=== PATIENT | female | born 1985 | race Caucasian/White ===

== ENCOUNTER 2017-05-27 08:51 | Observation (INO) | payer OTHER ==
[2017-05-26 14:37] VITALS: BMI 23.5
[~2017-05-27] VITALS: Ht 170.2 cm; Wt 65.0 kg
[2017-05-27] VITALS (21 sets, daily range): BP systolic 116–145; BP diastolic 71–90; PULSE 68–102; RESP 12–23; Ht 170.2 cm; Wt 65.0 kg
[~2017-05-27 08:51] MED LIST: CEFAZOLIN 1 GM/50 ML (PMX) 50 ML IVPB ONE; SOD CHLORIDE 0.9% 1,000 ML IV SCH
[2017-05-27 10:34] LABS: ABNORMAL IP MESSAGE 1; BASOPHIL # 0.1 10^3/ul (0.0-0.1); BASOPHILS % 1.2 % (0.0-2.0); EOSINOPHILS # 0.1 10^3/ul (0.0-0.5); EOSINOPHILS % 1.3 % (0.0-7.0); HEMATOCRIT 36.9 % (37.0-47.0); HEMOGLOBIN 12.9 g/dl (12.0-16.0); LYMPHOCYTES # 1.6 10^3/ul (0.8-2.9); LYMPHOCYTES % 26.3 % (15.0-51.0); MEAN CORPUSCULAR HEMOGLOBIN 31.5 pg (29.0-33.0); MEAN CORPUSCULAR VOLUME 90.2 fl (82.0-101.0); MEAN PLATELET VOLUME 13.1 fl (7.4-10.4); MONOCYTE # 0.4 10^3/ul (0.3-0.9); MONOCYTES % 5.9 % (0.0-11.0); NEUTROPHIL # 3.9 10^3/ul (1.6-7.5); NEUTROPHILS % 65.1 % (39.0-77.0); PLATELET COUNT 225 10^3/UL (140-415); POSITIVE DIFF @See below; RED BLOOD COUNT 4.09 10^6/ul (4.20-5.40); RED CELL DISTRIBUTION WIDTH 12.5 % (11.5-14.5)
[2017-05-27 10:56] LABS: INR 1.13; PROTIME 14.7 Sec (11.9-14.9); PT RATIO 1.1
[2017-05-27 10:57] LABS: PARTIAL THROMBOPLASTIN TIME 29.4 Sec (25.0-35.0)
[2017-05-27 11:01] LABS: ALBUMIN 4.1 g/dl (3.3-4.9); ALBUMIN/GLOBULIN RATIO 1.32; BILIRUBIN,INDIRECT 0.3 mg/dl (0-1.1); BILIRUBIN,TOTAL 0.3 mg/dl (0.2-1.3); TOTAL PROTEIN 7.2 g/dl (6.1-8.1)
[2017-05-27 11:17] LABS: POTASSIUM 3.7 mmol/L (3.5-5.1)
[2017-05-27 11:18] LABS: CALCIUM 9.3 mg/dl (8.4-10.2); CREATININE 0.81 mg/dl (0.44-1.00)
[2017-05-27] MEDS ORDERED: PROPOFOL 100 ML ONE (12:38)
[2017-05-27] MEDS ORDERED: ISOSULFAN BLUE 1% 5 ML INJ SC ONE (12:42)
[2017-05-27] MEDS ORDERED: hydrALAzine 20 MG INJ IV PRN (13:00)
[2017-05-27] MEDS ORDERED: FENTAnyl 50 MCG/ML VIAL IV PRN ×2 (13:00)
[2017-05-27] MEDS ORDERED: MIDAZOLAM 1 MG/ML 2 ML INJ IV PRN (13:00)
[2017-05-27] MEDS ORDERED: MEPERIDINE 25 MG INJ IV PRN (13:00)
[2017-05-27] MEDS ORDERED: KETOROLAC 30 MG INJ IV PRN (13:00)
[2017-05-27] MEDS ORDERED: LABETALOL HCL 20MG INJ IV PRN (13:00)
[2017-05-27] MEDS ORDERED: ONDANSETRON 4 MG INJ IV PRN ×2 (13:00→15:30)
[2017-05-27] MEDS ORDERED: EPHEDrine SULFATE 50 MG/5 ML SYG IV PRN (13:00)
[2017-05-27] MEDS ORDERED: METOCLOPRAMIDE 10 MG INJ IV PRN (13:00)
[2017-05-27] MEDS ORDERED: ALBUTEROL 0.083% (NEB) 2.5 MG/3 ML AMP HHN PRN (13:00)
[2017-05-27] MEDS ORDERED: OXYCODONE/ACETAMINOPHEN (5/325) TAB PO PRN ×2 (13:00)
[2017-05-27] MEDS ORDERED: HYDROmorphONE (0.2 MG/ML) 10ML SYG IV PRN ×3 (13:00)
[2017-05-27] MEDS ORDERED: DIPHENHYDRAMINE 50 MG INJ IV PRN (13:00)
[2017-05-27] MEDS ORDERED: KETOROLAC 30 MG INJ ONE (14:02)
[2017-05-27] MEDS ORDERED: DEXAMETHASONE 4 MG/ML 1 ML INJ ONE (14:11)
[2017-05-27] MEDS ORDERED: ONDANSETRON 4 MG INJ ONE (14:12)
[2017-05-27] MEDS: FENTAnyl 50 MCG/ML VIAL IV PRN ×3 (14:34→15:20)
--- NOTE | 2017-05-27 15:10 | SIPON ---
Date/Time of Note Date/Time of Note DATE: 05/27/17 TIME: 15:08 Operative Report Preoperative Diagnosis Invasive cancer right breast Postoperative Diagnosis Same Operation/Procedure Performed Right partial mastectomy and axillary dissection utilizing sentinel lymph node technique Surgeon see signature line dental assistant Dr manzano Second assist: ALYSA ERED MD Anesthesia: general Estimated blood loss: 10 - 50 ml's Transfusion Required none Specimen Right partial mastectomy specimen and sentinel lymph node Grafts/Implants none Complications none JUAN GRANT MD May 27, 2017 15:10
[2017-05-27] MEDS ORDERED: ACETAMINOPHEN 1000MG/100ML IV 100 ML IVPB PRN (15:30)
[2017-05-27] MEDS: D5W-0.45 NACL + KCL 20 MEQ 1,000 ML IV SCH (17:24)
[2017-05-27] MEDS: morphine 2 MG INJ IV PRN (22:23)
[2017-05-28] MEDS: D5W-0.45 NACL + KCL 20 MEQ 1,000 ML IV SCH ×4 (01:39→14:44)
[2017-05-28 02:40] VITALS: BP 116/66; RESP 16
[2017-05-28 07:50] VITALS: BP 117/78; RESP 16
--- NOTE | 2017-05-28 08:07 | OPR ---
DATE OF OPERATION: 05/27/2017 PREOPERATIVE DIAGNOSIS: Invasive cancer, right breast. POSTOPERATIVE DIAGNOSIS: Invasive cancer, right breast. OPERATION PERFORMED: Right partial mastectomy and axillary dissection utilizing sentinel lymph node technique. ANESTHESIA: General. ANESTHESIOLOGIST: ____ SURGEON: Baldev Garza MD TOWER HAND: Dr. Brian Bragg and Dr. Black ____. INDICATIONS FOR PROCEDURE: The patient is an unfortunate 31-year-old female who presented with a ve ry firm mass adjacent to the nipple areolar complex approximately at the 10 o'clock location. Radio graphic workup and subsequent biopsy confirmed a poorly differentiated cancer. The patient was coun seled as to need for right partial mastectomy and axillary dissection utilizing sentinel lymph node technique. She consented and was scheduled for surgery. DESCRIPTION OF PROCEDURE: The patient was brought to the operating theater, placed under general an esthesia. The right breast and axillary region was prepped and draped in the usual sterile fashion. Approximately 4 mL of 1% Lymphazurin blue dye were then injected peritumorally and the breast was gently massaged for approximately 12 minutes. At this point, approximately 3 cm incision was made i n the right axillary hairline. Subcutaneous tissue was dissected with cautery down through the clav ipectoral fascia. A dye-stained lymphatic was identified and was traced through a somewhat enlarged dye-stained lymph node. This lymph node was resected using the LigaSure device. It was then sent for sent for intraoperative analysis and frozen section was performed by attending pathologist, Dr. Sonya Noel, and the frozen section was negative for metastatic disease. Therefore, no further l ymph nodes were taken. The wound was irrigated. Minimal bleeding was controlled with cautery, and the skin was reapproximated with a 4-0 Vicryl suture in subcuticular fashion. Attention was then directed to performing the partial mastectomy. The palpable mass at 10 o'clock w as located. A periareolar incision was made from the 12 o'clock location through the 9 o'clock loca tion to the 6 o'clock location. Subcutaneous tissue was dissected with cautery. The skin edges wer e then elevated with skin hooks and wide circumferential dissection of the tissue associated with th e mass took place, taking great care to ensure adequate margin. The specimen was elevated, transect ed, oriented, and sent for gross analysis performed by attending pathologist, Dr. Sonya Noel. M argins appeared to be grossly clear. Therefore, the specimen was sent for permanent pathologic anal ysis. The wound was irrigated. Residual bleeding was controlled with cautery. The skin was then r eapproximated with a 4-0 Vicryl suture in subcuticular fashion and Dermabond was applied to both inc isions. The patient tolerated the procedure well. ESTIMATED BLOOD LOSS: 30 mL. COMPLICATIONS: None. The patient was transported in stable condition to the recovery room where circumferential compressi on dressing was applied. Dictated By: BALDEV HDZ/SABINE Conf#: [id number] DID#: [id number]
[2017-05-28] MEDS: morphine 2 MG INJ IV PRN ×2 (09:35→12:52)
--- NOTE | 2017-05-28 12:26 | HP ---
DATE OF ADMISSION: 05/27/2017 CHIEF COMPLAINT/HISTORY OF PRESENT ILLNESS: The patient is a 31-year-old female with a history of i nvasive cancer, right breast diagnosed after she underwent a biopsy of the right breast mass diagnos ed on mammogram. Patient was diagnosed with invasive cancer, right breast. The patient was brought into the hospital today and underwent right partial mastectomy and axillary dissection. The patien t had significant postoperative pain and is therefore being admitted for further evaluation and maria dolores gement. The patient denied any history of headache, dizziness, syncope. No history of fever or chi lls. No history of vomiting, no history of abdominal pain. No history of dysuria. REVIEW OF SYSTEMS: Other than postoperative pain, review of systems unremarkable. PAST SURGICAL HISTORY: None. ALLERGIES: NONE. SOCIAL HISTORY: The patient smokes intermittently. No history of alcohol abuse. FAMILY HISTORY: Positive for tongue cancer and lung cancer and apparently her great grandmother had breast cancer as per the patient's family. PHYSICAL EXAMINATION: GENERAL: The patient is conscious, awake, alert. VITAL SIGNS: Temperature 98.3, pulse 72, respirations 18, blood pressure 138/80, O2 saturation 99% on room air. HEENT: No eye discharge or redness. Extraocular movement intact. Oropharynx clear. NECK: No mass. CHEST: Fairly clear. CARDIOVASCULAR: S1, S2 normal. No murmur. ABDOMEN: Soft, nondistended, nontender. No palpable mass. EXTREMITIES: No leg edema. NEUROLOGIC: The patient is awake, alert, fairly oriented with no gross focal deficit. LABORATORY DATA: WBC 6, hemoglobin 12.9, platelet 225. Sodium 146, potassium 3.7, BUN 14, creatini ne 0.8, glucose 94. Liver enzymes normal. IMPRESSION: 1. Invasive cancer, right breast, status post right partial mastectomy and axillary dissection. PLAN: Patient admitted on medical floor. Patient will be started on clear liquid diet, which will be advanced as tolerated. Patient will be given IV fluid and has already received perioperative Anc ef. The patient will also be started on IV Tylenol, p.o. Percocet and IV morphine for pain control, depending upon severity, will use SCDs for DVT prophylaxis. Further recommendation depends upon buddy bloom's hospital course. Dictated By: KEITH CHRISTENSEN/SABINE Conf#: [id number] [facility]#: [id number]
[2017-05-28 14:48] VITALS: BP 125/72; RESP 18
--- NOTE | 2017-05-28 16:54 | PDOCDIS ---
Discharge Instructions CONDITION Patient Condition: Stable HOME CARE INSTRUCTIONS: Special Diet: regular ACTIVITY: Activity Restrictions: Slowly Increase Activity Rest between Activity Avoid heavy lifting No Sexual Activity Do not Drive Do not operate Machinery Do not operate Power Tool Avoid Heavy Housework Bathing Restrictions: Sponge Bath FOLLOW UP/APPOINTMENTS Follow-up Plan Follow up with Primary MD X 1 WEEK Call 911 or go to the nearest hospital if symptoms get worse Patient verbalized understanding DC instrctions. Zan Knutson/staff ELIDA PIERSON May 28, 2017 16:54
[2017-05-28] MEDS ORDERED: DOCU-144 PO (16:58)
[2017-05-28] MEDS ORDERED: HYDR-906 PO (16:58)
--- NOTE | 2017-05-28 17:00 | DS ---
Date/Time of Note Date/Time of Note DATE: 05/28/17 TIME: 17:00 Discharge Summary Admission/Discharge Info Admit Date/Time May 27, 2017 at 16:40 Discharge Date/Time Patient Condition: Stable Home Meds Active Scripts Docusate Sodium* (Colace*) 100 Mg Capsule, 100 MG PO DAILY, #30 CAP Prov:ELIDA PIERSON 05/28/17 Hydrocodone/Acetaminophen ([place] 5-325 Tablet) 1 Each Tablet, 1 EACH PO Q6, #14 TAB Prov:ELIDA PIERSON 05/28/17 Primary Care Provider Not On Staff Doctor Time spent on discharge: < 30 minutes ELIDA PIERSON May 28, 2017 17:00
--- NOTE | 2017-05-29 06:23 | PN ---
DATE: 05/28/2017 SUBJECTIVE: Postop day #1 status post right breast partial mastectomy with axillary dissection sampling. No complaint. OBJECTIVE: VITAL SIGNS: Temperature maximum 98.4, heart rate 88, respirations 18, blood pressure 125/74, saturation 98% on room air. HEART: Regular. LUNGS: Clear. Dressing is intact. The patient does not have any specific complaint. LABS: There are no new lab results done today. ASSESSMENT: A 31-year-old female status post partial mastectomy on the right side with axillary sampling for invasive cancer. PLAN: The patient is going to be discharged today, has been stable. Pain medication will be given. The patient to call Dr. Garza' office and make an appointment for followup. Dictated By: SHANNON MANN MD PS/NTS Conf#: [id number] DID#: [id number] MTDD
[2017-05-29] MEDS ORDERED: INFLUENZA VIRUS VACCINE 0.5 ML (DISPENSING) IM* ONE (09:00)
== END 2017-05-28 18:40 | disposition home or self-care (01) ==
LOC: SDS 08:51 → MS2 16:40
PROVIDERS: ADMIT Surgery Surgical Oncology; ATTEND Surgery Surgical Oncology
DX: C50.911 Malignant neoplasm of unspecified site of right female breast (principal); Z17.0 Estrogen receptor positive status [ER+]; C77.3 Secondary and unspecified malignant neoplasm of axilla and upper limb lymph nodes
CPT/HCPCS: 19301; 38525; 38900; 80053; 84703; 85025; 85610; 85730; 88307; J1100; J1200; J1885; J2270; J2405; J3010; J3480; Z7500; Z7512; Z7610; G0378; Q9968

== ENCOUNTER 2017-10-14 10:37 | Inpatient (IN) | END 2017-10-17 16:50 | disposition home health service (06) | DRG 940 ==

== ENCOUNTER 2017-11-30 07:40 | Day surgery (SDC) | END 2017-11-30 14:12 | disposition home or self-care (01) ==

== ENCOUNTER 2018-02-03 18:49 | Emergency (ER) | END 2018-02-03 21:27 | disposition home or self-care (01) ==

== ENCOUNTER 2018-03-06 23:57 | Emergency (ER) | END 2018-03-07 04:27 | disposition home or self-care (01) ==

== ENCOUNTER 2018-06-02 11:02 | Emergency (ER) | END 2018-06-02 13:37 | disposition left against medical advice (07) ==

== ENCOUNTER 2018-06-25 13:29 | Emergency (ER) | payer OTHER ==
[~2018-06-25] VITALS: Ht 167.6 cm; Wt 68.9 kg
[~2018-06-25 13:29] MED LIST changes: -CEFAZOLIN 1 GM/50 ML (PMX) 50 ML IVPB ONE; +CIPR500T4 PO; +HYDR-3980 PO; +HYDR-4011 PO; +ONDA4TAB8 PO; -SOD CHLORIDE 0.9% 1,000 ML IV SCH
[2018-06-25 13:36] VITALS: Ht 167.6 cm; Wt 68.9 kg
[2018-06-25] MEDS ORDERED: FAMOTIDINE 20 MG TAB PO STA (15:28)
[2018-06-25] MEDS ORDERED: METOCLOPRAMIDE 10 MG INJ IV STA (15:28)
[2018-06-25] MEDS ORDERED: SOD CHLORIDE 0.9% 1,000 ML IV STA (15:28)
[2018-06-25] MEDS ORDERED: LIDOCAINE/MYLANTA 40 ML BTL PO STA (15:28)
[2018-06-25] MEDS ORDERED: METO10TA92 PO (16:52)
[2018-06-25] MEDS ORDERED: FAMO-96 PO (16:52)
--- NOTE | 2018-06-25 16:53 | ERD ---
ER Documentation Chief Complaint Chief Complaint R arm pain - hx of breast mastectomy; throat pain x 4 days HPI 32-year-old female with a history of right breast cancer status post mastectomy and chemotherapy presenting to the ER with mom complaining of sore throat and epigastric pain that has been going on for a few days. Nothing seems to make the symptoms better. Symptoms are worse with eating or drinking. She also complains of a right axillary lump that she has had and she knows is metastatic cancer. She is due to have surgery for that and due to have radiation later this month. For the past 1 month she was in rehab for heroin abuse, so she has not followed up with any of her physicians. She denies any fevers or chills. She has not had her period for several months. She complains of occasional vomiting as well that is nonbloody and nonbilious. She is having normal bowel movements. ROS All systems reviewed and are negative except as per history of present illness. Medications Home Meds Active Scripts Famotidine* (Pepcid*) 20 Mg Tablet, 20 MG PO BID for 30 Days, TAB Prov:MUSHTAQ GONZALEZ MD 06/25/18 Metoclopramide* (Reglan*) 10 Mg Tablet, 10 MG PO Q6 PRN for NAUSEA AND/OR VOMITING, #10 TAB Prov:MUSHTAQ GONZALEZ MD 06/25/18 Discontinued Scripts Hydrocodone/Acetaminophen ([place] 10-325 Tablet) 1 Each Tablet, 1 TAB PO Q6H PRN for PAIN, #20 TAB Prov:EDWIN BOWMAN 03/07/18 Ciprofloxacin Hcl* (Ciprofloxacin Hcl*) 500 Mg Tablet, 500 MG PO BID for 7 Days, TAB Prov:EDWIN BOWMAN 03/07/18 Ondansetron Hcl* (Zofran*) 4 Mg Tablet, 4 MG PO Q8H PRN for NAUSEA AND/OR VOMITING, #30 TAB Prov:NILSA PARKINSON MD 02/03/18 Hydrocodone/Acetaminophen ([place] 5-325 Tablet) 1 Each Tablet, 1 TAB PO Q6H PRN for PAIN, #10 TAB Prov:NILSA PARKINSON MD 02/03/18 Allergies Allergies: Coded Allergies: No Known Allergy (Unverified , 06/25/18) PMhx/Soc History of Surgery: Yes (rt mastectomy x2) Anesthesia Reaction: No Hx 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 Disorder: No Hx Respiratory Disorders: No Hx Cardiac Disorders: No Hx Psychiatric Problems: No Hx Miscellaneous Medical Probl: No Hx Alcohol Use: Yes (sometimes ) Hx Substance Use: Yes (marijuana oil) Hx Tobacco Use: Yes Smoking Status: Former smoker FmHx Mother had cancer Family History: No diabetes Physical Exam Vitals Vital Signs Date Temp Pulse Resp B/P (MAP) Pulse Ox O2 O2 Flow FiO2 Time Delivery Rate 06/25/18 89 20 130/78 99 Room Air 17:08 (95) 06/25/18 98.9 95 20 131/103 98 13:36 (112) Physical Exam Const: No acute distress Head: Atraumatic Eyes: Normal Conjunctiva, PERRLA, EOMI ENT: Normal External Ears, Nose and Mouth. Posterior oropharynx normal without erythema. No intraoral lesions noted. Neck: Full range of motion. No meningismus. No cervical lymphadenopathy. Resp: Clear to auscultation bilaterally Cardio: Regular rate and rhythm, no murmurs Abd: Soft, mild epigastric tenderness with no rebound or guarding. No masses. non distended. Normal bowel sounds Skin: No petechiae or rashes Back: No midline or flank tenderness Ext: No cyanosis, or edema. Right axillary palpable mass with palpable lymph nodes as well. No swelling of the arm. 2+ distal pulses. Neur: Awake and alert, oriented x3, cranial nerves intact, strength and sensations intact in all 4 extremities Psych: Flat affect, easily agitated but cooperative Result Diagram: 06/25/18 1525 06/25/18 1525 Results 24 hrs Laboratory Tests Test 06/25/18 15:25 White Blood Count 7.0 10^3/ul Red Blood Count 3.96 10^6/ul Hemoglobin 11.9 g/dl Hematocrit 35.0 % Mean Corpuscular Volume 88.4 fl Mean Corpuscular Hemoglobin 30.1 pg Mean Corpuscular Hemoglobin Concent 34.0 g/dl Red Cell Distribution Width 12.1 % Platelet Count 196 10^3/UL Mean Platelet Volume 13.1 fl Immature Granulocytes % 0.300 % Neutrophils % 65.5 % Lymphocytes % 27.0 % Monocytes % 5.2 % Eosinophils % 1.0 % Basophils % 1.0 % Nucleated Red Blood Cells % 0.0 /100WBC Immature Granulocytes # 0.020 10^3/ul Neutrophils # 4.6 10^3/ul Lymphocytes # 1.9 10^3/ul Monocytes # 0.4 10^3/ul Eosinophils # 0.1 10^3/ul Basophils # 0.1 10^3/ul Nucleated Red Blood Cells # 0.0 10^3/ul Sodium Level 142 mmol/L Potassium Level 4.1 mmol/L Chloride Level 102 mmol/L Carbon Dioxide Level 27 mmol/L Anion Gap 13 Blood Urea Nitrogen 13 mg/dl Creatinine 0.61 mg/dl Est Glomerular Filtrat Rate mL/min > 60 mL/min Glucose Level 104 mg/dl Calcium Level 9.9 mg/dl Total Bilirubin 0.0 mg/dl Direct Bilirubin 0.00 mg/dl Indirect Bilirubin 0.0 mg/dl Aspartate Amino Transf (AST/SGOT) 16 IU/L Alanine Aminotransferase (ALT/SGPT) 19 IU/L Alkaline Phosphatase 73 IU/L Total Protein 7.7 g/dl Albumin 4.4 g/dl Globulin 3.30 g/dl Albumin/Globulin Ratio 1.33 Lipase 284 U/L Serum HCG, Qualitative NEGATIVE Current Medications Medications Dose Sig/Eligio Start Time Status Last (Trade) Ordered Route PRN Stop Time Admin Dose Reason Admin Sodium 1,000 ml @ Q1H STAT 06/25/18 DC 06/25/18 Chloride 1,000 mls/hr IV 15:28 15:41 06/25/18 16:27 10 mg ONCE STAT 06/25/18 DC 06/25/18 Metoclopramid IV 15:28 15:41 e HCl 06/25/18 15:30 (Reglan) Famotidine 20 mg ONCE STAT 06/25/18 DC 06/25/18 (Pepcid) PO 15:28 15:41 06/25/18 15:30 40 ml ONCE STAT 06/25/18 DC 06/25/18 Miscellaneous PO 15:28 15:42 Medication 06/25/18 15:30 (Gi Cocktail (2)) Heparin 500 unit ONCE ONCE 06/25/18 DC Sodium CATHETER 17:00 (Porcine) 06/25/18 17:01 (Heparin Flush (100 Units/ml)) Heparin 10,000 unit STK-MED 06/25/18 DC Sodium ONCE .ROUTE 17:05 (Porcine) 06/25/18 17:06 (Heparin (1000 Units/ml)) Procedures/MDM EMERGENT LABS AND DIAGNOSTIC STUDIES: Lab Results above were reviewed and interpreted by me. CBC: no evidence of severe anemia or evidence of infection CMP: No evidence of electrolyte abnormality, renal failure, hypoglycemia, liver failure, or biliary obstruction negative Radiology Results as interpreted by Radiology below were reviewed by Luz Maria Gonzalez MD: CT head did not show any acute abnormalities Chest x-ray did not show any acute abnormalities Initial Nursing notes reviewed. Previous Medical Records requested via the Electronic Health Record. EMERGENCY DEPARTMENT COURSE / MEDICAL DECISION MAKING: Patient is presenting with complaints of throat pain and epigastric pain with occasional vomiting. I suspect this is likely secondary to acid reflux. Vitals are stable. I did a CT of her head although her neurologic exam was normal as her behavior was not normal for her per her mom. I wanted to make sure that there was no mass-effect in the brain from metastatic disease. CT was normal. I explained to the patient that this does not rule out metastases to the brain but that there is no obvious abnormality. I encouraged her to follow-up with her doctors outpatient and get her cancer treated. She feels much better after GI cocktail and Pepcid. Patient stable for discharge with continued outpatient follow-up. Prescription for Pepcid and Reglan given. Patient's blood pressure was elevated (>120/80) but appears stable without evidence of hypertensive emergency or urgency. The patient was counseled about the risks of hypertension and urged to pursue outpatient monitoring and therapy within a week with their primary care physician. Departure Diagnosis: Primary Impression: Breast carcinoma Breast location: unspecified site of breast Estrogen receptor status: unspecified Patient sex: female Laterality: right Qualified Codes: C50.911 - Malignant neoplasm of unspecified site of right female breast Additional Impressions: Chronic sore throat Nausea and vomiting Vomiting type: unspecified Vomiting Intractability: non-intractable Qualified Codes: R11.2 - Nausea with vomiting, unspecified Condition: Stable Patient Instructions: Nausea and Vomiting-Adult Additional Instructions: Need to follow-up with an oncologist and make sure you may continue her radiation appointment this month. Return to the ER for any worsening symptoms. MUSHTAQ GONZALEZ MD Jun 25, 2018 16:53
[2018-06-25] MEDS ORDERED: HEPARIN (100 UNITS/ML) 5 ML SYG CATHETER ONE (17:00)
[2018-06-25] MEDS ORDERED: HEPARIN 1000 UNITS/ML 10 ML INJ ONE (17:05)
[2018-06-25 17:08] VITALS: BP 130/78; PULSE 89; RESP 20
[2018-07-06] MEDS ORDERED: IBUP-1542 PO (16:19)
[2018-07-28] MEDS ORDERED: CEPH-443 PO (12:08)
[2018-07-28] MEDS ORDERED: SULF1TAB31 PO (12:08)
[2018-07-28] MEDS ORDERED: ONDA4TAB14 PO (12:08)
== END 2018-06-25 17:09 | disposition home or self-care (01) ==
LOC: E/R 13:29
DX: C50.911 Malignant neoplasm of unspecified site of right female breast (principal); J31.2 Chronic pharyngitis; R11.2 Nausea with vomiting, unspecified; R41.82 Altered mental status, unspecified; Z87.891 Personal history of nicotine dependence
CPT/HCPCS: 36415; 70450; 71045; 80053; 83690; 84703; 85025; 96374; J1644; J2765; J7030; Z7502; Z7610; J1642

== ENCOUNTER 2018-07-07 06:15 | Day surgery (SDC) | payer OTHER ==
[2018-07-06 16:21] VITALS: BMI 24.3
[~2018-07-07] VITALS: Ht 168.9 cm; Wt 68.7 kg
[~2018-07-07 06:15] MED LIST changes: +CEFAZOLIN 2 GM/50 ML (PMX) 50 ML IVPB ONE; -CIPR500T4 PO; -HYDR-3980 PO; -HYDR-4011 PO; +IBUP-1542 PO; +METO10TA92 PO; -ONDA4TAB8 PO; +SOD CHLORIDE 0.9% 1,000 ML IV SCH
[2018-07-07] MEDS ORDERED: SOD CHLORIDE 0.9% 1,000 ML IV SCH (07:00)
[2018-07-07] MEDS ORDERED: CEFAZOLIN 2 GM/50 ML (PMX) 50 ML IVPB SCH (07:00)
[2018-07-07] MEDS ORDERED: CHOL100062 PO (07:20)
[2018-07-07] MEDS ORDERED: AZIT250T13 PO (07:21)
[2018-07-07 07:44] VITALS: Ht 168.9 cm; Wt 68.7 kg
[2018-07-07 07:48] VITALS: BP 124/86; PULSE 90; RESP 16
[2018-07-07] MEDS ORDERED: BUPIVACAINE 0.5%/EPI (SDV) 30 ML INJ ONE (07:49)
[2018-07-28] MEDS ORDERED: CEPH-443 PO (12:08)
[2018-07-28] MEDS ORDERED: SULF1TAB31 PO (12:08)
[2018-07-28] MEDS ORDERED: ONDA4TAB14 PO (12:08)
== END 2018-07-07 08:20 | disposition home or self-care (01) ==
LOC: SDS 06:15
PROVIDERS: ATTEND Surgery Surgical Oncology
DX: L72.3 Sebaceous cyst (principal); Z85.3 Personal history of malignant neoplasm of breast; Z53.09 Procedure and treatment not carried out because of other contraindication
CPT/HCPCS: 85610; 85730

== ENCOUNTER 2018-07-14 09:42 | Day surgery (SDC) | payer OTHER ==
[2018-07-13 18:18] VITALS: BMI 25.6
[2018-07-14] VITALS (20 sets, daily range): BP systolic 119–142; BP diastolic 72–91; PULSE 67–97; RESP 16–25; Ht 168.9 cm; Wt 67.9 kg
[~2018-07-14] VITALS: Ht 168.9 cm; Wt 67.9 kg
[~2018-07-14 09:42] MED LIST changes: +AZIT250T13 PO; -CEFAZOLIN 2 GM/50 ML (PMX) 50 ML IVPB ONE; +CEFAZOLIN 2 GM/50 ML (PMX) 50 ML IVPB SCH; +CHOL100062 PO; +SEVOFLURANE 15 MIN ONE
--- NOTE | 2018-07-14 11:37 | NUR ---
No medical changes since last interview.
--- NOTE | 2018-07-14 12:29 | PREAC ---
Date/Time of Note Date/Time of Note DATE: 07/14/18 TIME: 12:26 Anesthesia Eval and Record Evaluation Time Pre-Procedure Interview DATE: 07/14/18 TIME: 12:26 Age 32 Sex female NPO: 8 hrs Preoperative diagnosis right axillary mass Planned procedure resection of right axillary mass Past Medical History Past Medical History: Includes Heme: Other (right breast cancer s/p surgery ) Psych: Anxiety Surgery & Anesthesia Issues No known issue Meds Anticoagulation: No Beta Servando within 24 hr: No Reason Beta Servando not given: Pt. not on B-Servando Discontinued Reported Medications Azithromycin* (Azithromycin*) 250 Mg Tablet, 250 MG PO DAILY, #4 TAB 07/07/18 Cholecalciferol* (Vitamin D3*) 1,000 Unit Tablet, 2000 UNIT PO DAILY, TAB 07/07/18 Ibuprofen* (Ibuprofen*) 600 Mg Tablet, 600 MG PO Q6H, TAB 07/06/18 Discontinued Scripts Metoclopramide* (Reglan*) 10 Mg Tablet, 10 MG PO Q6 PRN for NAUSEA AND/OR VOMITING, #10 TAB Prov:MUSHTAQ CONTRERAS MD 06/25/18 Current Medications Cefazolin Sodium/ Dextrose 50 ml @ 100 mls/hr ONCE IVPB ; Start 07/14/18 at 06:00; Stop 07/14/18 at 14:00 Sodium Chloride 1,000 ml @ 75 mls/hr [id number] IV ; Start 07/14/18 at 06:00; Stop 07/14/18 at 23:00 Meds reviewed: Yes Allergies Coded Allergies: No Known Allergy (Unverified , 07/14/18) Allergies Reviewed: Yes Labs/Studies Labs Reviewed: Reviewed by anesthesiologist test: Negative Pre-procedure Exam Last vitals Vital Signs Date Temp Pulse Resp B/P (MAP) Pulse Ox O2 O2 Flow FiO2 Time Delivery Rate 07/14/18 98.5 67 20 133/80 100 Room Air 11:28 (97) Airway: Adequate mouth opening, Adequate thyromental dist Mallampati: Mallampati II Teeth: Normal Lung: Normal Heart: Normal ASA Physical Status ASA physical status: 1 Emergency: None Planned Anesthetic General/MAC: LMA Planned Pain Management Local by surgeon Pre-operative Attestations Prior to commencing anesthesia and surgery, the patient was re-evaluated, there was verification of: *The patient's identity *The results of appropriate recent lab work and preoperative vital signs *The above evaluation not changing prior to induction *Anesthetic plan, risk benefits, alternative and complications discussed with patient/family; questions answered; patient/family understands, accepts and wishes to proceed. ALHAJI PARRY Jul 14, 2018 12:29
[2018-07-14] MEDS ORDERED: PROPOFOL 20 ML ONE (12:47)
[2018-07-14] MEDS ORDERED: CEFAZOLIN 1 GM INJ ONE (12:47)
[2018-07-14] MEDS ORDERED: MIDAZOLAM 1 MG/ML 2 ML INJ ONE (12:47)
[2018-07-14] MEDS ORDERED: LIDOCAINE 2% (SDV) 5 ML INJ ONE (12:47)
[2018-07-14] MEDS ORDERED: FENTAnyl 50 MCG/ML VIAL ONE ×2 (12:47→14:08)
[2018-07-14] MEDS ORDERED: ONDANSETRON 4 MG INJ ONE (12:48)
[2018-07-14] MEDS ORDERED: FAMOTIDINE 20 MG INJ ONE (12:48)
[2018-07-14] MEDS ORDERED: DEXAMETHASONE 4 MG/ML 5 ML INJ ONE (12:48)
[2018-07-14] MEDS ORDERED: BUPIVACAINE 0.5%/EPI (SDV) 30 ML INJ ONE (12:51)
[2018-07-14] MEDS ORDERED: MEPERIDINE 25 MG INJ IV PRN (14:30)
[2018-07-14] MEDS ORDERED: ONDANSETRON 4 MG INJ IV PRN ×2 (14:30→15:00)
[2018-07-14] MEDS ORDERED: HYDROmorphONE 1 MG/5 ML IV SYRINGE IV PRN ×2 (14:30)
[2018-07-14] MEDS ORDERED: METOCLOPRAMIDE 10 MG INJ IV PRN (14:30)
[2018-07-14] MEDS ORDERED: OXYCODONE/ACETAMINOPHEN (5/325) TAB PO PRN ×2 (14:30)
--- NOTE | 2018-07-14 14:40 | SIPON ---
Date/Time of Note Date/Time of Note DATE: 07/14/18 TIME: 14:39 Operative Report Preoperative Diagnosis Recurrent breast cancer right axilla Postoperative Diagnosis Same Operation/Procedure Performed Resection of recurrent cancer right axilla with completion axillary dissection Surgeon see signature line research program assistant Dr Bragg Second assist: ALYSA REED MD Anesthesia: general Estimated blood loss: 10 - 50 ml's Transfusion Required none Specimen Right axillary mass and additional axillary lymph nodes Grafts/Implants none Complications none JUAN GRANT MD Jul 14, 2018 14:40
[2018-07-14] MEDS ORDERED: ACETAMINOPHEN 1000MG/100ML IV 100 ML IVPB PRN (15:00)
[2018-07-14] MEDS ORDERED: morphine 2 MG INJ IV PRN (15:00)
--- NOTE | 2018-07-14 15:05 | PAC ---
Date/Time of Note Date/Time of Note DATE: 07/14/18 TIME: 15:04 Post-Anesthesia Notes Post-Anesthesia Note Last documented vital signs HR 87 BP 132/82 SPo2 100% Temp 97.5 RR 18 Vital Signs Date Temp Pulse Resp B/P (MAP) Pulse Ox O2 O2 Flow FiO2 Time Delivery Rate 07/14/18 97.9 14:58 07/14/18 67 20 133/80 100 Room Air 11:28 (97) Activity: WNL Respiratory function: WNL Cardiovascular function: WNL Mental status: Baseline Pain reasonably controlled: Yes Hydration appropriate: Yes Nausea/Vomiting absent: Yes ALHAJI PARRY Jul 14, 2018 15:05
--- NOTE | 2018-07-14 15:09 | OPR ---
DATE OF OPERATION: 07/14/2018 PREOPERATIVE DIAGNOSIS: Recurrent breast cancer, right axilla. POSTOPERATIVE DIAGNOSIS: Recurrent breast cancer, right axilla. OPERATION PERFORMED: Resection of right axillary mass and completion axillary dissection. ANESTHESIOLOGIST: Nurse car hiker. SURGEON: Baldev Garza MD MANAGER DISTRIBUTION CENTER: Brian Bragg MD and Hoa Perez MD INDICATIONS FOR PROCEDURE: The patient is a 32-year-old female who is known to dc. She was treated several months ago for invasive cancer of her right breast. She had known axillary metastases. Duri ng the course of chemotherapy, she developed evidence of right axillary mass. Biopsy was consistent with recurrent right breast cancer. She was counseled as to the benefit of resection of the mass and completion axillary dissection. She consented and was scheduled for surgery. DESCRIPTION OF PROCEDURE: The patient was brought to the operating theater, placed under general ane sthesia. The right axilla and breast were prepped and draped in usual sterile fashion. A curvilinea r incision was then made directly over the palpable mass. Subcutaneous tissue was dissected with cau marie. Dissection continued posterolaterally until latissimus dorsi muscle was identified throughout its course. More anteriorly, the dissection proceeded down to the pectoralis major muscle. The pect oralis major muscle was retracted and the pectoralis minor muscle was identified. Clavipectoral fasc ia was incised. The axilla was entered. There were multiple visually obvious and palpable metastati c lymph nodes. These nodes were meticulously resected with combination of LigaSure device and suture ligation. Specimen was then transected and sent for permanent pathologic analysis. The axilla was inspected. There was no evidence of residual disease. The wound was irrigated. Minimal bleeding wa s controlled with cautery. A #10 [place] Kulwant-Chowdhury drain was then brought through the right mid a xillary line, cut to size and laid within the axilla. It was secured in place with 2-0 nylon suture in a standard fashion and the skin was then reapproximated with a 4-0 Vicryl suture in subcuticular f ashion and Dermabond was applied. The patient tolerated procedure well. The estimated blood loss wa s 20 mL. There were no complications and the patient was transported in stable condition to the [facility] very room. Dictated By: BALDEV GARZA MD TL/NTS Conf#: [id number] [facility]#: [id number] CC: KEITH KING MD;*[facility]*
[2018-07-14] MEDS: HYDROmorphONE 1 MG/5 ML IV SYRINGE IV PRN ×2 (15:11→16:04)
[2018-07-14] MEDS ORDERED: DIPHENHYDRAMINE 50 MG INJ IV ONE (15:30)
[2018-07-14] MEDS ORDERED: MIDAZOLAM 1 MG/ML 2 ML INJ IV ONE (15:30)
--- NOTE | 2018-07-14 16:30 | NUR ---
PACU TRANSFERRED TO [facility] IN STABLE COND. SP RT AXILLARY MASS EXCISION. BIAS WRAP APPLIED IN PACU, THEA DRAIN PATENT WITH APPROX 10ML SEROSANGUINOUS DRAINAGE. PAIN 0/10 PER PT. REPORT GIVEN TO ARELI DEAN. MS Addendum: 07/14/18 at 1735 by DAVID POWER RN Amended: Links added.
[2018-07-14] MEDS: D5W-0.45 NACL + KCL 20 MEQ 1,000 ML IV SCH (17:25)
[2018-07-14] MEDS: OXYCODONE/ACETAMINOPHEN (5/325) TAB PO PRN ×2 (18:21→22:55)
--- NOTE | 2018-07-14 18:35 | HP ---
DATE OF ADMISSION: 07/14/2018 CHIEF COMPLAINT AND HISTORY OF PRESENT ILLNESS: The patient is a 32-year-old female well k nown to me from previous several admissions. The patient has invasive cancer of the right breast for which she underwent right modified radical mastectomy back in 10/2017. The patient was being follow ed by Dr. 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 The patient underwent resection of right axillary mass and completion axillary dissection. The patie nt has significant postoperative pain; therefore the patient is being admitted for further evaluation and management. The patient denied any history of nausea, vomiting. No history of headache, dizzin ess, syncope. No history of abdominal pain. No history of focal weakness. No history of leg edema. No history of shortness of breath. No history of recent fever or chills. No history of weakness i n any extremities. REVIEW OF SYSTEMS: Rest of the systems unremarkable. PAST MEDICAL HISTORY: As stated above. ALLERGIES: NONE. SOCIAL HISTORY: The patient smokes intermittently. No history of alcohol abuse. FAMILY HISTORY: Positive for tongue cancer and lung cancer and apparently, her great grandmother had breast cancer also. Details are not available. PHYSICAL EXAMINATION: GENERAL: Revealed the patient to be awake, alert, fairly oriented. VITAL SIGNS: Temperature 97.5, pulse 89, respiration 18, blood pressure 134/87, O2 saturation 100% o n 2 liters nasal cannula. HEENT: No eye discharge or redness. Conjunctivae and lids are normal. Oropharynx is clear. NECK: No mass. CHEST: Fairly clear. CARDIOVASCULAR: S1, S2 normal. No murmur. ABDOMEN: Soft, nondistended, nontender. EXTREMITIES: No leg edema. NEUROLOGIC: The patient is awake, alert, fairly oriented with no gross focal deficit. LABORATORY DATA: Recent labs revealed WBC 7, hemoglobin 11.9, platelet 196. Sodium 142, potassium 4 .1, BUN 13, creatinine 0.6, glucose 104. Liver enzymes normal. IMPRESSION: Right breast cancer status post right modified radical mastectomy in 10/2017 and now cheyanne medrano is admitted with a recurrent breast cancer, right axilla, status post resection of the right axi llary mass and completion axillary dissection. PLAN: The patient will be admitted to the medical floor. The patient will be started on clear liqui d diet, which will be advanced as tolerated. For pain medication, the patient will be given Tylenol, Percocet and IV morphine. We will use SCD for DVT prophylaxis. Continue postop care as per Dr. Aminata beckwith. Dictated By: KEITH CHRISTENSEN/SABINE Conf#: [id number] DID#: [id number] CC: JUAN GARZA MD;*EndCC*
--- NOTE | 2018-07-14 18:46 | NUR ---
RN NOTES: Received patient from PACU at 1635, report given by Trisha DEAN; patient is alert and oriented x4, able to make needs known; PRN Percocet given as needed for pain; no SOB/respiratory distress noted, 98% on 2L/min of O2 via NC, IS encouraged; dressing to right chest incision is clean, dry and intact, connected to THEA drain patent and draining serosanguineous output; ambulates with assist; kept clean, dry and comfortable; teaching unit orientation done; call light placed within reached; VSS; all needs attended.
[2018-07-14] MEDS: ALPRAZOLAM 0.5 MG TAB PO PRN (19:25)
[2018-07-14] MEDS ORDERED: ZOLPIDEM 5 MG TAB PO PRN (21:15)
[2018-07-14] MEDS: LEVALBUTEROL (NEB) 0.63 MG/3 ML AMP HHN PRN (21:53)
[2018-07-15] VITALS: BP 107/68; PULSE 84; RESP 18
[2018-07-15] MEDS: D5W-0.45 NACL + KCL 20 MEQ 1,000 ML IV SCH ×3 (01:53→13:44)
[2018-07-15] MEDS: OXYCODONE/ACETAMINOPHEN (5/325) TAB PO PRN ×3 (03:25→15:31)
[2018-07-15 04:00] VITALS: BP 111/66; PULSE 80; RESP 17
--- NOTE | 2018-07-15 06:37 | NUR ---
RN EOSS NOTES: Patient able to sleep a few hours after being medicated with Ambien last night, reported fair to good pain relief with administered Percocet PRN med this shift. Afebrile overnight with V/S stable. Surgical dressing remains C/D/I-BIAS WRAP in use. RN noted 20cc or serosanguinous output to THEA drain. Has been anxious last night, relieved by Xanax PO given by previous shift's RN. Moved to a private room from previously shared room from 410-A. Appreciative of all nursing interventions implemented and assistance given.
[2018-07-15] MEDS: ALPRAZOLAM 0.5 MG TAB PO PRN (07:37)
[2018-07-15 08:40] VITALS: BP 123/79; PULSE 92; RESP 18
--- NOTE | 2018-07-15 12:21 | PN ---
Date/Time of Note Date/Time of Note DATE: 07/15/18 TIME: 12:17 Assessment/Plan VTE Prophylaxis Risk score (from Nsg)>0 risk: 4 SCD applied (from Nsg): Yes Lines/Catheters IV Catheter Type (from Nrsg): Peripheral IV Urinary Cath still in place: No Assessment/Plan Assessment/Plan - Recurrent Right breast cancer,right axilla - 2018- status post resection of the right axillary mass and completion axillary dissection. - per surgery -clear liquid diet- advanced as tolerated. - Tylenol, Percocet and IV morphine -SCD for DVT prophylaxis - Continue postop care as per Dr. Garza. - status post right modified radical mastectomy in 10/2017 Results 24hrs Laboratory Tests Test 07/15/18 07:21 Lab Scanned Report REFERENCE LAB Exam/Review of Systems Exam Vitals Vital Signs Date Temp Pulse Resp B/P (MAP) Pulse Ox O2 O2 Flow FiO2 Time Delivery Rate 07/15/18 98.5 92 18 123/79 100 Room Air 08:40 (94) 07/15/18 2.0 04:39 07/14/18 27 21:54 Intake and Output 07/14/18 07/14/18 07/15/18 1515:00 23:00 07:00 IntakeIntake Total 1400 ml 1860 ml 2300 ml OutputOutput Total 10 ml 30 ml 20 ml BalanceBalance 1390 ml 1830 ml 2280 ml Results Results 24hrs Laboratory Tests Test 07/15/18 07:21 Lab Scanned Report REFERENCE LAB Medications Medication Current Medications Ondansetron HCl (Zofran Inj) 4 mg Q6H PRN IV NAUSEA AND/OR VOMITING; Start 07/14/18 at 15:00 Potassium Chloride/Dextrose/ Sod Cl 1,000 ml @ 125 mls/hr Q8H IV Last administered on 07/15/18at 01:53; Admin Dose 125 MLS/HR; Start 07/14/18 at 14:40 Morphine Sulfate (morphine) 2 mg Q1H PRN IV PAIN; Start 07/14/18 at 15:00 Acetaminophen 100 ml @ 400 mls/hr Q6H PRN IVPB PAIN; Start 07/14/18 at 15:00 Oxycodone/ Acetaminophen (Percocet (5/ 325)) 1 tab Q4H PRN PO MODERATE PAIN LEVEL 4-6 Last administered on 07/15/18 09:40; Admin Dose 1 TAB; Start 07/14/18 at 18:00 Alprazolam (Xanax) 0.5 mg Q8H PRN PO ANXIETY Last administered on 07/15/18 07:37; Admin Dose 0.5 MG; Start 07/14/18 at 18:30 Levalbuterol (Xopenex Neb) 0.63 mg Q6H RESP THERAPY PRN HHN SHORTNESS OF BREATH Last administered on 07/14/18 21:53; Admin Dose 0.63 MG; Start 07/14/18 at 21:15 Zolpidem Tartrate (Ambien) 5 mg HS MAY REPEAT X 1 PRN PO INSOMNIA Last administered on 07/15/18 00:09; Admin Dose 5 MG; Start 07/14/18 at 21:15 ELIDA PIERSON Jul 15, 2018 12:21
[2018-07-15] MEDS ORDERED: OXYC-438 PO (12:24)
--- NOTE | 2018-07-15 12:28 | PDOCDIS ---
Discharge Instructions CONDITION [id number] Patient Condition: Pnerq4i Stable HOME CARE INSTRUCTIONS: [id number] Diet Instructions: Ckwhy1o Regular ACTIVITY: [id number] Activity Restrictions: [id number] Slowly Increase Activity Rest between Activity Avoid heavy lifting Do not Drive Do not operate Machinery Do not operate Power Tool Avoid Heavy Housework [id number] Bathing Restrictions: [id number] Sponge Bath FOLLOW UP/APPOINTMENTS Follow-up Plan - fu with Primary MD x 1 week - Fu with Surgery as recommended; -Call Dr Garza for FU - call 911 or go to the nearest hospital if symptoms get worse Plan of care Dr Knutson/ staff ELIDA PIERSON Jul 15, 2018 12:28
[2018-07-15] MEDS ORDERED: ALPR0.5T6 PO (12:35)
[2018-07-15] MEDS: LEVALBUTEROL (NEB) 0.63 MG/3 ML AMP HHN PRN (14:06)
[2018-07-15 14:44] VITALS: BP 134/71; PULSE 101; RESP 18
--- NOTE | 2018-07-15 14:57 | PN ---
DATE: 07/15/2018 Postop day #1 status post excision of recurrent cancer, right axillary area. SUBJECTIVE: No complaint. OBJECTIVE: GENERAL: Awake, alert, oriented x3. VITAL SIGNS: Temperature maximum 98.5, heart rate 92, respirations 18, blood pressure 123/79, satura tion 100% on room air. HEART: Regular. LUNGS: Clear. ABDOMEN: Soft. SKIN: Dressing is intact. There is 1 Kulwant-Chowdhury drain which has been draining serosanguineous fl uid, about 50 mL since the time of operation till 7:00 today morning. PLAN: The patient is stable. She can be discharged home, to be followed by Dr. Grant. Instruction for care of Kulwant-Chowdhury was given to the patient. The patient is to measure the drainage daily and record it on a piece of paper and take it with her to Dr. Grant' office on the visit. Dictated By: SHANNON MANN MD PS/NTS Conf#: [id number] DID#: [id number] CC: JUAN GRANT MD;*EndCC*
[2018-07-15] MEDS ORDERED: LEVA15HF6 INH (14:58)
--- NOTE | 2018-07-15 14:59 | NUR ---
SS Note: Consult Pt is a 32YO female admitted to [facility] 07/14/2018 for right axillary mass. Pt has hx of breast cx, radical right mastectomy in 10/2017. FITNESS CLUB MANAGER consulted today to address pt's housing/accommodation concerns. Today, pt is A&O x 4, appears anxious but she is cooperative and fully able to participate in interview. Pt describes poor housing situation, states she lives in an apartment with her brother who is schizophrenic. Pt does not feel verbally or physically threatened by her brother, rather states the situation as mostly "uncomfortable". Pt states she also lives next door to a bar where it is loud and people smoke outside her window. Pt states her mother is a source of some support, she assists pt with rent, but pt describes this relationship as often stressful due to disagreements. She also state's her mothers boyfriend is a drug addict, so living with her mother is not an option at this time. Pt states her father lives in [place] and she is allowed to stay there but states it is too far away. Pt denies SI, is interested in counseling and possible cancer support groups. Pt receives approx $800/m in disability. FITNESS CLUB MANAGER reviewed medical record, collaborated with JERMAINE Burnett, met with pt at bedside. FITNESS CLUB MANAGER introduced self, role, limits to confidentiality. FITNESS CLUB MANAGER provided emotional support, cancer resources including [facility] and [employer]. FITNESS CLUB MANAGER encouraged pt to pursue a better living environment while also discussing limitations and lack of availability of low-income housing. Pt is hopeful that perhaps one of the cancer organizations may be able to help her with housing. Pt encouraged to pursue these options. FITNESS CLUB MANAGER to remain available as needed.
--- NOTE | 2018-07-15 15:08 | NUR ---
RN NOTES: Patient is alert and oriented x4, able to make needs known; PRN Percocet given as needed for pain and PRN Xanax for anxiety with good effectiveness noted; PRN Xopenex HHN given as needed for SOB with good effectiveness noted, IS encouraged; dressing to right axilla incision is clean and dry checked by Dr. Bragg and replaced bias wrap as ordered by MD, connected to THEA drain patent and draining serosanguineous output; ambulates in the room with supervision; kept clean, dry and comfortable; call light placed within reached; all needs attended; cleared by Dr. Bragg and Berny PRODUCTION BROACHING MACHINE OPERATOR for discharge.
[2018-07-15] MEDS ORDERED: ONDA4TAB8 PO (16:27)
--- NOTE | 2018-07-15 17:09 | NUR ---
[employer] OFFICER NOTES: Discharged patient to home via wheelchair accompanied by mother; all discharge instructions given and patient verbalized understanding; all home medication prescription and instructions given; seen by Social Service as ordered; THEA drain care instructions given and patient verbalized understanding and did a return demonstration; IV line was discontinued with tip intact; all needs attended; to follow-up with Dr. Garza, Oncologist and Primary MD in 1-2 weeks.
== END 2018-07-15 17:00 | disposition home or self-care (01) ==
LOC: SDS 09:42 → MS1 16:43 → SDS 07-15 17:00
PROVIDERS: ATTEND Surgery Surgical Oncology
DX: C77.3 Secondary and unspecified malignant neoplasm of axilla and upper limb lymph nodes (principal); C50.911 Malignant neoplasm of unspecified site of right female breast
CPT/HCPCS: 38500; 84703; 94640; 94664; J0690; J1100; J1170; J2250; J2405; J3010; J3480; Z7512; Z7610; 88307; J7030

== ENCOUNTER → 2018-07-28 | Emergency (ER) | payer OTHER ==
[~2018-07-28] VITALS: Wt 77.1 kg
[~2018-07-28] MED LIST changes: +ALPR0.5T6 PO; -AZIT250T13 PO; -CEFAZOLIN 2 GM/50 ML (PMX) 50 ML IVPB SCH; +CEPH-443 PO; -CHOL100062 PO; -IBUP-1542 PO; +LEVA15HF6 INH; -METO10TA92 PO; +ONDA4SOL2 PO; +ONDA4TAB14 PO; +ONDA4TAB8 PO; +OXYC-438 PO; +RTPRO5 IH; -SEVOFLURANE 15 MIN ONE; -SOD CHLORIDE 0.9% 1,000 ML IV SCH; +SULF1TAB31 PO
--- NOTE | 2018-07-28 11:55 | ERD ---
ER Documentation Chief Complaint Chief Complaint R BREAST POST OP SWELLING HPI This is a 32-year-old female with a history of stage III breast cancer who presents to ED with complaints of postop pain. Patient has a history of having a partial mastectomy 05-27-2017 and also a full mastectomy 10-14-17. Patient states that a tumor/lymph node was removed on 07-14-[address] Gomes and she has been having some mild swelling and redness and pain along this incision line. Denies fever, chills and other symptoms. Currently is on chemotherapy for breast cancer. ROS All systems reviewed and are negative except as per history of present illness. Medications Home Meds Active Scripts Ondansetron (Ondansetron Odt) 4 Mg Tab.rapdis, 4 MG PO Q6H PRN for NAUSEA AND/OR VOMITING, #10 TAB Prov:ASHLEY DAVID PA-C 07/28/18 Cephalexin* (Keflex*) 500 Mg Capsule, 500 MG PO QID for 10 Days, CAP Prov:ASHLEY DAVID PA-C 07/28/18 Sulfamethoxazole/Trimethoprim* (Bactrim Ds* Tablet) 1 Each Tablet, 1 TAB PO BID, #14 TAB Prov:ASHLEY DAVID PA-C 07/28/18 Ondansetron Hcl* (Zofran*) 4 Mg Tablet, 4 MG PO Q6H for NAUSEA AND/OR VOMITING, #10 TAB Prov:ELIDA PIERSON 07/15/18 Levalbuterol* (Xopenex* HFA) 15 Gm Inha, 1-2 PUFF INH Q6 PRN for SHORTNESS OF BREATH, #1 EA Prov:ELIDA PIERSON 07/15/18 Alprazolam* (Alprazolam*) 0.5 Mg Tablet, 0.5 MG PO Q8H PRN for ANXIETY, #15 TAB Prov:ELIDA PIERSON 07/15/18 Oxycodone HCl/Acetaminophen (Oxycodone-Acetaminophen 5-325) 1 Each Tablet, 1 TAB PO Q4H PRN for MODERATE PAIN LEVEL 4-6, #20 TAB Prov:ELIDA PIERSON 07/15/18 Allergies Allergies: Coded Allergies: No Known Allergy (Unverified , 07/14/18) PMhx/Soc History of Surgery: Yes (r. partial/ful mastectomy) Anesthesia Reaction: No Hx 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 Disorder: No Hx Respiratory Disorders: No Hx Cardiac Disorders: No Hx Psychiatric Problems: No Hx Miscellaneous Medical Probl: No Hx Alcohol Use: No Hx Substance Use: No Hx Tobacco Use: No FmHx Family History: No diabetes Physical Exam Vitals Vital Signs Date Temp Pulse Resp B/P (MAP) Pulse Ox O2 O2 Flow FiO2 Time Delivery Rate 07/28/18 98.1 78 18 121/71 99 10:44 (88) Physical Exam Physical Exam Vitals signs: Reviewed by me. General: Well developed, well nourished, in no acute distress. Patient is awake and alert. Head: Normocephalic, atraumatic. Eyes: Normal conjunctiva, Pupils PERRLA, EOM intact grossly ENT: Pharynx is clear, Moist mucous membranes, external ears, nose and mouth normal Neck: Supple, no masses, lymphadenopathy or JVD Respiratory: Clear to auscultation bilaterally with no wheezing, rhonchi, rales, no distress Cardiovascular: RRR, no murmurs, rubs, or gallops Neurologic: Alert and oriented, moving all extremities, normal speech, no focal weakness, no cerebellar signs. Normal mentation breast: Post mastectomy of right breast, there are incision lines along breast leading to right axilla, there is faint erythema along the lateral incision line and mild edema, nontender to palpation, no lymphatic streaking, Psych: Normal mood Procedures/MDM ER COURSE: The patient was stable throughout ED course. I kept the patient and/or family informed of laboratory and diagnostic imaging results throughout the emergency room course. The patient was promptly evaluated and a treatment plan was devised based on H&P and other data. This plan was discussed with the patient who agreed and had no further questions or concerns prior to discharge. MEDICAL DECISION MAKING: This is a 32-year-old female with a history of stage III breast cancer who presents to ED with complaints of postop pain. Patient has a history of having a partial mastectomy 05-27-2017 and also a full mastectomy 10-14-17. Patient states that a tumor/lymph node was removed on 07-14-[address] Gomes and she has been having some mild swelling and redness and pain along this incision line. Denies fever, chills and other symptoms. Currently is on chemotherapy for breast cancer. There is some mild erythema and swelling along the lateral incision line where tumor was recently removed. Will treat patient for a postop infection. I also attempted to call Dr. Garza and Dr. Bragg but was unable to reach them . Discussed case with my overseeing physician Dr. mahajan and he advises that pat ient can be managed with close outpatient follow-up. Advised patient to follow- up with her oncologist/surgeon in the next 24 hours. At this time there is no dermatologic emergency. No evidence of sepsis, abscess, compartment syndrome, Recinos-Matt syndrome, toxic epidermal necrosis, deep tracking infection, among others. Vitals are stable patient can be managed with close outpatient follow-up. Return to ED with any worsening symptoms DISPOSITION PLAN: We discussed follow up with the patient's primary care doctor within 24 to 48 hours. Patient counseled regarding my diagnostic impression and care plan. Prior to discharge all questions answered. Pt agrees with treatment plan and understands strict return precautions. Precautionary instructions provided including instructions to return to the ER if not improving or for any worsening or changing symptoms or concerns. SPECIALIST FOLLOW UP RECOMMENDED: Oncology/surgery Patient has been advised to follow up with primary care in 1-2 days. Disclaimer: Inadvertent spelling and grammatical errors are likely due to EHR/dictation software use and do not reflect on the overall quality of patient care. Also, please note that the electronic time recorded on this note does not necessarily reflect the actual time of the patient encounter. Departure Diagnosis: Primary Impression: Post-operative infection Encounter type: initial encounter Postoperative infection type: superficial incisional surgical site Qualified Codes: T81.41XA - Infection following a procedure, superficial incisional surgical site, initial encounter Condition: Stable Patient Instructions: Post Op Wound Check, Infection, Types of Surgery for Breast Cancer, What Is Breast Cancer? Referrals: UJAN GARZA MD, [facility] Additional Instructions: Patient advised to return to the ED immediately for new or worsening symptoms. Patient advised to follow up with primary care provider in the next 24-48 hours. Patient verbalized understanding and agrees with treatment plan and course of action. If patient has no primary care they may follow up with one of the [facility] clinics listed on the following page or one of the options listed below [facility] + [address] [address] or [facility] [address] [place] [address] or [facility] [address] [place] [address] ASHLEY DAVID PA-C Jul 28, 2018 11:55
== END | disposition home or self-care (01) ==
LOC: FTE 10:41
DX: T81.41XA Infection following a procedure, superficial incisional surgical site, initial encounter (principal); Y82.8 Other medical devices associated with adverse incidents; Z85.3 Personal history of malignant neoplasm of breast
CPT/HCPCS: 99283

== ENCOUNTER 2018-07-30 23:19 | Inpatient (IN) | payer OTHER ==
[~2018-07-30] VITALS: Ht 168.9 cm; Wt 74.0 kg
[~2018-07-30 23:19] MED LIST changes: -ONDA4SOL2 PO; -RTPRO5 IH
[2018-07-31] MEDS ORDERED: SOD CHLORIDE 0.9% 1,000 ML IV SCH (04:28)
[2018-07-31] MEDS ORDERED: ONDANSETRON 4 MG INJ IV PRN (04:30)
[2018-07-31] MEDS ORDERED: ACETAMINOPHEN 325 MG TAB PO PRN (04:30)
[2018-07-31] MEDS ORDERED: NACL 0.9% 3 ML SYG IV SCH (04:30)
--- NOTE | 2018-07-31 04:57 | HP ---
Date/Time of Note Date/Time of Note DATE: 07/31/18 TIME: 04:57 Assessment/Plan VTE Prophylaxis Pharmacological prophylaxis: other Assessment/Plan Hospital Course Patient is a female the past medical history significant for breast carcinoma who presents to [facility] for right axilla pain. Patient had received a lymph node resection on July [address] Crawford, however appears to have developed a fluid collection seen by ultrasound. Patient has tried multiple outpatient measures including oral antibiotics however the fluid collection continues to grow and cause a significant discomfort. Patient is comfortable at this time and has no other acute complaints. Patient denies chest pain, shortness of breath, headache, abdominal pain, leg pain Objective Physical exam General: Patient is laying in bed and answers questions appropriately Mentation: Patient is alert and oriented 4, Head: Normocephalic atraumatic Eyes: EOMI, pupils reactive to light Neck: Supple, nontender, midline Respiratory: Clear to auscultation bilaterally Cardiovascular: regular rate, no obvious murmurs Gastrointestinal: non-tender to palpation, bowel sounds heard. 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: Moves all extremities spontaneously Skin: On the right axilla, surgical site, mild warmth and tenderness Assessment and plan At this time no lab values are available, assessment and plan will change according to abnormalities Right axilla surgical site pain -Ultrasound showing complex fluid collection -Daytime physician will need to consult Dr. Crawford as he was the surgeon that performed the lymph node resection -IV broad-spectrum antibiotics Mild IV fluids History of breast cancer -Follows up with oncologist and surgeon, follow-up outpatient Disposition -IV antibiotic, daytime physician to consult surgery., Dr. Crawford HPI/ROS Admit Date/Time Admit Date/Time PMH/Family/Social Past Medical History Medications Current Medications Sodium Chloride 1,000 ml @ 50 mls/hr Q20H IV ; Start 07/31/18 at 04:28; Stop 08/01/18 at 00:27; Status UNV IV Flush (NS 3 ml) 3 ml PER PROTOCOL IV ; Start 07/31/18 at 04:30; Status UNV Ondansetron HCl (Zofran Inj) 4 mg Q6H PRN IV NAUSEA/VOMITING; Start 07/31/18 at 04:30; Status UNV Acetaminophen (Tylenol Tab) 650 mg Q6H PRN PO .PAIN 1-3 OR TEMP; Start 07/31/18 at 04:30; Status UNV Acetaminophen/ Hydrocodone Bitart ([place] (5/325)) 1 tab Q6H PRN PO .PAIN 4-6; Start 07/31/18 at 04:30; Status UNV Morphine Sulfate (morphine) 2 mg Q4H PRN IV .PAIN 7-10; Start 07/31/18 at 04:30; Status UNV Vancomycin HCl (Vanco Iv Per Pharmacy) VANCOMYCIN PER PHARMACY PER PROTOCOL XX ; Start 07/31/18 at 04:30; Status UNV Piperacillin Sod/ Tazobactam Sod 100 ml @ 200 mls/hr Q6 IVPB ; Start 07/31/18 at 06:00; Status UNV Coded Allergies: No Known Allergy (Unverified , 07/14/18) Social History Smoking Status: Never smoker Exam/Review of Systems Vital Signs Vitals Vital Signs Date Temp Pulse Resp B/P (MAP) Pulse Ox O2 O2 Flow FiO2 Time Delivery Rate 07/31/18 97.7 72 16 103/73 98 Room Air 04:25 (83) NILSA AZEVEDO Jul 31, 2018 04:57
--- NOTE | 2018-07-31 05:06 | ERD ---
ER Documentation Chief Complaint Chief Complaint PAIN, S/P AXILLARY TUMOR REMOVAL HPI 32-year-old female presents for right axillary pain status post surgery for tumor about 2 weeks ago. The tumor removal was done by Dr. Gomes. Patient was here in the ER a few days ago for the same symptoms of right axillary swelling. She was given Bactrim and Keflex however states that the swelling continues. She also notes 7 out of 10 pain. She denies fevers or chills. She does have a past medical history of breast cancer. No other complaints ROS All systems reviewed and are negative except as per history of present illness. Medications Home Meds Active Scripts Ondansetron (Ondansetron Odt) 4 Mg Tab.rapdis, 4 MG PO Q6H PRN for NAUSEA AND/OR VOMITING, #10 TAB Prov:ASHLEY DAVID PA-C 07/28/18 Cephalexin* (Keflex*) 500 Mg Capsule, 500 MG PO QID for 10 Days, CAP Prov:ASHLEY DAVID PA-C 07/28/18 Sulfamethoxazole/Trimethoprim* (Bactrim Ds* Tablet) 1 Each Tablet, 1 TAB PO BID, #14 TAB Prov:ASHLEY DAVID PA-C 07/28/18 Ondansetron Hcl* (Zofran*) 4 Mg Tablet, 4 MG PO Q6H for NAUSEA AND/OR VOMITING, #10 TAB Prov:ELIDA PIERSON 07/15/18 Levalbuterol* (Xopenex* HFA) 15 Gm Inha, 1-2 PUFF INH Q6 PRN for SHORTNESS OF BREATH, #1 EA Prov:ELIDA PIERSON 07/15/18 Alprazolam* (Alprazolam*) 0.5 Mg Tablet, 0.5 MG PO Q8H PRN for ANXIETY, #15 TAB Prov:ELIDA PIERSON 07/15/18 Oxycodone HCl/Acetaminophen (Oxycodone-Acetaminophen 5-325) 1 Each Tablet, 1 TAB PO Q4H PRN for MODERATE PAIN LEVEL 4-6, #20 TAB Prov:ELIDA PIERSON 07/15/18 Allergies Allergies: Coded Allergies: No Known Allergy (Unverified , 07/14/18) PMhx/Soc History of Surgery: Yes (RIGHT BREAST TUMOR REMOVAL) Anesthesia Reaction: No Hx 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 Disorder: No Hx Respiratory Disorders: No Hx Cardiac Disorders: No Hx Psychiatric Problems: No Hx Miscellaneous Medical Probl: No Hx Alcohol Use: No Hx Substance Use: No Hx Tobacco Use: No Smoking Status: Never smoker Physical Exam Vitals Vital Signs Date Temp Pulse Resp B/P (MAP) Pulse Ox O2 O2 Flow FiO2 Time Delivery Rate 07/31/18 97.7 71 16 93/65 (74) 98 Room Air 05:55 07/31/18 97.7 81 22 109/73 100 Room Air 05:13 (85) 07/31/18 97.7 72 16 103/73 98 Room Air 04:25 (83) 07/30/18 97.0 97 16 143/72 98 23:23 (95) Physical Exam Const: No acute distress Resp: Clear to auscultation bilaterally Cardio: Regular rate and rhythm, no murmurs Abd: Soft, non tender, non distended. Normal bowel sounds Skin: Right axilla swelling noted, masses about 4 cm Back: No midline or flank tenderness Ext: No cyanosis, or edema Neur: Awake and alert, bilateral upper extremity sensation intact Psych: Normal Mood and Affect Result Diagram: 07/31/185 07/31/18414 Results 24 hrs Laboratory Tests Test 07/31/18 04:15 White Blood Count 6.2 10^3/ul Red Blood Count 3.52 10^6/ul Hemoglobin 10.8 g/dl Hematocrit 31.8 % Mean Corpuscular Volume 90.3 fl Mean Corpuscular Hemoglobin 30.7 pg Mean Corpuscular Hemoglobin Concent 34.0 g/dl Red Cell Distribution Width 12.2 % Platelet Count 205 10^3/UL Mean Platelet Volume 12.3 fl Immature Granulocytes % 0.300 % Neutrophils % 45.7 % Lymphocytes % 35.6 % Monocytes % 10.1 % Eosinophils % 7.2 % Basophils % 1.1 % Nucleated Red Blood Cells % 0.0 /100WBC Immature Granulocytes # 0.020 10^3/ul Neutrophils # 2.8 10^3/ul Lymphocytes # 2.2 10^3/ul Monocytes # 0.6 10^3/ul Eosinophils # 0.4 10^3/ul Basophils # 0.1 10^3/ul Nucleated Red Blood Cells # 0.0 10^3/ul Sodium Level 140 mmol/L Potassium Level 4.0 mmol/L Chloride Level 103 mmol/L Carbon Dioxide Level 30 mmol/L Anion Gap 7 Blood Urea Nitrogen 14 mg/dl Creatinine 0.90 mg/dl Est Glomerular Filtrat Rate mL/min > 60 mL/min Glucose Level 97 mg/dl Calcium Level 9.5 mg/dl Magnesium Level 2.0 mg/dl Total Bilirubin 0.0 mg/dl Direct Bilirubin 0.00 mg/dl Indirect Bilirubin 0.0 mg/dl Aspartate Amino Transf (AST/SGOT) 14 IU/L Alanine Aminotransferase (ALT/SGPT) 21 IU/L Alkaline Phosphatase 98 IU/L Total Protein 6.8 g/dl Albumin 3.7 g/dl Globulin 3.10 g/dl Albumin/Globulin Ratio 1.19 Current Medications Medications Dose Sig/Eligio Start Time Status Last (Trade) Ordered Route PRN Stop Time Admin Dose Reason Admin Sodium 1,000 ml @ Q20H IV 07/31/18 07/31/18 Chloride 50 mls/hr 04:28 05:18 08/01/18 00:27 IV Flush 3 ml PER 07/31/18 (NS 3 ml) PROTOCOL IV 04:30 Ondansetron 4 mg Q6H PRN 07/31/18 HCl (Zofran IV 04:30 Inj) NAUSEA/VOMITI NG 650 mg Q6H PRN 07/31/18 Acetaminophen PO .PAIN 1-3 04:30 (Tylenol OR TEMP Tab) 1 tab Q6H PRN 07/31/18 Acetaminophen PO .PAIN 4-6 04:30 / Hydrocodone Bitart ([place] (5/325)) Morphine 2 mg Q4H PRN 07/31/18 Sulfate IV .PAIN 04:30 (morphine) 7-10 Vancomycin VANCOMYCIN PER 07/31/18 HCl (Vanco PER PHARMACY PROTOCOL XX 05:30 Iv Per Pharmacy) Piperacillin 100 ml @ Q6 IVPB 07/31/18 07/31/18 Sod/ 200 mls/hr 06:00 05:35 Tazobactam Sod Vancomycin 250 ml @ ONCE IVPB 07/31/18 07/31/18 HCl 1.5 83.333 mls/ 06:00 06:09 gm/Sodium hr 07/31/18 08:59 Chloride Procedures/MDM Medical Decision Making: Differential diagnosis includes but not limited to right axilla abscess, cyst, cellulitis Patient appeared well on physical exam. Soft tissue ultrasound showed a complex fluid collection over the right axilla about 8 cm. CBC: no e/o of systemic infection, anemia noted with hemoglobin 10 CMP: no e/o severe acidosis, alkalosis, renal failure, diabetic ketoacidosis, liver disease Given patient's repeated return to the ER with increased swelling of the right axilla and failed oral antibiotics, recommend inpatient management and surgical consultation. On-call hospitalist Dr. Ball was contacted and agreed to admit patient for further management. Disclaimer: Inadvertent spelling and grammatical errors are likely due to EHR/dictation software use and do not reflect on the overall quality of patient care. Also, please note that the electronic time recorded on this note does not necessarily reflect the actual time of the patient encounter. Departure Diagnosis: Primary Impression: Right axillary swelling Condition: Serious JOSRNATTY Jul 31, 2018 05:06
[2018-07-31] MEDS ORDERED: VANCOMYCIN IV PER PHARMACY XX SCH (05:30)
[2018-07-31] MEDS: PIPER-TAZO 3.375 GM IV (PMX) 100 ML IVPB SCH ×3 (05:35→18:01)
[2018-07-31] MEDS ORDERED: VANCOMYCIN HCL 1.5 GM in SOD CHLORIDE 0.9% 250 ML IVPB SCH (06:00)
[2018-07-31 08:00] VITALS: Ht 168.9 cm; Wt 74.0 kg
[2018-07-31 08:17] VITALS: BP 105/71; PULSE 79; RESP 19
--- NOTE | 2018-07-31 10:10 | QN ---
Documentation Comment 32-year-old female admitted earlier today after she had presented with right axillary pain for the last 2 weeks. She received lymph node resection on July 14 and has developed postoperative fluid collection seen via ultrasound. She is status post antibiotic treatment as outpatient however collection continues to grow in size. She is being admitted for failed outpatient therapy and definitive management. Plan : continue supportive care and pain control, will speak with general surgery to see if this is something that can be drained by interventional radiology or if they will do OR drainage. VU LAYTON. Jul 31, 2018 10:10
[2018-07-31] MEDS ORDERED: RTPRO5 IH (11:43)
[2018-07-31] MEDS ORDERED: ONDA4SOL2 PO (11:43)
[2018-07-31] MEDS: HYDROCODONE/APAP (5/325) TAB PO PRN ×2 (11:49→18:00)
--- NOTE | 2018-07-31 16:09 | CONS ---
DATE OF ADMISSION: 07/31/2018 DATE OF CONSULTATION: 07/31/2018 TYPE OF CONSULTATION: Surgical. REQUESTING PHYSICIAN: Medical service. REASON FOR CONSULTATION: Swelling and fluid accumulation under the right axillary area post-operation for recurrent cancer of the right breast and axilla. HISTORY OF PRESENT ILLNESS AND CHIEF COMPLAINT: This is a 32-year-old female who has had cancer of the right breast eventually ended up with right modified radical mastectomy and then again for recurrence of the axillary area, she had an operation on 07/14/2018 which removed the recurrence in the right axillary area and tissues were removed and sent for pathologic evaluation. The drain was left in place. The patient apparently has been doing fine. Last Tuesday, the patient was referred to Dr. Garza' office and at that time, decision was made to remove the drains because there was not much of drainage, but since then gradually fluid has accumulated and has increased in size. The patient is very uncomfortable and has pain and being admitted from emergency room. Also, there has been some evidence of cellulitis on the skin. REVIEW OF SYSTEMS: As mentioned above. The patient has had cancer of right breast. ALLERGIES: NOT KNOWN. PHYSICAL EXAMINATION: GENERAL: The patient is lying down in bed and is not in acute distress. HEENT: Head is normocephalic. Eyes: Pupils are equal, round, reactive to light and accommodative. Extraocular muscles have full range of motion. NECK: Supple. LUNGS: Clear to auscultation bilaterally. HEART: Regular rhythm. No murmur. Rate about 70 to 75. ABDOMEN: Soft, no tenderness, no mass. EXTREMITIES: Lower extremities: No pitting edema. SKIN: On chest as was mentioned. There is a scar of the previous operation on the right chest wall at the site of the last scar. There is slight area of redness and erythema and mild tenderness on pressure. LABORATORY DATA: The patient was admitted 2:00 in the morning to [facility]cat tutor today. Labs from 5:00 in the morning show normal sodium, potassium, BUN and creatinine. Hematology: WBC 6200 with 45% segmented, hemoglobin 10.8, hematocrit 31.8 and platelet is 205. IMAGING: An ultrasound of the soft tissue was ordered and was done at time of admission and it has been reported that there is a complex fluid collection with internal septations and echoes in the right axilla. This measures 7.9 x 6 x 7.8 cm. Impression: 1. Right axillary fluid collection post-operation which was done 3 weeks ago. 2. Ultrasound evidence of complex fluid collection. 3. Some degree of cellulitis and possibly infection of the fluid in the subcutaneous collection in the axilla on the right side. PLAN: The patient already has been started on IV antibiotic which was vancomycin and Zosyn. We agree with the antibiotics plan. Continue antibiotics. The case was discussed with Dr. Garza, the original surgeon. Plan is to proceed with drainage of this fluid and placement of a new Kulwant-Chowdhury drain in the operating room. Therefore, we canceled the request which has been made by medical service for ultrasound-guided drainage because the drainage tube is going to be the pigtail and that is not comfortable at this area and also the patient probably cannot handle the apparatus for drainage. Therefore,we going to have a Kulwant-Chowdhury drain placed in the operating room under direct vision and also to take advantage of the incision and clean and wash the area again. We will keep the patient n.p.o. after midnight tonight and we will proceed with operation tomorrow on Tuesday. Thank you for consultation. Dictated By: SHANNON MANN MD PS/NTS Conf#: [id number] DID#: [id number] CC: NILSA AZEVEDO MD;*EndCC* MTDD
[2018-07-31 16:13] VITALS: BP 92/72; PULSE 85; PULSE 87; RESP 18
[2018-07-31] MEDS ORDERED: OXYCODONE/ACETAMINOPHEN (5/325) TAB PO PRN (16:30)
[2018-07-31] MEDS: ALPRAZOLAM 0.5 MG TAB PO PRN (18:00)
[2018-07-31] MEDS: VANCOMYCIN 1 GM 250 ML IVPB SCH (18:41)
[2018-07-31 19:12] VITALS: BP 122/63; PULSE 100; RESP 16
[2018-07-31] MEDS: NICOTINE (21 MG/24 HR) PATCH TRANSDERM SCH (21:06)
[2018-08-01] VITALS (17 sets, daily range): BP systolic 112–148; BP diastolic 70–96; PULSE 68–110; RESP 13–25
[2018-08-01] MEDS ORDERED: morphine 2 MG INJ IV PRN
[2018-08-01] MEDS: PIPER-TAZO 3.375 GM IV (PMX) 100 ML IVPB SCH ×5 (00:15→22:53)
[2018-08-01] MEDS: morphine 2 MG INJ IV PRN ×3 (02:28→19:48)
[2018-08-01] MEDS: VANCOMYCIN 1 GM 250 ML IVPB SCH ×2 (06:20→20:01)
[2018-08-01] MEDS: NICOTINE (21 MG/24 HR) PATCH TRANSDERM SCH (09:43)
--- NOTE | 2018-08-01 13:09 | PREAC ---
Date/Time of Note Date/Time of Note DATE: 08/01/18 TIME: 13:07 Anesthesia Eval and Record Evaluation Time Pre-Procedure Interview DATE: 08/01/18 TIME: 13:07 Age 32 Sex female NPO: 8 hrs Preoperative diagnosis Rt axilla fluid collection Planned procedure I&D Rt axilla Past Medical History Past Medical History: None Surgery & Anesthesia Issues No known issue Meds Anticoagulation: No Beta Servando within 24 hr: No Reason Beta Servando not given: Pt. not on B-Servando Active Scripts Cephalexin* (Keflex*) 500 Mg Capsule, 500 MG PO QID for 10 Days, CAP Prov:ASHLEY DAVID PA-C 07/28/18 Sulfamethoxazole/Trimethoprim* (Bactrim Ds* Tablet) 1 Each Tablet, 1 TAB PO BID, #14 TAB Prov:ASHLEY DAVID PA-C 07/28/18 Alprazolam* (Alprazolam*) 0.5 Mg Tablet, 0.5 MG PO Q8H PRN for ANXIETY, #15 TAB Prov:ELIDA PIERSON 07/15/18 Oxycodone HCl/Acetaminophen (Oxycodone-Acetaminophen 5-325) 1 Each Tablet, 1 TAB PO Q4H PRN for MODERATE PAIN LEVEL 4-6, #20 TAB Prov:ELIDA PIERSON 07/15/18 Reported Medications Albuterol Sulfate (Albuterol Sulfate) 2.5 Mg/0.5 Ml Vial.neb, 50 MCG IH 07/31/18 Ondansetron HCl (Zofran) 4 Mg/5 Ml Solution, 4 MG PO for nausea 07/31/18 Discontinued Scripts Ondansetron (Ondansetron Odt) 4 Mg Tab.rapdis, 4 MG PO Q6H PRN for NAUSEA AND/OR VOMITING, #10 TAB Prov:ASHLEY DAVID PA-C 07/28/18 Ondansetron Hcl* (Zofran*) 4 Mg Tablet, 4 MG PO Q6H for NAUSEA AND/OR VOMITING, #10 TAB Prov:ELIDA PIERSON 07/15/18 Levalbuterol* (Xopenex* HFA) 15 Gm Inha, 1-2 PUFF INH Q6 PRN for SHORTNESS OF BREATH, #1 EA Prov:ELIDA PIERSON 07/15/18 Current Medications IV Flush (NS 3 ml) 3 ml PER PROTOCOL IV ; Start 07/31/18 at 04:30 Ondansetron HCl (Zofran Inj) 4 mg Q6H PRN IV NAUSEA/VOMITING; Start 07/31/18 at 04:30 Acetaminophen (Tylenol Tab) 650 mg Q6H PRN PO .PAIN 1-3 OR TEMP; Start 07/31/18 at 04:30 Acetaminophen/ Hydrocodone Bitart ([place] (5/325)) 1 tab Q6H PRN PO .PAIN 4-6 Last administered on 07/31/18 18:00; Admin Dose 1 TAB; Start 07/31/18 at 04:30 Morphine Sulfate (morphine) 2 mg Q4H PRN IV .PAIN 7-10 Last administered on 08/01/18 09:44; Admin Dose 2 MG; Start 07/31/18 at 04:30 Vancomycin HCl (Vanco Iv Per Pharmacy) VANCOMYCIN PER PHARMACY PER PROTOCOL XX ; Start 07/31/18 at 05:30 Piperacillin Sod/ Tazobactam Sod 100 ml @ 200 mls/hr Q6 IVPB Last administered on 08/01/18 05:49; Admin Dose 200 MLS/HR; Start 07/31/18 at 06:00 Vancomycin HCl 250 ml @ 125 mls/hr Q12H IVPB Last administered on 08/01/18 06:20; Admin Dose 125 MLS/HR; Start 07/31/18 at 18:00 Miscellaneous Information (*Rx Drug Level Order Reminder*) VANCO TROUGH @ 1,700 ON... ONCE ONCE XX ; Start 08/01/18 at 17:00; Stop 08/01/18 at 17:01 Alprazolam (Xanax) 0.5 mg Q12H PRN PO ANXIETY Last administered on 07/31/18 18:00; Admin Dose 0.5 MG; Start 07/31/18 at 16:30 Oxycodone/ Acetaminophen (Percocet (5/ 325)) 1 tab Q4H PRN PO MODERATE PAIN LEVEL 4-6; Start 07/31/18 at 16:30 Nicotine (Nicoderm 21 Mg/ 24hr) 1 patch DAILY TRANSDERM Last administered on 08/01/18 09:43; Admin Dose 1 PATCH; Start 07/31/18 at 16:30 Meds reviewed: Yes Allergies Coded Allergies: No Known Allergy (Unverified , 07/31/18) Allergies Reviewed: Yes Labs/Studies Labs Reviewed: Reviewed by anesthesiologist Result Diagram: 08/01/1842908/01/18 043 Laboratory Tests 08/01/18 04:30 test: Negative Pre-procedure Exam Last vitals Vital Signs Date Temp Pulse Resp B/P (MAP) Pulse Ox O2 O2 Flow FiO2 Time Delivery Rate 08/01/18 98.2 90 18 137/87 99 Room Air 07:20 (104) Airway: Adequate mouth opening, Adequate thyromental dist Mallampati: Mallampati II Teeth: Normal Lung: Normal Heart: Normal ASA Physical Status ASA physical status: 2 Emergency: None Planned Anesthetic General/MAC: LMA Planned Pain Management Parenteral pain med, Local by surgeon Pre-operative Attestations Prior to commencing anesthesia and surgery, the patient was re-evaluated, there was verification of: *The patient's identity *The results of appropriate recent lab work and preoperative vital signs *The above evaluation not changing prior to induction *Anesthetic plan, risk benefits, alternative and complications discussed with patient/family; questions answered; patient/family understands, accepts and wishes to proceed. TAIWO HDZ MD Aug 01, 2018 13:09
[2018-08-01] MEDS ORDERED: MIDAZOLAM 1 MG/ML 2 ML INJ ONE (13:19)
[2018-08-01] MEDS ORDERED: FENTAnyl 50 MCG/ML VIAL ONE ×2 (13:19→14:18)
[2018-08-01] MEDS ORDERED: ONDANSETRON 4 MG INJ ONE (14:20)
[2018-08-01] MEDS ORDERED: LIDOCAINE 2% (SDV) 5 ML INJ ONE (14:20)
[2018-08-01] MEDS ORDERED: CEFAZOLIN 1 GM INJ ONE (14:20)
[2018-08-01] MEDS ORDERED: PROPOFOL 20 ML ONE (14:20)
--- NOTE | 2018-08-01 14:22 | SIPON ---
Date/Time of Note Date/Time of Note DATE: 08/01/18 TIME: 14:16 Operative Report Preoperative Diagnosis Fluid collection under the right axillary area status post removal of the recurrent cancer of the right breast from the right axillary area about 3 weeks ago. Cellulitis of site of the incision of the axillary area. Possible abscess formation in the right axillary area. Postoperative Diagnosis The same. The fluid collection grossly did not look like an abscess. Operation/Procedure Performed Incision and drainage of the fluid collection #1 #2 irrigation of the cavity with hydrogen peroxide and then with normal saline solution. #3 placement of a Kulwant-Chowdhury drain #10 flat into the cavity at the site of the removal of the recurrent cancer. In right axillary area. Surgeon see signature line syrup mixer assistant None Anesthesia: general Estimated blood loss: 0 - 10 ml's Transfusion Required none Specimen Fluid from the right axillary cavity area was sent for different aerobic and anaerobic cultures. Grafts/Implants none Complications none SHANNON MANN MD Aug 01, 2018 14:22
[2018-08-01] MEDS ORDERED: MEPERIDINE 25 MG INJ IV PRN (14:30)
[2018-08-01] MEDS ORDERED: ONDANSETRON 4 MG INJ IV PRN (14:30)
[2018-08-01] MEDS ORDERED: METOCLOPRAMIDE 10 MG INJ IV PRN (14:30)
[2018-08-01] MEDS ORDERED: HYDROmorphONE 1 MG/5 ML IV SYRINGE IV PRN ×2 (14:30)
[2018-08-01] MEDS ORDERED: FENTAnyl 50 MCG/ML VIAL IV PRN (14:30)
[2018-08-01] MEDS ORDERED: DIPHENHYDRAMINE 50 MG INJ IV PRN (14:30)
--- NOTE | 2018-08-01 14:32 | PAC ---
Date/Time of Note Date/Time of Note DATE: 08/01/18 TIME: 14:31 Post-Anesthesia Notes Post-Anesthesia Note Last documented vital signs Vital Signs Date Temp Pulse Resp B/P (MAP) Pulse Ox O2 O2 Flow FiO2 Time Delivery Rate 08/01/18 98.2 90 18 137/87 99 Room Air 07:20 (104) Activity: WNL Respiratory function: WNL Cardiovascular function: WNL Mental status: Baseline Pain reasonably controlled: Yes Hydration appropriate: Yes Nausea/Vomiting absent: Yes Comments BP:125/86, P:88, spo2:100%, T:98,5 TAIWO HDZ MD Aug 01, 2018 14:32
[2018-08-01] MEDS ORDERED: HYDROmorphONE 1 MG/5 ML IV SYRINGE IV ONE (14:38)
[2018-08-01] MEDS ORDERED: MEPERIDINE 25 MG INJ ONE (14:48)
[2018-08-01] MEDS: ALPRAZOLAM 0.5 MG TAB PO PRN (15:36)
--- NOTE | 2018-08-01 19:43 | PN ---
DATE: 08/01/2018 SUBJECTIVE: No new complaints. The patient was evaluated just before she was picked up for surgery. OBJECTIVE: VITAL SIGNS: Temperature 98.2, pulse is 90, respirations 18, blood pressure 137/87, saturations 99% on room air. GENERAL: Alert and oriented, in no distress. HEENT: Head is normocephalic. Pupils are equal and reactive. NECK: Supple. CHEST: Clear to auscultation. CARDIOVASCULAR: S1, S2. No murmurs. ABDOMEN: Soft, nontender. EXTREMITIES: The swelling underneath her right axilla has increased in size visually, remains minima lly tender, still fluctuance, nonerythematous. The lower extremity has no edema. LABORATORY VALUES: Today, her basic metabolic profile is unremarkable. CBC: Hemoglobin is stable a t 11.4 with normocytic normochromic indices. IMAGING STUDIES: She did have a soft tissue ultrasound yesterday that showed complex fluid collectio n within the right axilla. ASSESSMENT: A 32-year-old female who was admitted after she had presented with right axillary pain a nd swelling after a lymph node resection on 07/14/2018 with postoperative fluid collection that has f michael outpatient therapy. She is managed for the followin. Complex right axillary cyst, postoperative after laser resection: Plan for intraoperative draina ge today. 2. Chronic anxiety. Resume on home Xanax. 3. Chronic tobacco user, status post cessation counseling. Nicotine patch. 4. History of breast cancer, status post mastectomy and lymph node resection. DISPOSITION: To surgery today. Dictated By: VU LAYTON MD BA/NTS Conf#: [id number] DID#: [id number] CC: NILSA AZEVEDO MD; SHANNON MANN MD;*EndCC*
[2018-08-01] MEDS ORDERED: ALPRAZOLAM 0.5 MG TAB PO ONE (22:00)
[2018-08-02] MEDS: morphine 2 MG INJ IV PRN (00:28)
[2018-08-02 01:00] VITALS: BP 120/75; PULSE 85; RESP 19
[2018-08-02] MEDS: PIPER-TAZO 3.375 GM IV (PMX) 100 ML IVPB SCH ×4 (04:57→23:20)
[2018-08-02] MEDS: VANCOMYCIN HCL 1.25 GM in SOD CHLORIDE 0.9% 250 ML IVPB SCH ×2 (06:13→18:24)
[2018-08-02 07:16] VITALS: BP 114/70; PULSE 73; RESP 18
[2018-08-02] MEDS: NICOTINE (21 MG/24 HR) PATCH TRANSDERM SCH (09:22)
[2018-08-02] MEDS: ALPRAZOLAM 0.5 MG TAB PO PRN (10:07)
[2018-08-02] MEDS: HYDROCODONE/APAP (5/325) TAB PO PRN ×2 (12:12→18:24)
[2018-08-02 14:05] VITALS: BP 129/79; PULSE 91; RESP 18
--- NOTE | 2018-08-02 16:20 | PN ---
Date/Time of Note Date/Time of Note DATE: 08/02/18 TIME: 11:09 Assessment/Plan VTE Prophylaxis Risk score (from Ns)>0 risk: 5 SCD applied (from Ns): Yes Pharmacological prophylaxis: NA/contraindicated Pharm contraindication: low risk/ambulating Lines/Catheters IV [facility]from [facility] port-a-cath Urinary Cath still in place: No Assessment/Plan Hospital Course SUBJECTIVE: feels tired postop, await surgery postop visit OBJECTIVE: GENERAL: Alert and oriented, in no distress. HEENT: Head is normocephalic. Pupils are equal and reactive. NECK: Supple. CHEST: Clear to auscultation. CARDIOVASCULAR: S1, S2. No murmurs. ABDOMEN: Soft, nontender. EXTREMITIES: R axilla with bandage and protruding drain with serosaguineous fluid. The lower extremity has no edema. ASSESSMENT: A 32-year-old female who was admitted after she had presented with right axillary pain and swelling after a lymph node resection on 07/14/2018 with postoperative fluid collection that has failed outpatient therapy. She is managed for the followin. Complex right axillary cyst, postoperative after Lymph node resection: -S/p intraoperative drainage 08/01/18, drain left in place, per patient she is to be discharged with drain 2. Chronic anxiety. Resume on home Xanax. -patient advised about highly addictive nature of xanax, she has op appt setup with psych for review, she was encouraged to keep the appointment 3. Chronic tobacco user, status post cessation counseling. Nicotine patch. 4. History of breast cancer, status post mastectomy and lymph node resection. DISPOSITION: continue routine post op care, plan to d/c once cleared by surgery. ?later today Result Diagram: 08/02/18 0447 08/02/18 0447 Results 24hrs Laboratory Tests Test 08/01/18 17:25 08/02/18 04:47 Vancomycin Level Trough 7.3 L White Blood Count 6.2 Red Blood Count 3.32 L Hemoglobin 10.1 L Hematocrit 30.2 L Mean Corpuscular Volume 91.0 Mean Corpuscular Hemoglobin 30.4 Mean Corpuscular Hemoglobin Concent 33.4 Red Cell Distribution Width 12.2 Platelet Count 189 Mean Platelet Volume 12.5 H Immature Granulocytes % 0.200 Neutrophils % 57.7 Lymphocytes % 25.2 Monocytes % 9.2 Eosinophils % 6.9 Basophils % 0.8 Nucleated Red Blood Cells % 0.0 Immature Granulocytes # 0.010 Neutrophils # 3.6 Lymphocytes # 1.6 Monocytes # 0.6 Eosinophils # 0.4 Basophils # 0.1 Nucleated Red Blood Cells # 0.0 Sodium Level 140 Potassium Level 4.0 Chloride Level 100 Carbon Dioxide Level 27 Anion Gap 13 Blood Urea Nitrogen 12 Creatinine 0.64 Est Glomerular Filtrat Rate mL/min > 60 Glucose Level 91 Calcium Level 9.1 Exam/Review of Systems Exam Vitals Vital Signs Date Temp Pulse Resp B/P (MAP) Pulse Ox O2 O2 Flow FiO2 Time Delivery Rate 08/02/18 98.3 91 18 129/79 99 Room Air 14:05 (96) Intake and Output 08/01/18 08/01/18 08/02/18 1515:00 23:00 07:00 IntakeIntake Total 1050 ml 950 ml 1520 ml OutputOutput Total 5 ml 200 ml 30 ml BalanceBalance 1045 ml 750 ml 1490 ml Results Results 24hrs Laboratory Tests Test 08/01/18 17:25 08/02/18 04:47 Vancomycin Level Trough 7.3 L White Blood Count 6.2 Red Blood Count 3.32 L Hemoglobin 10.1 L Hematocrit 30.2 L Mean Corpuscular Volume 91.0 Mean Corpuscular Hemoglobin 30.4 Mean Corpuscular Hemoglobin Concent 33.4 Red Cell Distribution Width 12.2 Platelet Count 189 Mean Platelet Volume 12.5 H Immature Granulocytes % 0.200 Neutrophils % 57.7 Lymphocytes % 25.2 Monocytes % 9.2 Eosinophils % 6.9 Basophils % 0.8 Nucleated Red Blood Cells % 0.0 Immature Granulocytes # 0.010 Neutrophils # 3.6 Lymphocytes # 1.6 Monocytes # 0.6 Eosinophils # 0.4 Basophils # 0.1 Nucleated Red Blood Cells # 0.0 Sodium Level 140 Potassium Level 4.0 Chloride Level 100 Carbon Dioxide Level 27 Anion Gap 13 Blood Urea Nitrogen 12 Creatinine 0.64 Est Glomerular Filtrat Rate mL/min > 60 Glucose Level 91 Calcium Level 9.1 Medications Medication Current Medications IV Flush (NS 3 ml) 3 ml PER PROTOCOL IV ; Start 07/31/18 at 04:30 Ondansetron HCl (Zofran Inj) 4 mg Q6H PRN IV NAUSEA/VOMITING; Start 07/31/18 at 04:30 Acetaminophen (Tylenol Tab) 650 mg Q6H PRN PO .PAIN 1-3 OR TEMP; Start 07/31/18 at 04:30 Acetaminophen/ Hydrocodone Bitart ([place] (5/325)) 1 tab Q6H PRN PO .PAIN 4-6 Last administered on 08/02/18 12:12; Admin Dose 1 TAB; Start 07/31/18 at 04:30 Morphine Sulfate (morphine) 2 mg Q4H PRN IV .PAIN 7-10 Last administered on 08/02/18 00:28; Admin Dose 2 MG; Start 07/31/18 at 04:30 Vancomycin HCl (Vanco Iv Per Pharmacy) VANCOMYCIN PER PHARMACY PER PROTOCOL XX ; Start 07/31/18 at 05:30 Piperacillin Sod/ Tazobactam Sod 100 ml @ 200 mls/hr Q6 IVPB Last administered on 08/02/18 12:13; Admin Dose 200 MLS/HR; Start 07/31/18 at 06:00 Alprazolam (Xanax) 0.5 mg Q12H PRN PO ANXIETY Last administered on 08/02/18 10:07; Admin Dose 0.5 MG; Start 07/31/18 at 16:30 Oxycodone/ Acetaminophen (Percocet (5/ 325)) 1 tab Q4H PRN PO MODERATE PAIN LEVEL 4-6; Start 07/31/18 at 16:30 Nicotine (Nicoderm 21 Mg/ 24hr) 1 patch DAILY TRANSDERM Last administered on 08/02/18 09:22; Admin Dose 1 PATCH; Start 07/31/18 at 16:30 Vancomycin HCl 1.25 gm/Sodium Chloride 250 ml @ 83.333 mls/ hr Q12H IVPB Last administered on 08/02/18 06:13; Admin Dose 83.333 MLS/HR; Start 08/02/18 at 06:00 VU LAYTON Aug 02, 2018 16:20
--- NOTE | 2018-08-02 17:34 | PN ---
DATE: 08/02/2018 Postop day #1 status post incision and drainage of collection in the right axillary area and irrigation and placement of a new Kulwant-Chowdhury drain. He has been complaining of pain, so I required pain medication. Also has been very anxious, per nurses and also per the patient herself. PHYSICAL EXAMINATION: GENERAL: Alert, awake. VITAL SIGNS: Temperature maximum 98.5, heart rate 73 -- 85, respiration 18, blood pressure 114/70, saturation 98%. HEART: Regular. LUNGS: Clear. EXTREMITIES: Dressing is intact. LABORATORY DATA: WBC 6200 with 67% segmented, hemoglobin slightly dropped 10.1, Platelet 189. ASSESSMENT: Kulwant-Chowdhury from yesterday till 6 o'clock today morning had drained 30 mL and right now there is about 25 mL fluid in the bag and tubing, it is serosanguineous. Culture sent yesterday in the operating room. The report is not back yet. PLAN: Continue IV antibiotic at least for 1 more day. Awaiting the result of the culture of the fluid which was sent in the operating room. If everything is okay, we may discharge the patient tomorrow. Dictated By: SHANNON MANN MD PS/NTS Conf#: [id number] DID#: [id number] CC: NILSA AZEVEDO MD;*EndCC* MTDD
[2018-08-02] MEDS ORDERED: ALPRAZOLAM 0.5 MG TAB PO ONE (18:30)
[2018-08-02 19:10] VITALS: BP 164/91; PULSE 99; RESP 20
[2018-08-02 21:45] VITALS: BP 137/71; PULSE 72; RESP 20
[2018-08-03] MEDS: PIPER-TAZO 3.375 GM IV (PMX) 100 ML IVPB SCH ×2 (05:29→12:00)
[2018-08-03] MEDS: VANCOMYCIN HCL 1.25 GM in SOD CHLORIDE 0.9% 250 ML IVPB SCH (06:17)
[2018-08-03 08:05] VITALS: BP 137/76; PULSE 79; RESP 18
[2018-08-03] MEDS: NICOTINE (21 MG/24 HR) PATCH TRANSDERM SCH (09:01)
[2018-08-03] MEDS: ALPRAZOLAM 0.5 MG TAB PO PRN (10:13)
[2018-08-03] MEDS ORDERED: ALPR0.5T6 PO ×2 (10:59→11:19)
[2018-08-03] MEDS ORDERED: HYDR-3601 PO (10:59)
[2018-08-03] MEDS ORDERED: NICO-546 TRANSDERM (10:59)
[2018-08-03] MEDS ORDERED: DOCU-144 PO (10:59)
[2018-08-03] MEDS ORDERED: CLIN300C10 PO (11:00)
[2018-08-03] MEDS ORDERED: AMOX1TAB10 PO (11:00)
[2018-08-03] MEDS ORDERED: HEPARIN (100 UNITS/ML) 5 ML SYG CATHETER ONE (11:30)
[2018-08-03] MEDS: HYDROCODONE/APAP (5/325) TAB PO PRN (11:35)
--- NOTE | 2018-08-03 13:01 | PN ---
DATE: 08/03/2018 REASONS FOR VISIT: 1. Status post incision and drainage of the fluid collection in the right axillary area and placement of a new Kulwant-Chowdhury drain. Irrigation of the cavity of the wound. 2. Status post removal of the recurrence of the cancer of this right breast from the axillary area about 3 weeks ago. SUBJECTIVE: No new complaint, feels better. OBJECTIVE: Vital signs stable. No fever. THEA drain has drained the past 24 hours 20 mL of serosanguineous fluid. LABORATORY DATA: Wound inspected is clean. The culture which was sent during operation from the cavity has not grown anything so far. PLAN: The patient can be discharged home with Kulwant-Chowdhury drain in place. Instruction was given to the patient for emptying the Kulwant-Chowdhury and recording the drainage. The patient to call Dr. Garza' office and make an appointment for followup. from internal medicine service, hospitalist, will give the prescription for antibiotic. Dictated By: SHANNON MANN MD PS/NTS Conf#: [id number] DID#: [id number] CC: NILSA AZEVEDO MD;*EndCC* MTDD
--- NOTE | 2018-08-05 02:29 | DS ---
Date/Time of Note Date/Time of Note DATE: 08/05/18 TIME: 02:25 Discharge Summary Admission/Discharge Info Admit Date/Time Jul 31, 2018 at 04:30 Discharge Date/Time Aug 03, 2018 at 12:40 Discharge Diagnosis A 32-year-old female who was admitted after she had presented with right axillary pain and swelling after a lymph node resection on 07/14/2018 with postoperative fluid collection that has failed outpatient therapy. She is managed for the followin. Complex right axillary cyst, postoperative after Lymph node resection: -S/p intraoperative drainage 08/01/18, drain left in place, she is to be discharged with drain 2. Chronic anxiety. On home Xanax. -patient advised about highly addictive nature of xanax, she has op appt setup with psych for review, she was encouraged to keep the appointment 3. Chronic tobacco user, status post cessation counseling. Nicotine patch. 4. History of breast cancer, status post mastectomy and lymph node resection. . Patient Condition: Stable Consults Surgery: Dr Bragg / Kayla . Hospital Course A 32-year-old female who was admitted after she had presented with right axillary pain and swelling after a lymph node resection on 07/14/2018 with post operative fluid collection that has failed outpatient therapy. She was admitted for Complex right axillary cyst, postoperative after Lymph node resection and underwent intraoperative drainage 08/01/18, drain left in place. Intra-op cultures have been negative so far, Surgery recommends discharge with empiric abx and f/u in office for drain removal. Patient is in agreement with discharge. She has pending O/p appt with psychiatry, she's been encouraged to keep it. Comorbidities were also aggressively managed as per Med records. Patient at this time has been evaluated and examined in detail and is assessed to be in stable condition and ready for discharge. . Home Meds Active Scripts Alprazolam* (Alprazolam*) 0.5 Mg Tablet, 0.5 MG PO Q8H PRN for ANXIETY, #10 TAB Prov:VU LAYTON. 08/03/18 Amoxicillin/Potassium Clav (Amox-Clav 875-125 mg Tablet) 875-125 mg Tab, 1 TAB PO BID, #10 TAB Prov:VU LAYTON. 08/03/18 Clindamycin Hcl* (Clindamycin Hcl*) 300 Mg Capsule, 300 MG PO Q8 for 5 Days, #15 CAP Prov:VU LAYTON. 08/03/18 Docusate Sodium* (Colace*) 100 Mg Capsule, 100 MG PO BID, #14 CAP Prov:VU LAYTON. 08/03/18 Hydrocodone Bit-Acetaminophen (Hydrocodone Bit-APAP) 5-325MG Tablet, 1 TAB PO Q6H PRN for .PAIN 4-6, #18 TAB Prov:VU LAYTON. 08/03/18 Nicotine* (Nicotine* Patch) 21 mg/day Patch, 1 PATCH TRANSDERM DAILY, #30 PATCH 1 Refill Prov:VU LAYTON. 08/03/18 Reported Medications Albuterol Sulfate (Albuterol Sulfate) 2.5 Mg/0.5 Ml Vial.neb, 50 MCG IH 07/31/18 Ondansetron HCl (Zofran) 4 Mg/5 Ml Solution, 4 MG PO for nausea 07/31/18 Discontinued Scripts Cephalexin* (Keflex*) 500 Mg Capsule, 500 MG PO QID for 10 Days, CAP Prov:ASHLEY DAVID PA-C 07/28/18 Sulfamethoxazole/Trimethoprim* (Bactrim Ds* Tablet) 1 Each Tablet, 1 TAB PO BID, #14 TAB Prov:ASHLEY DAVID PA-C 07/28/18 Alprazolam* (Alprazolam*) 0.5 Mg Tablet, 0.5 MG PO Q8H PRN for ANXIETY, #15 TAB Prov:ELIDA PIERSON 07/15/18 Oxycodone HCl/Acetaminophen (Oxycodone-Acetaminophen 5-325) 1 Each Tablet, 1 TAB PO Q4H PRN for MODERATE PAIN LEVEL 4-6, #20 TAB Prov:ELIDA PIERSON 07/15/18 Ondansetron (Ondansetron Odt) 4 Mg Tab.rapdis, 4 MG PO Q6H PRN for NAUSEA AND/OR VOMITING, #10 TAB Prov:ASHLEY DAVID PA-C 07/28/18 Ondansetron Hcl* (Zofran*) 4 Mg Tablet, 4 MG PO Q6H for NAUSEA AND/OR VOMITING, #10 TAB Prov:ELIDA PIERSON 07/15/18 Levalbuterol* (Xopenex* HFA) 15 Gm Inha, 1-2 PUFF INH Q6 PRN for SHORTNESS OF BREATH, #1 EA Prov:ELIDA PIERSON 07/15/18 Follow-up Plan See hospital course . Primary Care Provider [facility] Time spent on discharge: > 30 minutes VU LAYTON Aug 05, 2018 02:29
== END 2018-08-03 12:40 | disposition home or self-care (01) | DRG 863 ==
LOC: FTE 23:19 → MS1 07-31 04:30
PROVIDERS: ADMIT Internal Medicine; ATTEND Internal Medicine
PROC: 0X940ZZ Drainage of Right Axilla, Open Approach (ICD-10-PCS; principal; 2018-08-01 13:00)
DX: T81.49XA Infection following a procedure, other surgical site, initial encounter (principal); L76.34 Postprocedural seroma of skin and subcutaneous tissue following other procedure; L03.111 Cellulitis of right axilla; F41.9 Anxiety disorder, unspecified; F17.200 Nicotine dependence, unspecified, uncomplicated; Y83.8 Other surgical procedures as the cause of abnormal reaction of the patient, or of later complication, without mention of misadventure at the time of the procedure; Z85.3 Personal history of malignant neoplasm of breast
CPT/HCPCS: 76536; 80048; 80053; 80202; 83735; 84703; 85025; 85610; 85730; 87070; 87075; 87102; J0690; J1170; J1642; J2175; J2250; J2270; J2405; J2543; J3010; J3370; J7030; J7050

== ENCOUNTER 2018-09-11 11:21 | Emergency (ER) | payer OTHER ==
[~2018-09-11] VITALS: Ht 167.6 cm; Wt 76.3 kg
[~2018-09-11 11:21] MED LIST changes: +AMOX1TAB10 PO; -CEPH-443 PO; +CLIN300C10 PO; +DOCU-144 PO; +HYDR-3601 PO; -LEVA15HF6 INH; +NICO-546 TRANSDERM; +ONDA4SOL2 PO; -ONDA4TAB14 PO; -ONDA4TAB8 PO; -OXYC-438 PO; +RTPRO5 IH; -SULF1TAB31 PO
[2018-09-11 11:28] VITALS: BP 148/70; PULSE 84; RESP 18; Ht 167.6 cm; Wt 76.3 kg
[2018-09-11] MEDS ORDERED: IPRATROPIUM (NEB) 0.5 MG/2.5 ML AMP NEB STA (11:49)
[2018-09-11] MEDS ORDERED: ALBUTEROL 0.083% (NEB) 2.5 MG/3 ML AMP NEB STA (11:49)
[2018-09-11] MEDS ORDERED: predniSONE 20 MG TAB PO STA (11:49)
[2018-09-11] MEDS ORDERED: AZIT250T PO (14:44)
[2018-09-11] MEDS ORDERED: ALBU8.5H8 INH (14:54)
--- NOTE | 2018-09-11 15:07 | ERD ---
ER Documentation Chief Complaint Chief Complaint COUGH X 1 WEEK HPI Patient is a 33-year-old female, currently undergoing chemotherapy, last chemotherapy 3 weeks ago, for breast cancer, presents to the ER for concerns of a cough times 1 week. Patient states her cough is primarily dry in nature however occasionally does have productive cough. Patient denies any sputum production. Patient denies any fevers or chills. Patient denies any chest pain or shortness of breath. Patient states that she has been taking Mucinex and vit amins which is not helping. Patient denies any hemoptysis. Patient generalized body aches, nausea, vomiting, abdominal pain, diarrhea. No recent travel. No sick contacts. Of note, patient was seen at [facility] 2 days ago. She states she was given Tessalon Perles. Patient's oncologist is Dr. Rodriguez. Patient has upcoming chemo later this week. ROS All systems reviewed and are negative except as per history of present illness. Medications Home Meds Active Scripts Albuterol Sulfate* (Proair HFA*) 8.5 Gm Hfa.aer.ad, 2 PUFF INH Q4, #1 INHALER Prov:LUCILLE WATKINS PA-C 09/11/18 Azithromycin* (Zithromax*) 250 Mg Tablet, 250 MG PO .ZPACK DIRECTED, #6 TAB TAKE 500 MG (2 TABS) THE FIRST DAY THEN 250 MG (1 TAB) DAYS 2-5 Prov:LUCILLE WATKINS PA-C 09/11/18 Alprazolam* (Alprazolam*) 0.5 Mg Tablet, 0.5 MG PO Q8H PRN for ANXIETY, #10 TAB Prov:VU LAYTON 08/03/18 Amoxicillin/Potassium Clav (Amox-Clav 875-125 mg Tablet) 875-125 mg Tab, 1 TAB PO BID, #10 TAB Prov:VU LAYTON 08/03/18 Clindamycin Hcl* (Clindamycin Hcl*) 300 Mg Capsule, 300 MG PO Q8 for 5 Days, #15 CAP Prov:VU LAYTON 08/03/18 Docusate Sodium* (Colace*) 100 Mg Capsule, 100 MG PO BID, #14 CAP Prov:VU LAYTON. 08/03/18 Hydrocodone Bit-Acetaminophen (Hydrocodone Bit-APAP) 5-325MG Tablet, 1 TAB PO Q6H PRN for .PAIN 4-6, #18 TAB Prov:VU LAYTON. 08/03/18 Nicotine* (Nicotine* Patch) 21 mg/day Patch, 1 PATCH TRANSDERM DAILY, #30 PATCH 1 Refill Prov:VU LAYTON. 08/03/18 Reported Medications Albuterol Sulfate (Albuterol Sulfate) 2.5 Mg/0.5 Ml Vial.neb, 50 MCG IH 07/31/18 Ondansetron HCl (Zofran) 4 Mg/5 Ml Solution, 4 MG PO for nausea 07/31/18 Allergies Allergies: Coded Allergies: No Known Allergy (Unverified , 07/31/18) PMhx/Soc History of Surgery: Yes (2016 (partial mastectomy R) 2017 (full mastectomy) 2018 (lymph node removal) Anesthesia Reaction: No Hx 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 Disorder: No Hx Respiratory Disorders: No Hx Cardiac Disorders: No Hx Psychiatric Problems: No Hx Miscellaneous Medical Probl: Yes (breast cancer) Hx Alcohol Use: Yes (history of social drinking) Hx Substance Use: Yes (cbd oil) Hx Tobacco Use: Yes Smoking Status: Current every day smoker FmHx Family History: No diabetes Physical Exam Vitals Vital Signs Date Temp Pulse Resp B/P (MAP) Pulse Ox O2 O2 Flow FiO2 Time Delivery Rate 09/11/18 74 20 97 21 12:05 09/11/18 98.1 84 18 148/70 98 11:28 (96) Physical Exam GENERAL: Well-developed, well-nourished female. Appears in no acute distress. HEAD: Normocephalic, atraumatic. No deformities or ecchymosis. EYE: Pupils equal, round, and reactive to light. EOMs intact. No conjunctival erythema. No eye discharge. ENT: External ear without any masses or tenderness. TM visualized bilaterally, non-erythematous, non-bulging. Nasal mucosa pink with no discharge. Oropharynx is pink without any tonsillar erythema or exudates. No uvula deviation. No kissing tonsils. NECK: Supple. No meningismus. Normal ROM of the neck. LUNG: Faint expiratory wheezing noted bilaterally. No abdominal retractions, nasal flaring, no tripoding. No stridor. HEART: Regular rate and rhythm. No murmurs, rubs or gallops. EXTREMITES: Equal pulses bilaterally. No peripheral clubbing, cyanosis or edema. No unilateral leg swelling. NEUROLOGIC: Alert and oriented to person, place and time. Moving all four extremities. 5/5 strength in all extremities. Normal speech. Steady gait. SKIN: Normal color. Warm and dry. No rashes or lesions. Result Diagram: 09/11/18 1355 09/11/18 1355 Results 24 hrs Laboratory Tests Test 09/11/18 13:55 White Blood Count 6.0 10^3/ul Red Blood Count 3.95 10^6/ul Hemoglobin 12.1 g/dl Hematocrit 36.1 % Mean Corpuscular Volume 91.4 fl Mean Corpuscular Hemoglobin 30.6 pg Mean Corpuscular Hemoglobin Concent 33.5 g/dl Red Cell Distribution Width 13.1 % Platelet Count 180 10^3/UL Mean Platelet Volume 12.2 fl Immature Granulocytes % 1.300 % Neutrophils % 70.9 % Lymphocytes % 23.5 % Monocytes % 2.8 % Eosinophils % 0.5 % Basophils % 1.0 % Nucleated Red Blood Cells % 0.0 /100WBC Immature Granulocytes # 0.080 10^3/ul Neutrophils # 4.3 10^3/ul Lymphocytes # 1.4 10^3/ul Monocytes # 0.2 10^3/ul Eosinophils # 0.0 10^3/ul Basophils # 0.1 10^3/ul Nucleated Red Blood Cells # 0.0 10^3/ul Sodium Level 142 mmol/L Potassium Level 3.3 mmol/L Chloride Level 106 mmol/L Carbon Dioxide Level 28 mmol/L Anion Gap 8 Blood Urea Nitrogen 12 mg/dl Creatinine 0.80 mg/dl Est Glomerular Filtrat Rate mL/min > 60 mL/min Glucose Level 125 mg/dl Calcium Level 9.5 mg/dl Total Bilirubin 0.2 mg/dl Direct Bilirubin 0.00 mg/dl Indirect Bilirubin 0.2 mg/dl Aspartate Amino Transf (AST/SGOT) 25 IU/L Alanine Aminotransferase (ALT/SGPT) 37 IU/L Alkaline Phosphatase 106 IU/L Total Protein 7.6 g/dl Albumin 4.3 g/dl Globulin 3.30 g/dl Albumin/Globulin Ratio 1.30 Current Medications Medications Dose Sig/Eligio Start Time Status Last (Trade) Ordered Route PRN Stop Time Admin Dose Reason Admin Albuterol 5 mg ONCE STAT 09/11/18 DC 09/11/18 (Proventil NEB 11:49 09/11/18 12:05 0.083% (Neb)) 11:52 Ipratropium 1 mg ONCE STAT 09/11/18 DC 09/11/18 [place] NEB 11:49 09/11/18 12:05 (Atrovent 11:52 0.02% (Neb)) Prednisone 60 mg ONCE STAT 09/11/18 DC 09/11/18 (Prednisone) PO 11:49 09/11/18 11:56 11:52 Procedures/MDM ED COURSE: The patient was stable throughout ED course. I kept the patient and/or family informed of laboratory and diagnostic imaging results throughout the ED course. DIAGNOSTIC IMAGING: Read by radiologist. Patient: DIMAS MUNROE : 1985 Age: 33 Sex: F MR #: [id number] DOS: 09/11/18 1333 Ordering MD: LUCILLE WATKINS PA-C Location: [facility] Room/Bed: PROCEDURE: XR Chest. CLINICAL INDICATION: cough TECHNIQUE: Portable AP view of the chest was obtained. COMPARISON: None. FINDINGS: No pulmonary consolidation or edema. No effusion or pneumothorax. Cardiac silhouette is normal. No acute osseous abnormality. Left-sided central venous port tip is over the distal SVC, in good position. Moderate scoliosis. IMPRESSION: No evidence of acute cardiopulmonary process. RPTAT:AAJJ Physician Damon Date Time Electronically viewed and signed by Physician Damon on 09/11/2018 14:19 RF/ CC: LUCILLE WATKINS PA-C [phone] PROCEDURES: None. MEDICATIONS GIVEN: Albuterol/ipratropium, Prednisone Patient tolerated medication well with no adverse reactions. MEDICAL DECISION MAKING: This is a 33-year-old female, currently undergoing chemotherapy for breast cancer, last chemo 3 weeks ago, presents the ER for concerns of cough times 1 week. Lung exam did reveal faint expiratory vital signs were reviewed. Patient was afebrile. Patient was not hypoxic. ENT exam was normal. Lung exam did reveal faint expiratory wheezing. Patient was given breathing treatment here in ER. Upon reexamination, patient reported improvement in symptoms. Chest x-ray was unremarkable. Influenza swab was negative. CBC showed no evidence of systemic infection or severe anemia. Platelet count was within normal limits. CMP showed potassium 3.3, all other electrolytes within normal limits, no acidosis, alkalosis or evidence of acute liver or renal injury. Given that patient has had symptoms for 1 week, patient will be treated with a course of antibiotics for concerns of bronchitis. Patient was advised to follow- up with her oncologist tomorrow to see if she should continue with chemo later this week. Case was discussed with supervising physician Dr. Son who agreed that patient is stable for outpatient management. Low suspicion for acute respiratory failure, severe electrolyte abnormalities, sepsis, acute coronary syndrome, pneumothorax, pneumonia, TB, influenza, pertussis, GERD, allergic rhinitis. PRESCRIPTIONS: Z-Gabriele, albuterol inhaler DISCHARGE: At this time, patient is stable for discharge and outpatient management. I have instructed the patient to follow-up with his/her primary care physician in 1-2 days. If symptoms persist, patient may need to see a specialist for further examinations and testing. I have instructed the patient to promptly return to the ER at any time for any new or worsening symptoms including increased increased pain, fever, nausea, vomiting, numbness, shortness of breath, weakness, ongoing wheezing, retractions or LOC. The patient and/or family expressed understanding of and agreement with this plan. All questions were answered. Home care instructions were provided. Disclaimer: Inadvertent spelling and grammatical errors are likely due to EHR/dictation software use and do not reflect on the overall quality of patient care. Also, please note that the electronic time recorded on this note does not necessarily reflect the actual time of the patient encounter. Departure Diagnosis: Primary Impression: Bronchitis Additional Impressions: Wheezing Personal history of chemotherapy Condition: Fair Patient Instructions: Bronchitis With Wheezing (Adult) Additional Instructions: Call your doctor to see if you should have chemo this upcoming week. Call your primary care doctor TOMORROW for an appointment during the next 1-2 days.See the doctor sooner or return here if your condition worsens before your appointment time. LUCILLE WATKINS PA-C Sep 11, 2018 15:07
== END 2018-09-11 15:56 | disposition home or self-care (01) ==
LOC: FTE 11:21
DX: J40 Bronchitis, not specified as acute or chronic (principal); F17.210 Nicotine dependence, cigarettes, uncomplicated; C50.919 Malignant neoplasm of unspecified site of unspecified female breast
CPT/HCPCS: 36415; 71045; 80053; 85025; 87400; 94664; J7512; Z7502; Z7610

== ENCOUNTER 2018-10-20 10:36 | Day surgery (SDC) | payer OTHER ==
[2018-10-20] VITALS (11 sets, daily range): BP systolic 75–99; BP diastolic 52–65; PULSE 68–92; RESP 13–40; Ht 170.2 cm; Wt 76.3 kg
[~2018-10-20] VITALS: Ht 170.2 cm; Wt 76.3 kg
[~2018-10-20 10:36] MED LIST changes: +ALBU8.5H8 INH; +AZIT250T PO; +CEFAZOLIN 2 GM/50 ML (PMX) 50 ML IVPB ONE; +SOD CHLORIDE 0.9% 1,000 ML IV SCH
[2018-10-20] MEDS ORDERED: LISI10TA2 PO (11:14)
[2018-10-20] MEDS ORDERED: HYDR25TA6 PO (11:14)
--- NOTE | 2018-10-20 13:56 | PREAC ---
Date/Time of Note Date/Time of Note DATE: 10/20/18 TIME: 13:54 Anesthesia Eval and Record Evaluation Time Pre-Procedure Interview DATE: 10/20/18 TIME: 13:54 Age 33 Sex female NPO: 8 hrs Preoperative diagnosis right axillary mass Planned procedure excision of right axillary mass Past Medical History Past Medical History: Includes Pulm: Asthma, Other (right breast ca) Surgery & Anesthesia Issues No known issue Meds Anticoagulation: No Beta Servando within 24 hr: No Reason Beta Servando not given: Pt. not on B-Servando Active Scripts Alprazolam* (Alprazolam*) 0.5 Mg Tablet, 0.5 MG PO Q8H PRN for ANXIETY, #10 TAB Prov:VU LAYTON M. 08/03/18 Reported Medications Hydrochlorothiazide* (Hydrochlorothiazide*) 25 Mg Tab, 25 MG PO DAILY, #30 TAB 10/20/18 Lisinopril* (Lisinopril*) 10 Mg Tablet, 10 MG PO DAILY, #30 TAB 10/20/18 Discontinued Reported Medications Albuterol Sulfate (Albuterol Sulfate) 2.5 Mg/0.5 Ml Vial.neb, 50 MCG IH 07/31/18 Ondansetron HCl (Zofran) 4 Mg/5 Ml Solution, 4 MG PO for nausea 07/31/18 Discontinued Scripts Albuterol Sulfate* (Proair HFA*) 8.5 Gm Hfa.aer.ad, 2 PUFF INH Q4, #1 INHALER Prov:LUCILLE WATKINS PA-C 09/11/18 Azithromycin* (Zithromax*) 250 Mg Tablet, 250 MG PO .HALIMA DIRECTED, #6 TAB TAKE 500 MG (2 TABS) THE FIRST DAY THEN 250 MG (1 TAB) DAYS 2-5 Prov:LUCILLE WATKINS PA-C 09/11/18 Amoxicillin/Potassium Clav (Amox-Clav 875-125 mg Tablet) 875-125 mg Tab, 1 TAB PO BID, #10 TAB Prov:VU LAYTON. 08/03/18 Clindamycin Hcl* (Clindamycin Hcl*) 300 Mg Capsule, 300 MG PO Q8 for 5 Days, #15 CAP Prov:VU LAYTON 08/03/18 Docusate Sodium* (Colace*) 100 Mg Capsule, 100 MG PO BID, #14 CAP Prov:VU LAYTON. 08/03/18 Hydrocodone Bit-Acetaminophen (Hydrocodone Bit-APAP) 5-325MG Tablet, 1 TAB PO Q6H PRN for .PAIN 4-6, #18 TAB Prov:VU LAYTON. 08/03/18 Nicotine* (Nicotine* Patch) 21 mg/day Patch, 1 PATCH TRANSDERM DAILY, #30 PATCH 1 Refill Prov:VU LAYTON. 08/03/18 Current Medications Sodium Chloride 1,000 ml @ 75 mls/hr [id number] IV ; Start 10/20/18 at 07:00; Stop 10/20/18 at 20:19 Meds reviewed: Yes Allergies Coded Allergies: No Known Allergy (Unverified , 10/20/18) Allergies Reviewed: Yes Labs/Studies Labs Reviewed: Reviewed by anesthesiologist Result Diagram: 10/20/18 1130 10/20/18 1130 Laboratory Tests 10/20/18 11:30 test: Negative Pre-procedure Exam Last vitals Vital Signs Date Temp Pulse Resp B/P (MAP) Pulse Ox O2 O2 Flow FiO2 Time Delivery Rate 10/20/18 97.8 91 16 96/65 (75) 95 Room Air 12:16 Airway: Adequate mouth opening, Adequate thyromental dist Mallampati: Mallampati II Teeth: Normal Lung: Normal Heart: Normal ASA Physical Status ASA physical status: 2 Emergency: None Planned Anesthetic General/MAC: LMA Planned Pain Management Parenteral pain med Pre-operative Attestations Prior to commencing anesthesia and surgery, the patient was re-evaluated, there was verification of: *The patient's identity *The results of appropriate recent lab work and preoperative vital signs *The above evaluation not changing prior to induction *Anesthetic plan, risk benefits, alternative and complications discussed with patient/family; questions answered; patient/family understands, accepts and wishes to proceed. TONY VIDALES October 20, 2018 13:56
[2018-10-20] MEDS ORDERED: PROPOFOL 100 ML ONE (14:10)
[2018-10-20] MEDS ORDERED: LIDOCAINE 2% (SDV) 5 ML INJ ONE (14:18)
[2018-10-20] MEDS ORDERED: CEFAZOLIN 1 GM INJ ONE (14:18)
[2018-10-20] MEDS ORDERED: DEXAMETHASONE 4 MG/ML 5 ML INJ ONE (14:20)
[2018-10-20] MEDS ORDERED: ONDANSETRON 4 MG INJ ONE (14:21)
--- NOTE | 2018-10-20 14:37 | SIPON ---
Date/Time of Note Date/Time of Note DATE: 10/20/18 TIME: 14:36 Operative Report Preoperative Diagnosis Right axillary mass rule out recurrent breast cancer Postoperative Diagnosis Same Operation/Procedure Performed Excision of right axillary mass Surgeon see signature line assistant center manager Dr Perez Anesthesia: general Estimated blood loss: 0 - 10 ml's Transfusion Required none Specimen Right axillary mass Grafts/Implants none Complications none JUAN GRANT MD October 20, 2018 14:37
[2018-10-20] MEDS ORDERED: MEPERIDINE 25 MG INJ IV PRN (15:00)
[2018-10-20] MEDS ORDERED: ALBUTEROL 0.083% (NEB) 2.5 MG/3 ML AMP HHN PRN (15:00)
[2018-10-20] MEDS ORDERED: DIPHENHYDRAMINE 50 MG INJ IV PRN (15:00)
[2018-10-20] MEDS ORDERED: OXYCODONE/ACETAMINOPHEN (5/325) TAB PO PRN ×2 (15:00)
[2018-10-20] MEDS ORDERED: LABETALOL HCL 20MG INJ IV PRN (15:00)
[2018-10-20] MEDS ORDERED: KETOROLAC 30 MG INJ IV PRN (15:00)
[2018-10-20] MEDS ORDERED: hydrALAzine 20 MG INJ IV PRN (15:00)
[2018-10-20] MEDS ORDERED: FENTAnyl 50 MCG/ML VIAL IV PRN ×3 (15:00)
[2018-10-20] MEDS ORDERED: ONDANSETRON 4 MG INJ IV PRN (15:00)
[2018-10-20] MEDS ORDERED: EPHEDrine SULFATE 50 MG/5 ML SYG IV PRN (15:00)
--- NOTE | 2018-10-20 15:01 | PAC ---
Date/Time of Note Date/Time of Note DATE: 10/20/18 TIME: 15:01 Post-Anesthesia Notes Post-Anesthesia Note Last documented vital signs Vital Signs Date Temp Pulse Resp B/P (MAP) Pulse Ox O2 O2 Flow FiO2 Time Delivery Rate 10/20/18 97.8 91 16 96/65 (75) 95 Room Air 1501 Activity: WNL Respiratory function: WNL Cardiovascular function: WNL Mental status: Baseline Pain reasonably controlled: Yes Hydration appropriate: Yes Nausea/Vomiting absent: Yes TONY VIDALES October 20, 2018 15:01
--- NOTE | 2018-10-20 15:42 | OPR ---
DATE OF OPERATION: 10/20/2018 PREOPERATIVE DIAGNOSIS: History of locally advanced right breast cancer with axillary mass, rule out recurrent right breast cancer. POSTOPERATIVE DIAGNOSIS: History of locally advanced right breast cancer with axillary mass, rule ou t recurrent right breast cancer. OPERATION PERFORMED: Resection of right axillary mass. ANESTHESIA: General. ANESTHESIOLOGIST: Dr. Palacios. SURGEON: Baldev Garza MD WASH TUB MACHINE OPERATOR: Hoa Perez MD INDICATIONS FOR PROCEDURE: The patient is a very unfortunate 33-year-old female who over the last ye ar and a half, has been treated for locally advanced cancer. She continues to receive ongoing chemot herapy; however, she presented with a firm nodule in the right axilla under her previous surgical inc isional scar. It was very worrisome for recurrence. She requested excisional biopsy and she consent ed and was scheduled for surgery. DESCRIPTION OF PROCEDURE: The patient was brought to the operating theater, placed under general ane sthesia. The right axillary region was prepped and draped in usual sterile fashion. A small portion of the previous incision overlying the axilla approximately 3 to 4 cm in length, was reincised. Sub cutaneous tissue was dissected with cautery. The palpable mass was identified. It was meticulously dissected from the surrounding tissue, transected and sent for permanent pathologic analysis. The wo und was irrigated. Minimal bleeding was controlled with cautery, and the skin incision was then reap proximated with a deep dermal layer of 4-0 Vicryl sutures in interrupted fashion, followed by final s kin approximation with 5-0 PDS sutures and Dermabond was applied. The patient tolerated procedure we ll. Estimated blood loss was 10 mL. There were no complications and the patient was transported in stable condition to the recovery room. Dictated By: BALDEV GARZA MD TL/NTS Conf#: [id number] DID#: [id number] CC: HOA PEREZ MD;*EndCC*
== END 2018-10-20 16:13 | disposition home or self-care (01) ==
LOC: SDS 10:36
PROVIDERS: ATTEND Surgery Surgical Oncology
DX: C77.3 Secondary and unspecified malignant neoplasm of axilla and upper limb lymph nodes (principal); Z85.3 Personal history of malignant neoplasm of breast; J45.909 Unspecified asthma, uncomplicated
CPT/HCPCS: 11606; 80053; 84703; 85025; 85610; 85730; 88307; J0690; J1100; J2405; J3010; Z7512; Z7610

== ENCOUNTER 2018-11-28 20:46 | Emergency (ER) | payer OTHER ==
[~2018-11-28] VITALS: Ht 170.2 cm; Wt 75.0 kg
[~2018-11-28 20:46] MED LIST changes: -ALBU8.5H8 INH; -AMOX1TAB10 PO; -AZIT250T PO; -CEFAZOLIN 2 GM/50 ML (PMX) 50 ML IVPB ONE; -CLIN300C10 PO; -DOCU-144 PO; -HYDR-3601 PO; +HYDR25TA6 PO; +LISI10TA2 PO; -NICO-546 TRANSDERM; -ONDA4SOL2 PO; -RTPRO5 IH; -SOD CHLORIDE 0.9% 1,000 ML IV SCH
[2018-11-28 20:57] VITALS: Ht 170.2 cm; Wt 75.0 kg
[2018-11-28] MEDS ORDERED: IPRATROPIUM (NEB) 0.5 MG/2.5 ML AMP INH STA (22:57)
[2018-11-28] MEDS ORDERED: ALBUTEROL 0.083% (NEB) 2.5 MG/3 ML AMP INH STA (22:57)
[2018-11-28] MEDS ORDERED: ONDANSETRON 4 MG INJ IV STA (23:19)
[2018-11-28] MEDS ORDERED: SOD CHLORIDE 0.9% 1,000 ML IV STA (23:19)
[2018-11-28] MEDS ORDERED: morphine 4 MG/ML VIAL IV STA (23:19)
[2018-11-29] MEDS ORDERED: TRAM50TA2 PO (03:03)
[2018-11-29] MEDS ORDERED: ONDA4TAB14 PO (03:03)
[2018-11-29] MEDS ORDERED: DOCU-144 PO (03:09)
[2018-11-29 03:24] VITALS: BP 109/73; PULSE 74; RESP 18
--- NOTE | 2018-12-21 02:50 | ERD ---
ER Documentation Chief Complaint Chief Complaint SOB WITH CP/AP X 5 DAYS, CORRELATES WITH NEW CANCER DRUG USAGE HPI This is a 33-year-old female status post chemotherapy with complaint of nausea vomiting chest pain abdominal pain. She is well-known for similar complaints in the past. Denies fevers or chills. Pain is mild to moderate intensity no exacerbating relieving factors no radiations. ROS All systems reviewed and are negative except as per history of present illness. Medications Home Meds Reported Medications Ribociclib Succinate/Letrozole (Kisqali Femara 600 mg Co-Pack) 1 Each Tablet, 3 EACH PO DAILY, TAB ON 21 DAYS OFF 7 DAYS 12/13/18 Allergies Allergies: Coded Allergies: No Known Allergy (Unverified , 12/18/18) PMhx/Soc History of Surgery: Yes (RT MASTECTOMY, rt lymphectomy) Anesthesia Reaction: No Hx 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 Disorder: No Hx Respiratory Disorders: No Hx Cardiac Disorders: No Hx Psychiatric Problems: No Hx Miscellaneous Medical Probl: Yes (right breast CA w/ mets to liver) Hx Alcohol Use: Yes (history of social drinking) Hx Substance Use: Yes (cbd oil) Hx Tobacco Use: Yes Smoking Status: Former smoker Physical Exam Physical Exam Const: No acute distress Head: Atraumatic Eyes: Normal Conjunctiva ENT: Normal External Ears, Nose and Mouth. Neck: Full range of motion. No meningismus. Resp: Clear to auscultation bilaterally Cardio: Regular rate and rhythm, no murmurs Abd: Soft, non tender, non distended. Normal bowel sounds Skin: No petechiae or rashes Back: No midline or flank tenderness Ext: No cyanosis, or edema Neur: Awake and alert Psych: Normal Mood and Affect Results 24 hrs Laboratory Tests Test 11/28/18 23:10 11/28/18 23:19 11/28/18 23:21 11/29/18 01:10 Bedside Urine pH 5.5 (LAB) Bedside Urine Negative Protein (LAB) Bedside Urine Negative Glucose (UA) Bedside Urine Negative Ketones (LAB) Bedside Urine Blood Negative Bedside Urine Negative Nitrite (LAB) Bedside Urine 1+ Leukocyte Esterase (L POC Venous Lactate 1.0 mmol/L White Blood Count 9.2 10^3/ul Red Blood Count 3.63 10^6/ul Hemoglobin 10.9 g/dl Hematocrit 33.1 % Mean Corpuscular 91.2 fl Volume Mean Corpuscular 30.0 pg Hemoglobin Mean Corpuscular 32.9 g/dl Hemoglobin Concent Red Cell 11.9 % Distribution Width Platelet Count 146 10^3/UL Mean Platelet 14.2 fl Volume Immature 0.300 % Granulocytes % Neutrophils % 72.5 % Lymphocytes % 17.2 % Monocytes % 6.9 % Eosinophils % 2.6 % Basophils % 0.5 % Nucleated Red Blood 0.0 /100WBC Cells % Immature 0.030 10^3/ul Granulocytes # Neutrophils # 6.7 10^3/ul Lymphocytes # 1.6 10^3/ul Monocytes # 0.6 10^3/ul Eosinophils # 0.2 10^3/ul Basophils # 0.1 10^3/ul Nucleated Red Blood 0.0 10^3/ul Cells # Prothrombin Time 13.2 Sec Prothrombin Time 1.0 Ratio INR International 0.99 Normalized Ratio Activated 29.2 Sec Partial Thromboplas t Time Sodium Level 140 mmol/L Potassium Level 3.9 mmol/L Chloride Level 104 mmol/L Carbon Dioxide 27 mmol/L Level Anion Gap 9 Blood Urea Nitrogen 15 mg/dl Creatinine 1.03 mg/dl Est Glomerular > 60 mL/min Filtrat Rate mL/min Glucose Level 113 mg/dl Calcium Level 9.1 mg/dl Total Bilirubin 0.2 mg/dl Direct Bilirubin 0.00 mg/dl Indirect Bilirubin 0.2 mg/dl Aspartate Amino 16 IU/L Transf (AST/SGOT) Alanine 18 IU/L Aminotransferase (A LT/SGPT) Alkaline 92 IU/L Phosphatase Troponin I < 0.012 ng/ml B-Type Natriuretic 130 PG/ML Peptide Total Protein 6.6 g/dl Albumin 3.8 g/dl Globulin 2.80 g/dl Albumin/Globulin 1.35 Ratio Lactic Acid Level 1.5 mmol/L Current Medications Medications Dose Sig/Eligio Start Time Status Last (Trade) Ordered Route PRN Stop Time Admin Dose Reason Admin Albuterol 5 mg ONCE STAT 11/28/18 DC 11/28/18 (Proventil INH 22:57 23:29 0.083% (Neb)) 11/28/18 22:58 Ipratropium 0.5 mg ONCE STAT 11/28/18 DC 11/28/18 Bulger INH 22:57 23:29 (Atrovent 11/28/18 22:58 0.02% (Neb)) Sodium 1,000 ml @ Q1H STAT 11/28/18 DC 11/28/18 Chloride 1,000 mls/hr IV 23: 23:26 11/29/18 00:18 Morphine 4 mg ONCE STAT 11/28/18 DC 11/28/18 Sulfate IV 23: 23:26 (morphine) 11/28/18 23:20 Ondansetron 4 mg ONCE STAT 11/28/18 DC 11/28/18 HCl (Zofran IV 23: 23:26 Inj) 11/28/18 23:20 Procedures/MDM EKG: Rate/Rhythm: [Normal Sinus Rhythm] QRS, ST, T-waves: [No changes consistent w/ acute ischemia] Impression: [No evidence of ischemia or arrhythmia] Chest X-ray 1V Interpreted by me: Soft Tissue: No acute abnormalities Bones: No acute abnormalities Mediastinum/Cardiac Silhouette/Lungs: [No acute abnormalities] Medical decision making: Patient's thoracic symptoms have stabilized while in the department and are stable for outpatient follow up. Exam and work up not consistent w/ ischemia, arrhythmia, PE or dissection. Departure Diagnosis: Primary Impression: Chemotherapy induced nausea and vomiting Condition: Stable Patient Instructions: Nausea and Vomiting-Adult EDWIN BOWMAN Dec 21, 2018 02:50
== END 2018-11-29 03:24 | disposition home or self-care (01) ==
LOC: E/R 20:46
DX: R11.2 Nausea with vomiting, unspecified (principal); R06.02 Shortness of breath; Z85.3 Personal history of malignant neoplasm of breast; Z87.891 Personal history of nicotine dependence
CPT/HCPCS: 71045; 80053; 81003; 83605; 83880; 84484; 85025; 85610; 85730; 93005; 94664; J2270; J2405; J7030; Z7610; 36415; 96374; 96375

== ENCOUNTER 2018-12-13 09:00 | Day surgery (SDC) | payer OTHER ==
[~2018-12-13] VITALS: Ht 170.2 cm; Wt 77.0 kg
[~2018-12-13 09:00] MED LIST changes: +DOCU-144 PO; +ONDA4TAB14 PO; +TRAM50TA2 PO
[2018-12-13] MEDS ORDERED: RIBO1TAB4 PO (09:37)
--- NOTE | 2018-12-13 10:34 | HPN ---
Date/Time of Note Date/Time of Note DATE: 12/13/18 TIME: 10:33 Interval H&P Admission Note Pt. seen H&P reviewed: No system changes NATALIIA RUSS MD Dec 13, 2018 10:34
[2018-12-13 10:51] VITALS: BP 103/65; PULSE 70; RESP 16
[2018-12-13 10:52] VITALS: Ht 170.2 cm; Wt 77.0 kg
[2018-12-13] MEDS ORDERED: SOD CHLORIDE 0.9% 1,000 ML IV SCH (11:00)
[2018-12-13] MEDS ORDERED: LIDOCAINE 2% (SDV) 5 ML INJ ONE (12:06)
[2018-12-13] MEDS ORDERED: FENTAnyl 50 MCG/ML VIAL ONE (12:14)
[2018-12-13 13:15] VITALS: BP 110/77; PULSE 60; RESP 18
[2018-12-13] MEDS: HYDROCODONE/APAP (5/325) TAB PO PRN ×3 (14:36→16:03)
== END 2018-12-13 16:30 | disposition home or self-care (01) ==
LOC: SDS 09:00
PROVIDERS: ATTEND Nuclear Medicine
DX: C78.7 Secondary malignant neoplasm of liver and intrahepatic bile duct (principal); C50.911 Malignant neoplasm of unspecified site of right female breast
CPT/HCPCS: 47000; 77012; 84703; 88307; 88313; J3010; Z7610

== ENCOUNTER 2018-12-18 09:50 | Inpatient (IN) | payer OTHER ==
[~2018-12-18] VITALS: Ht 170.2 cm; Wt 74.5 kg
[~2018-12-18 09:50] MED LIST changes: -ALPR0.5T6 PO; -DOCU-144 PO; -HYDR25TA6 PO; -LISI10TA2 PO; -ONDA4TAB14 PO; +RIBO1TAB4 PO; -TRAM50TA2 PO
[2018-12-18] MEDS ORDERED: SOD CHLORIDE 0.9% 1,000 ML IV STA (10:31)
[2018-12-18] MEDS ORDERED: ONDANSETRON 4 MG INJ IV STA (10:31)
[2018-12-18] MEDS ORDERED: morphine 4 MG/ML VIAL IV STA (10:31)
[2018-12-18] MEDS ORDERED: BARIUM SULF 2% 450 ML BTL (BERRY SMOOTHIE) PO ONE ×2 (11:00→16:30)
[2018-12-18] MEDS ORDERED: ACETAMINOPHEN 325 MG TAB PO PRN (11:00)
[2018-12-18] MEDS ORDERED: ONDANSETRON 4 MG INJ IV PRN (11:00)
--- NOTE | 2018-12-18 13:05 | ERD ---
ER Documentation Chief Complaint Chief Complaint generalize AP, breast CA, last chemo 2mths ago HPI Patient is a 33-year-old female with breast cancer who presents with abdominal pain. She has had 2 weeks of abdominal pain radiating to her right side. She was on chemo and x-ray therapy but is not currently on chemo. She did have an ultrasound which showed possibly metastasis to the liver. She was sent by Dr. Garza for work-up with CT scan and admission. She has nausea, vomiting, and diarrhea. She denies fevers. She did have a previous PET/CT scan on October 30 of this year. ROS All systems reviewed and are negative except as per history of present illness. Medications Home Meds Reported Medications Ribociclib Succinate/Letrozole (Kisqali Femara 600 mg Co-Pack) 1 Each Tablet, 3 EACH PO DAILY, TAB ON 21 DAYS OFF 7 DAYS 12/13/18 Discontinued Reported Medications Hydrochlorothiazide* (Hydrochlorothiazide*) 25 Mg Tab, 25 MG PO DAILY, #30 TAB 10/20/18 Lisinopril* (Lisinopril*) 10 Mg Tablet, 10 MG PO DAILY, #30 TAB 10/20/18 Discontinued Scripts Docusate Sodium* (Colace*) 100 Mg Capsule, 100 MG PO TID, #30 CAP Prov:EDWIN BOWMAN 11/29/18 Ondansetron (Ondansetron Odt) 4 Mg Tab.rapdis, 4 MG PO Q6H PRN for NAUSEA AND/OR VOMITING, #10 TAB Prov:EDWIN BOWMAN 11/29/18 Tramadol HCl (Tramadol HCl) 50 Mg Tablet, 50 MG PO Q4 PRN for PAIN, #20 TAB Prov:EDWIN BOWMAN. 11/29/18 Alprazolam* (Alprazolam*) 0.5 Mg Tablet, 0.5 MG PO Q8H PRN for ANXIETY, #10 TAB Prov:VU LAYTON 08/03/18 Allergies Allergies: Coded Allergies: No Known Allergy (Unverified , 12/18/18) PMhx/Soc History of Surgery: Yes (LT MASTECTOMY, LYMPH NODE REMOVAL) Anesthesia Reaction: No Hx 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 Disorder: No Hx Respiratory Disorders: No Hx Cardiac Disorders: No Hx Psychiatric Problems: No Hx Miscellaneous Medical Probl: No Hx Alcohol Use: No Hx Substance Use: No (CBD OIL) Hx Tobacco Use: No Smoking Status: Never smoker FmHx Family History: No diabetes Physical Exam Vitals Vital Signs Date Temp Pulse Resp B/P (MAP) Pulse Ox O2 O2 Flow FiO2 Time Delivery Rate 12/18/18 98.4 60 15 110/73 100 Room Air 12:38 (85) 12/18/18 98.4 114 18 117/76 98 09:54 (90) Physical Exam Const: Moderate distress Head: Atraumatic Eyes: Normal Conjunctiva ENT: Normal External Ears, Nose and Mouth. Neck: Full range of motion. No meningismus. Resp: Clear to auscultation bilaterally Cardio: Regular rate and rhythm, no murmurs Abd: Soft, gastric tenderness to palpation without rebound or guarding Skin: No petechiae or rashes Back: No midline or flank tenderness Ext: No cyanosis, or edema Neur: Awake and alert Psych: Normal Mood and Affect Result Diagram: 12/18/18 1110 12/18/18 1110 Results 24 hrs Laboratory Tests Test 12/18/18 11:10 White Blood Count 3.2 10^3/ul Red Blood Count 3.71 10^6/ul Hemoglobin 11.4 g/dl Hematocrit 33.3 % Mean Corpuscular Volume 89.8 fl Mean Corpuscular Hemoglobin 30.7 pg Mean Corpuscular Hemoglobin Concent 34.2 g/dl Red Cell Distribution Width 12.4 % Platelet Count 154 10^3/UL Mean Platelet Volume 12.4 fl Immature Granulocytes % 0.300 % Neutrophils % 66.8 % Lymphocytes % 26.7 % Monocytes % 3.7 % Eosinophils % 0.6 % Basophils % 1.9 % Nucleated Red Blood Cells % 0.0 /100WBC Immature Granulocytes # 0.010 10^3/ul Neutrophils # 2.2 10^3/ul Lymphocytes # 0.9 10^3/ul Monocytes # 0.1 10^3/ul Eosinophils # 0.0 10^3/ul Basophils # 0.1 10^3/ul Nucleated Red Blood Cells # 0.0 10^3/ul Sodium Level 145 mmol/L Potassium Level 4.4 mmol/L Chloride Level 103 mmol/L Carbon Dioxide Level 30 mmol/L Anion Gap 12 Blood Urea Nitrogen 11 mg/dl Creatinine 1.13 mg/dl Est Glomerular Filtrat Rate mL/min 55 mL/min Glucose Level 105 mg/dl Calcium Level 10.2 mg/dl Total Bilirubin 0.6 mg/dl Direct Bilirubin 0.00 mg/dl Indirect Bilirubin 0.6 mg/dl Aspartate Amino Transf (AST/SGOT) 25 IU/L Alanine Aminotransferase (ALT/SGPT) 22 IU/L Alkaline Phosphatase 128 IU/L Total Protein 8.4 g/dl Albumin 4.5 g/dl Globulin 3.90 g/dl Albumin/Globulin Ratio 1.15 Lipase 1066 U/L Current Medications Medications Dose Sig/Eligio Start Time Status Last (Trade) Ordered Route PRN Stop Time Admin Dose Reason Admin Sodium 1,000 ml @ Q1H STAT 12/18/18 DC 12/18/18 Chloride 1,000 mls/hr IV 10:31 12/18/18 11:24 11:30 Morphine 4 mg ONCE STAT 12/18/18 DC 12/18/18 Sulfate IV 10:31 12/18/18 11:24 (morphine) 10:32 Ondansetron 4 mg ONCE STAT 12/18/18 DC 12/18/18 HCl (Zofran IV 10:31 12/18/18 11:24 Inj) 10:32 Barium Adult and GIVE PRIOR 12/18/[address] DC [address] Pediatric TO CT ONCE 11:00 12/18/18 (Readi-Cat 2 formulatio... PO 11:01 ( [employer] )) Ondansetron 4 mg BRIDGE ORDER 12/18/18 HCl (Zofran PRN IV 11:00 12/19/18 Inj) NAUSEA/VOMITI 10:59 NG 650 mg ER BRIDGE 12/18/18 Acetaminophen PRN PO 11:00 12/19/18 (Tylenol .MILD PAIN 10:59 Tab) 1-3 OR TEMP Procedures/MDM CT abdomen pelvis is pending at this time. Patient is a 33-year-old female who presents with abdominal pain. She was found to have acute pancreatitis with lipase greater than 1000. CT scan is pending. She was seen by both Dr. Bragg and Dr. Garza. They have requested admission of the hospital. Based on insurance and previous admission the patient will be admitted to the care of the panel team. Patient will be admitted to a medical surgical inpatient bed. The patient was given morphine and Zofran for symptomatic relief. Departure Diagnosis: Primary Impression: Pancreatitis Chronicity: acute Pancreatitis type: unspecified pancreatitis type Acute pancreatitis complication: unspecified Qualified Codes: K85.90 - Acute p ancreatitis without necrosis or infection, unspecified Additional Impression: Abdominal pain Abdominal location: unspecified location Qualified Codes: R10.9 - Unspecified abdominal pain Condition: JASPREET Buckley MD Dec 18, 2018 13:05
[2018-12-18 14:00] VITALS: BP 118/69; PULSE 65; RESP 20
[2018-12-18 14:19] VITALS: Ht 170.2 cm; Wt 74.5 kg
[2018-12-18] MEDS ORDERED: NACL 0.9% 3 ML SYG IV SCH (15:00)
[2018-12-18] MEDS ORDERED: morphine 2 MG INJ IV PRN (15:00)
--- NOTE | 2018-12-18 15:13 | HP ---
Date/Time of Note Date/Time of Note DATE: 12/18/18 TIME: 14:56 Assessment/Plan VTE Prophylaxis SCD applied (from Nsg): Yes Pharmacological prophylaxis: LMWH Lines/Catheters IV Catheter Type (from Nrsg): Peripheral IV Assessment/Plan Assessment/Plan 33 yo woman with metastatic breast cancer presents with epigastric pain, nausea and vomiting after liver biopsy; elevated lipase #Epigastric pain - May be complication of liver biopsy versus pancreatitis - For now NPO, IV fluids. - Will check CT abd/pelv. - Morphine prn pain #Nausea - May be related to pancreatitis - She also mentioned that nausea often improves in hot showers, making marijuana hyperemesis syndrome a possibility. - Zofran prn. #Metastatic breast cancer - Continue palliative PO ribociclib/letrozole as tolerated, although it sounds like she increasingly is having more tumor without ER/AR receptors. #BRBPR - Likely hemorrhoids per history. Patient is not very anemic - She declined rectal exam. I personally don't think endoscopy or colonoscopy is needed. DVT: lovenox GI: None Result Diagram: 12/18/18 1110 12/18/18 1110 HPI/ROS Admit Date/Time Admit Date/Time Dec 18, 2018 at 10:56 Hx of Present Illness Ms. Snell is an unfortunate young woman with metastatic ER/AR positive, UCM1flp negative breast cancer who presents with epigastric abdominal pain. Current symptoms started about 2 weeks ago. While on chemotherapy she has had poor appetite but noticed that she was more nauseated than usual. She also had stabbing epigastric pain which is minimized when curled up but when she stands she feels it is "tugging" inside. She recently had a liver biopsy but can't remember if pain started before or after the biopsy. Since the surgery she also reports aching, bony chest wall pain which does not worsen with activity or improve with rest. She has been taking oral CBD/THC which offers some relief; Percocet which offers minimal relief from the pain. Zofran sometimes helps nausea, sometimes doesn't. See Dr. Dariela Fontana' excellent oncologic history scanned into the chart 12/12/18. Briefly, the patient had a R breast mass in late 2017. In July 2018 she had R lumpectomy with axillary node dissection which was positive for breast adenocarcinoma, ER/AR positive, [id number] negative. There was recurrence at the surgical site, so she had R mastectomy in Oct 14 2018. Most recently she had a PET/CT showing a liver mass and abdominal lymphadenopathy concerning for metastatic disease. Now she is on palliative ribociclib/letrozole and is following Dr. Lockhart outpatient. In the ED she was afebrile, tachy to 114, BP 117/76. CBC and BMP unremarkable but lipase 1066. ROS She denies recent fever, chills, headache, night sweats, weight loss, vision changes, dizziness, sore throat, odynophagia, neck pain/stiffness, dyspnea, cough, heart palpitations, diarrhea, constipation, dysuria, hematuria, numbness, weakness. She DOES report occasional bright red blood when wiping. PMH/Family/Social Past Medical History Metastatic breast cancer Asthma Medications Current Medications Ondansetron HCl (Zofran Inj) 4 mg BRIDGE ORDER PRN IV NAUSEA/VOMITING; Start 12/18/18 at 11:00; Stop 12/19/18 at 10:59 Acetaminophen (Tylenol Tab) 650 mg ER BRIDGE PRN PO .MILD PAIN 1-3 OR TEMP; Start 12/18/18 at 11:00; Stop 12/19/18 at 10:59 Sodium Chloride 1,000 ml @ 250 mls/hr Q4H IV ; Start 12/18/18 at 14:51; Status UNV IV Flush (NS 3 ml) 3 ml PER PROTOCOL IV ; Start 12/18/18 at 15:00; Status UNV Ondansetron HCl (Zofran Inj) 4 mg Q6H PRN IV NAUSEA/VOMITING; Start 12/18/18 at 15:00; Status UNV Morphine Sulfate (morphine) 4 mg Q4H PRN IV .SEVERE PAIN 7-10; Start 12/18/18 at 15:00; Status UNV Enoxaparin Sodium (Lovenox) 40 mg DAILY SC ; Start 12/19/18 at 09:00; Status UNV Coded Allergies: No Known Allergy (Unverified , 12/18/18) Past Surgical History Jul 2018: R lumpectomy and axillary lymph node dissection October 2018: R mastectomy Port-a-cath placement Liver biopsy Social History Alcohol Use: occasionally Smoking Status: Former smoker Drug Use: marijuana Exam/Review of Systems Vital Signs Vitals Vital Signs Date Temp Pulse Resp B/P (MAP) Pulse Ox O2 O2 Flow FiO2 Time Delivery Rate 12/18/18 98.4 60 15 110/73 100 Room Air 12:38 (85) Exam Exam Gen: Well appearing young woman in some distress. Eyes: PERRL, no icterus HEENT: Moist mucous membranes, clear oropharynx Neck: Supple, no lymphadenopathy Card: Regular rate and rhythm, no murmurs Pulm: Clear to auscultation, no crackles. Abd: Hypoactive bowel sounds. Epigastric small ecchymosis at biopsy site. Minimal epigastric tenderness (after getting IV morphine). No other tenderness throughout. Soft, no guarding or rebound. Ext: No cyanosis/clubbing/edema. Skin: warm, dry, well perfused. KATHIE PARRA MD Dec 18, 2018 15:07
[2018-12-18] MEDS: SOD CHLORIDE 0.9% 1,000 ML IV SCH ×2 (15:33→19:42)
--- NOTE | 2018-12-18 17:16 | CONS ---
DATE OF ADMISSION: 12/18/2018 DATE OF CONSULTATION: 12/18/2018 TYPE OF CONSULTATION: Surgical. REQUESTING PHYSICIAN: Medical service. REASON FOR CONSULTATION: Actually, the consultation was requested from Dr. Garza because the patient is a patient of Dr. Garza and was sent from his office to the emergency room for evaluation of abdom inal pain and I am seeing the patient because I am covering Dr. Garza. CHIEF COMPLAINT AND HISTORY OF PRESENT ILLNESS: This is a 33-year-old female with known case of canc er of breast with metastases to the intraabdominal organs who has been experiencing abdominal pain, a ccording to the patient, is colicky in nature in past 3 weeks associated with nausea and occasional v omiting and also lack of appetite. Apparently, this patient was diagnosed with cancer of right breas t in 2017, and then in 07/2018, the patient underwent right breast lumpectomy with axillary node diss ection. The patient was positive for breast cancer, poorly differentiated adenocarcinoma and ER/PA p ositive and HER-2 negative. Later on, it was necessary to proceed with mastectomy, so on 10/14/2018, the patient had a right breast modified radical mastectomy. Recently, the patient has had a PET CT scan in October which has showed evidence of a mass in the left lobe of the liver and some lymph nodes in the eliza hepatis area with concern for the metastases. For this reason, as an outpatient about 3 w eeks ago, the patient underwent a CT scan guided biopsy of the liver mass which the result is not milagro ilable for me at this time. In any case, back to the history of this problem, in the past 3 weeks or 4 weeks, the patient has had nausea, occasional vomiting, also diarrhea, but the appetite has decrea sed and the patient actually states that she likes to eat, but she cannot eat. The pain according to the patient has been colicky in nature. PAST MEDICAL HISTORY: Metastatic breast cancer, asthma. ALLERGIES: NOT KNOWN. PAST SURGICAL HISTORY: On 07/2018, right lumpectomy and axillary lymph node dissection, 10/2018 righ t mastectomy later on placing a Port-A-Cath on the left side and also liver biopsy about 3 to 4 weeks ago. SOCIAL HISTORY: The patient occasionally drinks alcohol, maybe the last time was about a month ago; smoking, former cigarette smoker, but recently she has been using marijuana. PHYSICAL EXAMINATION: GENERAL: I saw the patient in the emergency room, alert, awake, oriented, in no acute distress. VITAL SIGNS: Temperature 98.4, heart rate 114, respiration 18, blood pressure 117/76, saturation 98% room air. HEAD AND NECK: Within normal limits. No adenopathy, supraclavicular or axillary could be identified . CHEST: The scar of the operation on the right chest wall. ABDOMEN: Epigastric, there is evidence of ecchymosis which the patient attributes to the place and t heide of the liver biopsy. Also down in the epigastric area, left subcostal area, there is a fullness, there is a slight tenderness. This could be the mass in the left liver which has been mentioned bef ore or it could be hematoma. Bowel sounds to me, it is hyperactive. They are occasionally more hype ractive than usual, which gives the impression that maybe there is some partial obstruction. No guar ding, no rebound tenderness. EXTREMITIES: Lower extremity negative. LABORATORY DATA: The patient had lab performed in the emergency room, which WBC was 3200 with 66% ne utrophils and platelet count of 154. Hemoglobin 11.4, hematocrit 33.3. Chemistry was done today at 11:00 a.m. Sodium is 145, slightly elevated. Creatinine is 1.13, slightly elevated. BUN 11. Alkal ine phosphatase is 128, which is high. Total protein is 8.4, which is high. Albumin is 4.45, which is normal. Globulin is slightly elevated at 3.90. What is important is that the patient's lipase is high 1066. Coagulation profile: PT is 13.5, INR is 1.02, which is normal. IMAGING: The patient is supposed to have CT scan of abdomen and pelvis with oral and IV contrast. IMPRESSION: A 33-year-old female with history of metastatic breast cancer, possibly from the left lo be of the liver and to the lymph nodes in the eliza hepatis area. The patient has at least 3 months history of abdominal pain, colicky in nature with nausea, occasional vomiting and decreased appetite. So far, the lipase is elevated, which is 1066 which is very high, but the possibility of partial ob struction due to new metastasis in the GI system and/or hematoma in the mass in the left lobe of the liver following the biopsy could be considered as a result leading to the pressure effect on the stom ach and causing nausea and vomiting and lack of appetite and early satiety. Also, reason for pancrea titis is not clear at this time, therefore, as a surgical scheduler, we recommended considering the pancreatitis. PLAN: 1. Keep the patient n.p.o. and give the patient IV. 2. Get a CT scan of the abdomen and pelvis with IV and oral contrast and further decision will be mayda nolan after reviewing the lab results tomorrow as she will get the reports of the CT scan of the abdomen and pelvis tomorrow. I discussed my findings in full detail with the patient and the patient's [facility] er and also I informed Dr. Garza about the results. Dictated By: SHANNON MANN MD PS/NTS Conf#: [id number] DID#: [id number] CC: KATHIE PARRA MD;*EndCC*
[2018-12-18] MEDS: ONDANSETRON 4 MG INJ IV PRN (19:42)
[2018-12-18 20:24] VITALS: BP 119/77; PULSE 79; RESP 17
[2018-12-18] MEDS: HYDROmorphONE 1 MG/ML SYG IV PRN (21:28)
[2018-12-18] MEDS: METOCLOPRAMIDE 10 MG INJ IV PRN (21:55)
[2018-12-19] MEDS ORDERED: METOCLOPRAMIDE 10 MG INJ IV PRN
[2018-12-19] MEDS ORDERED: METOCLOPRAMIDE 10 MG INJ IV SCH
[2018-12-19] MEDS: SOD CHLORIDE 0.9% 1,000 ML IV SCH ×3 (01:02→09:12)
[2018-12-19] MEDS: HYDROmorphONE 1 MG/ML SYG IV PRN ×5 (01:29→19:50)
[2018-12-19] MEDS: ONDANSETRON 4 MG INJ IV PRN ×3 (01:29→19:48)
[2018-12-19] MEDS ORDERED: IOHEXOL 300MG/ML 150 ML BTL ONE (01:46)
[2018-12-19] MEDS ORDERED: SOD CHLORIDE 0.9% 100 ML ONE (01:46)
[2018-12-19 02:33] VITALS: BP 120/81; PULSE 60; RESP 18
[2018-12-19] MEDS: METOCLOPRAMIDE 10 MG INJ IV PRN ×3 (06:43→21:31)
[2018-12-19 07:53] VITALS: BP 123/85; PULSE 58; RESP 18
[2018-12-19] MEDS ORDERED: MAGNESIUM SULFATE 3 GM in DEXTROSE 5% 100 ML IVPB ONE (08:00)
[2018-12-19] MEDS: ENOXAPARIN 40 MG/0.4 ML SYG SC SCH (09:17)
[2018-12-19 14:17] VITALS: BP 132/72; PULSE 57; RESP 18
--- NOTE | 2018-12-19 14:33 | PN ---
Date/Time of Note Date/Time of Note DATE: 12/19/18 TIME: 14:28 Assessment/Plan VTE Prophylaxis Risk score (from [facility] [place])>0 risk: 0 SCD applied (from [facility] [place]): Yes Pharmacological prophylaxis: other Pharm contraindication: other Lines/Catheters IV C[facility]ter Type (from [facility]): Peripheral IV Assessment/Plan Assessment/Plan 1. Abdominal pain, likely liver masses related, r/o others, MRI 2. Elevated lipase, check amylase, follow up with MRI 3. Metastatic breast cancer to liver and lymph nodes, follow up with oncology 4. Normocytic anemai, mild, malignancy related Result Diagram: 12/19/18 0506 12/19/18 0506 Results 24hrs Laboratory Tests Test 12/18/18 18:38 12/19/18 05:06 Urine Color YELLOW Urine Clarity CLEAR Urine pH 6.0 Urine Specific [place] 1.013 Urine Ketones TRACE A Urine Nitrite NEGATIVE Urine Bilirubin NEGATIVE Urine Urobilinogen NEGATIVE Urine Leukocyte Esterase NEGATIVE Urine Microscopic RBC 0 Urine Microscopic WBC 0 Urine Hemoglobin 1+ H Urine Glucose NEGATIVE Urine Total Protein NEGATIVE Urine Test NEGATIVE White Blood Count 3.2 L Red Blood Count 3.39 L Hemoglobin 10.3 L Hematocrit 29.9 L Mean Corpuscular Volume 88.2 Mean Corpuscular Hemoglobin 30.4 Mean Corpuscular Hemoglobin Concent 34.4 Red Cell Distribution Width 12.2 Platelet Count 142 Mean Platelet Volume 12.9 H Immature Granulocytes % 0.000 L Neutrophils % 59.1 Lymphocytes % 31.5 Monocytes % 5.9 Eosinophils % 1.6 Basophils % 1.9 Nucleated Red Blood Cells % 0.0 Immature Granulocytes # 0.000 Neutrophils # 1.9 Lymphocytes # 1.0 Monocytes # 0.2 L Eosinophils # 0.1 Basophils # 0.1 Nucleated Red Blood Cells # 0.0 Sodium Level 142 Potassium Level 4.0 Chloride Level 107 Carbon Dioxide Level 25 Anion Gap 10 Blood Urea Nitrogen 8 Creatinine 0.92 Est Glomerular Filtrat Rate mL/min > 60 Glucose Level 88 Hemoglobin A1c 4.9 Calcium Level 9.2 Phosphorus Level 4.2 Magnesium Level 1.6 L Total Bilirubin 0.5 Direct Bilirubin 0.00 Indirect Bilirubin 0.5 Aspartate Amino Transf (AST/SGOT) 21 Alanine Aminotransferase (ALT/SGPT) 22 Alkaline Phosphatase 107 Total Protein 6.9 # Albumin 3.6 Globulin 3.30 H Albumin/Globulin Ratio 1.09 Thyroid Stimulating Hormone (TSH) 0.591 Subjective 24 Hr Interval Summary Free Text/Dictation epigastric pain Exam/Review of Systems Exam Vitals Vital Signs Date Temp Pulse Resp B/P (MAP) Pulse Ox O2 O2 Flow FiO2 Time Delivery Rate 12/19/18 98.0 57 18 132/72 99 14:17 (92) 12/19/18 Room Air 07:53 Intake and Output 12/18/18 12/18/18 12/19/18 1515:00 23:00 07:00 IntakeIntake Total 1000 ml 2100 ml OutputOutput Total 200 ml BalanceBalance 1000 ml 1900 ml Constitutional: alert, oriented, well developed Head: normocephalic, atraumatic Eyes: nl conjunctiva, EOMI, nl lids, PERRL ENMT: nl external ears & nose, nl lips & teeth, nl nasal mucosa & septum Neck: supple, non-tender Respiratory: clear to auscultation, normal air movement; No congested cough, No crackles/rales, No diminished breath sounds, No intercostal retraction, No labored breathing, No respirations, No tactile fremitus, No wheezing, No other Cardiovascular: regular rate and rhythm, nl pulses; No bruits, No diastolic murmur, No edema, No gallop, No irregular rhythm, No jugular venous distention (JVD), No murmurs/extra sounds, No rub, No systolic murmur, No S3, No S4, No other Gastrointestinal: soft, other (epigastric liver mass) Musculoskeletal: nl extremities to inspection Extremities: normal pulses; No calf tenderness, No cyanosis, No clubbing, No edema, No pitting pedal edema, No palpable cord, No tenderness, No other 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: [facility] II-XII intact, nl mental status, nl speech, nl strength Skin: nl turgor Results Results 24hrs Laboratory Tests Test 12/18/18 18:38 12/19/18 05:06 Urine Color YELLOW Urine Clarity CLEAR Urine pH 6.0 Urine Specific [place] 1.013 Urine Ketones TRACE A Urine Nitrite NEGATIVE Urine Bilirubin NEGATIVE Urine Urobilinogen NEGATIVE Urine Leukocyte Esterase NEGATIVE Urine Microscopic RBC 0 Urine Microscopic WBC 0 Urine Hemoglobin 1+ H Urine Glucose NEGATIVE Urine Total Protein NEGATIVE Urine Test NEGATIVE White Blood Count 3.2 L Red Blood Count 3.39 L Hemoglobin 10.3 L Hematocrit 29.9 L Mean Corpuscular Volume 88.2 Mean Corpuscular Hemoglobin 30.4 Mean Corpuscular Hemoglobin Concent 34.4 Red Cell Distribution Width 12.2 Platelet Count 142 Mean Platelet Volume 12.9 H Immature Granulocytes % 0.000 L Neutrophils % 59.1 Lymphocytes % 31.5 Monocytes % 5.9 Eosinophils % 1.6 Basophils % 1.9 Nucleated Red Blood Cells % 0.0 Immature Granulocytes # 0.000 Neutrophils # 1.9 Lymphocytes # 1.0 Monocytes # 0.2 L Eosinophils # 0.1 Basophils # 0.1 Nucleated Red Blood Cells # 0.0 Sodium Level 142 Potassium Level 4.0 Chloride Level 107 Carbon Dioxide Level 25 Anion Gap 10 Blood Urea Nitrogen 8 Creatinine 0.92 Est Glomerular Filtrat Rate mL/min > 60 Glucose Level 88 Hemoglobin A1c 4.9 Calcium Level 9.2 Phosphorus Level 4.2 Magnesium Level 1.6 L Total Bilirubin 0.5 Direct Bilirubin 0.00 Indirect Bilirubin 0.5 Aspartate Amino Transf (AST/SGOT) 21 Alanine Aminotransferase (ALT/SGPT) 22 Alkaline Phosphatase 107 Total Protein 6.9 # Albumin 3.6 Globulin 3.30 H Albumin/Globulin Ratio 1.09 Thyroid Stimulating Hormone (TSH) 0.591 Medications Medication Current Medications Sodium Chloride 1,000 ml @ 0 mls/hr Q4H IV Last administered on 12/19/18 09:12; Admin Dose 150 MLS/HR; Start 12/18/18 at 14:51 IV Flush (NS 3 ml) 3 ml PER PROTOCOL IV ; Start 12/18/18 at 15:00 Ondansetron HCl (Zofran Inj) 4 mg Q6H PRN IV NAUSEA/VOMITING Last administered on 12/19/18 11:00; Admin Dose 4 MG; Start 12/18/18 at 15:00 Enoxaparin Sodium (Lovenox) 40 mg DAILY SC Last administered on 12/19/18 09:17; Admin Dose 40 MG; Start 12/19/18 at 09:00 Hydromorphone HCl (Dilaudid) 1 mg Q4H PRN IV SEVERE PAIN LEVEL 7-10 Last administered on 12/19/18 11:00; Admin Dose 1 MG; Start 12/18/18 at 21:30 Metoclopramide HCl (Reglan) 10 mg Q6H PRN IV VOMITTING Last administered on 7/9/19at 06:43; Admin Dose 10 MG; Start 12/18/18 at 22:00 JUVENAL COYNE MD Dec 19, 2018 14:33
[2018-12-19 19:45] VITALS: BP 129/79; PULSE 81; RESP 16
--- NOTE | 2018-12-19 22:03 | CONS ---
DATE OF ADMISSION: 12/18/2018 DATE OF CONSULTATION: 12/19/2018 REASON FOR CONSULTATION: Advanced metastatic breast cancer. HISTORY OF PRESENT ILLNESS: This is an unfortunate 33-year-old female who was diagnosed with a right -sided breast cancer back in 2017. She underwent major surgery followed by systemic chemotherapy for T2N1M0 disease initially with ER positive, AR negative, AR-67 high, and HER-2 negative. The patient underwent mastectomy and nicole evaluation that showed a poorly differentiated carcinoma. The patien t started on Adriamycin, Cytoxan back in 2017 and 2017, completed her Taxotere 2018. Unfortunately, the cancer came back in the axillary and the breast chest wall areas and the later on started to deve lop abdominal discomfort with liver metastases. Recently a month ago she started on Ribociclib based treatment per protocol. She was doing well until a couple of days ago when she started to develop r ight upper quadrant pain, weakness, fatigue, nausea, vomiting, comes to the hospital. Imaging studie s showed a large abdominal metastases, mainly liver lesions and lesions in the eliza hepatis, lymph n odes present in the stomach, celiac axis. PAST MEDICAL HISTORY: Anxiety, iron deficiency anemia. FAMILY HISTORY: Mother with tongue cancer; uncle, metastatic carcinoma; great grandmother, breast ca ncer. PHYSICAL EXAMINATION: VITAL SIGNS: Temperature 97, respiration of 18, BP 120/80. No supraclavicular nodes. No axillary l ymph nodes. CHEST: Lungs rhonchi, mainly on the right more than left. HEART: Normal S1, S2. ABDOMEN: Soft. Mild weakness and tenderness in the right upper quadrant. IMAGING STUDIES: Shows multiple liver lesions mainly large liver lesion in the left liver lobe in ad dition to eliza hepatis lymph nodes. ASSESSMENT AND PLAN: 1. This is a 33-year-old female with initially right-sided breast cancer, post-mastectomy and nicole evaluation. Received systemic adjuvant chemotherapy, Adriamycin, Cytoxan and taxane per protocol. U nfortunately, disease recurrent mainly in the chest and nicole area and liver areas. The patient was put on Ribociclib based treatment with hormonal blockade. 2. Currently, admitted for abdominal pain, elevated lipase, liver enzymes. Most likely chemical jay creatitis. IV fluids, n.p.o., pain medications, antinausea, avoid anti-vomiting medications. The pa tient will be evaluated by surgery whether or not to do surgery to evaluate the obstruction and pain on the eliza hepatis right upper quadrant liver areas. PROGNOSIS: Guarded to poor. Her family is aware. Dictated By: HUSAM KELLEY/SABINE Conf#: [id number] DID#: [id number] CC: KATHIE PARRA MD;*EndCC*
--- NOTE | 2018-12-19 22:19 | PN ---
DATE: 12/19/2018 SUBJECTIVE: The patient has been admitted because of the intractable abdominal pain for the past 3 w eeks' duration. Also, nausea and occasional vomiting and inability to hold food down the stomach. SUBJECTIVE: The patient states that the pain is to some degree better but continues to be nauseous a s well. Of course, the patient is getting pain medication and that could be the reason that the pain is better. Besides the fact that she was found on admission to have lipase elevated. CT scan of th e abdomen and pelvis was done last night with oral and IV contrast. The dictated report is on the [employer] section of the computer. Briefly, they have mentioned the following impression: 1. Multiple hepatic masses concerning for metastatic disease. 2. Upper abdominal lymphadenopathy with a portacaval lymph node measuring 2.9 x 4.2 cm. 3. Mild to moderate pelvic free fluid. PHYSICAL EXAMINATION: GENERAL: The patient is alert, awake, oriented, in no acute distress, anxious. VITAL SIGNS: Temperature maximum today 98.3, heart rate 58, respiration 18, blood pressure 123/85, s aturation 99% on room air. HEART: Regular. LUNGS: Clear. ABDOMEN: Not protruded or distended. Bowel sounds present, slightly hyperactive. The mass in the e pigastric area is felt. It is firm, which corresponds to the left lobe of the liver with tumor in it . EXTREMITIES: Lower extremity negative. LABORATORY DATA: WBC today is 3200 as before. Differential 59% segmented. Hemoglobin 10.3, hematoc rit 29.9, platelet 142. Chemistry: Sodium, potassium, BUN, creatinine normal. Magnesium was slight ly low. Alkaline phosphatase was up yesterday, today is normal. Total protein has dropped to 6.9. Albumin is 3.6. Lipase has not been repeated. We are going to repeat it tomorrow and test it. ASSESSMENT AND PLAN: I discussed the case with Dr. Garza in his office and we actually is reviewed a nd the CT scan, which was done last night by Dr. Garza, radiologist in the breast center. Dr. Laverne boles, chemotherapist and oncologist, was here and saw the patient along with Dr. Lockhart and the p masha's father. The father talks and states that he wants to have surgeon go ahead and remove the b ig tumor in the left lobe of the liver. There was a lot of discussion of course. Dr. Garza is the o ne who has to make a decision that if he is going to do it and if there is any indication for proceed ing with removal of the tumor on the left lobe of the liver at this time because obviously it would d elay the chemotherapy for [address] Garza wanted an MRCP was done and we are ordering it now . Hopefully, we can do today or tonight or tomorrow at the latest. This is just to make sure there is no correctable pathology in the biliary tree and pancreatic duct which has caused the pancreatitis and probably the pain though the pain could be from involvement of the celiac axis nerve or pressure from the tumors over there. Continue keeping patient n.p.o., hydrate the patient, get an MRCP of the abdomen. Further decision w ill be made after seeing the results of MRCP. Dictated By: SHANNON MANN MD PS/NTS Conf#: [id number] DID#: [id number] CC: KATHIE PARRA MD;*EndCC*
[2018-12-20] MEDS: HYDROmorphONE 1 MG/ML SYG IV PRN ×5 (00:20→20:03)
[2018-12-20 01:21] VITALS: BP 127/77; PULSE 55; RESP 18
[2018-12-20] MEDS: ONDANSETRON 4 MG INJ IV PRN ×3 (03:02→18:52)
[2018-12-20] MEDS: SOD CHLORIDE 0.9% 1,000 ML IV SCH ×2 (03:02→10:38)
[2018-12-20] MEDS: METOCLOPRAMIDE 10 MG INJ IV PRN ×3 (06:05→22:31)
[2018-12-20] MEDS ORDERED: LIDOCAINE 2% (SDV) 5 ML INJ ONE (07:00)
[2018-12-20] MEDS ORDERED: PROPOFOL 200 MG INJ ONE (07:00)
[2018-12-20 08:21] VITALS: BP 111/59; PULSE 68; RESP 15
[2018-12-20] MEDS: ENOXAPARIN 40 MG/0.4 ML SYG SC SCH (08:53)
--- NOTE | 2018-12-20 13:47 | CONS ---
Assessment/Plan Assessment/Plan Assessment/Plan (Daily) Advanced metastatic breast cancer ER+ DC- Her 2 negative 1. This is a 33-year-old female with initially right-sided breast cancer, post- mastectomy and nicole evaluation. Received systemic adjuvant chemotherapy, Adriamycin, Cytoxan and taxane per protocol. Unfortunately, disease recurrent mainly in the chest and nicole area and liver areas. The patient was put on Ribociclib based treatment with hormonal blockade. 2. Currently, admitted for abdominal pain, elevated lipase, liver enzymes. Mo st likely chemical pancreatitis. IV fluids, n.p.o., pain medications, antinausea, avoid anti-vomiting medications. The patient will be evaluated by surgery whether or not to do surgery to evaluate the obstruction and pain on the eliza hepatis right upper quadrant liver areas. 3. Carboplatin will be given then re-evaluation for either surgical resection of the liver tumors and nodes OR interventioanl radiology for Hepatic embolization 4. Pain meds 5. Anti-emetics Consultation Date/Type/Reason Admit Date/Time Dec 18, 2018 at 10:56 Initial Consult Date Type of Consult Oncology Reason for Consultation stage IV breast CA Date/Time of Note DATE: 12/20/18 TIME: 13:42 24 HR Interval Summary Free Text/Dictation better less abd pain less nausea S1S2 Clear lungs soft abdomen Constitutional: no complaints, improved Exam/Review of Systems Exam Vitals Vital Signs Date Temp Pulse Resp B/P (MAP) Pulse Ox O2 O2 Flow FiO2 Time Delivery Rate 12/20/18 98.3 68 15 111/59 96 08:21 (76) 12/19/18 Room Air 07:53 Intake and Output 12/19/18 12/19/18 12/20/18 1414:59 22:59 06:59 IntakeIntake Total 300 ml 1118 ml OutputOutput Total 50 ml BalanceBalance 250 ml 1118 ml Constitutional: alert, oriented Psych: no complaints, nl mood/affect, anxiety Respiratory: clear to auscultation Gastrointestinal: soft, bowel sounds, mass Extremities: normal pulses Results Result Diagram: 12/20/1851112/20/1812 Results 24hrs Laboratory Tests Test 12/20/18 05:12 White Blood Count 3.9 #L Red Blood Count 3.45 L Hemoglobin 10.4 L Hematocrit 30.3 L Mean Corpuscular Volume 87.8 Mean Corpuscular Hemoglobin 30.1 Mean Corpuscular Hemoglobin Concent 34.3 Red Cell Distribution Width 12.3 Platelet Count 184 # Mean Platelet Volume 12.9 H Immature Granulocytes % 0.500 H Neutrophils % 64.9 Lymphocytes % 25.3 Monocytes % 7.2 Eosinophils % 0.5 Basophils % 1.6 Nucleated Red Blood Cells % 0.0 Immature Granulocytes # 0.020 Neutrophils # 2.5 Lymphocytes # 1.0 Monocytes # 0.3 Eosinophils # 0.0 Basophils # 0.1 Nucleated Red Blood Cells # 0.0 Sodium Level 141 Potassium Level 4.0 Chloride Level 105 Carbon Dioxide Level 23 Anion Gap 13 Blood Urea Nitrogen 9 Creatinine 0.80 Est Glomerular Filtrat Rate mL/min > 60 Glucose Level 76 Calcium Level 9.4 Total Bilirubin 0.5 Direct Bilirubin 0.00 Indirect Bilirubin 0.5 Aspartate Amino Transf (AST/SGOT) 20 Alanine Aminotransferase (ALT/SGPT) 23 Alkaline Phosphatase 113 Total Protein 7.2 Albumin 3.9 Globulin 3.30 H Albumin/Globulin Ratio 1.18 Lipase 145 Medications Medication Current Medications Sodium Chloride 1,000 ml @ 0 mls/hr Q4H IV Last administered on 12/20/18 10:38; Admin Dose 1,000 MLS/HR; Start 12/18/18 at 14:51 IV Flush (NS 3 ml) 3 ml PER PROTOCOL IV ; Start 12/18/18 at 15:00 Ondansetron HCl (Zofran Inj) 4 mg Q6H PRN IV NAUSEA/VOMITING Last administered on 12/20/18 10:32; Admin Dose 4 MG; Start 12/18/18 at 15:00 Enoxaparin Sodium (Lovenox) 40 mg DAILY SC Last administered on 12/20/18 08:53; Admin Dose 40 MG; Start 12/19/18 at 09:00 Hydromorphone HCl (Dilaudid) 1 mg Q4H PRN IV SEVERE PAIN LEVEL 7-10 Last administered on 12/20/18 10:33; Admin Dose 1 MG; Start 12/18/18 at 21:30 Metoclopramide HCl (Reglan) 10 mg Q6H PRN IV VOMITTING Last administered on 12/20/18 06:05; Admin Dose 10 MG; Start 12/18/18 at 22:00 HUSAM STUBBS Dec 20, 2018 13:47
[2018-12-20 14:00] VITALS: BP 133/82; PULSE 76; RESP 18
--- NOTE | 2018-12-20 14:20 | CONS ---
Assessment/Plan Assessment/Plan Hospital Course (Demo Recall) Summary Assessment and Plan: Assessment: Metastatic breast cancer -Hepatic metastasis status post liver mass Epigastric pain with nausea/vomiting -Hepatic mass vs cannabinoid hyperemesis syndrome Dysphasia -Milka esophagitis versus reflux esophagitis versus other Elevated lipase- resolved Plan: Anti-emetic medication PRN Keep NPO today for possible EGD Patient seen in collaboration with Dr. Tavares CC: KYE TAVARES MD ; Consultation Date/Type/Reason Admit Date/Time Dec 18, 2018 at 10:56 Date of Consultation: Dec 20, 2018 Type of Consult GI Reason for Consultation Epigastric pain Date/Time of Note DATE: 12/20/18 TIME: 14:18 Hx of Present Illness This is a 33 year old female with PMH of right-sided breast cancer dx in 2017. She underwent right mastectomy and nicole evaluation that showed a poorly differentiated carcinoma. The patient started on chemotherapy, and completed Taxotere 2018. However, the cancer came back to the axillary and the breast chest wall areas and the later on started to develop abdominal discomfort with liver metastases. A month ago she started on Ribociclib. [facility] of epigastric right upper quadrant pain associated with nausea and intermittent vomiting as well as weakness. Imaging obtained including CT abdomen/pelvis with contrast multiple hepatic masses the largest in the lateral segment of the left lobe measuring 8.8X 8.8 cm is no dilatation of the biliary tree, gallbladder is not distended spleen pancreas bilateral adrenal glands are within normal limits additionally noted large lymph node portocaval base measuring 2.9X 4.2 cm. The left upper abdominal periaortic lymph node measuring 1.7 x 1.3 cm. Note there is no ascites there is no bowel obstruction or free air at time evaluation patient continues to complain of nausea with epigastric pain she states she does use THC and CBD additionally she complains of dysphagia trouble with solids either time of liquids and to complain of a episode of emesis today. Patient has been a clear liquid diet recommend to remain n.p.o. we will attempt to proceed with EGD later today if cleared by anesthesia Review of Systems: A 12 system, review was conducted and is negative except as noted in the HPI or here. Past Medical History Home Meds Reported Medications Ribociclib Succinate/Letrozole (Kisqali Femara 600 mg Co-Pack) 1 Each Tablet, 3 EACH PO DAILY, TAB ON 21 DAYS OFF 7 DAYS 12/13/18 Discontinued Reported Medications Hydrochlorothiazide* (Hydrochlorothiazide*) 25 Mg Tab, 25 MG PO DAILY, #30 TAB 10/20/18 Lisinopril* (Lisinopril*) 10 Mg Tablet, 10 MG PO DAILY, #30 TAB 10/20/18 Discontinued Scripts Docusate Sodium* (Colace*) 100 Mg Capsule, 100 MG PO TID, #30 CAP Prov:EDWIN BOWMAN 11/29/18 Ondansetron (Ondansetron Odt) 4 Mg Tab.rapdis, 4 MG PO Q6H PRN for NAUSEA AND/OR VOMITING, #10 TAB Prov:EDWIN BOWMAN. 11/29/18 Tramadol HCl (Tramadol HCl) 50 Mg Tablet, 50 MG PO Q4 PRN for PAIN, #20 TAB Prov:EDWIN BOWMAN 11/29/18 Alprazolam* (Alprazolam*) 0.5 Mg Tablet, 0.5 MG PO Q8H PRN for ANXIETY, #10 TAB Prov:VU LAYTON 08/03/18 Medications Current Medications Sodium Chloride 1,000 ml @ 0 mls/hr Q4H IV Last administered on 12/20/18at 10:38; Admin Dose 1,000 MLS/HR; Start 12/18/18 at 14:51 IV Flush (NS 3 ml) 3 ml PER PROTOCOL IV ; Start 12/18/18 at 15:00 Ondansetron HCl (Zofran Inj) 4 mg Q6H PRN IV NAUSEA/VOMITING Last administered on 12/20/18at 10:32; Admin Dose 4 MG; Start 12/18/18 at 15:00 Enoxaparin Sodium (Lovenox) 40 mg DAILY SC Last administered on 12/20/18at 08:53; Admin Dose 40 MG; Start 12/19/18 at 09:00 Hydromorphone HCl (Dilaudid) 1 mg Q4H PRN IV SEVERE PAIN LEVEL 7-10 Last administered on 12/20/18at 10:33; Admin Dose 1 MG; Start 12/18/18 at 21:30 Metoclopramide HCl (Reglan) 10 mg Q6H PRN IV VOMITTING Last administered on 12/20/18at 06:05; Admin Dose 10 MG; Start 12/18/18 at 22:00 Allergies: Coded Allergies: No Known Allergy (Unverified , 12/18/18) Social History Alcohol Use: occasionally Smoking Status: Former smoker Drug Use: marijuana Exam/Review of Systems Exam Vitals Vital Signs Date Temp Pulse Resp B/P (MAP) Pulse Ox O2 O2 Flow FiO2 Time Delivery Rate 12/20/18 98.3 68 15 111/59 96 08:21 (76) 12/19/18 Room Air 07:53 Intake and Output 12/19/18 12/19/18 12/20/18 1515:00 23:00 07:00 IntakeIntake Total 300 ml 1118 ml OutputOutput Total 50 ml BalanceBalance 250 ml 1118 ml Exam PHYSICAL EXAMINATION: GENERAL: Alert & oriented x 3, in no acute distress SKIN: Scar to the right side of the chest, status post right mastectomy HEAD: Normocephalic, atraumatic, no tenderness. EYES: Pupils equal reactive to light, no discharge. EARS/NOSE AND THROAT: Ears normal, nose normal. NECK: Supple, no masses CHEST: Inspection within normal limits. CARDIOVASCULAR: Heart: Regular rate and rhythm RESPIRATORY: Lungs clear to auscultation GASTROINTESTINAL AND LIVER: Abdomen: Soft, epigastric tenderness, non-distended, no hernias, multiple hepatic masses, no organomegaly, no ascites, no guarding, no rebound tenderness, normoactive bowel sounds. Rectal: Deferred. EXTREMITIES: No cyanosis, clubbing or edema. Results Result Diagram: 12/20/1812 12/20/18 0512 Results 24hrs Laboratory Tests Test 12/20/18 05:12 White Blood Count 3.9 #L Red Blood Count 3.45 L Hemoglobin 10.4 L Hematocrit 30.3 L Mean Corpuscular Volume 87.8 Mean Corpuscular Hemoglobin 30.1 Mean Corpuscular Hemoglobin Concent 34.3 Red Cell Distribution Width 12.3 Platelet Count 184 # Mean Platelet Volume 12.9 H Immature Granulocytes % 0.500 H Neutrophils % 64.9 Lymphocytes % 25.3 Monocytes % 7.2 Eosinophils % 0.5 Basophils % 1.6 Nucleated Red Blood Cells % 0.0 Immature Granulocytes # 0.020 Neutrophils # 2.5 Lymphocytes # 1.0 Monocytes # 0.3 Eosinophils # 0.0 Basophils # 0.1 Nucleated Red Blood Cells # 0.0 Sodium Level 141 Potassium Level 4.0 Chloride Level 105 Carbon Dioxide Level 23 Anion Gap 13 Blood Urea Nitrogen 9 Creatinine 0.80 Est Glomerular Filtrat Rate mL/min > 60 Glucose Level 76 Calcium Level 9.4 Total Bilirubin 0.5 Direct Bilirubin 0.00 Indirect Bilirubin 0.5 Aspartate Amino Transf (AST/SGOT) 20 Alanine Aminotransferase (ALT/SGPT) 23 Alkaline Phosphatase 113 Total Protein 7.2 Albumin 3.9 Globulin 3.30 H Albumin/Globulin Ratio 1.18 Lipase 145 Medications Medication Current Medications Sodium Chloride 1,000 ml @ 0 mls/hr Q4H IV Last administered on 12/20/18 10:38; Admin Dose 1,000 MLS/HR; Start 12/18/18 at 14:51 IV Flush (NS 3 ml) 3 ml PER PROTOCOL IV ; Start 12/18/18 at 15:00 Ondansetron HCl (Zofran Inj) 4 mg Q6H PRN IV NAUSEA/VOMITING Last administered on 12/20/18 10:32; Admin Dose 4 MG; Start 12/18/18 at 15:00 Enoxaparin Sodium (Lovenox) 40 mg DAILY SC Last administered on 12/20/18 08:53; Admin Dose 40 MG; Start 12/19/18 at 09:00 Hydromorphone HCl (Dilaudid) 1 mg Q4H PRN IV SEVERE PAIN LEVEL 7-10 Last administered on 12/20/18 10:33; Admin Dose 1 MG; Start 12/18/18 at 21:30 Metoclopramide HCl (Reglan) 10 mg Q6H PRN IV VOMITTING Last administered on 12/20/18 06:05; Admin Dose 10 MG; Start 12/18/18 at 22:00 MUMTAZ LYONS Dec 20, 2018 14:20
--- NOTE | 2018-12-20 14:35 | PN ---
Date/Time of Note Date/Time of Note DATE: 12/20/18 TIME: 14:28 Assessment/Plan VTE Prophylaxis Risk score (from Ns)>0 risk: 1 SCD applied (from Ns): Yes Pharmacological prophylaxis: LMWH Lines/Catheters IV [facility]ter [facility] (from [facility] Peripheral IV Assessment/Plan Assessment/Plan 1. Abdominal pain due to liver masses related, pain control 2. Metastatic breast cancer to liver and lymph nodes, follow up with oncology for chemotherapy start on 12/21/2018 3. Normocytic anemia, mild, malignancy related 4. Elevated lipase that is rapidly normalized, normal amylase, no pancreas inflammation on CT or MRI, pancreatitis is unlikely 5. DVT prophylaxis: lovenox, monitor PLT while on chemo Result Diagram: 12/20/1851112/20/18 0512 Results 24hrs Laboratory Tests Test 12/20/18 05:12 White Blood Count 3.9 #L Red Blood Count 3.45 L Hemoglobin 10.4 L Hematocrit 30.3 L Mean Corpuscular Volume 87.8 Mean Corpuscular Hemoglobin 30.1 Mean Corpuscular Hemoglobin Concent 34.3 Red Cell Distribution Width 12.3 Platelet Count 184 # Mean Platelet Volume 12.9 H Immature Granulocytes % 0.500 H Neutrophils % 64.9 Lymphocytes % 25.3 Monocytes % 7.2 Eosinophils % 0.5 Basophils % 1.6 Nucleated Red Blood Cells % 0.0 Immature Granulocytes # 0.020 Neutrophils # 2.5 Lymphocytes # 1.0 Monocytes # 0.3 Eosinophils # 0.0 Basophils # 0.1 Nucleated Red Blood Cells # 0.0 Sodium Level 141 Potassium Level 4.0 Chloride Level 105 Carbon Dioxide Level 23 Anion Gap 13 Blood Urea Nitrogen 9 Creatinine 0.80 Est Glomerular Filtrat Rate mL/min > 60 Glucose Level 76 Calcium Level 9.4 Total Bilirubin 0.5 Direct Bilirubin 0.00 Indirect Bilirubin 0.5 Aspartate Amino Transf (AST/SGOT) 20 Alanine Aminotransferase (ALT/SGPT) 23 Alkaline Phosphatase 113 Total Protein 7.2 Albumin 3.9 Globulin 3.30 H Albumin/Globulin Ratio 1.18 Lipase 145 Subjective 24 Hr Interval Summary Free Text/Dictation less abdominal pain today. vomited this morning but no nausea or vomiting now. afebrile. Exam/Review of Systems Exam Vitals Vital Signs Date Temp Pulse Resp B/P (MAP) Pulse Ox O2 O2 Flow FiO2 Time Delivery Rate 12/20/18 98.3 68 15 111/59 96 08:21 (76) 12/19/18 Room Air 07:53 Intake and Output 12/19/18 12/19/18 12/20/18 1515:00 23:00 07:00 IntakeIntake Total 300 ml 1118 ml OutputOutput Total 50 ml BalanceBalance 250 ml 1118 ml Constitutional: alert, oriented, well developed Psych: no complaints, nl mood/affect Head: atraumatic Eyes: nl conjunctiva, EOMI, nl lids, nl sclera, PERRL ENMT: nl external ears & nose, nl nasal mucosa & septum Neck: supple, non-tender Respiratory: clear to auscultation, normal air movement; No congested cough, No crackles/rales, No diminished breath sounds, No intercostal retraction, No labored breathing, No respirations, No tactile fremitus, No wheezing, No other Cardiovascular: regular rate and rhythm, nl pulses Extremities: normal pulses 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: [employer] II-XII intact, nl mental status, nl strength Results Results 24hrs Laboratory Tests Test 12/20/18 05:12 White Blood Count 3.9 #L Red Blood Count 3.45 L Hemoglobin 10.4 L Hematocrit 30.3 L Mean Corpuscular Volume 87.8 Mean Corpuscular Hemoglobin 30.1 Mean Corpuscular Hemoglobin Concent 34.3 Red Cell Distribution Width 12.3 Platelet Count 184 # Mean Platelet Volume 12.9 H Immature Granulocytes % 0.500 H Neutrophils % 64.9 Lymphocytes % 25.3 Monocytes % 7.2 Eosinophils % 0.5 Basophils % 1.6 Nucleated Red Blood Cells % 0.0 Immature Granulocytes # 0.020 Neutrophils # 2.5 Lymphocytes # 1.0 Monocytes # 0.3 Eosinophils # 0.0 Basophils # 0.1 Nucleated Red Blood Cells # 0.0 Sodium Level 141 Potassium Level 4.0 Chloride Level 105 Carbon Dioxide Level 23 Anion Gap 13 Blood Urea Nitrogen 9 Creatinine 0.80 Est Glomerular Filtrat Rate mL/min > 60 Glucose Level 76 Calcium Level 9.4 Total Bilirubin 0.5 Direct Bilirubin 0.00 Indirect Bilirubin 0.5 Aspartate Amino Transf (AST/SGOT) 20 Alanine Aminotransferase (ALT/SGPT) 23 Alkaline Phosphatase 113 Total Protein 7.2 Albumin 3.9 Globulin 3.30 H Albumin/Globulin Ratio 1.18 Lipase 145 Medications Medication Current Medications Sodium Chloride 1,000 ml @ 0 mls/hr Q4H IV Last administered on 12/20/18 10:38; Admin Dose 1,000 MLS/HR; Start 12/18/18 at 14:51 IV Flush (NS 3 ml) 3 ml PER PROTOCOL IV ; Start 12/18/18 at 15:00 Ondansetron HCl (Zofran Inj) 4 mg Q6H PRN IV NAUSEA/VOMITING Last administered on 12/20/18 10:32; Admin Dose 4 MG; Start 12/18/18 at 15:00 Enoxaparin Sodium (Lovenox) 40 mg DAILY SC Last administered on 12/20/18 08:53; Admin Dose 40 MG; Start 12/19/18 at 09:00 Hydromorphone HCl (Dilaudid) 1 mg Q4H PRN IV SEVERE PAIN LEVEL 7-10 Last administered on 12/20/18 10:33; Admin Dose 1 MG; Start 12/18/18 at 21:30 Metoclopramide HCl (Reglan) 10 mg Q6H PRN IV VOMITTING Last administered on 12/20/18 06:05; Admin Dose 10 MG; Start 12/18/18 at 22:00 JUVENAL COYNE MD Dec 20, 2018 14:35
--- NOTE | 2018-12-20 16:27 | PN ---
DATE: 12/20/2018 SUBJECTIVE: States that she feels better today. Pain is better today and better under control. She has vomited a few times but only is the gastric juice. Of course, because the patient is not eating any food. OBJECTIVE: GENERAL: Awake, alert, oriented, does not appear in acute distress. VITAL SIGNS: Temperature 98.7, heart rate 55, respiration 18, blood pressure 127/77, saturation 97% room air. HEART: Regular. LUNGS: Clear. ABDOMEN: Soft. As before, there is some tenderness in epigastric area in the midline and there is a mass palpable, which corresponds to the left lobe of the liver. She has passed gas today, but no bowel movement. LABORATORY DATA: Lab result today, WBC 3900 with 64% segmented, hemoglobin 13.3, hematocrit 30.3. Chemistry: Sodium, potassium, BUN, creatinine within normal limits. Lipase actually is normal today 145 and globulin 3.3 which is still elevated. I have discussed again today about this patient with Dr. Lockhart, chemotherapist and Dr. Garza. Apparently ,Dr. Garza has talked with the patient's father on the phone and has given him other information that he needed .Dr Bowman is going to start a new kind of chemotherapy ( Carboplatin) for this patient today, which is scheduled already for 7, 8 or 9 p.m. tonight. The patient wants to eat or drink something . I am going to let her drink clear liquids today because as was mentioned, the stomach is under pressure from the tumor and enlarged left lobe of the liver and even though it does not appear that it is causing obstruction, but I think she is going to vomit if she eats. Dr. Garza also wanted to check with the radiologist Dr. Goldstein, to see if they can embolize that large tumor in the left lobe of the liver and I went downstairs to the radiology department. Unfortunately, Dr. Goldstein who is the invasive radiologist is not working today and the other doctors who are covering him today, they wanted to check to see if they can embolize it and if the tumor amenable to embolization of the artery, but the computer was not functioning and they could not get the MRI pictures, so appears that the other investigation is the first to do tomorrow and she is going to have chemotherapy tonight. I discussed with the patient's father and informed him of the next plan of workup or other treatment for this patient. Dictated By: SHANNON MANN MD PS/NTS Conf#: [id number] DID#: [id number] CC: KATHIE PARRA MD;*EndCC* MTDD
[2018-12-20 17:38] VITALS: BP 153/78; PULSE 72; RESP 18
--- NOTE | 2018-12-20 18:01 | PREAC ---
Date/Time of Note Date/Time of Note DATE: 12/20/18 TIME: 18:00 Anesthesia Eval and Record Evaluation Time Pre-Procedure Interview DATE: 12/20/18 TIME: 18:00 Age 33 Sex female NPO: 8 hrs Preoperative diagnosis abd pain Planned procedure egd Past Medical History Past Medical History: Includes Cardio: HTN GI: GERD Heme: Anemia Psych: Anxiety Surgery & Anesthesia Issues No known issue Meds Anticoagulation: No Beta Servando within 24 hr: No Reason Beta Servando not given: Pt. not on B-Servando Reported Medications Ribociclib Succinate/Letrozole (Kisqali Femara 600 mg Co-Pack) 1 Each Tablet, 3 EACH PO DAILY, TAB ON 21 DAYS OFF 7 DAYS 12/13/18 Discontinued Reported Medications Hydrochlorothiazide* (Hydrochlorothiazide*) 25 Mg Tab, 25 MG PO DAILY, #30 TAB 10/20/18 Lisinopril* (Lisinopril*) 10 Mg Tablet, 10 MG PO DAILY, #30 TAB 10/20/18 Discontinued Scripts Docusate Sodium* (Colace*) 100 Mg Capsule, 100 MG PO TID, #30 CAP Prov:EDWIN BOWMAN 11/29/18 Ondansetron (Ondansetron Odt) 4 Mg Tab.rapdis, 4 MG PO Q6H PRN for NAUSEA AND/OR VOMITING, #10 TAB Prov:EDWIN BOWMAN 11/29/18 Tramadol HCl (Tramadol HCl) 50 Mg Tablet, 50 MG PO Q4 PRN for PAIN, #20 TAB Prov:EDWIN BOWMAN 11/29/18 Alprazolam* (Alprazolam*) 0.5 Mg Tablet, 0.5 MG PO Q8H PRN for ANXIETY, #10 TAB Prov:VU LAYTON 08/03/18 Current Medications Sodium Chloride 1,000 ml @ 0 mls/hr Q4H IV Last administered on 12/20/18at 10:38; Admin Dose 1,000 MLS/HR; Start 12/18/18 at 14:51 IV Flush (NS 3 ml) 3 ml PER PROTOCOL IV ; Start 12/18/18 at 15:00 Ondansetron HCl (Zofran Inj) 4 mg Q6H PRN IV NAUSEA/VOMITING Last administered on 12/20/18at 10:32; Admin Dose 4 MG; Start 12/18/18 at 15:00 Enoxaparin Sodium (Lovenox) 40 mg DAILY SC Last administered on 12/20/18at 08:53; Admin Dose 40 MG; Start 12/19/18 at 09:00 Hydromorphone HCl (Dilaudid) 1 mg Q4H PRN IV SEVERE PAIN LEVEL 7-10 Last administered on 12/20/18at 15:45; Admin Dose 1 MG; Start 12/18/18 at 21:30 Metoclopramide HCl (Reglan) 10 mg Q6H PRN IV VOMITTING Last administered on 12/20/18at 15:44; Admin Dose 10 MG; Start 12/18/18 at 22:00 Meds reviewed: Yes Allergies Coded Allergies: No Known Allergy (Unverified , 12/18/18) Allergies Reviewed: Yes Labs/Studies Labs Reviewed: Reviewed by anesthesiologist Result Diagram: 12/20/1851112/20/18 0512 Laboratory Tests 12/20/18 05:12 test: Negative Studies: ECG Pre-procedure Exam Last vitals Vital Signs Date Temp Pulse Resp B/P (MAP) Pulse Ox O2 O2 Flow FiO2 Time Delivery Rate 12/20/18 99.3 72 18 153/78 98 Room Air 17:38 (103) Airway: Adequate mouth opening, Adequate thyromental dist Mallampati: Mallampati II Teeth: Normal Lung: Normal Heart: Normal ASA Physical Status ASA physical status: 2 Emergency: None Planned Anesthetic General/MAC: Mask, MAC Pre-operative Attestations Prior to commencing anesthesia and surgery, the patient was re-evaluated, there was verification of: *The patient's identity *The results of appropriate recent lab work and preoperative vital signs *The above evaluation not changing prior to induction *Anesthetic plan, risk benefits, alternative and complications discussed with patient/family; questions answered; patient/family understands, accepts and wishes to proceed. AGUSTIN MORENO Dec 20, 2018 18:01
[2018-12-20 18:25] VITALS: BP 147/78; PULSE 62; RESP 17
[2018-12-20] MEDS: SUCRALFATE (100 MG/ML) 10ML CUP PO SCH (20:03)
[2018-12-20 20:20] VITALS: BP 130/84; PULSE 72; RESP 20
[2018-12-21] VITALS (11 sets, daily range): BP systolic 122–182; BP diastolic 62–81; PULSE 64–85; RESP 16–19
[2018-12-21] MEDS: HYDROmorphONE 1 MG/ML SYG IV PRN ×6 (01:09→22:23)
[2018-12-21] MEDS: ONDANSETRON 4 MG INJ IV PRN ×3 (01:09→17:45)
[2018-12-21] MEDS: SOD CHLORIDE 0.9% 1,000 ML IV SCH ×2 (01:18→08:58)
[2018-12-21] MEDS: METOCLOPRAMIDE 10 MG INJ IV PRN ×2 (05:32→13:43)
[2018-12-21] MEDS: PANTOPRAZOLE (EC) 40 MG TAB PO SCH ×2 (05:37→17:26)
--- NOTE | 2018-12-21 07:59 | PAC ---
Date/Time of Note Date/Time of Note DATE: 12/21/18 TIME: 07:59 Post-Anesthesia Notes Post-Anesthesia Note Last documented vital signs Vital Signs Date Temp Pulse Resp B/P (MAP) Pulse Ox O2 O2 Flow FiO2 Time Delivery Rate 12/21/18 99.3 70 19 122/81 98 Room Air 07:40 (95) Activity: WNL Respiratory function: WNL Cardiovascular function: WNL Mental status: Baseline Pain reasonably controlled: Yes Hydration appropriate: Yes Nausea/Vomiting absent: Yes AGUSTIN MORENO Dec 21, 2018 07:59
[2018-12-21] MEDS: SUCRALFATE (100 MG/ML) 10ML CUP PO SCH ×4 (08:58→21:05)
[2018-12-21] MEDS: ENOXAPARIN 40 MG/0.4 ML SYG SC SCH (09:15)
--- NOTE | 2018-12-21 13:26 | PN ---
Date/Time of Note Date/Time of Note DATE: 12/21/18 TIME: 13:06 Assessment/Plan VTE Prophylaxis Risk score (from Ns)>0 risk: 1 SCD applied (from Ns): Yes Pharmacological prophylaxis: LMWH Lines/Catheters IV Catheter Type (from Nrsg): Peripheral IV Assessment/Plan Assessment/Plan 1. Metastatic breast cancer to liver and lymph nodes, patient states she is informed by [facility] the biopsy report the breast cancer is triple negative, I asked the RN to call [facility] to get the formal report 2. Esophagitis, gastritis, and duodenitis on EGD, on protonix/carafate 3. Normocytic anemia, mild, malignancy related 4. Elevated lipase that is rapidly normalized, normal amylase, no pancreas inflammation on CT or MRI, pancreatitis is unlikely 5. DVT prophylaxis: lovenox Result Diagram: 12/20/1851112/20/18511 Subjective 24 Hr Interval Summary Free Text/Dictation less abdominal pain today. no vomiting Exam/Review of Systems Exam Vitals Vital Signs Date Temp Pulse Resp B/P (MAP) Pulse Ox O2 O2 Flow FiO2 Time Delivery Rate 12/21/18 99.3 70 19 122/81 98 Room Air 07:40 (95) Intake and Output 12/20/18 12/20/18 12/21/18 1515:00 23:00 07:00 IntakeIntake Total 582 ml 1650 ml BalanceBalance 582 ml 1650 ml Constitutional: alert, oriented, well developed Head: normocephalic, atraumatic Eyes: nl conjunctiva, EOMI, nl lids, PERRL ENMT: nl external ears & nose, nl lips & teeth, nl nasal mucosa & septum Neck: supple, non-tender Respiratory: clear to auscultation, normal air movement; No congested cough, No crackles/rales, No diminished breath sounds, No intercostal retraction, No labored breathing, No respirations, No tactile fremitus, No wheezing, No other Cardiovascular: regular rate and rhythm, nl pulses; No bruits, No diastolic murmur, No edema, No gallop, No irregular rhythm, No jugular venous distention (JVD), No murmurs/extra sounds, No rub, No systolic murmur, No S3, No S4, No other Gastrointestinal: soft, tender Musculoskeletal: nl extremities to inspection Extremities: normal pulses; No calf tenderness, No cyanosis, No clubbing, No edema, No pitting pedal edema, No palpable cord, No tenderness, No other 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: [employer] II-XII intact, nl mental status, nl speech, nl strength Medications Medication Current Medications Sodium Chloride 1,000 ml @ 0 mls/hr Q4H IV Last administered on 12/21/18 08:58; Admin Dose 1,000 MLS/HR; Start 12/18/18 at 14:51 IV Flush (NS 3 ml) 3 ml PER PROTOCOL IV ; Start 12/18/18 at 15:00 Ondansetron HCl (Zofran Inj) 4 mg Q6H PRN IV NAUSEA/VOMITING Last administered on 12/21/18 09:31; Admin Dose 4 MG; Start 12/18/18 at 15:00 Enoxaparin Sodium (Lovenox) 40 mg DAILY SC Last administered on 12/21/18 09:15; Admin Dose 40 MG; Start 12/19/18 at 09:00 Hydromorphone HCl (Dilaudid) 1 mg Q4H PRN IV SEVERE PAIN LEVEL 7-10 Last administered on 12/21/18 09:31; Admin Dose 1 MG; Start 12/18/18 at 21:30 Metoclopramide HCl (Reglan) 10 mg Q6H PRN IV VOMITTING Last administered on 12/21/18 05:32; Admin Dose 10 MG; Start 12/18/18 at 22:00 Pantoprazole (Protonix Tab) 40 mg BID@06,18 PO ; Start 12/21/18 at 06:00 Sucralfate (Carafate Susp) 1 gm QID PO Last administered on 12/21/18 08:58; Admin Dose 1 GM; Start 12/20/18 at 21:00 JUVENAL COYNE MD Dec 21, 2018 13:16
--- NOTE | 2018-12-21 16:19 | PN ---
Date/Time of Note Date/Time of Note DATE: 12/21/18 TIME: 15:45 Assessment/Plan VTE Prophylaxis Risk score (from Ns)>0 risk: 1 SCD applied (from Nsg): Yes Pharmacological prophylaxis: heparin Lines/Catheters IV Catheter Type (from Nrsg): Peripheral IV Assessment/Plan Assessment/Plan Assessment: Metastatic breast cancer -Hepatic metastasis status post liver mass Epigastric pain with nausea/vomiting Status post EGD 12/20/2018 -Moderate distal esophagitis -Moderate gastritis -Multiple duodenal bulb ulcerations Dysphasia -Milka esophagitis versus reflux esophagitis versus other Elevated lipase- resolved Plan: Continue Protonix twice daily Carafate 4 times daily Review pathology when available Patient seen in collaboration with Dr. Tavares Subjective: Patient is complaining of nausea. She is currently on clear liquid diet. Plan to advance to soft diet. Results of EGD discussed with the patient. Recommend bland diet with modifications for GERD. Awaiting for results of pathology. Co ntinue observation. Exam PHYSICAL EXAMINATION: GENERAL: Alert & oriented x 3, in no acute distress SKIN: Scar to the right side of the chest, status post right mastectomy HEAD: Normocephalic, atraumatic, no tenderness. EYES: Pupils equal reactive to light, no discharge. EARS/NOSE AND THROAT: Ears normal, nose normal. NECK: Supple, no masses CHEST: Inspection within normal limits. CARDIOVASCULAR: Heart: Regular rate and rhythm RESPIRATORY: Lungs clear to auscultation GASTROINTESTINAL AND LIVER: Abdomen: Soft, epigastric tenderness, non-distended, no hernias, multiple hepatic masses, no organomegaly, no ascites, no guarding, no rebound tenderness, normoactive bowel sounds. Rectal: Deferred. EXTREMITIES: No cyanosis, clubbing or edema. Result Diagram: 12/20/1851112/20/18511 CC: KYE TAVARES MD ; Exam/Review of Systems Exam Vitals Vital Signs Date Temp Pulse Resp B/P (MAP) Pulse Ox O2 O2 Flow FiO2 Time Delivery Rate 12/21/18 99.3 80 18 134/77 97 14:06 (96) 12/21/18 Room Air 07:40 Intake and Output 12/20/18 12/20/18 12/21/18 1515:00 23:00 07:00 IntakeIntake Total 582 ml 1650 ml BalanceBalance 582 ml 1650 ml Medications Medication Current Medications IV Flush (NS 3 ml) 3 ml PER PROTOCOL IV ; Start 12/18/18 at 15:00 Ondansetron HCl (Zofran Inj) 4 mg Q6H PRN IV NAUSEA/VOMITING Last administered on 12/21/18 09:31; Admin Dose 4 MG; Start 12/18/18 at 15:00 Enoxaparin Sodium (Lovenox) 40 mg DAILY SC Last administered on 12/21/18 09:15; Admin Dose 40 MG; Start 12/19/18 at 09:00 Hydromorphone HCl (Dilaudid) 1 mg Q4H PRN IV SEVERE PAIN LEVEL 7-10 Last administered on 12/21/18 13:44; Admin Dose 1 MG; Start 12/18/18 at 21:30 Metoclopramide HCl (Reglan) 10 mg Q6H PRN IV VOMITTING Last administered on 12/21/18 13:43; Admin Dose 10 MG; Start 12/18/18 at 22:00 Pantoprazole (Protonix Tab) 40 mg BID@,18 PO ; Start 12/21/18 at 06:00 Sucralfate (Carafate Susp) 1 gm QID PO Last administered on 12/21/18 13:24; Admin Dose 1 GM; Start 12/20/18 at 21:00 MALLORY SCHROEDER NP Dec 21, 2018 16:19
[2018-12-21] MEDS ORDERED: ONDANSETRON 4 MG INJ IV STA (16:42)
[2018-12-21] MEDS ORDERED: FAMOTIDINE 20 MG INJ IV ONE (17:00)
[2018-12-21] MEDS ORDERED: DEXAMETHASONE 4 MG/ML 20 MG in DEXTROSE 5% 50 ML IVPB ONE (17:00)
[2018-12-21] MEDS ORDERED: ACETAMINOPHEN 325 MG TAB PO ONE (17:00)
[2018-12-21] MEDS ORDERED: DIPHENHYDRAMINE 50 MG INJ IV ONE (17:00)
[2018-12-21] MEDS ORDERED: DIPHENHYDRAMINE 50 MG INJ IV SCH (21:00)
[2018-12-21] MEDS ORDERED: ONDANSETRON INJ 16 MG, DEXAMETHASONE 4 MG/ML 20 MG in DEXTROSE 5% 50 ML IV ONE (21:00)
[2018-12-21] MEDS ORDERED: ACETAMINOPHEN 325 MG TAB PO SCH (21:00)
[2018-12-21] MEDS ORDERED: FAMOTIDINE 20 MG INJ IV SCH (21:00)
[2018-12-21] MEDS ORDERED: CARBOPLATIN IV SCH (21:30)
[2018-12-21] MEDS ORDERED: SOD CHLORIDE 0.9% IV SCH (21:30)
[2018-12-21] MEDS: METOCLOPRAMIDE 10 MG INJ IV SCH (22:23)
[2018-12-22 00:15] VITALS: BP 121/64; PULSE 61; RESP 18
--- NOTE | 2018-12-22 00:25 | PN ---
DATE: 12/21/2018 SUBJECTIVE: She feels slightly better, but has been nauseous and vomited but less than yesterday. Apparently, has had EGD done by Dr. Tavares here last night. It showed duodenitis, gastritis, and esophagitis. The patient was started per his recommendation on Protonix 40 mg b.i.d. and Carafate 1 gram q.6 hours. In regard to the liver metastases, the patient has been transferred to this floor, which is fourth floor, in preparation for getting her chemotherapy. She has not been started yet, but is going to be starting chemotherapy hopefully tonight. OBJECTIVE: GENERAL: Awake, alert, oriented. VITAL SIGNS: Temperature maximum 99.3, heart rate 80, respiration 18, blood pressure 124/77, saturation 97%. LABORATORY DATA: WBC 3900 with 64% segmented, hemoglobin 10.4, hematocrit 30.3. Chemistry: No chemistry was done today. Coagulation from 12/18/2018 is normal. Urine from 12/18/2018 almost normal except 1+ hemoglobin. PHYSICAL EXAMINATION: Awake, alert, oriented. HEART: Regular. LUNGS: Clear. ABDOMEN: Nondistended, relatively soft. There is tenderness in epigastric area upon pressure and the mass could be felt which is compatible with left liver lobe. ASSESSMENT AND PLAN: A 33-year-old female with cancer of right breast which has had mastectomy for that and now is presenting with intractable abdominal pain which assumed to be due to the metastases which is involving both lobes of the liver and some portacaval lymph nodes. MRI did not show any evidence of biliary or pancreatic duct stone or pathology. The region of the patient on admission had a lipase elevated to 1100. Gradually this lipase has been coming down and has normalized. Also, a GI consultation was obtained for medical service. GI colleague, Dr. Tavares, did EGD yesterday, and his report reveals that the patient was found to have esophagitis, gastritis, duodenitis, and his epigastric pain actually can be attributed to his pathology here. The patient has been receiving treatment for that at this time as well. Back to the hepatic lobe mass, Dr. Lockhart, the oncologist/field crop i farmworker is planning to start this patient on new kind of chemotherapy which is going to be started tonight. Per Dr. Garza' request, I checked with invasive radiologist, in radiology department and we will see if it is possible for them to perform chemoembolization of the left hepatic lobe for this patient. The radiologist indicated that he has to do more planning for that because he is not working on Tuesday. Therefore, he defers everything to next Tuesday to evaluate the anatomy of the arteries and then checked with the pharmacist to see if they have the BEADS for transcatheter arterial chemoembolization. Therefore, we will continue to follow. Will start the patient today back on regular diet and see how she can tolerate. Dictated By: SHANNON MANN MD PS/NTS Conf#: [id number] DID#: [id number] CC: KATHIE PARRA MD;*EndCC* MTDD
[2018-12-22 02:00] VITALS: BP_SYST 128; BP_SYST 135; BP_DIAS 68; BP_DIAS 72; PULSE 63; PULSE 68; RESP 18
[2018-12-22] MEDS: ONDANSETRON 4 MG INJ IV PRN ×2 (02:25→10:19)
[2018-12-22] MEDS: HYDROmorphONE 1 MG/ML SYG IV PRN ×3 (02:25→23:03)
[2018-12-22] MEDS: METOCLOPRAMIDE 10 MG INJ IV SCH ×4 (04:48→21:30)
[2018-12-22] MEDS: PANTOPRAZOLE (EC) 40 MG TAB PO SCH ×2 (06:36→17:17)
[2018-12-22 08:04] VITALS: BP 122/85; PULSE 66; RESP 12
--- NOTE | 2018-12-22 08:38 | CONS ---
Assessment/Plan Assessment/Plan Assessment/Plan (Daily) 1. This is a 33-year-old female with initially right-sided breast cancer, post- mastectomy and nicole evaluation. Received systemic adjuvant chemotherapy, Adriamycin, Cytoxan and taxane per protocol. Unfortunately, disease recurrent mainly in the chest and nicole area and liver areas. The patient was put on Ribociclib based treatment with hormonal blockade. 2. Currently, admitted for abdominal pain, elevated lipase, liver enzymes. Most likely chemical pancreatitis. IV fluids, n.p.o., pain medications, antinausea, avoid anti-vomiting medications. The patient will be evaluated by surgery whether or not to do surgery to evaluate the obstruction and pain on the eliza hepatis right upper quadrant liver areas. 3. Carboplatin dose 1 given. 4. Re-evaluation for either surgical resection of the liver tumors and nodes Dr. Garza OR interventioanl radiology for Hepatic embolization 5. Pain meds 6. Anti-emetics 7. Latest Liver biopsy showed (Triple NEGATIVE) breast CA mets >> Later patricia date for immune therapy Atezoluzumab Tecentriq Consultation Date/Type/Reason Admit Date/Time Dec 18, 2018 at 10:56 Initial Consult Date Type of Consult Oncology Date/Time of Note DATE: 12/22/18 TIME: 08:34 24 HR Interval Summary Free Text/Dictation DOING WELL less abd pain Got Carboplatin Dose 1 last night no fever no bleeding No SOB Detailed Summary Eyes: no complaints ENT: no complaints Respiratory: no complaints Cardiovascular: no complaints Gastrointestinal: no complaints Genitourinary: no complaints Musculoskeletal: no complaints Exam/Review of Systems Exam Vitals Vital Signs Date Temp Pulse Resp B/P (MAP) Pulse Ox O2 O2 Flow FiO2 Time Delivery Rate 12/22/18 98.6 66 12 122/85 99 08:04 (97) 12/22/18 Room Air 02:00 Intake and Output 12/21/18 12/21/18 12/22/18 1515:00 23:00 07:00 IntakeIntake Total 840 ml 743 ml 500 ml BalanceBalance 840 ml 743 ml 500 ml Constitutional: alert, oriented, well developed Psych: no complaints, nl mood/affect Head: normocephalic Eyes: nl conjunctiva ENMT: nl external ears & nose Neck: supple Respiratory: clear to auscultation Cardiovascular: regular rate and rhythm Gastrointestinal: soft Results Result Diagram: 12/20/1851112/20/18511 Medications Medication Current Medications IV Flush (NS 3 ml) 3 ml PER PROTOCOL IV ; Start 12/18/18 at 15:00 Ondansetron HCl (Zofran Inj) 4 mg Q6H PRN IV NAUSEA/VOMITING Last administered on 12/22/18 02:25; Admin Dose 4 MG; Start 12/18/18 at 15:00 Enoxaparin Sodium (Lovenox) 40 mg DAILY SC Last administered on 12/21/18 09:15; Admin Dose 40 MG; Start 12/19/18 at 09:00 Hydromorphone HCl (Dilaudid) 1 mg Q4H PRN IV SEVERE PAIN LEVEL 7-10 Last administered on 12/22/18 02:25; Admin Dose 1 MG; Start 12/18/18 at 21:30 Pantoprazole (Protonix Tab) 40 mg BID@06,18 PO Last administered on 12/22/18 06:36; Admin Dose 40 MG; Start 12/21/18 at 06:00 Sucralfate (Carafate Susp) 1 gm QID PO Last administered on 12/21/18 21:05; Admin Dose 1 GM; Start 12/20/18 at 21:00 Metoclopramide HCl (Reglan) 10 mg Q6H IV Last administered on 12/22/18 04:48; Admin Dose 10 MG; Start 12/21/18 at 22:00 HUSAM STUBBS Dec 22, 2018 08:38
[2018-12-22] MEDS: SUCRALFATE (100 MG/ML) 10ML CUP PO SCH ×4 (08:44→20:27)
[2018-12-22] MEDS: ENOXAPARIN 40 MG/0.4 ML SYG SC SCH (08:51)
--- NOTE | 2018-12-22 13:31 | PN ---
Date/Time of Note Date/Time of Note DATE: 12/22/18 TIME: 13:18 Assessment/Plan VTE Prophylaxis Risk score (from [place])>0 risk: 3 SCD applied (from [place]): Yes Pharmacological prophylaxis: LMWH Lines/Catheters IV C[facility]ter Type (from [facility]): portacath Assessment/Plan Assessment/Plan 1. Metastatic breast cancer to liver and lymph nodes, got carboplatin on 12/21/2018, IR to review for possible chemoembolization on Tuesday 2. Esophagitis, gastritis, and duodenitis on EGD, on protonix/carafate 3. Normocytic anemia, mild, malignancy related 4. Elevated lipase that is rapidly normalized, normal amylase, no pancreas inflammation on CT or MRI, pancreatitis is unlikely 5. DVT prophylaxis: lovenox, close follow up with PLT Result Diagram: 12/20/1851112/20/18511 Subjective 24 Hr Interval Summary Free Text/Dictation some nausea but no vomiting, no diarrhea Exam/Review of Systems Exam Vitals Vital Signs Date Temp Pulse Resp B/P (MAP) Pulse Ox O2 O2 Flow FiO2 Time Delivery Rate 12/22/18 98.6 66 12 122/85 99 08:04 (97) 12/22/18 Room Air 02:00 Intake and Output 12/21/18 12/21/18 12/22/18 1515:00 23:00 07:00 IntakeIntake Total 840 ml 743 ml 500 ml BalanceBalance 840 ml 743 ml 500 ml Constitutional: alert, oriented, well developed Head: normocephalic, atraumatic Eyes: nl conjunctiva, EOMI, nl lids ENMT: nl external ears & nose, nl lips & teeth, nl nasal mucosa & septum Neck: supple, non-tender Respiratory: clear to auscultation, normal air movement; No congested cough, No crackles/rales, No diminished breath sounds, No intercostal retraction, No labored breathing, No respirations, No tactile fremitus, No wheezing, No other Cardiovascular: regular rate and rhythm, nl pulses; No bruits, No diastolic murmur, No edema, No gallop, No irregular rhythm, No jugular venous distention (JVD), No murmurs/extra sounds, No rub, No systolic murmur, No S3, No S4, No other Gastrointestinal: soft, tender (mild epigastric tenderness) Musculoskeletal: nl extremities to inspection Extremities: normal pulses; No calf tenderness, No cyanosis, No clubbing, No edema, No pitting pedal edema, No palpable cord, No tenderness, No other 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: [employer] II-XII intact, nl mental status, nl speech, nl strength Skin: nl turgor Medications Medication Current Medications IV Flush (NS 3 ml) 3 ml PER PROTOCOL IV ; Start 12/18/18 at 15:00 Ondansetron HCl (Zofran Inj) 4 mg Q6H PRN IV NAUSEA/VOMITING Last administered on 12/22/18 10:19; Admin Dose 4 MG; Start 12/18/18 at 15:00 Enoxaparin Sodium (Lovenox) 40 mg DAILY SC Last administered on 12/22/18at 08:51; Admin Dose 40 MG; Start 12/19/18 at 09:00 Hydromorphone HCl (Dilaudid) 1 mg Q4H PRN IV SEVERE PAIN LEVEL 7-10 Last administered on 12/22/18 10:19; Admin Dose 1 MG; Start 12/18/18 at 21:30 Pantoprazole (Protonix Tab) 40 mg BID@06,18 PO Last administered on 12/22/18 06:36; Admin Dose 40 MG; Start 12/21/18 at 06:00 Sucralfate (Carafate Susp) 1 gm QID PO Last administered on 12/22/18 12:05; Admin Dose 1 GM; Start 12/20/18 at 21:00 Metoclopramide HCl (Reglan) 10 mg Q6H IV Last administered on 12/22/18 10:19; Admin Dose 10 MG; Start 12/21/18 at 22:00 JUVENAL COYNE MD Dec 22, 2018 13:28
--- NOTE | 2018-12-22 13:53 | PN ---
Date/Time of Note Date/Time of Note DATE: 12/22/18 TIME: 13:49 Assessment/Plan VTE Prophylaxis Risk score (from Ns)>0 risk: 3 SCD applied (from Ns): Yes Pharmacological prophylaxis: heparin Lines/Catheters IV Catheter Type (from Nrsg): portacath Assessment/Plan Assessment/Plan Assessment: Metastatic breast cancer -Hepatic metastasis status post liver mass Epigastric pain with nausea/vomiting Status post EGD 12/20/2018 -Moderate distal esophagitis -Moderate gastritis -Multiple duodenal bulb ulcerations Dysphasia -Milka esophagitis versus reflux esophagitis versus other Elevated lipase- resolved Plan: Continue Protonix twice daily Carafate 4 times daily Review pathology when available Patient seen in collaboration with Dr. Tavares Subjective: Patient states nausea has improved but hasn't resolved. She is on Reglan Q 6 hrs, will change Zofran to ATC. Tolerating soft diet well. Recommend bland diet with modifications for GERD. Awaiting for results of pathology. Continue observation. Exam PHYSICAL EXAMINATION: GENERAL: Alert & oriented x 3, in no acute distress SKIN: Scar to the right side of the chest, status post right mastectomy HEAD: Normocephalic, atraumatic, no tenderness. EYES: Pupils equal reactive to light, no discharge. EARS/NOSE AND THROAT: Ears normal, nose normal. NECK: Supple, no masses CHEST: Inspection within normal limits. CARDIOVASCULAR: Heart: Regular rate and rhythm RESPIRATORY: Lungs clear to auscultation GASTROINTESTINAL AND LIVER: Abdomen: Soft, epigastric tenderness, non-distended, no hernias, multiple hepatic masses, no organomegaly, no ascites, no guarding, no rebound tenderness, normoactive bowel sounds. Rectal: Deferred. EXTREMITIES: No cyanosis, clubbing or edema. Result Diagram: 12/20/1851112/20/18511 CC: KYE TAVARES MD ; Exam/Review of Systems Exam Vitals Vital Signs Date Temp Pulse Resp B/P (MAP) Pulse Ox O2 O2 Flow FiO2 Time Delivery Rate 12/22/18 98.6 66 12 122/85 99 08:04 (97) 12/22/18 Room Air 02:00 Intake and Output 12/21/18 12/21/18 12/22/18 1515:00 23:00 07:00 IntakeIntake Total 840 ml 743 ml 500 ml BalanceBalance 840 ml 743 ml 500 ml Medications Medication Current Medications IV Flush (NS 3 ml) 3 ml PER PROTOCOL IV ; Start 12/18/18 at 15:00 Enoxaparin Sodium (Lovenox) 40 mg DAILY SC Last administered on 12/22/18at 08:51; Admin Dose 40 MG; Start 12/19/18 at 09:00 Pantoprazole (Protonix Tab) 40 mg BID@06,18 PO Last administered on 12/22/18at 06:36; Admin Dose 40 MG; Start 12/21/18 at 06:00 Sucralfate (Carafate Susp) 1 gm QID PO Last administered on 12/22/18at 12:05; Admin Dose 1 GM; Start 12/20/18 at 21:00 Metoclopramide HCl (Reglan) 10 mg Q6H IV Last administered on 12/22/18at 10:19; Admin Dose 10 MG; Start 12/21/18 at 22:00 Hydromorphone HCl (Dilaudid) 0.5 mg Q4H PRN IV SEVERE PAIN LEVEL 7-10; Start 12/22/18 at 17:30 Acetaminophen/ Hydrocodone Bitart ([place] (5/325)) 1 tab Q4H PRN PO MODERATE PAIN LEVEL 4-6; Start 12/22/18 at 14:00 Ondansetron HCl (Zofran Inj) 4 mg Q6H IV ; Start 12/22/18 at 15:00; Status UNMALLORY TREJO NP Dec 22, 2018 13:53
[2018-12-22 14:28] VITALS: BP 143/85; PULSE 69; RESP 18
[2018-12-22] MEDS: ONDANSETRON 4 MG INJ IV SCH ×2 (15:14→20:27)
[2018-12-22] MEDS: HYDROmorphONE 0.5 MG/0.5 ML SYG IV PRN ×2 (15:15→19:31)
[2018-12-22] MEDS: HYDROCODONE/APAP (5/325) TAB PO PRN ×2 (17:17→21:33)
[2018-12-22] MEDS: ALPRAZOLAM 0.25 MG TAB PO PRN (17:17)
[2018-12-22] MEDS: POTASSIUM CHLORIDE 10 MEQ in SOD CHLORIDE 0.45% 1,000 ML IV SCH (17:17)
[2018-12-22] MEDS ORDERED: HYDROmorphONE 1 MG/ML SYG IV PRN (17:30)
[2018-12-22 19:40] VITALS: BP 151/92; PULSE 70; RESP 20
--- NOTE | 2018-12-22 21:23 | PN ---
DATE: 12/22/2018 SUBJECTIVE: States that feels better. Nausea is less and vomiting, has not been vomiting the past almost 2 days. Has tolerated a soft diet. No bowel movement, passing some gas. Last night she received the first dose of carboplatin chemotherapy IV. She is on Reglan q.6 hours for nausea. OBJECTIVE: GENERAL: Awake, alert, oriented, no acute distress. VITAL SIGNS: Temperature 98.6, heart rate 66, respirations 16, blood pressure 122/85, saturation 99%, room air. HEART: Regular. LUNGS: Clear. ABDOMEN: Not distended, relatively soft. Tenderness in the epigastric area. Less mass could be felt. LABORATORY DATA: No labs today. ASSESSMENT AND PLAN: A 33-year-old female a known history of cancer of right breast who has had mastectomy and chemotherapy. At this time, she presented with intractable abdominal epigastric pain and lipase was elevated to 1100. Evaluation was performed with MRI, which did not show any evidence of pathology in the biliary tree or pancreas. EGD was done which revealed presence of: 1. Moderate distal esophagitis. 2. Moderate gastritis. 3. Multiple duodenal bulb ulcerations. Patient was started on proton pump inhibitor 40 mg and Protonix q.12 hours and also Sucralfate 1 gram 4 times a day, is being followed by the GI colleagues. So appears that at least part of this epigastric pain was due to the pathologies in the duodenum and esophagus and stomach. Increased lipase has resolved and is normal. Apparently before this admission the patient had biopsy of the left lobe liver mass which has revealed metastatic cancer of breast with estrogen negative, progesterone negative, and HER2 negative. Dr. Lockhart, oncologist/injection molding machine operator is following the patient and he has started he patient on carboplatin chemotherapy doses. PLAN: The patient will stay here. She has a course of the carboplatin and also the pathologies in the stomach and esophagus and duodenum are under treatment. The surgical team will continue to follow the patient with Dr. Garza. Dictated By: SHANNON MANN MD PS/NTS Conf#: [id number] DID#: [id number] MTDD
[2018-12-23 02:30] VITALS: BP 134/91; PULSE 72; RESP 20
[2018-12-23] MEDS: ONDANSETRON 4 MG INJ IV SCH ×4 (03:24→20:06)
[2018-12-23] MEDS: HYDROmorphONE 1 MG/ML SYG IV PRN ×4 (03:27→19:41)
[2018-12-23] MEDS: METOCLOPRAMIDE 10 MG INJ IV SCH ×4 (04:45→21:45)
[2018-12-23] MEDS: PANTOPRAZOLE (EC) 40 MG TAB PO SCH ×2 (06:51→17:02)
[2018-12-23 08:31] VITALS: BP 133/91; PULSE 74; RESP 17
[2018-12-23] MEDS: SUCRALFATE (100 MG/ML) 10ML CUP PO SCH ×4 (09:35→20:06)
[2018-12-23] MEDS: ENOXAPARIN 40 MG/0.4 ML SYG SC SCH (09:39)
--- NOTE | 2018-12-23 10:36 | PN ---
Date/Time of Note Date/Time of Note DATE: 12/23/18 TIME: 10:36 Assessment/Plan VTE Prophylaxis Risk score (from [facility])>0 risk: 5 SCD applied (from [facility]): Yes Pharmacological prophylaxis: LMWH Lines/Catheters IV Catheter Type (from Nrsg): Port-a-cath Urinary Cath still in place: No Assessment/Plan Hospital Course SUBJECTIVE: Continues to have abdominal pain. OBJECTIVE: Physical Exam General: Adequately build 33 year-old female lying in bed in no apparent distress. HEENT: Normocephalic, atraumatic. Eyes: Anicteric sclerae, conjunctivae clear. ENT: Nasal septum midline, oral mucosa moist. Neck supple, no JVD noticed. Respiratory: Bilaterally clear breath sounds. No use of accessory muscles of respiration. No adventitious breath sounds. Cardiovascular: S1, S2 heard. Regular rate and rhythm. Abdomen: Soft and nondistended. Palpable nodule in the epigastric area. Bowel sounds positive in all 4 quadrants. Genitourinary: Deferred. Extremities: No cyanosis, no clubbing, no edema. Peripheral pulses palpable. Neurologic: Cranial nerves II through XII grossly intact. The patient is awake, alert, and oriented. Skin: Normal skin turgor. No skin rashes. Labs & Vitals per chart ASSESSMENT & PLAN 33 F w/ metastatic ER/MI positive, [id number] negative breast cancer S/P R mastectomy with recurrence in the chest, nicole, and liver areas, who presented to the ER with epigastric abdominal pain, and was admitted to inpatient setting for further evaluation. 1. Abdominal pain. Could be multifactorial in origin including underlying liver metastasis. Continue pain control. S/P EDGscopy on 12/20/2018 that showed moderate distal esophagitis, moderate gastritis, and multiple shallow duodenal bulb ulcerations. Continue PPI and Carafate. 2. Metastatic breast cancer. Status post carboplatin x1 on 12/21/2018. Being followed by oncology. 3. Normocytic anemia. Most probably secondary to underlying malignancy. Monitor H&H closely. 4. Fluids, electrolytes, and nutrition. Soft diet. 5. DVT prophylaxis. Subcutaneous Lovenox. 6. Plan. Continue pain control. Await further surgical and oncology recommendations. The patient was seen in collaboration with Dr. Nolasco. Result Diagram: 12/23/18 0445 12/23/18 0445 Results 24hrs Laboratory Tests Test 12/23/18 04:45 White Blood Count 4.7 #L Red Blood Count 3.40 L Hemoglobin 10.2 L Hematocrit 30.4 L Mean Corpuscular Volume 89.4 Mean Corpuscular Hemoglobin 30.0 Mean Corpuscular Hemoglobin Concent 33.6 Red Cell Distribution Width 12.7 Platelet Count 208 Mean Platelet Volume 12.8 H Immature Granulocytes % 0.200 Neutrophils % 43.6 Lymphocytes % 42.1 Monocytes % 11.5 H Eosinophils % 1.1 Basophils % 1.5 Nucleated Red Blood Cells % 0.0 Immature Granulocytes # 0.010 Neutrophils # 2.0 Lymphocytes # 2.0 Monocytes # 0.5 Eosinophils # 0.1 Basophils # 0.1 Nucleated Red Blood Cells # 0.0 Sodium Level 141 Potassium Level 3.2 L Chloride Level 103 Carbon Dioxide Level 31 Anion Gap 7 Blood Urea Nitrogen 4 L Creatinine 0.86 Est Glomerular Filtrat Rate mL/min > 60 Glucose Level 95 Calcium Level 9.3 Exam/Review of Systems Exam Vitals Vital Signs Date Temp Pulse Resp B/P (MAP) Pulse Ox O2 O2 Flow FiO2 Time Delivery Rate 12/23/18 98.7 74 17 133/91 98 08:31 (105) 12/23/18 Room Air 02:30 Intake and Output 12/22/18 12/22/18 12/23/18 1515:00 23:00 07:00 IntakeIntake Total 540 ml 490 ml BalanceBalance 540 ml 490 ml Results Results 24hrs Laboratory Tests Test 12/23/18 04:45 White Blood Count 4.7 #L Red Blood Count 3.40 L Hemoglobin 10.2 L Hematocrit 30.4 L Mean Corpuscular Volume 89.4 Mean Corpuscular Hemoglobin 30.0 Mean Corpuscular Hemoglobin Concent 33.6 Red Cell Distribution Width 12.7 Platelet Count 208 Mean Platelet Volume 12.8 H Immature Granulocytes % 0.200 Neutrophils % 43.6 Lymphocytes % 42.1 Monocytes % 11.5 H Eosinophils % 1.1 Basophils % 1.5 Nucleated Red Blood Cells % 0.0 Immature Granulocytes # 0.010 Neutrophils # 2.0 Lymphocytes # 2.0 Monocytes # 0.5 Eosinophils # 0.1 Basophils # 0.1 Nucleated Red Blood Cells # 0.0 Sodium Level 141 Potassium Level 3.2 L Chloride Level 103 Carbon Dioxide Level 31 Anion Gap 7 Blood Urea Nitrogen 4 L Creatinine 0.86 Est Glomerular Filtrat Rate mL/min > 60 Glucose Level 95 Calcium Level 9.3 Medications Medication Current Medications IV Flush (NS 3 ml) 3 ml PER PROTOCOL IV ; Start 12/18/18 at 15:00 Enoxaparin Sodium (Lovenox) 40 mg DAILY SC Last administered on 12/23/18 09:39; Admin Dose 40 MG; Start 12/19/18 at 09:00 Pantoprazole (Protonix Tab) 40 mg BID@06,18 PO Last administered on 12/23/18 06:51; Admin Dose 40 MG; Start 12/21/18 at 06:00 Sucralfate (Carafate Susp) 1 gm QID PO Last administered on 12/23/18 09:35; Admin Dose 1 GM; Start 12/20/18 at 21:00 Metoclopramide HCl (Reglan) 10 mg Q6H IV Last administered on 12/23/18 04:45; Admin Dose 10 MG; Start 12/21/18 at 22:00 Acetaminophen/ Hydrocodone Bitart ([place] (5/325)) 1 tab Q4H PRN PO MODERATE PAIN LEVEL 4-6 Last administered on 12/22/18 21:33; Admin Dose 1 TAB; Start 12/22/18 at 14:00 Ondansetron HCl (Zofran Inj) 4 mg Q6H IV Last administered on 12/23/18 09:35; Admin Dose 4 MG; Start 12/22/18 at 15:00 Potassium Chloride 10 meq/ Sodium Chloride 1,005 ml @ 50 mls/hr Q20H6M IV Last administered on 12/22/18 17:17; Admin Dose 50 MLS/HR; Start 12/22/18 at 17:00 Alprazolam (Xanax) 0.25 mg Q8H PRN PO ANXIETY Last administered on 12/22/18 17:17; Admin Dose 0.25 MG; Start 12/22/18 at 16:30 Hydromorphone HCl (Dilaudid) 1 mg Q4H PRN IV SEVERE PAIN LEVEL 7-10 Last administered on 12/23/18 09:43; Admin Dose 1 MG; Start 12/22/18 at 21:00 ERIC METCALF NP Dec 23, 2018 10:36
[2018-12-23] MEDS: POTASSIUM CHLORIDE 10 MEQ in SOD CHLORIDE 0.45% 1,000 ML IV SCH (12:41)
--- NOTE | 2018-12-23 12:50 | PN ---
Date/Time of Note Date/Time of Note DATE: 12/23/18 TIME: 12:46 Assessment/Plan VTE Prophylaxis Risk score (from Ns)>0 risk: 5 SCD applied (from [facility]): Yes Pharmacological prophylaxis: heparin Lines/Catheters IV Catheter Type (from [facility]): Port-a-cath Urinary Cath still in place: No Assessment/Plan Assessment/Plan Assessment: Metastatic breast cancer -Hepatic metastasis status post liver mass Epigastric pain with nausea/vomiting Status post EGD 12/20/2018 -Moderate distal esophagitis -Moderate gastritis -Multiple duodenal bulb ulcerations Dysphasia -Milka esophagitis versus reflux esophagitis versus other Elevated lipase- resolved Plan: Start scopolamine patch Continue Reglan and Zofran [id number] Continue Protonix twice daily Carafate 4 times daily Pain management consult GI will sign off at this time Patient seen in collaboration with Dr. Tavares Subjective: Patient states nausea has improved but hasn't resolved. She is on Reglan Q 6 hrs, and Zofran to ATC. Will add scopolamine patch to the regimen. Patient keeps complaining of upper abdominal pain at the site of the tumor. Recommend pain management consult. Also pathology reviewed as being negative. With no further recommendations GI will sign off and will be available to reconsult upon request. Exam PHYSICAL EXAMINATION: GENERAL: Alert & oriented x 3, in no acute distress SKIN: Scar to the right side of the chest, status post right mastectomy HEAD: Normocephalic, atraumatic, no tenderness. EYES: Pupils equal reactive to light, no discharge. EARS/NOSE AND THROAT: Ears normal, nose normal. NECK: Supple, no masses CHEST: Inspection within normal limits. CARDIOVASCULAR: Heart: Regular rate and rhythm RESPIRATORY: Lungs clear to auscultation GASTROINTESTINAL AND LIVER: Abdomen: Soft, epigastric tenderness, non-distended, no hernias, multiple hepatic masses, no organomegaly, no ascites, no guarding, no rebound tenderness, normoactive bowel sounds. Rectal: Deferred. EXTREMITIES: No cyanosis, clubbing or edema. Result Diagram: 12/23/18 0445 12/23/18 0445 Results 24hrs Laboratory Tests Test 12/23/18 04:45 White Blood Count 4.7 #L Red Blood Count 3.40 L Hemoglobin 10.2 L Hematocrit 30.4 L Mean Corpuscular Volume 89.4 Mean Corpuscular Hemoglobin 30.0 Mean Corpuscular Hemoglobin Concent 33.6 Red Cell Distribution Width 12.7 Platelet Count 208 Mean Platelet Volume 12.8 H Immature Granulocytes % 0.200 Neutrophils % 43.6 Lymphocytes % 42.1 Monocytes % 11.5 H Eosinophils % 1.1 Basophils % 1.5 Nucleated Red Blood Cells % 0.0 Immature Granulocytes # 0.010 Neutrophils # 2.0 Lymphocytes # 2.0 Monocytes # 0.5 Eosinophils # 0.1 Basophils # 0.1 Nucleated Red Blood Cells # 0.0 Sodium Level 141 Potassium Level 3.2 L Chloride Level 103 Carbon Dioxide Level 31 Anion Gap 7 Blood Urea Nitrogen 4 L Creatinine 0.86 Est Glomerular Filtrat Rate mL/min > 60 Glucose Level 95 Calcium Level 9.3 CC: KYE TAVARES MD ; Exam/Review of Systems Exam Vitals Vital Signs Date Temp Pulse Resp B/P (MAP) Pulse Ox O2 O2 Flow FiO2 Time Delivery Rate 12/23/18 98.7 74 17 133/91 98 08:31 (105) 12/23/18 Room Air 02:30 Intake and Output 12/22/18 12/22/18 12/23/18 1515:00 23:00 07:00 IntakeIntake Total 540 ml 490 ml BalanceBalance 540 ml 490 ml Results Results 24hrs Laboratory Tests Test 12/23/18 04:45 White Blood Count 4.7 #L Red Blood Count 3.40 L Hemoglobin 10.2 L Hematocrit 30.4 L Mean Corpuscular Volume 89.4 Mean Corpuscular Hemoglobin 30.0 Mean Corpuscular Hemoglobin Concent 33.6 Red Cell Distribution Width 12.7 Platelet Count 208 Mean Platelet Volume 12.8 H Immature Granulocytes % 0.200 Neutrophils % 43.6 Lymphocytes % 42.1 Monocytes % 11.5 H Eosinophils % 1.1 Basophils % 1.5 Nucleated Red Blood Cells % 0.0 Immature Granulocytes # 0.010 Neutrophils # 2.0 Lymphocytes # 2.0 Monocytes # 0.5 Eosinophils # 0.1 Basophils # 0.1 Nucleated Red Blood Cells # 0.0 Sodium Level 141 Potassium Level 3.2 L Chloride Level 103 Carbon Dioxide Level 31 Anion Gap 7 Blood Urea Nitrogen 4 L Creatinine 0.86 Est Glomerular Filtrat Rate mL/min > 60 Glucose Level 95 Calcium Level 9.3 Medications Medication Current Medications IV Flush (NS 3 ml) 3 ml PER PROTOCOL IV ; Start 12/18/18 at 15:00 Enoxaparin Sodium (Lovenox) 40 mg DAILY SC Last administered on 12/23/18 09:39; Admin Dose 40 MG; Start 12/19/18 at 09:00 Pantoprazole (Protonix Tab) 40 mg BID@06,18 PO Last administered on 12/23/18 06:51; Admin Dose 40 MG; Start 12/21/18 at 06:00 Sucralfate (Carafate Susp) 1 gm QID PO Last administered on 12/23/18 12:41; Admin Dose 1 GM; Start 12/20/18 at 21:00 Metoclopramide HCl (Reglan) 10 mg Q6H IV Last administered on 12/23/18 10:37; Admin Dose 10 MG; Start 12/21/18 at 22:00 Acetaminophen/ Hydrocodone Bitart ([place] (5/325)) 1 tab Q4H PRN PO MODERATE PAIN LEVEL 4-6 Last administered on 12/22/18 21:33; Admin Dose 1 TAB; Start 12/22/18 at 14:00 Ondansetron HCl (Zofran Inj) 4 mg Q6H IV Last administered on 12/23/18 09:35; Admin Dose 4 MG; Start 12/22/18 at 15:00 Potassium Chloride 10 meq/ Sodium Chloride 1,005 ml @ 50 mls/hr Q20H6M IV Last administered on 12/23/18 12:41; Admin Dose 50 MLS/HR; Start 12/22/18 at 17:00 Alprazolam (Xanax) 0.25 mg Q8H PRN PO ANXIETY Last administered on 12/22/18 17:17; Admin Dose 0.25 MG; Start 12/22/18 at 16:30 Hydromorphone HCl (Dilaudid) 1 mg Q4H PRN IV SEVERE PAIN LEVEL 7-10 Last administered on 12/23/18 09:43; Admin Dose 1 MG; Start 12/22/18 at 21:00 Potassium Chloride (Klor-Con 10) 30 meq ONCE ONCE PO ; Start 12/23/18 at 13:00; Stop 12/23/18 at 13:01 Scopolamine (Transderm-Scop) 1 patch Q72H TRANSDERM ; Start 12/23/18 at 13:00; Status UNV MALLORY SCHROEDER NP Dec 23, 2018 12:50
[2018-12-23] MEDS ORDERED: POTASSIUM CHLORIDE (SR) 10 MEQ TAB PO ONE (13:00)
[2018-12-23] MEDS: ALPRAZOLAM 0.25 MG TAB PO PRN (13:11)
[2018-12-23] MEDS: SCOPOLAMINE 1.5 MG PATCH TRANSDERM SCH (13:22)
--- NOTE | 2018-12-23 13:50 | PN ---
DATE: 12/23/2018 SUBJECTIVE: The patient states that the nausea is better. Abdominal pain is better, but still she h as some abdominal pain. She is on a soft diet. When I saw her today, she was about to have a bowel movement. No vomiting. OBJECTIVE: Vital signs reveal a temperature 98.7, heart rate 74, respirations 17, blood pressure 133 /91, saturation 98% room air. LABORATORY DATA: WBC 4700 with 43% segmented, hemoglobin 10.2, hematocrit 30.4. Chemistry: Potassi um is low at 3.2, BUN and creatinine normal. PHYSICAL EXAMINATION: HEART: Regular. LUNGS: Clear. ABDOMEN: Nondistended. There is some tenderness in the epigastric area on pressure. Also, the mass in the left lobe of the liver could be felt in the left subcostal area. ASSESSMENT: Patient has metastatic cancer of the breast to both lobes of the liver, but bigger tumor in the left lobe of the liver and also nicole involvement in the portacaval area. She has received o nly her first dose of carboplatin chemotherapy. The patient will be managed by Dr. Lockhart for the rest of it. On Tuesday, we are going to check w ith the invasive radiologist to see if they can give the patient chemoembolization for the left lobe of the liver tumor. We will continue to follow the patient. Dictated By: SHANNON MANN MD PS/NTS Conf#: [id number] DID#: [id number] CC: KATHIE PARRA MD; JUVENAL COYNE MD;*EndCC*
[2018-12-23 16:08] VITALS: BP 144/89; PULSE 83; RESP 18
[2018-12-23] MEDS: HYDROCODONE/APAP (5/325) TAB PO PRN (18:24)
[2018-12-23 20:10] VITALS: BP 140/70; PULSE 112; RESP 20
[2018-12-23] MEDS ORDERED: MAGNESIUM HYDROXIDE 30ML CUP PO PRN (21:00)
[2018-12-23] MEDS ORDERED: MINERAL OIL 30ML CUP PO PRN (21:00)
[2018-12-23] MEDS ORDERED: VANCOMYCIN IV PER PHARMACY XX SCH (21:00)
[2018-12-23 21:04] VITALS: PULSE 102
[2018-12-23] MEDS: ACETAMINOPHEN 325 MG TAB PO PRN (21:44)
[2018-12-23] MEDS: PIPER-TAZO 3.375 GM IV (PMX) 100 ML IVPB SCH (21:57)
[2018-12-23] MEDS ORDERED: VANCOMYCIN HCL 1.5 GM in SOD CHLORIDE 0.9% 250 ML IVPB ONE (22:00)
[2018-12-24] VITALS (8 sets, daily range): BP systolic 127–140; BP diastolic 63–76; PULSE 82–101; RESP 16–18
[2018-12-24] MEDS: HYDROmorphONE 1 MG/ML SYG IV PRN ×5 (01:14→20:17)
[2018-12-24] MEDS: ONDANSETRON 4 MG INJ IV SCH ×4 (02:27→20:17)
[2018-12-24] MEDS: PIPER-TAZO 3.375 GM IV (PMX) 100 ML IVPB SCH ×4 (02:27→18:14)
[2018-12-24] MEDS: METOCLOPRAMIDE 10 MG INJ IV SCH ×4 (04:31→20:33)
[2018-12-24] MEDS: ACETAMINOPHEN 325 MG TAB PO PRN ×2 (04:47→16:02)
[2018-12-24] MEDS: PANTOPRAZOLE (EC) 40 MG TAB PO SCH ×2 (04:47→18:14)
[2018-12-24] MEDS: HYDROCODONE/APAP (5/325) TAB PO PRN ×3 (08:51→23:31)
[2018-12-24] MEDS: ALPRAZOLAM 0.25 MG TAB PO PRN ×2 (08:51→23:31)
[2018-12-24] MEDS: SUCRALFATE (100 MG/ML) 10ML CUP PO SCH ×4 (08:51→20:16)
[2018-12-24] MEDS: ENOXAPARIN 40 MG/0.4 ML SYG SC SCH (08:55)
[2018-12-24] MEDS: POTASSIUM CHLORIDE 10 MEQ in SOD CHLORIDE 0.45% 1,000 ML IV SCH (08:55)
--- NOTE | 2018-12-24 09:29 | PN ---
Date/Time of Note Date/Time of Note DATE: 12/24/18 TIME: 09:27 Assessment/Plan VTE Prophylaxis Risk score (from Nsg)>0 risk: 5 SCD applied (from Nsg): Yes Pharmacological prophylaxis: LMWH Lines/Catheters IV Catheter Type (from Nrs): Portacath Urinary Cath still in place: No Assessment/Plan Hospital Course SUBJECTIVE: Continues to have abdominal pain. Had febrile episodes last night. Therefore, was started on empiric antimicrobials by the casino controller and jay cultures were sent. OBJECTIVE: Physical Exam General: Adequately build 33 year-old female lying in bed in no apparent distress. HEENT: Normocephalic, atraumatic. Eyes: Anicteric sclerae, conjunctivae clear. ENT: Nasal septum midline, oral mucosa moist. Neck supple, no JVD noticed. Respiratory: Bilaterally clear breath sounds. No use of accessory muscles of respiration. No adventitious breath sounds. Cardiovascular: S1, S2 heard. Regular rate and rhythm. Abdomen: Soft and nondistended. Palpable nodule in the epigastric area. Bowel sounds positive in all 4 quadrants. Genitourinary: Deferred. Extremities: No cyanosis, no clubbing, no edema. Redness and warmth in the left antecubital area. Peripheral pulses palpable. Neurologic: Cranial nerves II through XII grossly intact. The patient is awake, alert, and oriented. Skin: Normal skin turgor. No skin rashes. Labs & Vitals per chart ASSESSMENT & PLAN 33 F w/ metastatic ER/GA positive, [id number] negative breast cancer S/P R mastectomy with recurrence in the chest, nicole, and liver areas, who presented to the ER with epigastric abdominal pain, and was admitted to inpatient setting for further evaluation. 1. Abdominal pain. Could be multifactorial in origin including underlying liver metastasis. Continue pain control. S/P EDGscopy on 12/20/2018 that showed moderate distal esophagitis, moderate gastritis, and multiple shallow duodenal bulb ulcerations. Continue PPI and Carafate. 2. Metastatic breast cancer. Status post carboplatin x1 on 12/21/2018. Being followed by oncology. 3. Normocytic anemia. Most probably secondary to underlying malignancy. Monitor H&H closely. 4. Superficial thrombophlebitis of the left AC area. Continue elevation of the extremity and local care. Continue SQ Lovenox. 5. Systemic inflammatory response syndrome with febrile illness and tachycardia on 12/23/2018. Etiology unclear. Probably secondary to #4. Pancultures have been sent and was started on empiric antimicrobials. DC antibiotics if cultures are negative. 6. Fluids, electrolytes, and nutrition. Soft diet. 7. DVT prophylaxis. Subcutaneous Lovenox. 8. Plan. Continue pain control. Await further surgical and oncology recommendations. The patient was seen in collaboration with Dr. Nolasco. Result Diagram: 12/24/18 0435 12/24/18 0435 Results 24hrs Laboratory Tests Test 12/23/18 20:55 12/23/18 22:56 12/24/18 01:15 12/24/18 04:35 Lactic Acid Level 1.6 1.2 Urine Color YELLOW Urine Clarity CLEAR Urine pH 5.0 Urine Specific 1.011 Flynn Urine Ketones NEGATIVE Urine Nitrite NEGATIVE Urine Bilirubin NEGATIVE Urine Urobilinogen NEGATIVE Urine Leukocyte NEGATIVE Esterase Urine Hemoglobin NEGATIVE Urine Glucose NEGATIVE Urine Total Protein NEGATIVE White Blood Count 9.5 # Red Blood Count 3.71 L Hemoglobin 11.3 L Hematocrit 33.1 L Mean Corpuscular 89.2 Volume Mean Corpuscular 30.5 Hemoglobin Mean Corpuscular 34.1 Hemoglobin Concent Red Cell 13.1 Distribution Width Platelet Count 215 Mean Platelet Volume 12.7 H Immature 0.500 H Granulocytes % Neutrophils % Segmented 60 Neutrophils % (Manual) Band Neutrophils % 32 H (Manual) Lymphocytes % Lymphocytes % 4 L (Manual) Monocytes % Monocytes % (Manual) 3 Eosinophils % Basophils % Basophils % (Manual) 1 Nucleated Red Blood 0.0 Cells % Immature 0.050 H Granulocytes # Neutrophils # Neutrophils # 6.0 (Manual) Band Neutrophils # 3.0 H Lymphocytes (Manual) 0.3 L Lymphocytes # Monocytes # Monocytes # (Manual) 0.2 L Eosinophils # Basophils # Basophils # (Manual) 0.0 Nucleated Red Blood Cells # Platelet Estimate NORMAL Giant Platelets 4 H Polychromasia 1+ Anisocytosis 1+ Microcytosis 1+ Sodium Level 139 Potassium Level 3.5 Chloride Level 100 Carbon Dioxide Level 25 Anion Gap 14 #H Blood Urea Nitrogen 6 L Creatinine 1.03 H Est Glomerular > 60 Filtrat Rate mL/min Glucose Level 134 Calcium Level 9.0 Phosphorus Level 4.7 Magnesium Level 1.1 L Exam/Review of Systems Exam Vitals Vital Signs Date Temp Pulse Resp B/P (MAP) Pulse Ox O2 O2 Flow FiO2 Time Delivery Rate 12/24/18 98.5 88 18 127/71 98 07:33 (89) 12/23/18 Room Air 02:30 Intake and Output 12/23/18 12/23/18 12/24/18 1515:00 23:00 07:00 IntakeIntake Total 915 ml 1475 ml 650 ml OutputOutput Total 400 ml BalanceBalance 915 ml 1475 ml 250 ml Results Results 24hrs Laboratory Tests Test 12/23/18 20:55 12/23/18 22:56 12/24/18 01:15 12/24/18 04:35 Lactic Acid Level 1.6 1.2 Urine Color YELLOW Urine Clarity CLEAR Urine pH 5.0 Urine Specific 1.011 Flynn Urine Ketones NEGATIVE Urine Nitrite NEGATIVE Urine Bilirubin NEGATIVE Urine Urobilinogen NEGATIVE Urine Leukocyte NEGATIVE Esterase Urine Hemoglobin NEGATIVE Urine Glucose NEGATIVE Urine Total Protein NEGATIVE White Blood Count 9.5 # Red Blood Count 3.71 L Hemoglobin 11.3 L Hematocrit 33.1 L Mean Corpuscular 89.2 Volume Mean Corpuscular 30.5 Hemoglobin Mean Corpuscular 34.1 Hemoglobin Concent Red Cell 13.1 Distribution Width Platelet Count 215 Mean Platelet Volume 12.7 H Immature 0.500 H Granulocytes % Neutrophils % Segmented 60 Neutrophils % (Manual) Band Neutrophils % 32 H (Manual) Lymphocytes % Lymphocytes % 4 L (Manual) Monocytes % Monocytes % (Manual) 3 Eosinophils % Basophils % Basophils % (Manual) 1 Nucleated Red Blood 0.0 Cells % Immature 0.050 H Granulocytes # Neutrophils # Neutrophils # 6.0 (Manual) Band Neutrophils # 3.0 H Lymphocytes (Manual) 0.3 L Lymphocytes # Monocytes # Monocytes # (Manual) 0.2 L Eosinophils # Basophils # Basophils # (Manual) 0.0 Nucleated Red Blood Cells # Platelet Estimate NORMAL Giant Platelets 4 H Polychromasia 1+ Anisocytosis 1+ Microcytosis 1+ Sodium Level 139 Potassium Level 3.5 Chloride Level 100 Carbon Dioxide Level 25 Anion Gap 14 #H Blood Urea Nitrogen 6 L Creatinine 1.03 H Est Glomerular > 60 Filtrat Rate mL/min Glucose Level 134 Calcium Level 9.0 Phosphorus Level 4.7 Magnesium Level 1.1 L Medications Medication Current Medications IV Flush (NS 3 ml) 3 ml PER PROTOCOL IV ; Start 12/18/18 at 15:00 Enoxaparin Sodium (Lovenox) 40 mg DAILY SC Last administered on 12/24/18 08:55; Admin Dose 40 MG; Start 12/19/18 at 09:00 Pantoprazole (Protonix Tab) 40 mg BID@06,18 PO Last administered on 12/24/18 04:47; Admin Dose 40 MG; Start 12/21/18 at 06:00 Sucralfate (Carafate Susp) 1 gm QID PO Last administered on 12/24/18 08:51; Admin Dose 1 GM; Start 12/20/18 at 21:00 Metoclopramide HCl (Reglan) 10 mg Q6H IV Last administered on 12/24/18 04:31; Admin Dose 10 MG; Start 12/21/18 at 22:00 Acetaminophen/ Hydrocodone Bitart ([place] (5/325)) 1 tab Q4H PRN PO MODERATE PAIN LEVEL 4-6 Last administered on 12/24/18 08:51; Admin Dose 1 TAB; Start 12/22/18 at 14:00 Ondansetron HCl (Zofran Inj) 4 mg Q6H IV Last administered on 12/24/18 08:52; Admin Dose 4 MG; Start 12/22/18 at 15:00 Potassium Chloride 10 meq/ Sodium Chloride 1,005 ml @ 50 mls/hr Q20H6M IV Last administered on 12/23/18 12:41; Admin Dose 50 MLS/HR; Start 12/22/18 at 17:00 Alprazolam (Xanax) 0.25 mg Q8H PRN PO ANXIETY Last administered on 12/24/18 08:51; Admin Dose 0.25 MG; Start 12/22/18 at 16:30 Hydromorphone HCl (Dilaudid) 1 mg Q4H PRN IV SEVERE PAIN LEVEL 7-10 Last administered on 12/24/18 06:04; Admin Dose 1 MG; Start 12/22/18 at 21:00 Scopolamine (Transderm-Scop) 1 patch Q72H TRANSDERM Last administered on 12/23/18 13:22; Admin Dose 1 PATCH; Start 12/23/18 at 13:00 Magnesium Hydroxide (Milk Of Mag) 30 ml HS PRN PO CONSTIPATION; Start 12/23/18 at 21:00 Mineral Oil (Mineral Oil) 30 ml HS PRN PO CONSTIPATION; Start 12/23/18 at 21:00 Vancomycin HCl (Vanco Iv Per Pharmacy) VANCOMYCIN PER PHARMACY PER PROTOCOL XX ; Start 12/23/18 at 21:00 Piperacillin Sod/ Tazobactam Sod 100 ml @ 200 mls/hr Q6 IVPB Last administered on 12/24/18at 06:16; Admin Dose 200 MLS/HR; Start 12/23/18 at 21:01 Acetaminophen (Tylenol Tab) 650 mg Q6H PRN PO MILD PAIN(1-3)OR ELEVATED TEMP Last administered on 12/24/18at 04:47; Admin Dose 650 MG; Start 12/23/18 at 21:00 Vancomycin HCl 250 ml @ 125 mls/hr Q12H IVPB ; Start 12/24/18 at 10:00 Miscellaneous Information (*Rx Drug Level Order Reminder*) VANCOMYCIN TROUGH LEVEL 0900 ONCE XX ; Start 12/25/18 at 09:00; Stop 12/25/18 at 09:01 ERIC METCALF NP Dec 24, 2018 09:29
[2018-12-24] MEDS: VANCOMYCIN 1 GM 250 ML IVPB SCH ×2 (09:47→20:33)
[2018-12-24] MEDS ORDERED: MAGNESIUM SULFATE 4 GM/100 ML 100 ML IVPB ONE (10:00)
[2018-12-24] MEDS: PROCHLORPERAZINE 10 MG INJ IV PRN (12:04)
--- NOTE | 2018-12-24 20:57 | CONS ---
DATE OF ADMISSION: 12/18/2018 DATE OF CONSULTATION: 12/24/2018 REASON FOR CONSULTATION: Antibiotic management. HISTORY OF PRESENT ILLNESS: Michelle Snell is a 33-year-old unfortunate female with metastatic breast c ancer who presented to the emergency room with abdominal pain. The abdominal pain lasted for 2 weeks radiating to her right side. Her last chemotherapy was 2 months ago and she had radiation therapy a s well. She had an ultrasound that showed possible metastasis to the liver and she was sent by Dr. Grant cassidy for workup with CT scan and admission. The patient had nausea, vomiting and diarrhea when she p resented. She had a previous PET CT scan on 10/30/2018. PAST MEDICAL HISTORY: Status post left mastectomy with lymph node removal. FAMILY HISTORY: Noncontributory. SOCIAL HISTORY: She does not smoke, drink or abuse drugs. ALLERGIES: NONE TO PENICILLIN, SULFA OR FOODS. On admission, her white count was 3.2 with 67% neutrophils, H and H of 11.4 and 33.3, platelet count 154,000. BUN and creatinine 11/1.13, glucose of 105. A CT scan of the abdomen and pelvis showed acu te pancreatitis. The patient was given morphine and Zofran for symptomatic relief. HOSPITAL COURSE: The patient was seen by Dr. Bragg in surgery. Patient was kept n.p.o. A CT scan of the abdomen and pelvis showed multiple hepatic masses concerning for metastatic disease, upper abd ominal lymphadenopathy with portacaval lymph node measuring 2.9 x 4.2 cm, mild to moderate pelvic swati e fluid. An MRI of the abdomen showed no evidence of cholelithiasis, cholecystitis or choledocholith iasis. Multiple T2 hyperintense masses are seen throughout the liver with the largest in the left he patic lobe. These demonstrate elevated T2 signal and some of these have more pronounced elevated sig nal in the central portions of the mass with central delayed enhancements. This could represent a me tastatic process versus multiple focal nodular hyperplasia. Lesion in the central eliza hepatis is s uggestive of an enlarged lymph node or could represent a mass with a caudate lobe which ____. An ult rasound of the upper extremity on the showed thrombosis of the vein in the antecubital fossa, po ssibly the cephalic and basilic vein consistent with superficial thrombophlebitis. No evidence for d eep vein thrombophlebitis. Her most recent chest x-ray showed clear lungs. Dr. Lockhart saw the p atient. She notes that she received systemic adjuvant chemotherapy, Adriamycin, Cytoxan and taxane p er protocol. Unfortunately, disease currently remains mainly in the chest and nicole area and liver a reas. She was put on ribociclib treatment with hormonal blockade. She was admitted for abdominal pa in, elevated lipase and liver enzymes, most likely chemical pancreatitis. The patient will be evalua damion by surgery, whether or not to do surgery to evaluate the obstruction and pain on the eliza hepati s right upper quadrant liver areas. The patient was seen by GI, Sharmila Mack and Dr. Tavares, f or epigastric pain with nausea and vomiting and dysphagia. She had an EGD with and without brushings . On the she was seen by Dr. Bragg. He noted that she was feeling slightly better. EGD showe d duodenitis, gastritis, esophagitis, and she was started on Protonix 40 mg b.i.d. and Carafate 1 gra m q.6 hours. The MRI did not show any evidence of biliary or pancreatic duct stone or pathology. Th e patient had a lipase of 1100 on admission. This has been coming down. Dr. Lockhart is planning to start new chemotherapy. The invasive radiologists were contacted to see if they could perform savita moembolization on the left hepatic lobe for this patient. They are going to consider the evaluation tomorrow, the . Currently, she continues to have abdominal pain. She had fever last night. She was started on empiric antimicrobials and jay cultures were sent. PHYSICAL EXAMINATION: GENERAL: She is a well-developed, well-nourished 33-year-old female, lying in bed in no acute distre ss. VITAL SIGNS: Stable. She is afebrile. SKIN: Without generalized rash. HEENT: Within normal limits. NECK: Supple. LYMPH NODES: None palpable. CHEST: Decreased breath sounds at the bases. HEART: Without murmur or gallop. ABDOMEN: Soft, nontender. She has a palpable nodule in the epigastric region. EXTREMITIES: Without cyanosis, clubbing, or edema. She has redness and warmth to the left antecubit al area. Peripheral pulses are palpable. RECTAL AND GENITAL: Exams deferred. NEUROLOGIC: No focal neurological abnormalities. In summation, the patient is a 33-year-old unfortunate female with metastatic breast cancer. She has ER/VA positive, HER2/sienna negative breast cancer status post right mastectomy with recurrence in the chest, nicole, and liver areas. She was admitted with abdominal pain secondary to multiple causes. S he has systemic inflammatory response syndrome with febrile illness. On 12/23/2018, her temperature was up to 102.5. The patient is currently on vancomycin and Zosyn to which I concur. She had blood cultures done and urine cultures done which are pending. Her white count today is 9.5, H and H 11.3 and 33.1, platelet count 215,000. BUN and creatinine 6/1. 03, and her urine is negative for nitrites and leukocyte esterase. A gastric ulcer biopsy was relati vely nondescript, negative for H. pylori organisms. We will continue the patient on vancomycin and Z osyn. I will dictate my findings to the hospitalist and to the aforementioned physicians. Dictated By: VLADIMIR PLASCENCIA MD, JD/NTS Conf#: [id number] DID#: [id number] CC: KATHIE PARRA MD;*EndCC*
[2018-12-25] MEDS: HYDROmorphONE 1 MG/ML SYG IV PRN ×6 (00:27→20:41)
[2018-12-25] MEDS: PIPER-TAZO 3.375 GM IV (PMX) 100 ML IVPB SCH ×5 (00:28→23:50)
[2018-12-25 01:42] VITALS: BP 127/59; PULSE 53; RESP 16
[2018-12-25] MEDS: HYDROCODONE/APAP (5/325) TAB PO PRN ×5 (03:40→23:03)
[2018-12-25] MEDS: ONDANSETRON 4 MG INJ IV SCH ×4 (03:40→20:40)
[2018-12-25] MEDS: POTASSIUM CHLORIDE 10 MEQ in SOD CHLORIDE 0.45% 1,000 ML IV SCH ×3 (03:41→19:48)
[2018-12-25] MEDS: METOCLOPRAMIDE 10 MG INJ IV SCH ×4 (04:34→21:39)
[2018-12-25] MEDS: PANTOPRAZOLE (EC) 40 MG TAB PO SCH ×2 (05:40→18:14)
[2018-12-25 08:01] VITALS: BP 126/76; PULSE 68; RESP 19
[2018-12-25] MEDS: SUCRALFATE (100 MG/ML) 10ML CUP PO SCH ×4 (08:51→20:43)
[2018-12-25] MEDS: ENOXAPARIN 40 MG/0.4 ML SYG SC SCH (08:54)
[2018-12-25] MEDS: POTASSIUM CHLORIDE 100 ML IVPB SCH ×3 (09:55→14:35)
[2018-12-25] MEDS: VANCOMYCIN 1 GM 250 ML IVPB SCH (11:16)
[2018-12-25] MEDS: PROCHLORPERAZINE 10 MG INJ IV PRN ×2 (13:08→19:45)
--- NOTE | 2018-12-25 14:13 | CONS ---
Assessment/Plan Assessment/Plan Hospital Course (Demo Recall) Patient is alert denies pain looks comfortable, afebrile WBC 5.5 platelets 121 BUN 11 creatinine 1.21 Microbiology: Blood cultures on admission grew gram-negative rods 1 out of 2 sets, urine culture negative Antimicrobials: Vanco Zosyn Indwelling, left chest Port-A-Cath Chest x-ray yesterday was negative Physical examination: Well-developed well-nourished middle-aged white woman who is alert in no distress. Head atraumatic normocephalic neck is supple chest rise symmetrical breath sounds clear. Heart: S1-S2. Abdomen soft bowel sounds present. Assessment: 1. Gram-negative stefano bacteremia, rule out line sepsis 2. Metastatic breast CA Plan: DC vancomycin, continue Zosyn, repeat blood cultures from Port-A-Cath, follow oncology recommendations Consultation Date/Type/Reason Admit Date/Time Dec 18, 2018 at 10:56 Initial Consult Date 12/20/18 Type of Consult id Date/Time of Note DATE: 12/25/18 TIME: 14:12 Exam/Review of Systems Exam Vitals Vital Signs Date Temp Pulse Resp B/P (MAP) Pulse Ox O2 O2 Flow FiO2 Time Delivery Rate 12/25/18 98.2 68 19 126/76 98 08:01 (93) 12/25/18 Room Air 01:42 Intake and Output 12/24/18 12/24/18 12/25/18 1515:00 23:00 07:00 IntakeIntake Total 450 ml 650 ml 1090 ml BalanceBalance 450 ml 650 ml 1090 ml Results Result Diagram: 12/25/18 0443 12/25/18 0842 Results 24hrs Laboratory Tests Test 12/25/18 04:43 12/25/18 08:42 12/25/18 08:48 White Blood Count 5.5 # Red Blood Count 3.14 L Hemoglobin 9.5 L Hematocrit 27.3 L Mean Corpuscular Volume 86.9 Mean Corpuscular Hemoglobin 30.3 Mean Corpuscular Hemoglobin Concent 34.8 Red Cell Distribution Width 13.0 Platelet Count 121 #L Mean Platelet Volume 13.1 H Immature Granulocytes % 1.100 H Neutrophils % Segmented Neutrophils % (Manual) 44 Band Neutrophils % (Manual) 37 H Lymphocytes % Lymphocytes % (Manual) 15 Monocytes % Monocytes % (Manual) 2 Eosinophils % Eosinophils % (Manual) 1 Basophils % Myelocytes % (Manual) 1 H Nucleated Red Blood Cells % 0.0 Immature Granulocytes # 0.060 H Neutrophils # Neutrophils # (Manual) 2.5 Band Neutrophils # 2.0 H Lymphocytes (Manual) 0.8 Lymphocytes # Monocytes # Monocytes # (Manual) 0.1 L Eosinophils # Basophils # Myelocytes # 0.0 Nucleated Red Blood Cells # Platelet Estimate DECREASED Giant Platelets 9 H Sodium Level 137 140 Potassium Level 2.7 *L 2.8 *L Chloride Level 105 107 Carbon Dioxide Level 25 24 Anion Gap 7 9 Blood Urea Nitrogen 11 11 Creatinine 1.23 H 1.21 H Est Glomerular Filtrat Rate mL/min 50 L 51 L Glucose Level 94 # 91 Calcium Level 7.8 L 7.8 L Phosphorus Level 2.8 Magnesium Level 2.4 # Vancomycin Level Trough 14.2 Medications Medication Current Medications IV Flush (NS 3 ml) 3 ml PER PROTOCOL IV ; Start 12/18/18 at 15:00 Enoxaparin Sodium (Lovenox) 40 mg DAILY SC Last administered on 12/25/18 08:5 4; Admin Dose 40 MG; Start 12/19/18 at 09:00 Pantoprazole (Protonix Tab) 40 mg BID@06,18 PO Last administered on 12/25/18 05:40; Admin Dose 40 MG; Start 12/21/18 at 06:00 Sucralfate (Carafate Susp) 1 gm QID PO Last administered on 12/25/18 13:09; Admin Dose 1 GM; Start 12/20/18 at 21:00 Metoclopramide HCl (Reglan) 10 mg Q6H IV Last administered on 12/25/18 11:15; Admin Dose 10 MG; Start 12/21/18 at 22:00 Acetaminophen/ Hydrocodone Bitart ([place] (5/325)) 1 tab Q4H PRN PO MODERATE PAIN LEVEL 4-6 Last administered on 12/25/18 11:32; Admin Dose 1 TAB; Start 12/22/18 at 14:00 Ondansetron HCl (Zofran Inj) 4 mg Q6H IV Last administered on 12/25/18 08:51; Admin Dose 4 MG; Start 12/22/18 at 15:00 Potassium Chloride 10 meq/ Sodium Chloride 1,005 ml @ 50 mls/hr Q20H6M IV Last administered on 12/25/18 03:41; Admin Dose 50 MLS/HR; Start 12/22/18 at 17:00 Alprazolam (Xanax) 0.25 mg Q8H PRN PO ANXIETY Last administered on 12/24/18 23:31; Admin Dose 0.25 MG; Start 12/22/18 at 16:30 Hydromorphone HCl (Dilaudid) 1 mg Q4H PRN IV SEVERE PAIN LEVEL 7-10 Last administered on 12/25/18 12:25; Admin Dose 1 MG; Start 12/22/18 at 21:00 Scopolamine (Transderm-Scop) 1 patch Q72H TRANSDERM Last administered on 12/23/18 13:22; Admin Dose 1 PATCH; Start 12/23/18 at 13:00 Magnesium Hydroxide (Milk Of Mag) 30 ml HS PRN PO CONSTIPATION; Start 12/23/18 at 21:00 Mineral Oil (Mineral Oil) 30 ml HS PRN PO CONSTIPATION; Start 12/23/18 at 21:00 Vancomycin HCl (Vanco Iv Per Pharmacy) VANCOMYCIN PER PHARMACY PER PROTOCOL XX ; Start 12/23/18 at 21:00 Piperacillin Sod/ Tazobactam Sod 100 ml @ 200 mls/hr Q6 IVPB Last administered on 12/25/18 14:07; Admin Dose 200 MLS/HR; Start 12/23/18 at 21:01 Acetaminophen (Tylenol Tab) 650 mg Q6H PRN PO MILD PAIN(1-3)OR ELEVATED TEMP Last administered on 12/24/18 16:02; Admin Dose 650 MG; Start 12/23/18 at 21:00 Vancomycin HCl 250 ml @ 125 mls/hr Q12H IVPB Last administered on 12/25/18 11:16; Admin Dose 125 MLS/HR; Start 12/24/18 at 10:00 Prochlorperazine (Compazine Inj) 5 mg Q4H PRN IV NAUSEA AND/OR VOMITING Last administered on 12/25/18 13:08; Admin Dose 5 MG; Start 12/24/18 at 11:30 SIMA PRYOR NP Dec 25, 2018 14:13
--- NOTE | 2018-12-25 14:42 | PN ---
Date/Time of Note Date/Time of Note DATE: 12/25/18 TIME: 14:39 Assessment/Plan VTE Prophylaxis Risk score (from Ns)>0 risk: 5 SCD applied (from Ns): Yes Pharmacological prophylaxis: LMWH Lines/Catheters IV Catheter Type (from Nrsg): Peripheral IV Urinary Cath still in place: No Assessment/Plan Hospital Course 1. Abdominal pain. suspect multifactorial in origin including underlying liver metastasis. Continue pain control - will gt pain management consult S/P EDGscopy on 12/20/2018 that showed moderate distal esophagitis, moderate gastritis, and multiple shallow duodenal bulb ulcerations. Continue PPI and Carafate. 2. Metastatic breast cancer. Status post carboplatin x1 on 12/21/2018. continue oncologist recommendations 3. Normocytic anemia. suspect secondary to underlying malignancy. Monitor H&H closely. 4. Superficial thrombophlebitis of the left AC area. Continue elevation of extremity and local care. Continue Lovenox. 5. Systemic inflammatory response syndrome with febrile illness and tachycardia on 12/23/2018. prelim blood culture with gram negative stefano continue abx for now Disposition plan. Continue with antibiotics. We will get pain management co nsult to follow. Follow-up on final cultures. Discussed POC with Dr. Bernal Result Diagram: 12/25/18 0443 12/25/18 0842 Results 24hrs Laboratory Tests Test 12/25/18 04:43 12/25/18 08:42 12/25/18 08:48 White Blood Count 5.5 # Red Blood Count 3.14 L Hemoglobin 9.5 L Hematocrit 27.3 L Mean Corpuscular Volume 86.9 Mean Corpuscular Hemoglobin 30.3 Mean Corpuscular Hemoglobin Concent 34.8 Red Cell Distribution Width 13.0 Platelet Count 121 #L Mean Platelet Volume 13.1 H Immature Granulocytes % 1.100 H Neutrophils % Segmented Neutrophils % (Manual) 44 Band Neutrophils % (Manual) 37 H Lymphocytes % Lymphocytes % (Manual) 15 Monocytes % Monocytes % (Manual) 2 Eosinophils % Eosinophils % (Manual) 1 Basophils % Myelocytes % (Manual) 1 H Nucleated Red Blood Cells % 0.0 Immature Granulocytes # 0.060 H Neutrophils # Neutrophils # (Manual) 2.5 Band Neutrophils # 2.0 H Lymphocytes (Manual) 0.8 Lymphocytes # Monocytes # Monocytes # (Manual) 0.1 L Eosinophils # Basophils # Myelocytes # 0.0 Nucleated Red Blood Cells # Platelet Estimate DECREASED Giant Platelets 9 H Sodium Level 137 140 Potassium Level 2.7 *L 2.8 *L Chloride Level 105 107 Carbon Dioxide Level 25 24 Anion Gap 7 9 Blood Urea Nitrogen 11 11 Creatinine 1.23 H 1.21 H Est Glomerular Filtrat Rate mL/min 50 L 51 L Glucose Level 94 # 91 Calcium Level 7.8 L 7.8 L Phosphorus Level 2.8 Magnesium Level 2.4 # Vancomycin Level Trough 14.2 Subjective 24 Hr Interval Summary Free Text/Dictation Patient still reports having some abdominal pain but less today. Reports able to tolerate oral diet better today. Exam/Review of Systems Exam Vitals Vital Signs Date Temp Pulse Resp B/P (MAP) Pulse Ox O2 O2 Flow FiO2 Time Delivery Rate 12/25/18 98.2 68 19 126/76 98 08:01 (93) 12/25/18 Room Air 01:42 Intake and Output 12/24/18 12/24/18 12/25/18 1515:00 23:00 07:00 IntakeIntake Total 450 ml 650 ml 1090 ml BalanceBalance 450 ml 650 ml 1090 ml Constitutional: alert, oriented Psych: nl mood/affect Head: normocephalic Eyes: nl conjunctiva Respiratory: clear to auscultation, normal air movement Cardiovascular: regular rate and rhythm Gastrointestinal: soft, tender Musculoskeletal: nl extremities to inspection 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: ROOF FOREMAN II-XII intact, nl mental status, nl speech Skin: nl turgor Results Results 24hrs Laboratory Tests Test 12/25/18 04:43 12/25/18 08:42 12/25/18 08:48 White Blood Count 5.5 # Red Blood Count 3.14 L Hemoglobin 9.5 L Hematocrit 27.3 L Mean Corpuscular Volume 86.9 Mean Corpuscular Hemoglobin 30.3 Mean Corpuscular Hemoglobin Concent 34.8 Red Cell Distribution Width 13.0 Platelet Count 121 #L Mean Platelet Volume 13.1 H Immature Granulocytes % 1.100 H Neutrophils % Segmented Neutrophils % (Manual) 44 Band Neutrophils % (Manual) 37 H Lymphocytes % Lymphocytes % (Manual) 15 Monocytes % Monocytes % (Manual) 2 Eosinophils % Eosinophils % (Manual) 1 Basophils % Myelocytes % (Manual) 1 H Nucleated Red Blood Cells % 0.0 Immature Granulocytes # 0.060 H Neutrophils # Neutrophils # (Manual) 2.5 Band Neutrophils # 2.0 H Lymphocytes (Manual) 0.8 Lymphocytes # Monocytes # Monocytes # (Manual) 0.1 L Eosinophils # Basophils # Myelocytes # 0.0 Nucleated Red Blood Cells # Platelet Estimate DECREASED Giant Platelets 9 H Sodium Level 137 140 Potassium Level 2.7 *L 2.8 *L Chloride Level 105 107 Carbon Dioxide Level 25 24 Anion Gap 7 9 Blood Urea Nitrogen 11 11 Creatinine 1.23 H 1.21 H Est Glomerular Filtrat Rate mL/min 50 L 51 L Glucose Level 94 # 91 Calcium Level 7.8 L 7.8 L Phosphorus Level 2.8 Magnesium Level 2.4 # Vancomycin Level Trough 14.2 Medications Medication Current Medications IV Flush (NS 3 ml) 3 ml PER PROTOCOL IV ; Start 12/18/18 at 15:00 Enoxaparin Sodium (Lovenox) 40 mg DAILY SC Last administered on 12/25/18 08:54; Admin Dose 40 MG; Start 12/19/18 at 09:00 Pantoprazole (Protonix Tab) 40 mg BID@06,18 PO Last administered on 12/25/18 05:40; Admin Dose 40 MG; Start 12/21/18 at 06:00 Sucralfate (Carafate Susp) 1 gm QID PO Last administered on 12/25/18 13:09; Admin Dose 1 GM; Start 12/20/18 at 21:00 Metoclopramide HCl (Reglan) 10 mg Q6H IV Last administered on 12/25/18 11:15; Admin Dose 10 MG; Start 12/21/18 at 22:00 Acetaminophen/ Hydrocodone Bitart ([place] (5/325)) 1 tab Q4H PRN PO MODERATE PAIN LEVEL 4-6 Last administered on 12/25/18 11:32; Admin Dose 1 TAB; Start 12/22/18 at 14:00 Ondansetron HCl (Zofran Inj) 4 mg Q6H IV Last administered on 12/25/18 08:51; Admin Dose 4 MG; Start 12/22/18 at 15:00 Potassium Chloride 10 meq/ Sodium Chloride 1,005 ml @ 50 mls/hr Q20H6M IV Last administered on 12/25/18 03:41; Admin Dose 50 MLS/HR; Start 12/22/18 at 17:00 Alprazolam (Xanax) 0.25 mg Q8H PRN PO ANXIETY Last administered on 12/24/18 23:31; Admin Dose 0.25 MG; Start 12/22/18 at 16:30 Hydromorphone HCl (Dilaudid) 1 mg Q4H PRN IV SEVERE PAIN LEVEL 7-10 Last administered on 12/25/18 12:25; Admin Dose 1 MG; Start 12/22/18 at 21:00 Scopolamine (Transderm-Scop) 1 patch Q72H TRANSDERM Last administered on 12/23/18 13:22; Admin Dose 1 PATCH; Start 12/23/18 at 13:00 Magnesium Hydroxide (Milk Of Mag) 30 ml HS PRN PO CONSTIPATION; Start 12/23/18 at 21:00 Mineral Oil (Mineral Oil) 30 ml HS PRN PO CONSTIPATION; Start 12/23/18 at 21:00 Piperacillin Sod/ Tazobactam Sod 100 ml @ 200 mls/hr Q6 IVPB Last administered on 12/25/18 14:07; Admin Dose 200 MLS/HR; Start 12/23/18 at 21:01 Acetaminophen (Tylenol Tab) 650 mg Q6H PRN PO MILD PAIN(1-3)OR ELEVATED TEMP Last administered on 12/24/18 16:02; Admin Dose 650 MG; Start 12/23/18 at 21:00 Prochlorperazine (Compazine Inj) 5 mg Q4H PRN IV NAUSEA AND/OR VOMITING Last administered on 12/25/18 13:08; Admin Dose 5 MG; Start 12/24/18 at 11:30 YOUNG PEARL NP Dec 25, 2018 14:42
[2018-12-25 17:33] VITALS: BP 121/58; PULSE 82; RESP 20
[2018-12-25 18:21] VITALS: BP 155/75; PULSE 77; RESP 20
[2018-12-25 20:20] VITALS: BP 146/64; PULSE 81; RESP 18
--- NOTE | 2018-12-25 22:42 | PN ---
DATE: 12/25/2018 SUBJECTIVE: Feels better. No more vomiting, but continues to have nausea. She has had, as you know, two episodes of temperature rise up to 101.6 and chills on the at night and on the at night, but today 98.5. Blood culture which was drawn on 12/23/18 at 8 p.m. has grown negative rods. Patient tolerating diet. No nausea, bowel movement okay, no vomiting, requires IV pain medication for abdominal epigastric pain. She is also on medication for arthritis, sucralfate and PPI. OBJECTIVE: GENERAL: Awake, alert, oriented, in no acute distress but is in the bed. VITAL SIGNS: Temperature today 98.5, heart rate 68, respirations 16, blood pressure 127/59, saturation 98%. HEART: Regular. LUNGS: Clear. ABDOMEN: Not distended. Bowel sound is present but is tender in the epigastric area and right upper quadrant area and epigastric area fullness and mass at the left lobe of the liver can be felt. UPPER EXTREMITIES: Clinically, there is no gross evidence of thrombophlebitis in either of the antecubital areas but ultrasound has revealed thrombosis of the left upper extremity antecubital area. No calf tenderness in the legs. LABORATORY DATA: Today sodium 140, potassium has been low at 2.8. Replacement has been given. BUN yesterday 6, today 11, creatinine on the was 1.03, today in the morning at 5:00 a.m. was 1.23, at 8 a.m. was 1.21. Urine output has not been measured, but patient states that she is making good urine output. ASSESSMENT: A 33-year-old female status post right modified radical mastectomy with recurrence of the cancer of the breast to the right axillary area which was removed with a second operation and now presented with epigastric abdominal pain, nausea, vomiting, which PET CT scan and MRI has revealed the presence of metastases to both lobes of the liver, mostly to the left side and preserved presence of nicole involvement in the abdomen at the eliza caval area. EGD revealed gastritis. Multiple superficial duodenitis and distal esophagitis. Patient is on appropriate treatment for that. Biopsy of the gastric mucosa failed to reveal H. pylori. Chemotherapist Dr. Lockhart on the case. He has started the patient on carboplatin chemotherapy with the aim to attack the liver metastases. There has been discussion between the surgical team, Dr. Garza myself and Dr. Lockhart in regard to embolization of the left upper lobe of the liver with a simple embolization or chemoembolization to decrease the bulk of the active tumor in the left lobe of the liver if possible for this a.m. I have talked to Dr. Mendoza last week and this week today. He wants to get a CT angio of the pelvis and abdomen for evaluation of the hepatic artery circulation and after that he will decide if it is feasible to do an embolization, so I am going to put the request in the computer for CT angio abdomen and pelvis today. Unfortunately today's blood tests revealed that the creatinine has increased to 1.21. There is slight elevation. For this reason, I increase the maintenance IV to 75 mL per hour and encouraged the patient to take more fluids. Hopefully, by tomorrow, Tuesday, the kidney function is going to be normalized. All these subjects were discussed with the patient's father in detail today, this afternoon. Dictated By: SHANNON MANN MD PS/NTS Conf#: [id number] DID#: [id number] CC: KATHIE PARRA MD;*EndCC* MTDD
[2018-12-26] MEDS: HYDROmorphONE 1 MG/ML SYG IV PRN ×6 (01:47→22:00)
[2018-12-26 02:35] VITALS: BP 143/75; PULSE 81; RESP 17
[2018-12-26] MEDS: POTASSIUM CHLORIDE 10 MEQ in SOD CHLORIDE 0.45% 1,000 ML IV SCH ×2 (02:43→14:58)
[2018-12-26] MEDS: ONDANSETRON 4 MG INJ IV SCH ×4 (02:43→21:08)
[2018-12-26] MEDS: HYDROCODONE/APAP (5/325) TAB PO PRN ×3 (03:46→19:56)
[2018-12-26] MEDS: METOCLOPRAMIDE 10 MG INJ IV SCH ×4 (03:46→21:08)
[2018-12-26] MEDS: PROCHLORPERAZINE 10 MG INJ IV PRN ×2 (05:45→22:47)
[2018-12-26] MEDS: PIPER-TAZO 3.375 GM IV (PMX) 100 ML IVPB SCH ×2 (05:47→12:45)
[2018-12-26] MEDS: PANTOPRAZOLE (EC) 40 MG TAB PO SCH ×2 (05:48→17:27)
[2018-12-26] MEDS: SUCRALFATE (100 MG/ML) 10ML CUP PO SCH ×4 (09:14→21:08)
[2018-12-26] MEDS: ENOXAPARIN 40 MG/0.4 ML SYG SC SCH (09:16)
[2018-12-26] MEDS: SCOPOLAMINE 1.5 MG PATCH TRANSDERM SCH (12:00)
[2018-12-26] MEDS ORDERED: SOD CHLORIDE 0.9% 100 ML ONE (12:19)
[2018-12-26] MEDS ORDERED: IOHEXOL 100 ML ONE (12:19)
--- NOTE | 2018-12-26 12:26 | CONS ---
Assessment/Plan Assessment/Plan Assessment/Plan (Daily) 1. acute kidney injury due to ATN + prerenal azotemia 2. Gram negative bacteremia, Blood cx grew 1/2 Serr[place]ia 3. Metastatic breast CA with mets to liver 4. Epigastric pain due to liver metastasis Plan: Thanks for consultation, IV abx as per ID, Renally dose all abx and monitor electorlytes, plan is to d.c IV zosyn today as per ID agree with IVF 1/2 NS with KCL at 100 cc/hr expecting Cr to improve with IVF hydration and Rx of infection Thanks for consultation, I will continue to follow up Consultation Date/Type/Reason Admit Date/Time Dec 18, 2018 at 10:56 Date of Consultation: Dec 26, 2018 Type of Consult NEPHROLOGY Reason for Consultation acute kidney injury, Hypokalemia Requesting Provider: NILSA AZEVEDO Date/Time of Note DATE: 12/26/18 TIME: 12:26 Hx of Present Illness 33 year old female with PMH of metastatic breast CA s/p Chemo and Radiation ,currently with liver metastasis presented with epigastric pain , pt had SIRS on admission she continue to have rising BUn/Cr and renal has been consulted for acute kidney injury S/P EDGscopy on 12/20/2018 that showed moderate distal esophagitis, moderate gastritis, and multiple shallow duodenal bulb ulcerations. Constitutional: no complaints Eyes: no complaints ENT: no complaints Respiratory: no complaints Cardiovascular: no complaints Gastrointestinal: pain, nausea Genitourinary: no complaints Musculoskeletal: no complaints Skin: no complaints Neurologic: no complaints Endocrine: no complaints Lymphatic: no complaints Psychological: no complaints Immunologic: no complaints Past Medical History Medical History: other (metastatic Breast CA) Home Meds Reported Medications Ribociclib Succinate/Letrozole ([place] Femara 600 mg Co-Pack) 1 Each Tablet, 3 EACH PO DAILY, TAB ON 21 DAYS OFF 7 DAYS 12/13/18 Medications Current Medications IV Flush (NS 3 ml) 3 ml PER PROTOCOL IV ; Start 12/18/18 at 15:00 Enoxaparin Sodium (Lovenox) 40 mg DAILY SC Last administered on 12/26/18at 09:16; Admin Dose 40 MG; Start 12/19/18 at 09:00 Pantoprazole (Protonix Tab) 40 mg BID@06,18 PO Last administered on 12/26/18at 05:48; Admin Dose 40 MG; Start 12/21/18 at 06:00 Sucralfate (Carafate Susp) 1 gm QID PO Last administered on 12/26/18 09:14; Admin Dose 1 GM; Start 12/20/18 at 21:00 Metoclopramide HCl (Reglan) 10 mg Q6H IV Last administered on 12/26/18 10:15; Admin Dose 10 MG; Start 12/21/18 at 22:00 Acetaminophen/ Hydrocodone Bitart ([place] (5/325)) 1 tab Q4H PRN PO MODERATE PAIN LEVEL 4-6 Last administered on 12/26/18 09:14; Admin Dose 1 TAB; Start 12/22/18 at 14:00 Ondansetron HCl (Zofran Inj) 4 mg Q6H IV Last administered on 12/26/18 09:14; Admin Dose 4 MG; Start 12/22/18 at 15:00 Alprazolam (Xanax) 0.25 mg Q8H PRN PO ANXIETY Last administered on 12/24/18 23:31; Admin Dose 0.25 MG; Start 12/22/18 at 16:30 Hydromorphone HCl (Dilaudid) 1 mg Q4H PRN IV SEVERE PAIN LEVEL 7-10 Last administered on 12/26/18 09:53; Admin Dose 1 MG; Start 12/22/18 at 21:00 Scopolamine (Transderm-Scop) 1 patch Q72H TRANSDERM Last administered on 12/26/18 12:00; Admin Dose 1 PATCH; Start 12/23/18 at 13:00 Magnesium Hydroxide (Milk Of Mag) 30 ml HS PRN PO CONSTIPATION; Start 12/23/18 at 21:00 Mineral Oil (Mineral Oil) 30 ml HS PRN PO CONSTIPATION; Start 12/23/18 at 21:00 Piperacillin Sod/ Tazobactam Sod 100 ml @ 200 mls/hr Q6 IVPB Last administered on 12/26/18 05:47; Admin Dose 200 MLS/HR; Start 12/23/18 at 21:01 Acetaminophen (Tylenol Tab) 650 mg Q6H PRN PO MILD PAIN(1-3)OR ELEVATED TEMP Last administered on 12/24/18 16:02; Admin Dose 650 MG; Start 12/23/18 at 21:00 Prochlorperazine (Compazine Inj) 5 mg Q4H PRN IV NAUSEA AND/OR VOMITING Last administered on 12/26/18at 05:45; Admin Dose 5 MG; Start 12/24/18 at 11:30 Potassium Chloride 10 meq/ Sodium Chloride 1,005 ml @ 100 mls/hr Q10H3M IV Last administered on 12/26/18at 02:43; Admin Dose 100 MLS/HR; Start 12/25/18 at 19:00 Allergies: Coded Allergies: No Known Allergy (Unverified , 12/18/18) Past Surgical History Past Surgical Hx: other (mastectomym portac cath placement ) Family History Significant Family History: no pertinent family hx Social History Alcohol Use: none Smoking Status: Former smoker Drug Use: marijuana Exam/Review of Systems Exam Vitals Vital Signs Date Temp Pulse Resp B/P (MAP) Pulse Ox O2 O2 Flow FiO2 Time Delivery Rate 12/26/18 98.9 81 17 143/75 95 02:35 (97) 12/25/18 Room Air 18:21 Intake and Output 12/25/18 12/25/18 12/26/18 1515:00 23:00 07:00 IntakeIntake Total 450 ml 850 ml 1035 ml BalanceBalance 450 ml 850 ml 1035 ml Exam Constitutional: alert, oriented Psych: nl mood/affect Head: normocephalic Eyes: nl conjunctiva Respiratory: clear to auscultation, normal air movement Cardiovascular: regular rate and rhythm Gastrointestinal: soft, tender Musculoskeletal: nl extremities to inspection, left elbow thrombophlebitis 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: PRODUCT DEVELOPMENT COORDINATOR II-XII intact, nl mental status, nl speech Skin: nl turgor Constitutional: alert Psych: no complaints Neck: supple, non-tender Respiratory: clear to auscultation, diminished breath sounds Cardiovascular: regular rate and rhythm, nl pulses Gastrointestinal: soft, non-tender Extremities: normal pulses 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: PRODUCT DEVELOPMENT COORDINATOR II-XII intact, nl mental status, nl speech, nl strength Lymph: nl lymph nodes Results Result Diagram: 12/26/18 0453 12/26/18 0453 Results 24hrs Laboratory Tests Test 12/26/18 04:53 White Blood Count 4.8 Red Blood Count 3.20 L Hemoglobin 9.5 L Hematocrit 28.5 L Mean Corpuscular Volume 89.1 Mean Corpuscular Hemoglobin 29.7 Mean Corpuscular Hemoglobin Concent 33.3 Red Cell Distribution Width 13.2 Platelet Count 128 L Mean Platelet Volume 13.4 H Immature Granulocytes % 0.600 H Neutrophils % Segmented Neutrophils % (Manual) 63 Band Neutrophils % (Manual) 21 H Lymphocytes % Lymphocytes % (Manual) 5 L Reactive Lymphocytes % (Manual) 1 H Monocytes % Monocytes % (Manual) 4 Eosinophils % Eosinophils % (Manual) 3 Basophils % Basophils % (Manual) 3 H Nucleated Red Blood Cells % 0.0 Immature Granulocytes # 0.030 Neutrophils # Neutrophils # (Manual) 3.1 Band Neutrophils # 1.0 H Lymphocytes (Manual) 0.2 L Lymphocytes # Reactive Lymphocytes # 0.0 Monocytes # Monocytes # (Manual) 0.1 L Eosinophils # Basophils # Basophils # (Manual) 0.1 H Nucleated Red Blood Cells # Platelet Estimate DECREASED Giant Platelets 3 H Anisocytosis 1+ Sodium Level 138 Potassium Level 3.5 Chloride Level 104 Carbon Dioxide Level 27 Anion Gap 7 Blood Urea Nitrogen 10 Creatinine 1.46 H Est Glomerular Filtrat Rate mL/min 41 L Glucose Level 93 Calcium Level 8.8 Medications Medication Current Medications IV Flush (NS 3 ml) 3 ml PER PROTOCOL IV ; Start 12/18/18 at 15:00 Enoxaparin Sodium (Lovenox) 40 mg DAILY SC Last administered on 12/26/18at 09:16; Admin Dose 40 MG; Start 12/19/18 at 09:00 Pantoprazole (Protonix Tab) 40 mg BID@06,18 PO Last administered on 12/26/18at 05:48; Admin Dose 40 MG; Start 12/21/18 at 06:00 Sucralfate (Carafate Susp) 1 gm QID PO Last administered on 12/26/18at 09:14; Admin Dose 1 GM; Start 12/20/18 at 21:00 Metoclopramide HCl (Reglan) 10 mg Q6H IV Last administered on 12/26/18at 10:15; Admin Dose 10 MG; Start 12/21/18 at 22:00 Acetaminophen/ Hydrocodone Bitart ([place] (5/325)) 1 tab Q4H PRN PO MODERATE PAIN LEVEL 4-6 Last administered on 12/26/18at 09:14; Admin Dose 1 TAB; Start 12/22/18 at 14:00 Ondansetron HCl (Zofran Inj) 4 mg Q6H IV Last administered on 12/26/18 09:14; Admin Dose 4 MG; Start 12/22/18 at 15:00 Alprazolam (Xanax) 0.25 mg Q8H PRN PO ANXIETY Last administered on 12/24/18 23:31; Admin Dose 0.25 MG; Start 12/22/18 at 16:30 Hydromorphone HCl (Dilaudid) 1 mg Q4H PRN IV SEVERE PAIN LEVEL 7-10 Last administered on 12/26/18 09:53; Admin Dose 1 MG; Start 12/22/18 at 21:00 Scopolamine (Transderm-Scop) 1 patch Q72H TRANSDERM Last administered on 12/26/18 12:00; Admin Dose 1 PATCH; Start 12/23/18 at 13:00 Magnesium Hydroxide (Milk Of Mag) 30 ml HS PRN PO CONSTIPATION; Start 12/23/18 at 21:00 Mineral Oil (Mineral Oil) 30 ml HS PRN PO CONSTIPATION; Start 12/23/18 at 21:00 Piperacillin Sod/ Tazobactam Sod 100 ml @ 200 mls/hr Q6 IVPB Last administered on 12/26/18 05:47; Admin Dose 200 MLS/HR; Start 12/23/18 at 21:01 Acetaminophen (Tylenol Tab) 650 mg Q6H PRN PO MILD PAIN(1-3)OR ELEVATED TEMP Last administered on 12/24/18 16:02; Admin Dose 650 MG; Start 12/23/18 at 21:00 Prochlorperazine (Compazine Inj) 5 mg Q4H PRN IV NAUSEA AND/OR VOMITING Last administered on 12/26/18 05:45; Admin Dose 5 MG; Start 12/24/18 at 11:30 Potassium Chloride 10 meq/ Sodium Chloride 1,005 ml @ 100 mls/hr Q10H3M IV Last administered on 12/26/18 02:43; Admin Dose 100 MLS/HR; Start 12/25/18 at 19:00 JUAN PARSON MD Dec 26, 2018 12:26
--- NOTE | 2018-12-26 13:38 | CONS ---
Consultation Date/Type/Reason Admit Date/Time Dec 18, 2018 at 10:56 Date/Time of Note DATE: 12/26/18 TIME: 13:37 Hx of Present Illness Reviewed medical records and examined pt... full note to follow Past Medical History Home Meds Reported Medications Ribociclib Succinate/Letrozole (Kisqali Femara 600 mg Co-Pack) 1 Each Tablet, 3 EACH PO DAILY, TAB ON 21 DAYS OFF 7 DAYS 12/13/18 Medications Current Medications IV Flush (NS 3 ml) 3 ml PER PROTOCOL IV ; Start 12/18/18 at 15:00 Enoxaparin Sodium (Lovenox) 40 mg DAILY SC Last administered on 12/26/18at 09:16; Admin Dose 40 MG; Start 12/19/18 at 09:00 Pantoprazole (Protonix Tab) 40 mg BID@06,18 PO Last administered on 12/26/18at 05:48; Admin Dose 40 MG; Start 12/21/18 at 06:00 Sucralfate (Carafate Susp) 1 gm QID PO Last administered on 12/26/18at 12:45; Admin Dose 1 GM; Start 12/20/18 at 21:00 Metoclopramide HCl (Reglan) 10 mg Q6H IV Last administered on 12/26/18at 10:15; Admin Dose 10 MG; Start 12/21/18 at 22:00 Acetaminophen/ Hydrocodone Bitart ([place] (5/325)) 1 tab Q4H PRN PO MODERATE PAIN LEVEL 4-6 Last administered on 12/26/18at 09:14; Admin Dose 1 TAB; Start 12/22/18 at 14:00 Ondansetron HCl (Zofran Inj) 4 mg Q6H IV Last administered on 12/26/18 09:14; Admin Dose 4 MG; Start 12/22/18 at 15:00 Alprazolam (Xanax) 0.25 mg Q8H PRN PO ANXIETY Last administered on 12/24/18at 23:31; Admin Dose 0.25 MG; Start 12/22/18 at 16:30 Hydromorphone HCl (Dilaudid) 1 mg Q4H PRN IV SEVERE PAIN LEVEL 7-10 Last administered on 12/26/18at 09:53; Admin Dose 1 MG; Start 12/22/18 at 21:00 Scopolamine (Transderm-Scop) 1 patch Q72H TRANSDERM Last administered on 12/26/18at 12:00; Admin Dose 1 PATCH; Start 12/23/18 at 13:00 Magnesium Hydroxide (Milk Of Mag) 30 ml HS PRN PO CONSTIPATION; Start 12/23/18 at 21:00 Mineral Oil (Mineral Oil) 30 ml HS PRN PO CONSTIPATION; Start 12/23/18 at 21:00 Acetaminophen (Tylenol Tab) 650 mg Q6H PRN PO MILD PAIN(1-3)OR ELEVATED TEMP Last administered on 12/24/18at 16:02; Admin Dose 650 MG; Start 12/23/18 at 21:00 Prochlorperazine (Compazine Inj) 5 mg Q4H PRN IV NAUSEA AND/OR VOMITING Last administered on 12/26/18at 05:45; Admin Dose 5 MG; Start 12/24/18 at 11:30 Potassium Chloride 10 meq/ Sodium Chloride 1,005 ml @ 100 mls/hr Q10H3M IV Last administered on 12/26/18at 02:43; Admin Dose 100 MLS/HR; Start 12/25/18 at 19:00 Levofloxacin (Levaquin) 500 mg DAILY@06 PO ; Start 12/27/18 at 06:00 Allergies: Coded Allergies: No Known Allergy (Unverified , 12/18/18) Social History Alcohol Use: occasionally Smoking Status: Former smoker Drug Use: marijuana Exam/Review of Systems Exam Vitals Vital Signs Date Temp Pulse Resp B/P (MAP) Pulse Ox O2 O2 Flow FiO2 Time Delivery Rate 12/26/18 98.9 81 17 143/75 95 02:35 (97) 12/25/18 Room Air 18:21 Intake and Output 12/25/18 12/25/18 12/26/18 1515:00 23:00 07:00 IntakeIntake Total 450 ml 850 ml 1035 ml BalanceBalance 450 ml 850 ml 1035 ml Results Result Diagram: 12/26/18 0453 12/26/18 0453 Results 24hrs Laboratory Tests Test 12/26/18 04:53 White Blood Count 4.8 Red Blood Count 3.20 L Hemoglobin 9.5 L Hematocrit 28.5 L Mean Corpuscular Volume 89.1 Mean Corpuscular Hemoglobin 29.7 Mean Corpuscular Hemoglobin Concent 33.3 Red Cell Distribution Width 13.2 Platelet Count 128 L Mean Platelet Volume 13.4 H Immature Granulocytes % 0.600 H Neutrophils % Segmented Neutrophils % (Manual) 63 Band Neutrophils % (Manual) 21 H Lymphocytes % Lymphocytes % (Manual) 5 L Reactive Lymphocytes % (Manual) 1 H Monocytes % Monocytes % (Manual) 4 Eosinophils % Eosinophils % (Manual) 3 Basophils % Basophils % (Manual) 3 H Nucleated Red Blood Cells % 0.0 Immature Granulocytes # 0.030 Neutrophils # Neutrophils # (Manual) 3.1 Band Neutrophils # 1.0 H Lymphocytes (Manual) 0.2 L Lymphocytes # Reactive Lymphocytes # 0.0 Monocytes # Monocytes # (Manual) 0.1 L Eosinophils # Basophils # Basophils # (Manual) 0.1 H Nucleated Red Blood Cells # Platelet Estimate DECREASED Giant Platelets 3 H Anisocytosis 1+ Sodium Level 138 Potassium Level 3.5 Chloride Level 104 Carbon Dioxide Level 27 Anion Gap 7 Blood Urea Nitrogen 10 Creatinine 1.46 H Est Glomerular Filtrat Rate mL/min 41 L Glucose Level 93 Calcium Level 8.8 Medications Medication Current Medications IV Flush (NS 3 ml) 3 ml PER PROTOCOL IV ; Start 12/18/18 at 15:00 Enoxaparin Sodium (Lovenox) 40 mg DAILY SC Last administered on 12/26/18at 09:16; Admin Dose 40 MG; Start 12/19/18 at 09:00 Pantoprazole (Protonix Tab) 40 mg BID@06,18 PO Last administered on 12/26/18at 05:48; Admin Dose 40 MG; Start 12/21/18 at 06:00 Sucralfate (Carafate Susp) 1 gm QID PO Last administered on 12/26/18at 12:45; Admin Dose 1 GM; Start 12/20/18 at 21:00 Metoclopramide HCl (Reglan) 10 mg Q6H IV Last administered on 12/26/18at 10:15; Admin Dose 10 MG; Start 12/21/18 at 22:00 Acetaminophen/ Hydrocodone Bitart ([place] (5/325)) 1 tab Q4H PRN PO MODERATE P AIN LEVEL 4-6 Last administered on 12/26/18at 09:14; Admin Dose 1 TAB; Start 12/22/18 at 14:00 Ondansetron HCl (Zofran Inj) 4 mg Q6H IV Last administered on 12/26/18 09:14; Admin Dose 4 MG; Start 12/22/18 at 15:00 Alprazolam (Xanax) 0.25 mg Q8H PRN PO ANXIETY Last administered on 12/24/18 23:31; Admin Dose 0.25 MG; Start 12/22/18 at 16:30 Hydromorphone HCl (Dilaudid) 1 mg Q4H PRN IV SEVERE PAIN LEVEL 7-10 Last administered on 12/26/18 09:53; Admin Dose 1 MG; Start 12/22/18 at 21:00 Scopolamine (Transderm-Scop) 1 patch Q72H TRANSDERM Last administered on 12/26/18 12:00; Admin Dose 1 PATCH; Start 12/23/18 at 13:00 Magnesium Hydroxide (Milk Of Mag) 30 ml HS PRN PO CONSTIPATION; Start 12/23/18 at 21:00 Mineral Oil (Mineral Oil) 30 ml HS PRN PO CONSTIPATION; Start 12/23/18 at 21:00 Acetaminophen (Tylenol Tab) 650 mg Q6H PRN PO MILD PAIN(1-3)OR ELEVATED TEMP Last administered on 12/24/18 16:02; Admin Dose 650 MG; Start 12/23/18 at 21:00 Prochlorperazine (Compazine Inj) 5 mg Q4H PRN IV NAUSEA AND/OR VOMITING Last administered on 12/26/18 05:45; Admin Dose 5 MG; Start 12/24/18 at 11:30 Potassium Chloride 10 meq/ Sodium Chloride 1,005 ml @ 100 mls/hr Q10H3M IV Last administered on 12/26/18 02:43; Admin Dose 100 MLS/HR; Start 12/25/18 at 19:00 Levofloxacin (Levaquin) 500 mg DAILY@06 PO ; Start 12/27/18 at 06:00 SHAI POMPA Dec 26, 2018 13:38
[2018-12-26 14:00] VITALS: BP 155/73; PULSE 70; RESP 18
--- NOTE | 2018-12-26 14:28 | PN ---
Date/Time of Note Date/Time of Note DATE: 12/26/18 TIME: 14:24 Outpatient Progress Note Chief Complaint better less abd pain + nausea no bleeding Review of Systems Const: No Fever, no chills, no Wt. loss, no Fatigue, normal appetite, no diaphoresis. Eyes: No pain, no discharge, no redness, no visual change, no foreign body. ENT: No pain, no bleeding, no congestion, no sore throat, no dysphagia, no discharge or rhinitis. Lymph: No adenopathy, no tender nodes, no lymphedema. Resp: No SOB, no cough, no sputum, no wheezing, no chest pain. CV: No chest pain, no palpitaions, no POTTS, no PND, no edema. GI: Normal appetite, no pain, no nausea, no vomiting, no diarrhea, no blood, no constipation. : No frequency, no urgency, no dysuria, no hematuria, no flank pain, no discharge, no bleeding. Musc: No bone/joint pain, no back pain, no neck pain, no knee pain, no restricted ROM. Skin: No rash, no skin lesions, no erythema, no laceration, no bruising, no pruritus. Neuro: No JALLOH, no dizziness, no syncope, no seizure, no focal-weakness. Endo: No polyuria, no polydypsia, no dry-skin, no temp-intolerance. Psych: No hallucinations, no depression, no anxiety, no suicidal ideation. Ext: No edema, no pain, no ulcer, no weakness. Physical Exam Vital Signs Date Temp Pulse Resp B/P (MAP) Pulse Ox O2 O2 Flow FiO2 Time Delivery Rate 12/26/18 98.9 81 17 143/75 95 02:35 (97) 12/25/18 Room Air 18:21 Intake and Output 12/25/18 12/25/18 12/26/18 1515:00 23:00 07:00 IntakeIntake Total 450 ml 850 ml 1035 ml BalanceBalance 450 ml 850 ml 1035 ml S1S2 clear lungs soft abdomen Result Diagram: 12/26/18 0453 12/26/18 0453 Allergies Coded Allergies: No Known Allergy (Unverified , 12/18/18) Assessment/Plan 1. This is a 33-year-old female with initially right-sided breast cancer, post- mastectomy and nicole evaluation. Received systemic adjuvant chemotherapy, Adriamycin, Cytoxan and taxane per protocol. Unfortunately, disease recurrent mainly in the chest and nicole area and liver areas. The patient initially was put on Ribociclib based treatment with hormonal blockade. 2. Admitted for abdominal pain, elevated lipase, liver enzymes. Most likely chemical pancreatitis. BETTER NOW IV fluids, n.p.o., pain medications, antinausea, avoid anti-vomiting medications. The patient will be evaluated by surgery whether or not to do surgery to evaluate the obstruction and pain on the eliza hepatis right upper quadrant liver areas. 3. Carboplatin dose 1 given. 4. Re-evaluation for either surgical resection of the liver tumors and nodes Dr. Garza OR interventioanl radiology for Hepatic artery embolization 5. Pain meds 6. Anti-emetics 7. Latest Liver biopsy showed (Triple NEGATIVE) breast CA mets >> Later candidate for immune therapy Atezoluzumab Tecentriq anti PDL1 checkpoint inh Medications Home Meds Reported Medications Ribociclib Succinate/Letrozole (Kisqali Femara 600 mg Co-Pack) 1 Each Tablet, 3 EACH PO DAILY, TAB ON 21 DAYS OFF 7 DAYS 12/13/18 HUSAM STUBBS Dec 26, 2018 14:28
[2018-12-26] MEDS: ALPRAZOLAM 0.25 MG TAB PO PRN (16:35)
[2018-12-26 20:20] VITALS: BP 158/74; PULSE 79; RESP 19
--- NOTE | 2018-12-26 22:38 | PN ---
Date/Time of Note Date/Time of Note DATE: 12/26/18 TIME: 22:31 Assessment/Plan VTE Prophylaxis Risk score (from Nsg)>0 risk: 2 SCD applied (from Nsg): Yes Pharmacological prophylaxis: LMWH Lines/Catheters IV Catheter Type (from Nrsg): Central Line Central line still needed: Yes Urinary Cath still in place: No Assessment/Plan Hospital Course 1. Abdominal pain. suspect multifactorial in origin including underlying liver metastasis. Continue pain control - will gt pain management consult S/P EDGscopy on 12/20/2018 that showed moderate distal esophagitis, moderate gastritis, and multiple shallow duodenal bulb ulcerations. Continue PPI 2. Metastatic breast cancer. Status post carboplatin x1 on 12/21/2018. continue oncologist recommendations Tentative Plan for IR vs. surgical intervention (hepatic artery embolization vs. liver tumor resection) 3. Normocytic anemia. suspect secondary to underlying malignancy. Monitor H&H closely. 4. Superficial thrombophlebitis of the left AC area. Continue elevation of extremity and local care. Continue Lovenox. 5. Systemic inflammatory response syndrome with febrile illness and tachycardia on 12/23/2018. prelim blood culture with gram negative stefano continue abx for now 6. HANK Bathhouse Attendant consult Disposition plan. continue pain management. nephrology consult. monitor renal panel. f/u surgery/oncology recommendations. monitor inhouse. Discussed POC with Dr. Bernal Result Diagram: 12/26/18 0453 12/26/18 0453 Results 24hrs Laboratory Tests Test 12/26/18 04:53 White Blood Count 4.8 Red Blood Count 3.20 L Hemoglobin 9.5 L Hematocrit 28.5 L Mean Corpuscular Volume 89.1 Mean Corpuscular Hemoglobin 29.7 Mean Corpuscular Hemoglobin Concent 33.3 Red Cell Distribution Width 13.2 Platelet Count 128 L Mean Platelet Volume 13.4 H Immature Granulocytes % 0.600 H Neutrophils % Segmented Neutrophils % (Manual) 63 Band Neutrophils % (Manual) 21 H Lymphocytes % Lymphocytes % (Manual) 5 L Reactive Lymphocytes % (Manual) 1 H Monocytes % Monocytes % (Manual) 4 Eosinophils % Eosinophils % (Manual) 3 Basophils % Basophils % (Manual) 3 H Nucleated Red Blood Cells % 0.0 Immature Granulocytes # 0.030 Neutrophils # Neutrophils # (Manual) 3.1 Band Neutrophils # 1.0 H Lymphocytes (Manual) 0.2 L Lymphocytes # Reactive Lymphocytes # 0.0 Monocytes # Monocytes # (Manual) 0.1 L Eosinophils # Basophils # Basophils # (Manual) 0.1 H Nucleated Red Blood Cells # Platelet Estimate DECREASED Giant Platelets 3 H Anisocytosis 1+ Sodium Level 138 Potassium Level 3.5 Chloride Level 104 Carbon Dioxide Level 27 Anion Gap 7 Blood Urea Nitrogen 10 Creatinine 1.46 H Est Glomerular Filtrat Rate mL/min 41 L Glucose Level 93 Calcium Level 8.8 Subjective 24 Hr Interval Summary Free Text/Dictation Patient seen in the afternoon during visit. family was at bedside. Exam/Review of Systems Exam Vitals Vital Signs Date Temp Pulse Resp B/P (MAP) Pulse Ox O2 O2 Flow FiO2 Time Delivery Rate 12/26/18 99.1 79 19 158/74 99 20:20 (102) 12/25/18 Room Air 18:21 Intake and Output 12/25/18 12/25/18 12/26/18 1515:00 23:00 07:00 IntakeIntake Total 450 ml 850 ml 1035 ml BalanceBalance 450 ml 850 ml 1035 ml Exam Constitutional: alert, oriented Psych: nl mood/affect Head: normocephalic Eyes: nl conjunctiva Respiratory: clear to auscultation, normal air movement Cardiovascular: regular rate and rhythm Gastrointestinal: soft, tender Musculoskeletal: nl extremities to inspection 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: CUSTOMER OPERATIONS SPECIALIST II-XII intact, nl mental status, nl speech Results Results 24hrs Laboratory Tests Test 12/26/18 04:53 White Blood Count 4.8 Red Blood Count 3.20 L Hemoglobin 9.5 L Hematocrit 28.5 L Mean Corpuscular Volume 89.1 Mean Corpuscular Hemoglobin 29.7 Mean Corpuscular Hemoglobin Concent 33.3 Red Cell Distribution Width 13.2 Platelet Count 128 L Mean Platelet Volume 13.4 H Immature Granulocytes % 0.600 H Neutrophils % Segmented Neutrophils % (Manual) 63 Band Neutrophils % (Manual) 21 H Lymphocytes % Lymphocytes % (Manual) 5 L Reactive Lymphocytes % (Manual) 1 H Monocytes % Monocytes % (Manual) 4 Eosinophils % Eosinophils % (Manual) 3 Basophils % Basophils % (Manual) 3 H Nucleated Red Blood Cells % 0.0 Immature Granulocytes # 0.030 Neutrophils # Neutrophils # (Manual) 3.1 Band Neutrophils # 1.0 H Lymphocytes (Manual) 0.2 L Lymphocytes # Reactive Lymphocytes # 0.0 Monocytes # Monocytes # (Manual) 0.1 L Eosinophils # Basophils # Basophils # (Manual) 0.1 H Nucleated Red Blood Cells # Platelet Estimate DECREASED Giant Platelets 3 H Anisocytosis 1+ Sodium Level 138 Potassium Level 3.5 Chloride Level 104 Carbon Dioxide Level 27 Anion Gap 7 Blood Urea Nitrogen 10 Creatinine 1.46 H Est Glomerular Filtrat Rate mL/min 41 L Glucose Level 93 Calcium Level 8.8 Medications Medication Current Medications IV Flush (NS 3 ml) 3 ml PER PROTOCOL IV ; Start 12/18/18 at 15:00 Enoxaparin Sodium (Lovenox) 40 mg DAILY SC Last administered on 12/26/18 09:16; Admin Dose 40 MG; Start 12/19/18 at 09:00 Pantoprazole (Protonix Tab) 40 mg BID@06,18 PO Last administered on 12/26/18 17:27; Admin Dose 40 MG; Start 12/21/18 at 06:00 Sucralfate (Carafate Susp) 1 gm QID PO Last administered on 12/26/18 21:08; Admin Dose 1 GM; Start 12/20/18 at 21:00 Metoclopramide HCl (Reglan) 10 mg Q6H IV Last administered on 12/26/18 21:08; Admin Dose 10 MG; Start 12/21/18 at 22:00 Acetaminophen/ Hydrocodone Bitart ([place] (5/325)) 1 tab Q4H PRN PO MODERATE PAIN LEVEL 4-6 Last administered on 12/26/18 19:56; Admin Dose 1 TAB; Start 12/22/18 at 14:00 Ondansetron HCl (Zofran Inj) 4 mg Q6H IV Last administered on 12/26/18 21:08; Admin Dose 4 MG; Start 12/22/18 at 15:00 Alprazolam (Xanax) 0.25 mg Q8H PRN PO ANXIETY Last administered on 12/26/18 16:35; Admin Dose 0.25 MG; Start 12/22/18 at 16:30 Hydromorphone HCl (Dilaudid) 1 mg Q4H PRN IV SEVERE PAIN LEVEL 7-10 Last administered on 12/26/18 22:00; Admin Dose 1 MG; Start 12/22/18 at 21:00 Scopolamine (Transderm-Scop) 1 patch Q72H TRANSDERM Last administered on 12/26/18 12:00; Admin Dose 1 PATCH; Start 12/23/18 at 13:00 Magnesium Hydroxide (Milk Of Mag) 30 ml HS PRN PO CONSTIPATION; Start 12/23/18 at 21:00 Mineral Oil (Mineral Oil) 30 ml HS PRN PO CONSTIPATION Last administered on 12/26/18 17:27; Admin Dose 30 ML; Start 12/23/18 at 21:00 Acetaminophen (Tylenol Tab) 650 mg Q6H PRN PO MILD PAIN(1-3)OR ELEVATED TEMP Last administered on 12/24/18 16:02; Admin Dose 650 MG; Start 12/23/18 at 21:00 Prochlorperazine (Compazine Inj) 5 mg Q4H PRN IV NAUSEA AND/OR VOMITING Last a dministered on 12/26/18 05:45; Admin Dose 5 MG; Start 12/24/18 at 11:30 Potassium Chloride 10 meq/ Sodium Chloride 1,005 ml @ 100 mls/hr Q10H3M IV Last administered on 12/26/18 14:58; Admin Dose 100 MLS/HR; Start 12/25/18 at 19:00 Levofloxacin (Levaquin) 500 mg DAILY@06 PO ; Start 12/27/18 at 06:00 YOUNG PEARL NP Dec 26, 2018 22:38
--- NOTE | 2018-12-27 00:33 | PN ---
DATE: 12/26/2018 SUBJECTIVE: No specific complaint. She had CT angio of the abdomen and pelvis today for evaluation of the anatomy of the circulation to the liver, which was requested by the invasive radiologist, Dr. Mendoza. OBJECTIVE: GENERAL: Alert, awake, oriented. VITAL SIGNS: Temperature 98.9, today maximum heart rate 81, respirations 17, blood pressure 143/75, saturation 95%, room air. HEAD AND NECK: Within normal limits. HEART: Regular. LUNGS: Clear. ABDOMEN: Not distended. Bowel sounds present. There is tenderness in epigastric and right upper quadrant. The tender mass is felt in the epigastric area and part of in the left upper quadrant which is corresponding to the left lobe of the liver tumor occupied by the tumor. LABORATORY DATA: WBC 4800 with 63% segmented, hemoglobin 9.5, hematocrit 28.5. Chemistry: Sodium and potassium normal. Today, BUN 10, creatinine actually has increased to 1.46. PLAN: Consultation from M.Carole for pain management, and Dr. Gaurang Gutierres, the student outreach coordinator, have been requested, in regards to the increase in creatinine and management of the pain medication. From general surgical point of view, will just follow and observe while the modality of treatment for pain medication with the colleagues is being applied to the patient as well as chemotherapy by Dr. Lockhart and preparation for possibly chemoembolization by the invasive radiologist is being performed. I discussed with the patient's father today and answered all the questions that could be answered by the surgical team. Dictated By: SHANNON BAKER/SABINE Conf#: [id number] DID#: [id number] MTDD
[2018-12-27] MEDS: POTASSIUM CHLORIDE 10 MEQ in SOD CHLORIDE 0.45% 1,000 ML IV SCH ×3 (01:27→22:06)
[2018-12-27] MEDS: HYDROmorphONE 1 MG/ML SYG IV PRN ×6 (02:12→22:07)
[2018-12-27 02:37] VITALS: BP 165/70; PULSE 75; RESP 18
[2018-12-27] MEDS: METOCLOPRAMIDE 10 MG INJ IV SCH ×4 (03:51→22:06)
[2018-12-27] MEDS: ONDANSETRON 4 MG INJ IV SCH ×4 (03:51→20:28)
[2018-12-27] MEDS: LEVOFLOXACIN 500 MG TAB PO SCH (05:51)
[2018-12-27] MEDS: PANTOPRAZOLE (EC) 40 MG TAB PO SCH ×2 (05:51→17:39)
--- NOTE | 2018-12-27 07:15 | PN ---
DATE: 12/26/2018 SUBJECTIVE: The patient is alert, feels good, denies pain, no fevers overnight. WBC 4.8, platelets 128, neutrophils 63, bands 21, BUN 10, creatinine 1.46. MICROBIOLOGY: Blood cultures on admission one set grew Serratia susceptible to all antibiotics. Rep eat blood cultures from Port-A-Cath preliminary negative. Urine culture negative. ANTIMICROBIALS: The patient is on Zosyn status post vancomycin. PHYSICAL EXAMINATION: GENERAL: Well-developed, well-nourished, middle-aged woman who is alert, in no distress. HEENT: Head atraumatic, normocephalic. NECK: Supple. CHEST: Rise symmetrical. Breath sounds clear. HEART: S1, S2. ABDOMEN: Soft, bowel sounds present. EXTREMITIES: Without cyanosis. ASSESSMENT: 1. Gram-negative stefano bacteremia, etiology unknown, repeat cultures from Port-A-Cath negative. 2. Metastatic breast cancer status post right modified radical mastectomy. 4. Anemia with pancytopenia. PLAN: We are going to change antibiotics to oral Levaquin to complete two weeks. Continue managemen t per primary team and consultants. Dictated By: SIMA PRYOR DIRECTOR BIOLOGICS for VLADIMIR PLASCENCIA MD NI/NTS Conf#: [id number] DID#: [id number] CC: KATHIE PARRA MD;*EndCC*
[2018-12-27 07:30] VITALS: BP 138/84; PULSE 65; RESP 15
[2018-12-27] MEDS: ALPRAZOLAM 0.25 MG TAB PO PRN (07:33)
[2018-12-27] MEDS: HYDROCODONE/APAP (5/325) TAB PO PRN ×2 (07:33→20:33)
[2018-12-27] MEDS: SUCRALFATE (100 MG/ML) 10ML CUP PO SCH ×5 (09:16→20:27)
[2018-12-27] MEDS: ENOXAPARIN 40 MG/0.4 ML SYG SC SCH (09:18)
--- NOTE | 2018-12-27 12:07 | PN ---
Date/Time of Note Date/Time of Note DATE: 12/27/18 TIME: 12:01 Assessment/Plan VTE Prophylaxis Risk score (from Ns)>0 risk: 6 SCD applied (from Ns): Yes Pharmacological prophylaxis: LMWH Lines/Catheters IV Catheter Type (from Nrsg): Saline Lock Urinary Cath still in place: No Assessment/Plan Hospital Course 1. Abdominal pain. suspect multifactorial in origin including underlying liver metastasis. Continue pain control - will gt pain management consult S/P EDGscopy on 12/20/2018 that showed moderate distal esophagitis, moderate gastritis, and multiple shallow duodenal bulb ulcerations. Continue PPI No plan for surgery at this time. f/u oncology for possible chemo/chemoembol ization. 2. Metastatic breast cancer. Status post carboplatin x1 on 12/21/2018. continue oncologist recommendations 3. Normocytic anemia. suspect secondary to underlying malignancy. Monitor H&H closely. 4. Superficial thrombophlebitis of the left AC area. Continue elevation of extremity and local care. Continue Lovenox. 5. Systemic inflammatory response syndrome with febrile illness and tachycardia on 12/23/2018. prelim blood culture with gram negative stefano continue abx for now 6. HANK Storm Door Maker following. monitor renal function Disposition plan. continue antiemetics. taper analgesics per pain management consult. f/u oncology recommendations. check AM labs. Discussed POC with Dr. Bernal Result Diagram: 12/26/18 0453 12/26/18 045 Subjective 24 Hr Interval Summary Free Text/Dictation still reports nausea. still reports pain which is chronic Exam/Review of Systems Exam Vitals Vital Signs Date Temp Pulse Resp B/P (MAP) Pulse Ox O2 O2 Flow FiO2 Time Delivery Rate 12/27/18 98.7 65 15 138/84 100 Room Air 07:30 (102) Intake and Output 12/26/18 12/26/18 12/27/18 1515:00 23:00 07:00 IntakeIntake Total 100 ml 750 ml 2035 ml OutputOutput Total 1400 ml 750 ml BalanceBalance 100 ml -650 ml 1285 ml Exam Constitutional: alert, oriented Psych: nl mood/affect Head: normocephalic Eyes: nl conjunctiva Respiratory: clear to auscultation, normal air movement Cardiovascular: regular rate and rhythm Gastrointestinal: soft, tender Musculoskeletal: nl extremities to inspection 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: SHELL MOLDER II-XII intact, nl mental status, nl speech Medications Medication Current Medications IV Flush (NS 3 ml) 3 ml PER PROTOCOL IV ; Start 12/18/18 at 15:00 Enoxaparin Sodium (Lovenox) 40 mg DAILY SC Last administered on 12/27/18 09:18; Admin Dose 40 MG; Start 12/19/18 at 09:00 Pantoprazole (Protonix Tab) 40 mg BID@,18 PO Last administered on 12/27/18 05:51; Admin Dose 40 MG; Start 12/21/18 at 06:00 Sucralfate (Carafate Susp) 1 gm QID PO Last administered on 12/27/18 09:16; Admin Dose 1 GM; Start 12/20/18 at 21:00 Metoclopramide HCl (Reglan) 10 mg Q6H IV Last administered on 12/27/18 09:54; Admin Dose 10 MG; Start 12/21/18 at 22:00 Acetaminophen/ Hydrocodone Bitart ([place] (5/325)) 1 tab Q4H PRN PO MODERATE PAIN LEVEL 4-6 Last administered on 12/27/18 07:33; Admin Dose 1 TAB; Start 12/22/18 at 14:00 Ondansetron HCl (Zofran Inj) 4 mg Q6H IV Last administered on 12/27/18 09:16; Admin Dose 4 MG; Start 12/22/18 at 15:00 Alprazolam (Xanax) 0.25 mg Q8H PRN PO ANXIETY Last administered on 12/27/18 07:33; Admin Dose 0.25 MG; Start 12/22/18 at 16:30 Hydromorphone HCl (Dilaudid) 1 mg Q4H PRN IV SEVERE PAIN LEVEL 7-10 Last administered on 12/27/18 09:54; Admin Dose 1 MG; Start 12/22/18 at 21:00 Scopolamine (Transderm-Scop) 1 patch Q72H TRANSDERM Last administered on 12/26/18 12:00; Admin Dose 1 PATCH; Start 12/23/18 at 13:00 Magnesium Hydroxide (Milk Of Mag) 30 ml HS PRN PO CONSTIPATION; Start 12/23/18 at 21:00 Mineral Oil (Mineral Oil) 30 ml HS PRN PO CONSTIPATION Last administered on 12/26/18 17:27; Admin Dose 30 ML; Start 12/23/18 at 21:00 Acetaminophen (Tylenol Tab) 650 mg Q6H PRN PO MILD PAIN(1-3)OR ELEVATED TEMP Last administered on 12/24/18 16:02; Admin Dose 650 MG; Start 12/23/18 at 21:00 Prochlorperazine (Compazine Inj) 5 mg Q4H PRN IV NAUSEA AND/OR VOMITING Last administered on 12/26/18at 22:47; Admin Dose 5 MG; Start 12/24/18 at 11:30 Potassium Chloride 10 meq/ Sodium Chloride 1,005 ml @ 100 mls/hr Q10H3M IV Last administered on 12/27/18 01:27; Admin Dose 100 MLS/HR; Start 12/25/18 at 19:00 Levofloxacin (Levaquin) 500 mg DAILY@06 PO Last administered on 12/27/18 05:51; Admin Dose 500 MG; Start 12/27/18 at 06:00 YOUNG PEARL NP Dec 27, 2018 12:07
--- NOTE | 2018-12-27 13:16 | CONS ---
Assessment/Plan Assessment/Plan Assessment/Plan (Daily) 1. acute kidney injury due to ATN + prerenal azotemia 2. Gram negative bacteremia, Blood cx grew 1/2 Serratia 3. Metastatic breast CA with mets to liver 4. Epigastric pain due to liver metastasis Plan: Cr improved to 1.42- K 3.4- replaced for today continue IVF 1/2 NS with KCL- change rate to 70 cc/hr expecting Cr to improve with IVF hydration and Rx of infection will follow up Consultation Date/Type/Reason Admit Date/Time Dec 18, 2018 at 10:56 Initial Consult Date 12/26/18 Type of Consult NEPHROLOGY Requesting Provider: NILSA AZEVEDO Date/Time of Note DATE: 12/27/18 TIME: 13:16 Exam/Review of Systems Exam Vitals Vital Signs Date Temp Pulse Resp B/P (MAP) Pulse Ox O2 O2 Flow FiO2 Time Delivery Rate 12/27/18 98.7 65 15 138/84 100 Room Air 07:30 (102) Intake and Output 12/26/18 12/26/18 12/27/18 1515:00 23:00 07:00 IntakeIntake Total 100 ml 750 ml 2035 ml OutputOutput Total 1400 ml 750 ml BalanceBalance 100 ml -650 ml 1285 ml Exam Constitutional: alert Psych: no complaints Neck: supple, non-tender Respiratory: clear to auscultation, diminished breath sounds Cardiovascular: regular rate and rhythm, nl pulses Gastrointestinal: soft, non-tender Extremities: normal pulses 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: [employer] INVESTIGATOR II-XII intact, nl mental status, nl speech, nl strength Lymph: nl lymph nodes Results Result Diagram: 12/26/18 0453 12/26/18 0453 Medications Medication Current Medications IV Flush (NS 3 ml) 3 ml PER PROTOCOL IV ; Start 12/18/18 at 15:00 Enoxaparin Sodium (Lovenox) 40 mg DAILY SC Last administered on 12/27/18at 09:18; Admin Dose 40 MG; Start 12/19/18 at 09:00 Pantoprazole (Protonix Tab) 40 mg BID@06,18 PO Last administered on 12/27/18at 05:51; Admin Dose 40 MG; Start 12/21/18 at 06:00 Sucralfate (Carafate Susp) 1 gm QID PO Last administered on 12/27/18at 12:21; Admin Dose 1 GM; Start 12/20/18 at 21:00 Metoclopramide HCl (Reglan) 10 mg Q6H IV Last administered on 12/27/18 09:54; Admin Dose 10 MG; Start 12/21/18 at 22:00 Acetaminophen/ Hydrocodone Bitart ([place] (5/325)) 1 tab Q4H PRN PO MODERATE PAIN LEVEL 4-6 Last administered on 12/27/18 07:33; Admin Dose 1 TAB; Start 12/22/18 at 14:00 Ondansetron HCl (Zofran Inj) 4 mg Q6H IV Last administered on 12/27/18 09:16; Admin Dose 4 MG; Start 12/22/18 at 15:00 Alprazolam (Xanax) 0.25 mg Q8H PRN PO ANXIETY Last administered on 12/27/18 07:33; Admin Dose 0.25 MG; Start 12/22/18 at 16:30 Hydromorphone HCl (Dilaudid) 1 mg Q4H PRN IV SEVERE PAIN LEVEL 7-10 Last administered on 12/27/18 09:54; Admin Dose 1 MG; Start 12/22/18 at 21:00 Scopolamine (Transderm-Scop) 1 patch Q72H TRANSDERM Last administered on 12/26/18 12:00; Admin Dose 1 PATCH; Start 12/23/18 at 13:00 Magnesium Hydroxide (Milk Of Mag) 30 ml HS PRN PO CONSTIPATION; Start 12/23/18 at 21:00 Mineral Oil (Mineral Oil) 30 ml HS PRN PO CONSTIPATION Last administered on 12/26/18 17:27; Admin Dose 30 ML; Start 12/23/18 at 21:00 Acetaminophen (Tylenol Tab) 650 mg Q6H PRN PO MILD PAIN(1-3)OR ELEVATED TEMP Last administered on 12/24/18 16:02; Admin Dose 650 MG; Start 12/23/18 at 21:00 Prochlorperazine (Compazine Inj) 5 mg Q4H PRN IV NAUSEA AND/OR VOMITING Last administered on 12/26/18 22:47; Admin Dose 5 MG; Start 12/24/18 at 11:30 Potassium Chloride 10 meq/ Sodium Chloride 1,005 ml @ 100 mls/hr Q10H3M IV Last administered on 12/27/18at 12:11; Admin Dose 100 MLS/HR; Start 12/25/18 at 19:00 Levofloxacin (Levaquin) 500 mg DAILY@06 PO Last administered on 12/27/18at 05:51; Admin Dose 500 MG; Start 12/27/18 at 06:00 JUAN PARSON MD Dec 27, 2018 13:16
--- NOTE | 2018-12-27 14:08 | PN ---
Date/Time of Note Date/Time of Note DATE: 12/27/18 TIME: 14:05 Outpatient Progress Note HPI better less pain no bleeding +- nausea Review of Systems Const: No Fever, no chills, no Wt. loss, no Fatigue, normal appetite, no diaphoresis. Eyes: No pain, no discharge, no redness, no visual change, no foreign body. ENT: No pain, no bleeding, no congestion, no sore throat, no dysphagia, no discharge or rhinitis. Lymph: No adenopathy, no tender nodes, no lymphedema. Resp: No SOB, no cough, no sputum, no wheezing, no chest pain. CV: No chest pain, no palpitaions, no POTTS, no PND, no edema. GI: Normal appetite, no pain, no nausea, no vomiting, no diarrhea, no blood, no constipation. : No frequency, no urgency, no dysuria, no hematuria, no flank pain, no discharge, no bleeding. Musc: No bone/joint pain, no back pain, no neck pain, no knee pain, no restricted ROM. Skin: No rash, no skin lesions, no erythema, no laceration, no bruising, no pruritus. Neuro: No JALLOH, no dizziness, no syncope, no seizure, no focal-weakness. Endo: No polyuria, no polydypsia, no dry-skin, no temp-intolerance. Psych: No hallucinations, no depression, no anxiety, no suicidal ideation. Ext: No edema, no pain, no ulcer, no weakness. Physical Exam Vital Signs Date Temp Pulse Resp B/P (MAP) Pulse Ox O2 O2 Flow FiO2 Time Delivery Rate 12/27/18 98.7 65 15 138/84 100 Room Air 07:30 (102) Intake and Output 12/26/18 12/26/18 12/27/18 1515:00 23:00 07:00 IntakeIntake Total 100 ml 750 ml 2035 ml OutputOutput Total 1400 ml 750 ml BalanceBalance 100 ml -650 ml 1285 ml General Appearance: S1S2 clear lungs soft abdomen Result Diagram: 12/26/18 0453 12/26/18 0453 Allergies Coded Allergies: No Known Allergy (Unverified , 12/18/18) Assessment/Plan 1. This is a 33-year-old female with initially right-sided breast cancer, post- mastectomy and nicole evaluation. Received systemic adjuvant chemotherapy, Adriamycin, Cytoxan and taxane per protocol. Unfortunately, disease recurrent mainly in the chest and nicole area and liver areas. The patient initially was put on Ribociclib based treatment with hormonal blockade. 2. Admitted for abdominal pain, elevated lipase, liver enzymes. Most likely chemical pancreatitis. BETTER NOW IV fluids, n.p.o., pain medications, antinausea, avoid anti-vomiting medications. The patient will be evaluated by surgery whether or not to do surgery to evaluate the obstruction and pain on the eliza hepatis right upper quadrant liver areas. 3. Carboplatin dose 1 given. 4. Re-evaluation for either surgical resection of the liver tumors and nodes Dr. Garza OR interventioanl radiology for Hepatic artery embolization 5. Pain meds 6. Anti-emetics 7. Latest Liver biopsy showed (Triple NEGATIVE) breast CA mets >> Later candidate for immune therapy Atezoluzumab Tecentriq anti PDL1 checkpoint inh 8. Abdominal angio and evaluation for probable Hep artery embolization 9. liborio later to go home if less pain and nausea 10.Pain control pain management Medications Home Meds Reported Medications Ribociclib Succinate/Letrozole (Kisqali Femara 600 mg Co-Pack) 1 Each Tablet, 3 EACH PO DAILY, TAB ON 21 DAYS OFF 7 DAYS 12/13/18 HUSAM STUBBS Dec 27, 2018 14:08
--- NOTE | 2018-12-27 14:17 | CONS ---
Assessment/Plan Assessment/Plan Hospital Course (Demo Recall) Alert, feels good Microbiology: Blood cultures on admission grew gram-negative rods 1 out of 2 sets, urine culture negative Antimicrobials: Levaquin Indwelling, left chest Port-A-Cath Chest x-ray yesterday was negative Physical examination: Well-developed well-nourished middle-aged white woman who is alert in no distress. Head atraumatic normocephalic neck is supple chest rise symmetrical breath sounds clear. Heart: S1-S2. Abdomen soft bowel sounds present. Assessment: 1. Gram-negative stefano bacteremia, rule out line sepsis 2. Metastatic breast CA Plan: Stable, repeat bld cx from pcath neg, continue pO Levaquin to complete 2 weeks abx DW pt Consultation Date/Type/Reason Admit Date/Time Dec 18, 2018 at 10:56 Initial Consult Date 12/20/18 Type of Consult id Requesting Provider: NILSA AZEVEDO Date/Time of Note DATE: 12/27/18 TIME: 14:15 Exam/Review of Systems Exam Vitals Vital Signs Date Temp Pulse Resp B/P (MAP) Pulse Ox O2 O2 Flow FiO2 Time Delivery Rate 12/27/18 98.7 65 15 138/84 100 Room Air 07:30 (102) Intake and Output 12/26/18 12/26/18 12/27/18 1515:00 23:00 07:00 IntakeIntake Total 100 ml 750 ml 2035 ml OutputOutput Total 1400 ml 750 ml BalanceBalance 100 ml -650 ml 1285 ml Results Result Diagram: 12/26/18 0453 12/26/18 0453 Medications Medication Current Medications IV Flush (NS 3 ml) 3 ml PER PROTOCOL IV ; Start 12/18/18 at 15:00 Enoxaparin Sodium (Lovenox) 40 mg DAILY SC Last administered on 12/27/18at 09:18; Admin Dose 40 MG; Start 12/19/18 at 09:00 Pantoprazole (Protonix Tab) 40 mg BID@06,18 PO Last administered on 12/27/18at 05:51; Admin Dose 40 MG; Start 12/21/18 at 06:00 Sucralfate (Carafate Susp) 1 gm QID PO Last administered on 12/27/18at 12:21; Admin Dose 1 GM; Start 12/20/18 at 21:00 Metoclopramide HCl (Reglan) 10 mg Q6H IV Last administered on 12/27/18 09:54; Admin Dose 10 MG; Start 12/21/18 at 22:00 Acetaminophen/ Hydrocodone Bitart ([place] (5/325)) 1 tab Q4H PRN PO MODERATE PAIN LEVEL 4-6 Last administered on 12/27/18 07:33; Admin Dose 1 TAB; Start 12/22/18 at 14:00 Ondansetron HCl (Zofran Inj) 4 mg Q6H IV Last administered on 12/27/18 09:16; Admin Dose 4 MG; Start 12/22/18 at 15:00 Alprazolam (Xanax) 0.25 mg Q8H PRN PO ANXIETY Last administered on 12/27/18 07:33; Admin Dose 0.25 MG; Start 12/22/18 at 16:30 Hydromorphone HCl (Dilaudid) 1 mg Q4H PRN IV SEVERE PAIN LEVEL 7-10 Last administered on 12/27/18 14:06; Admin Dose 1 MG; Start 12/22/18 at 21:00 Scopolamine (Transderm-Scop) 1 patch Q72H TRANSDERM Last administered on 12:00; Admin Dose 1 PATCH; Start 12/23/18 at 13:00 Magnesium Hydroxide (Milk Of Mag) 30 ml HS PRN PO CONSTIPATION; Start 12/23/18 at 21:00 Mineral Oil (Mineral Oil) 30 ml HS PRN PO CONSTIPATION Last administered on 12/26/18 17:27; Admin Dose 30 ML; Start 12/23/18 at 21:00 Acetaminophen (Tylenol Tab) 650 mg Q6H PRN PO MILD PAIN(1-3)OR ELEVATED TEMP Last administered on 12/24/18 16:02; Admin Dose 650 MG; Start 12/23/18 at 21:00 Prochlorperazine (Compazine Inj) 5 mg Q4H PRN IV NAUSEA AND/OR VOMITING Last administered on 12/26/18 22:47; Admin Dose 5 MG; Start 12/24/18 at 11:30 Potassium Chloride 10 meq/ Sodium Chloride 1,005 ml @ 100 mls/hr Q10H3M IV Last administered on 12/27/18 12:11; Admin Dose 100 MLS/HR; Start 12/25/18 at 19:00 Levofloxacin (Levaquin) 500 mg DAILY@06 PO Last administered on 12/27/18at 05:51; Admin Dose 500 MG; Start 12/27/18 at 06:00 SIMA PRYOR NP Dec 27, 2018 14:17
[2018-12-27 14:26] VITALS: BP 125/85; PULSE 76; RESP 14
[2018-12-27 20:17] VITALS: BP 134/84; PULSE 70; RESP 18
[2018-12-28] MEDS: ONDANSETRON 4 MG INJ IV SCH ×4 (01:35→21:38)
[2018-12-28] MEDS: HYDROmorphONE 1 MG/ML SYG IV PRN ×6 (01:36→22:04)
[2018-12-28 02:06] VITALS: BP 130/72; PULSE 72; RESP 17
[2018-12-28] MEDS: METOCLOPRAMIDE 10 MG INJ IV SCH ×4 (05:06→21:38)
[2018-12-28] MEDS: LEVOFLOXACIN 500 MG TAB PO SCH (05:07)
[2018-12-28] MEDS: PANTOPRAZOLE (EC) 40 MG TAB PO SCH ×2 (05:07→17:28)
[2018-12-28] MEDS: HYDROCODONE/APAP (5/325) TAB PO PRN ×3 (05:07→20:05)
[2018-12-28 07:57] VITALS: BP 154/86; PULSE 80; RESP 15
[2018-12-28] MEDS: SUCRALFATE (100 MG/ML) 10ML CUP PO SCH ×4 (09:20→21:37)
[2018-12-28] MEDS: ENOXAPARIN 40 MG/0.4 ML SYG SC SCH (09:24)
[2018-12-28] MEDS: ALPRAZOLAM 0.25 MG TAB PO PRN (10:32)
[2018-12-28] MEDS: POTASSIUM CHLORIDE 10 MEQ in SOD CHLORIDE 0.45% 1,000 ML IV SCH (11:35)
--- NOTE | 2018-12-28 13:30 | PN ---
Date/Time of Note Date/Time of Note DATE: 12/28/18 TIME: 13:23 Assessment/Plan VTE Prophylaxis Risk score (from Nsg)>0 risk: 6 SCD applied (from Nsg): Yes Pharmacological prophylaxis: LMWH Lines/Catheters IV Catheter Type (from Nrsg): port-a-cath Urinary Cath still in place: No Assessment/Plan Hospital Course 1. Abdominal pain. suspect multifactorial in origin including underlying liver metastasis. Continue pain control - will gt pain management consult S/P EDGscopy on 12/20/2018 that showed moderate distal esophagitis, moderate gastritis, and multiple shallow duodenal bulb ulcerations. Continue PPI No plan for surgery at this time. f/u oncology for possible chemo/chemoembol ization. 2. Metastatic breast cancer. Status post carboplatin x1 on 12/21/2018. continue oncologist recommendations 3. Normocytic anemia. suspect secondary to underlying malignancy. Monitor H&H closely. 4. Superficial thrombophlebitis of the left AC area. Continue elevation of extremity and local care. Continue Lovenox. 5. Systemic inflammatory response syndrome with febrile illness and tachycardia on 12/23/2018. blood culture: SERRATIA MARCESCENS abx per ID 6. HANK Crisis Therapist following. monitor renal function Disposition plan. Discussed with oncology, plan to transition to outpatient. Continue with analgesics and antiemetic. Once pain and nausea are manageable tentative plan for DC with outpatient follow-up. Follow-up with surgeon recommendations. Discussed POC with Dr. Bernal Result Diagram: 12/28/18 0423 12/28/18 0423 Results 24hrs Laboratory Tests Test 12/27/18 15:53 12/28/18 04:23 White Blood Count 4.4 L 5.7 # Red Blood Count 3.45 L 3.56 L Hemoglobin 10.3 L 10.7 L Hematocrit 30.0 L 31.0 L Mean Corpuscular Volume 87.0 87.1 Mean Corpuscular Hemoglobin 29.9 30.1 Mean Corpuscular Hemoglobin Concent 34.3 34.5 Red Cell Distribution Width 13.2 13.2 Platelet Count 186 # 235 # Mean Platelet Volume 12.6 H 13.0 H Immature Granulocytes % 0.700 H 0.700 H Neutrophils % 52.1 40.4 Lymphocytes % 33.4 40.7 Monocytes % 12.0 H 13.9 H Eosinophils % 0.9 2.5 Basophils % 0.9 1.8 Nucleated Red Blood Cells % 0.0 0.0 Immature Granulocytes # 0.030 0.040 H Neutrophils # 2.3 2.3 Lymphocytes # 1.5 2.3 Monocytes # 0.5 0.8 Eosinophils # 0.0 0.1 Basophils # 0.0 0.1 Nucleated Red Blood Cells # 0.0 0.0 Sodium Level 137 142 Potassium Level 3.4 L 3.8 Chloride Level 98 103 Carbon Dioxide Level 28 28 Anion Gap 11 11 Blood Urea Nitrogen 9 8 Creatinine 1.42 H 1.34 H Est Glomerular Filtrat Rate mL/min 43 L 46 L Glucose Level 110 114 Calcium Level 9.4 9.7 Subjective 24 Hr Interval Summary Free Text/Dictation still has some nausea and pain, but reports it is manageable during visit. Exam/Review of Systems Exam Vitals Vital Signs Date Temp Pulse Resp B/P (MAP) Pulse Ox O2 O2 Flow FiO2 Time Delivery Rate 12/28/18 98.3 80 15 154/86 100 Room Air 07:57 (108) Intake and Output 12/27/18 12/27/18 12/28/18 1515:00 23:00 07:00 IntakeIntake Total 1400 ml 1605 ml 350 ml OutputOutput Total 1000 ml BalanceBalance 400 ml 1605 ml 350 ml Exam Constitutional: alert, oriented Psych: nl mood/affect Head: normocephalic Eyes: nl conjunctiva Respiratory: clear to auscultation, normal air movement Cardiovascular: regular rate and rhythm Gastrointestinal: soft, tender Musculoskeletal: nl extremities to inspection 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: R[employer] STRAIGHTENER II-XII intact, nl mental status, nl speech Results Results 24hrs Laboratory Tests Test 12/27/18 15:53 12/28/18 04:23 White Blood Count 4.4 L 5.7 # Red Blood Count 3.45 L 3.56 L Hemoglobin 10.3 L 10.7 L Hematocrit 30.0 L 31.0 L Mean Corpuscular Volume 87.0 87.1 Mean Corpuscular Hemoglobin 29.9 30.1 Mean Corpuscular Hemoglobin Concent 34.3 34.5 Red Cell Distribution Width 13.2 13.2 Platelet Count 186 # 235 # Mean Platelet Volume 12.6 H 13.0 H Immature Granulocytes % 0.700 H 0.700 H Neutrophils % 52.1 40.4 Lymphocytes % 33.4 40.7 Monocytes % 12.0 H 13.9 H Eosinophils % 0.9 2.5 Basophils % 0.9 1.8 Nucleated Red Blood Cells % 0.0 0.0 Immature Granulocytes # 0.030 0.040 H Neutrophils # 2.3 2.3 Lymphocytes # 1.5 2.3 Monocytes # 0.5 0.8 Eosinophils # 0.0 0.1 Basophils # 0.0 0.1 Nucleated Red Blood Cells # 0.0 0.0 Sodium Level 137 142 Potassium Level 3.4 L 3.8 Chloride Level 98 103 Carbon Dioxide Level 28 28 Anion Gap 11 11 Blood Urea Nitrogen 9 8 Creatinine 1.42 H 1.34 H Est Glomerular Filtrat Rate mL/min 43 L 46 L Glucose Level 110 114 Calcium Level 9.4 9.7 Medications Medication Current Medications IV Flush (NS 3 ml) 3 ml PER PROTOCOL IV ; Start 12/18/18 at 15:00 Enoxaparin Sodium (Lovenox) 40 mg DAILY SC Last administered on 12/28/18 09:24; Admin Dose 40 MG; Start 12/19/18 at 09:00 Pantoprazole (Protonix Tab) 40 mg BID@06,18 PO Last administered on 12/28/18 05:07; Admin Dose 40 MG; Start 12/21/18 at 06:00 Sucralfate (Carafate Susp) 1 gm QID PO Last administered on 12/28/18 09:20; Admin Dose 1 GM; Start 12/20/18 at 21:00 Metoclopramide HCl (Reglan) 10 mg Q6H IV Last administered on 12/28/18 10:16; Admin Dose 10 MG; Start 12/21/18 at 22:00 Acetaminophen/ Hydrocodone Bitart ([place] (5/325)) 1 tab Q4H PRN PO MODERATE PAIN LEVEL 4-6 Last administered on 12/28/18 09:20; Admin Dose 1 TAB; Start 12/22/18 at 14:00 Ondansetron HCl (Zofran Inj) 4 mg Q6H IV Last administered on 12/28/18 09:20; Admin Dose 4 MG; Start 12/22/18 at 15:00 Alprazolam (Xanax) 0.25 mg Q8H PRN PO ANXIETY Last administered on 12/28/18 10:32; Admin Dose 0.25 MG; Start 12/22/18 at 16:30 Hydromorphone HCl (Dilaudid) 1 mg Q4H PRN IV SEVERE PAIN LEVEL 7-10 Last administered on 12/28/18 10:16; Admin Dose 1 MG; Start 12/22/18 at 21:00 Scopolamine (Transderm-Scop) 1 patch Q72H TRANSDERM Last administered on 12/26/18 12:00; Admin Dose 1 PATCH; Start 12/23/18 at 13:00 Magnesium Hydroxide (Milk Of Mag) 30 ml HS PRN PO CONSTIPATION; Start 12/23/18 at 21:00 Mineral Oil (Mineral Oil) 30 ml HS PRN PO CONSTIPATION Last administered on 12/26/18 17:27; Admin Dose 30 ML; Start 12/23/18 at 21:00 Acetaminophen (Tylenol Tab) 650 mg Q6H PRN PO MILD PAIN(1-3)OR ELEVATED TEMP Last administered on 12/24/18 16:02; Admin Dose 650 MG; Start 12/23/18 at 21:00 Prochlorperazine (Compazine Inj) 5 mg Q4H PRN IV NAUSEA AND/OR VOMITING Last administered on 12/26/18 22:47; Admin Dose 5 MG; Start 12/24/18 at 11:30 Potassium Chloride 10 meq/ Sodium Chloride 1,005 ml @ 70 mls/hr [id number] IV Last administered on 12/28/18 11:35; Admin Dose 70 MLS/HR; Start 12/25/18 at 19:00 Levofloxacin (Levaquin) 500 mg DAILY@06 PO Last administered on 12/28/18 05:07; Admin Dose 500 MG; Start 12/27/18 at 06:00 YOUNG PEARL NP Dec 28, 2018 13:30
--- NOTE | 2018-12-28 14:25 | CONS ---
Assessment/Plan Assessment/Plan Assessment/Plan (Daily) 1. acute kidney injury due to ATN + prerenal azotemia 2. Gram negative bacteremia, Blood cx grew 1/2 Serratia 3. Metastatic breast CA with mets to liver 4. Epigastric pain due to liver metastasis Plan: Cr improved to 1.34- All other electrolytes normal today d/c IVF now, will monitor Cr off IVF Renally dose all abx and monitor electrolytes, ID following will follow up Consultation Date/Type/Reason Admit Date/Time Dec 18, 2018 at 10:56 Initial Consult Date 12/26/18 Type of Consult NEPHROLOGY Requesting Provider: INLSA AZEVEDO Date/Time of Note DATE: 12/28/18 TIME: 14:25 Exam/Review of Systems Exam Vitals Vital Signs Date Temp Pulse Resp B/P (MAP) Pulse Ox O2 O2 Flow FiO2 Time Delivery Rate 12/28/18 98.3 80 15 154/86 100 Room Air 07:57 (108) Intake and Output 12/27/18 12/27/18 12/28/18 1515:00 23:00 07:00 IntakeIntake Total 1400 ml 1605 ml 350 ml OutputOutput Total 1000 ml BalanceBalance 400 ml 1605 ml 350 ml Exam Constitutional: alert Psych: no complaints Neck: supple, non-tender Respiratory: clear to auscultation, diminished breath sounds Cardiovascular: regular rate and rhythm, nl pulses Gastrointestinal: soft, non-tender Extremities: normal pulses 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-XII 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, nl mental status, nl speech, nl strength Lymph: nl lymph nodes Results Result Diagram: 12/28/18 0423 12/28/18 0423 Results 24hrs Laboratory Tests Test 12/27/18 15:53 12/28/18 04:23 White Blood Count 4.4 L 5.7 # Red Blood Count 3.45 L 3.56 L Hemoglobin 10.3 L 10.7 L Hematocrit 30.0 L 31.0 L Mean Corpuscular Volume 87.0 87.1 Mean Corpuscular Hemoglobin 29.9 30.1 Mean Corpuscular Hemoglobin Concent 34.3 34.5 Red Cell Distribution Width 13.2 13.2 Platelet Count 186 # 235 # Mean Platelet Volume 12.6 H 13.0 H Immature Granulocytes % 0.700 H 0.700 H Neutrophils % 52.1 40.4 Lymphocytes % 33.4 40.7 Monocytes % 12.0 H 13.9 H Eosinophils % 0.9 2.5 Basophils % 0.9 1.8 Nucleated Red Blood Cells % 0.0 0.0 Immature Granulocytes # 0.030 0.040 H Neutrophils # 2.3 2.3 Lymphocytes # 1.5 2.3 Monocytes # 0.5 0.8 Eosinophils # 0.0 0.1 Basophils # 0.0 0.1 Nucleated Red Blood Cells # 0.0 0.0 Sodium Level 137 142 Potassium Level 3.4 L 3.8 Chloride Level 98 103 Carbon Dioxide Level 28 28 Anion Gap 11 11 Blood Urea Nitrogen 9 8 Creatinine 1.42 H 1.34 H Est Glomerular Filtrat Rate mL/min 43 L 46 L Glucose Level 110 114 Calcium Level 9.4 9.7 Medications Medication Current Medications IV Flush (NS 3 ml) 3 ml PER PROTOCOL IV ; Start 12/18/18 at 15:00 Enoxaparin Sodium (Lovenox) 40 mg DAILY SC Last administered on 12/28/18 09:24; Admin Dose 40 MG; Start 12/19/18 at 09:00 Pantoprazole (Protonix Tab) 40 mg BID@06,18 PO Last administered on 12/28/18 05:07; Admin Dose 40 MG; Start 12/21/18 at 06:00 Sucralfate (Carafate Susp) 1 gm QID PO Last administered on 12/28/18 13:59; Admin Dose 1 GM; Start 12/20/18 at 21:00 Metoclopramide HCl (Reglan) 10 mg Q6H IV Last administered on 12/28/18 10:16; Admin Dose 10 MG; Start 12/21/18 at 22:00 Acetaminophen/ Hydrocodone Bitart ([place] (5/325)) 1 tab Q4H PRN PO MODERATE PAIN LEVEL 4-6 Last administered on 12/28/18 09:20; Admin Dose 1 TAB; Start 12/22/18 at 14:00 Ondansetron HCl (Zofran Inj) 4 mg Q6H IV Last administered on 12/28/18 09:20; Admin Dose 4 MG; Start 12/22/18 at 15:00 Alprazolam (Xanax) 0.25 mg Q8H PRN PO ANXIETY Last administered on 12/28/18 10:32; Admin Dose 0.25 MG; Start 12/22/18 at 16:30 Hydromorphone HCl (Dilaudid) 1 mg Q4H PRN IV SEVERE PAIN LEVEL 7-10 Last administered on 12/28/18 14:17; Admin Dose 1 MG; Start 12/22/18 at 21:00 Scopolamine (Transderm-Scop) 1 patch Q72H TRANSDERM Last administered on 12/26/18 12:00; Admin Dose 1 PATCH; Start 12/23/18 at 13:00 Magnesium Hydroxide (Milk Of Mag) 30 ml HS PRN PO CONSTIPATION; Start 12/23/18 at 21:00 Mineral Oil (Mineral Oil) 30 ml HS PRN PO CONSTIPATION Last administered on 12/26/18 17:27; Admin Dose 30 ML; Start 12/23/18 at 21:00 Acetaminophen (Tylenol Tab) 650 mg Q6H PRN PO MILD PAIN(1-3)OR ELEVATED TEMP Last administered on 12/24/18 16:02; Admin Dose 650 MG; Start 12/23/18 at 21:00 Prochlorperazine (Compazine Inj) 5 mg Q4H PRN IV NAUSEA AND/OR VOMITING Last administered on 12/26/18 22:47; Admin Dose 5 MG; Start 12/24/18 at 11:30 Potassium Chloride 10 meq/ Sodium Chloride 1,005 ml @ 70 mls/hr [id number] IV Last administered on 12/28/18 11:35; Admin Dose 70 MLS/HR; Start 12/25/18 at 19:00 Levofloxacin (Levaquin) 500 mg DAILY@06 PO Last administered on 12/28/18 05:07; Admin Dose 500 MG; Start 12/27/18 at 06:00 JUAN PARSON MD Dec 28, 2018 14:25
[2018-12-28 15:06] VITALS: BP 125/84; PULSE 71; RESP 15
--- NOTE | 2018-12-28 15:40 | PN ---
DATE: 12/28/2018 SUBJECTIVE: The patient is alert, feels good. Denies pain, no fevers overnight. Father at bedside. ANTIMICROBIALS: She remains on oral levofloxacin. MICROBIOLOGY: Repeat blood cultures negative. Initial cultures grew Serratia. PHYSICAL EXAMINATION: GENERAL: Well-developed, middle-aged white woman who is in no distress. HEENT: Head atraumatic, normocephalic. NECK: Supple. CHEST: Rise symmetrical. Breath sounds clear. HEART: S1, S2. ABDOMEN: Soft, bowel tones present. EXTREMITIES: Without cyanosis. ASSESSMENT: 1. Status post fevers, status post fevers secondary to bacteremia. 2. Metastatic breast cancer. 3. Anemia. 4. Pancytopenia. PLAN: The patient remains stable. Blood culture drawn from Port-A-Cath negative. She is on appropr iate antibiotic regimen to continue for 2 weeks. Follow oncology recommendations. Dictated By: SIMA PRYOR NON DESTRUCTIVE EVALUATION SPECIALIST for VLADIMIR PLASCENCIA MD NI/NTS Conf#: [id number] DID#: [id number] CC: KATHIE PARRA MD;*EndCC*
--- NOTE | 2018-12-28 15:52 | PN ---
DATE: 12/28/2018 SUBJECTIVE: Continues to require IV pain medications to be under control. The pain management team is trying to control the patient's pain and hematochezia. OBJECTIVE: GENERAL: Awake, alert, oriented. VITAL SIGNS: Temperature 98.6, heart rate 88, respirations 17, blood pressure 130/72, saturation 95% room air. LABORATORY DATA: Today sodium and potassium normal, BUN 8, creatinine still is high at 1.34. Yesterday it was 1.42, and on 12/26 was 1.46 (we are encouraging the patient to force fluids over hydration to increase and improve the kidney function and hopefully the creatinine gets back to normal level). HEART: Regular. LUNGS: Clear. ABDOMEN: Soft. Mass felt in the epigastric area and tenderness in right upper quadrant and epigastric area. PLAN: A 33-year-old female presenting with abdominal pain, nausea, vomiting and was found to have hepatic metastasis of the cancer of the breast that she had operation on last year. EGD was done which showed esophageal esophagitis, gastritis and multiple superficial duodenitis. The patient is under treatment with PPIs. The patient is getting antibiotic under control with infectious disease. Nephrology on the case to manage the disease of renal failure that caused the patient's creatinine to go up to 1.46. Hematology and oncologist, Dr. Lockhart following the patient as well as general surgical team including Dr. Garza and Dr. Mann following the patient as well. Surgical team recommended that the patient get an embolization to the left hepatic lobe, and this was discussed with the invasive radiologist Dr. Mendoza in the radiology department. He requires performing a CT angio which was done for evaluation of the circulation anatomy of the liver lobes and now with the invasive radiologist willing to do a visceral angiography for better delineation of the circulation to the left body, but due to the fact that creatinine is more than normal, he cancelled the procedure and he is waiting for the creatinine to come down below 1.2 . So, for this reason, the patient is getting extra IV fluid supplementation and also forcing fluids. We will continue to follow expecting a creatinine hopefully to get better toward normalization in the following days. Dictated By: SHANNON MANN MD PS/SABINE Conf#: [id number] DID#: [id number] [facility]
[2018-12-28 19:35] VITALS: BP 131/82; PULSE 95; RESP 18
[2018-12-28] MEDS: PROCHLORPERAZINE 10 MG INJ IV PRN (20:05)
[2018-12-28] MEDS: MINERAL OIL 30ML CUP PO SCH (21:37)
[2018-12-29 02:00] VITALS: BP 131/85; PULSE 78; RESP 18
[2018-12-29] MEDS: METOCLOPRAMIDE 10 MG INJ IV SCH ×4 (03:24→21:39)
[2018-12-29] MEDS: HYDROmorphONE 1 MG/ML SYG IV PRN ×6 (03:24→23:41)
[2018-12-29] MEDS: ONDANSETRON 4 MG INJ IV SCH ×4 (03:24→20:58)
[2018-12-29] MEDS: PROCHLORPERAZINE 10 MG INJ IV PRN (04:32)
[2018-12-29] MEDS: PANTOPRAZOLE (EC) 40 MG TAB PO SCH ×2 (05:40→17:30)
[2018-12-29] MEDS: LEVOFLOXACIN 500 MG TAB PO SCH (05:40)
[2018-12-29] MEDS: MINERAL OIL 30ML CUP PO SCH ×3 (05:41→21:39)
[2018-12-29 06:59] VITALS: BP_SYST 131
[2018-12-29 07:41] VITALS: BP 128/58; PULSE 72; RESP 19
--- NOTE | 2018-12-29 08:10 | CONS ---
Assessment/Plan Assessment/Plan Assessment/Plan (Daily) 1. acute kidney injury due to ATN + prerenal azotemia 2. Gram negative bacteremia, Blood cx grew 1/2 Serratia 3. Metastatic breast CA with mets to liver 4. Epigastric pain due to liver metastasis Plan: Cr improved to 1.23- K 3.4- KCL 40MEQ PO X 1 dose now Renally dose all abx and monitor electrolytes, ID following will follow up Consultation Date/Type/Reason Admit Date/Time Dec 18, 2018 at 10:56 Initial Consult Date 12/26/18 Type of Consult NEPHROLOGY Requesting Provider: NILSA AZEVEDO Date/Time of Note DATE: 12/29/18 TIME: 08:10 Exam/Review of Systems Exam Vitals Vital Signs Date Temp Pulse Resp B/P (MAP) Pulse Ox O2 O2 Flow FiO2 Time Delivery Rate 12/29/18 98.2 72 19 128/58 98 Room Air 07:41 (81) Intake and Output 12/28/18 12/28/18 12/29/18 1515:00 23:00 07:00 IntakeIntake Total 820 ml 730 ml 500 ml OutputOutput Total 25 ml BalanceBalance 820 ml 730 ml 475 ml Exam Constitutional: alert Psych: no complaints Neck: supple, non-tender Respiratory: clear to auscultation, diminished breath sounds Cardiovascular: regular rate and rhythm, nl pulses Gastrointestinal: soft, non-tender Extremities: normal pulses 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: PRIZE JACKER II-XII intact, nl mental status, nl speech, nl strength Lymph: nl lymph nodes Results Result Diagram: 12/29/18 0423 12/29/18 0423 Results 24hrs Laboratory Tests Test 12/29/18 04:23 White Blood Count 5.1 Red Blood Count 3.50 L Hemoglobin 10.5 L Hematocrit 30.3 L Mean Corpuscular Volume 86.6 Mean Corpuscular Hemoglobin 30.0 Mean Corpuscular Hemoglobin Concent 34.7 Red Cell Distribution Width 13.2 Platelet Count 258 Mean Platelet Volume 12.8 H Immature Granulocytes % 1.000 H Neutrophils % 45.6 Lymphocytes % 33.8 Monocytes % 15.0 H Eosinophils % 2.5 Basophils % 2.1 H Nucleated Red Blood Cells % 0.0 Immature Granulocytes # 0.050 H Neutrophils # 2.3 Lymphocytes # 1.7 Monocytes # 0.8 Eosinophils # 0.1 Basophils # 0.1 Nucleated Red Blood Cells # 0.0 Sodium Level 141 Potassium Level 3.4 L Chloride Level 102 Carbon Dioxide Level 29 Anion Gap 10 Blood Urea Nitrogen 6 L Creatinine 1.23 H Est Glomerular Filtrat Rate mL/min 50 L Glucose Level 106 Calcium Level 9.6 Medications Medication Current Medications IV Flush (NS 3 ml) 3 ml PER PROTOCOL IV ; Start 12/18/18 at 15:00 Enoxaparin Sodium (Lovenox) 40 mg DAILY SC Last administered on 12/28/18 09:24; Admin Dose 40 MG; Start 12/19/18 at 09:00 Pantoprazole (Protonix Tab) 40 mg BID@06,18 PO Last administered on 12/29/18 05:40; Admin Dose 40 MG; Start 12/21/18 at 06:00 Sucralfate (Carafate Susp) 1 gm QID PO Last administered on 12/28/18 21:37; Admin Dose 1 GM; Start 12/20/18 at 21:00 Metoclopramide HCl (Reglan) 10 mg Q6H IV Last administered on 12/29/18 03:24; Admin Dose 10 MG; Start 12/21/18 at 22:00 Acetaminophen/ Hydrocodone Bitart ([place] (5/325)) 1 tab Q4H PRN PO MODERATE PAIN LEVEL 4-6 Last administered on 12/28/18 20:05; Admin Dose 1 TAB; Start 12/22/18 at 14:00 Ondansetron HCl (Zofran Inj) 4 mg Q6H IV Last administered on 12/29/18 03:24; Admin Dose 4 MG; Start 12/22/18 at 15:00 Alprazolam (Xanax) 0.25 mg Q8H PRN PO ANXIETY Last administered on 12/28/18 10:32; Admin Dose 0.25 MG; Start 12/22/18 at 16:30 Hydromorphone HCl (Dilaudid) 1 mg Q4H PRN IV SEVERE PAIN LEVEL 7-10 Last administered on 12/29/18 07:34; Admin Dose 1 MG; Start 12/22/18 at 21:00 Scopolamine (Transderm-Scop) 1 patch Q72H TRANSDERM Last administered on 12/26/18 12:00; Admin Dose 1 PATCH; Start 12/23/18 at 13:00 Magnesium Hydroxide (Milk Of Mag) 30 ml HS PRN PO CONSTIPATION; Start 12/23/18 at 21:00 Acetaminophen (Tylenol Tab) 650 mg Q6H PRN PO MILD PAIN(1-3)OR ELEVATED TEMP Last administered on 12/24/18at 16:02; Admin Dose 650 MG; Start 12/23/18 at 21:00 Prochlorperazine (Compazine Inj) 5 mg Q4H PRN IV NAUSEA AND/OR VOMITING Last administered on 12/29/18at 04:32; Admin Dose 5 MG; Start 12/24/18 at 11:30 Levofloxacin (Levaquin) 500 mg DAILY@06 PO Last administered on 12/29/18at 05:40; Admin Dose 500 MG; Start 12/27/18 at 06:00 Mineral Oil (Mineral Oil) 30 ml Q8 PO Last administered on 12/28/18at 21:37; Ad min Dose 30 ML; Start 12/28/18 at 22:00 JUAN PARSON MD Dec 29, 2018 08:10
[2018-12-29] MEDS ORDERED: POTASSIUM CHLORIDE (SR) 20 MEQ TAB PO STA (08:11)
[2018-12-29] MEDS: SUCRALFATE (100 MG/ML) 10ML CUP PO SCH ×4 (09:07→20:58)
[2018-12-29] MEDS: ENOXAPARIN 40 MG/0.4 ML SYG SC SCH (10:19)
[2018-12-29] MEDS: ALPRAZOLAM 0.25 MG TAB PO PRN (10:43)
--- NOTE | 2018-12-29 13:31 | CONS ---
Assessment/Plan Assessment/Plan Hospital Course (Demo Recall) Alert, feels good, s/p pain med Microbiology: Blood cultures on admission grew gram-negative rods 1 out of 2 sets, urine culture negative Antimicrobials: Levaquin Indwelling: left chest Port-A-Cath Chest x-ray yesterday was negative Physical examination: Well-developed well-nourished middle-aged white woman who is alert in no distress. Head atraumatic normocephalic neck is supple chest rise symmetrical breath sounds clear. Heart: S1-S2. Abdomen soft bowel sounds present. Assessment: 1. Gram-negative stefano bacteremia ?etiology==> repeat bld cx neg 2. Metastatic breast CA Plan: Stable, anticipate dc on PO Levaquin ==> last dose 01/06 DW pt Consultation Date/Type/Reason Admit Date/Time Dec 18, 2018 at 10:56 Initial Consult Date 12/20/18 Type of Consult id Requesting Provider: NILSA AZEVEDO Date/Time of Note DATE: 12/29/18 TIME: 13:29 Exam/Review of Systems Exam Vitals Vital Signs Date Temp Pulse Resp B/P (MAP) Pulse Ox O2 O2 Flow FiO2 Time Delivery Rate 12/29/18 98.2 72 19 128/58 98 Room Air 07:41 (81) Intake and Output 12/28/18 12/28/18 12/29/18 1515:00 23:00 07:00 IntakeIntake Total 820 ml 730 ml 500 ml OutputOutput Total 25 ml BalanceBalance 820 ml 730 ml 475 ml Results Result Diagram: 12/29/18 0423 12/29/18 0423 Results 24hrs Laboratory Tests Test 12/29/18 04:23 White Blood Count 5.1 Red Blood Count 3.50 L Hemoglobin 10.5 L Hematocrit 30.3 L Mean Corpuscular Volume 86.6 Mean Corpuscular Hemoglobin 30.0 Mean Corpuscular Hemoglobin Concent 34.7 Red Cell Distribution Width 13.2 Platelet Count 258 Mean Platelet Volume 12.8 H Immature Granulocytes % 1.000 H Neutrophils % 45.6 Lymphocytes % 33.8 Monocytes % 15.0 H Eosinophils % 2.5 Basophils % 2.1 H Nucleated Red Blood Cells % 0.0 Immature Granulocytes # 0.050 H Neutrophils # 2.3 Lymphocytes # 1.7 Monocytes # 0.8 Eosinophils # 0.1 Basophils # 0.1 Nucleated Red Blood Cells # 0.0 Sodium Level 141 Potassium Level 3.4 L Chloride Level 102 Carbon Dioxide Level 29 Anion Gap 10 Blood Urea Nitrogen 6 L Creatinine 1.23 H Est Glomerular Filtrat Rate mL/min 50 L Glucose Level 106 Calcium Level 9.6 Medications Medication Current Medications IV Flush (NS 3 ml) 3 ml PER PROTOCOL IV ; Start 12/18/18 at 15:00 Enoxaparin Sodium (Lovenox) 40 mg DAILY SC Last administered on 12/29/18 10:19; Admin Dose 40 MG; Start 12/19/18 at 09:00 Pantoprazole (Protonix Tab) 40 mg BID@06,18 PO Last administered on 12/29/18 05:40; Admin Dose 40 MG; Start 12/21/18 at 06:00 Sucralfate (Carafate Susp) 1 gm QID PO Last administered on 12/29/18 09:07; Admin Dose 1 GM; Start 12/20/18 at 21:00 Metoclopramide HCl (Reglan) 10 mg Q6H IV Last administered on 12/29/18 10:14; Admin Dose 10 MG; Start 12/21/18 at 22:00 Acetaminophen/ Hydrocodone Bitart ([place] (5/325)) 1 tab Q4H PRN PO MODERATE PAIN LEVEL 4-6 Last administered on 12/28/18 20:05; Admin Dose 1 TAB; Start 12/22/18 at 14:00 Ondansetron HCl (Zofran Inj) 4 mg Q6H IV Last administered on 12/29/18 09:07; Admin Dose 4 MG; Start 12/22/18 at 15:00 Alprazolam (Xanax) 0.25 mg Q8H PRN PO ANXIETY Last administered on 12/29/18 10:43; Admin Dose 0.25 MG; Start 12/22/18 at 16:30 Hydromorphone HCl (Dilaudid) 1 mg Q4H PRN IV SEVERE PAIN LEVEL 7-10 Last administered on 12/29/18 11:40; Admin Dose 1 MG; Start 12/22/18 at 21:00 Scopolamine (Transderm-Scop) 1 patch Q72H TRANSDERM Last administered on 12/26/18 12:00; Admin Dose 1 PATCH; Start 12/23/18 at 13:00 Magnesium Hydroxide (Milk Of Mag) 30 ml HS PRN PO CONSTIPATION; Start 12/23/18 at 21:00 Acetaminophen (Tylenol Tab) 650 mg Q6H PRN PO MILD PAIN(1-3)OR ELEVATED TEMP Last administered on 12/24/18 16:02; Admin Dose 650 MG; Start 12/23/18 at 21:00 Prochlorperazine (Compazine Inj) 5 mg Q4H PRN IV NAUSEA AND/OR VOMITING Last administered on 12/29/18at 04:32; Admin Dose 5 MG; Start 12/24/18 at 11:30 Levofloxacin (Levaquin) 500 mg DAILY@06 PO Last administered on 12/29/18at 05:40; Admin Dose 500 MG; Start 12/27/18 at 06:00 Mineral Oil (Mineral Oil) 30 ml Q8 PO Last administered on 12/28/18at 21:37; Admin Dose 30 ML; Start 12/28/18 at 22:00 SIMA PRYOR NP Dec 29, 2018 13:31
[2018-12-29] MEDS: SCOPOLAMINE 1.5 MG PATCH TRANSDERM SCH (13:32)
--- NOTE | 2018-12-29 13:45 | PN ---
Date/Time of Note Date/Time of Note DATE: 12/29/18 TIME: 13:42 Outpatient Progress Note HPI better less pain no SOB No bleeding Review of Systems Const: No Fever, no chills, no Wt. loss, no Fatigue, normal appetite, no diaphoresis. Eyes: No pain, no discharge, no redness, no visual change, no foreign body. ENT: No pain, no bleeding, no congestion, no sore throat, no dysphagia, no discharge or rhinitis. Lymph: No adenopathy, no tender nodes, no lymphedema. Resp: No SOB, no cough, no sputum, no wheezing, no chest pain. CV: No chest pain, no palpitaions, no POTTS, no PND, no edema. GI: Normal appetite, no pain, no nausea, no vomiting, no diarrhea, no blood, no constipation. : No frequency, no urgency, no dysuria, no hematuria, no flank pain, no discharge, no bleeding. Musc: No bone/joint pain, no back pain, no neck pain, no knee pain, no restricted ROM. Skin: No rash, no skin lesions, no erythema, no laceration, no bruising, no pruritus. Neuro: No JALLOH, no dizziness, no syncope, no seizure, no focal-weakness. Endo: No polyuria, no polydypsia, no dry-skin, no temp-intolerance. Psych: No hallucinations, no depression, no anxiety, no suicidal ideation. Ext: No edema, no pain, no ulcer, no weakness. Physical Exam Vital Signs Date Temp Pulse Resp B/P (MAP) Pulse Ox O2 O2 Flow FiO2 Time Delivery Rate 12/29/18 98.2 72 19 128/58 98 Room Air 07:41 (81) Intake and Output 12/28/18 12/28/18 12/29/18 1515:00 23:00 07:00 IntakeIntake Total 820 ml 730 ml 500 ml OutputOutput Total 25 ml BalanceBalance 820 ml 730 ml 475 ml General Appearance: S1S2 Clear lungs soft abdomen Result Diagram: 12/29/18 0423 12/29/18 0423 Allergies Coded Allergies: No Known Allergy (Unverified , 12/18/18) Assessment/Plan 1. This is a 33-year-old female with initially right-sided breast cancer, post- mastectomy and nicole evaluation. Received systemic adjuvant chemotherapy, Adriamycin, Cytoxan and taxane per protocol. Unfortunately, disease recurrent mainly in the chest and nicole area and liver areas. The patient initially was put on Ribociclib based treatment with hormonal blockade. 2. Admitted for abdominal pain, elevated lipase, liver enzymes. Most likely chemical pancreatitis. BETTER NOW IV fluids, n.p.o., pain medications, antinausea, avoid anti-vomiting medications. The patient will be evaluated by surgery whether or not to do surgery to evaluate the obstruction and pain on the eliza hepatis right upper quadrant liver areas. 3. Carboplatin dose 1 given. 4. Re-evaluation for either surgical resection of the liver tumors and nodes Dr. Garza OR interventioanl radiology for Hepatic artery embolization/TACE 5. Pain meds 6. Anti-emetics 7. Latest Liver biopsy showed (Triple NEGATIVE) breast CA mets >> Later candidate for immune therapy Atezoluzumab Tecentriq anti PDL1 checkpoint inh 8. Abdominal angio and evaluation for probable Hep artery embolization 9. liborio later to go home if less pain and nausea 10.Pain control pain management 11.Ordered PIK3 mutation and NTRK fusion for probable future targeted therapy 12.PDL1=5% 13.OK to DC home from Onc stand point Medications Home Meds Reported Medications Ribociclib Succinate/Letrozole (Kisqali Femara 600 mg Co-Pack) 1 Each Tablet, 3 EACH PO DAILY, TAB ON 21 DAYS OFF 7 DAYS 12/13/18 HUSAM STUBBS Dec 29, 2018 13:45
[2018-12-29] MEDS: HYDROCODONE/APAP (5/325) TAB PO PRN ×2 (14:17→21:39)
--- NOTE | 2018-12-29 14:49 | PN ---
Date/Time of Note Date/Time of Note DATE: 12/29/18 TIME: 14:45 Assessment/Plan VTE Prophylaxis Risk score (from Ns)>0 risk: 4 SCD applied (from [facility]): No SCD contraindicated: other Pharmacological prophylaxis: LMWH Lines/Catheters IV [facility]atheter Type (from [facility] portacath Urinary Cath still in place: No Assessment/Plan Hospital Course 1. Abdominal pain. suspect multifactorial in origin including underlying liver metastasis. Continue pain control - will gt pain management consult S/P EDGscopy on 12/20/2018 that showed moderate distal esophagitis, moderate ga stritis, and multiple shallow duodenal bulb ulcerations. Continue PPI No plan for surgery at this time. f/u oncology for possible chemo/chemoembolization. 2. Metastatic breast cancer. Status post carboplatin x1 on 12/21/2018. continue oncologist recommendations 3. Normocytic anemia. suspect secondary to underlying malignancy. Monitor H&H closely. 4. Superficial thrombophlebitis of the left AC area. Continue elevation of extremity and local care. Continue Lovenox. 5. Systemic inflammatory response syndrome with febrile illness and tachycardia on 12/23/2018. blood culture: SERRATIA MARCESCENS abx per ID 6. HANK Grievance Manager following. monitor renal function Disposition plan. Discussed with surgeon. Preop planning for possible chemoembolization. Discussed with nephrology, patient stable for visceral angiography for better delineation an evaluation of circulation to liver lobes. Patient will need Mucomyst 1200 mg twice daily x3 days as well as NS 6 hours prior to angiography and 6 hours post diagnostic exam. Awaiting radiology follow-up regarding diagnostic study as well as follow-up for resource capabilities to provide chemoembolization in house. Discussed POC with Dr. Bernal Result Diagram: 12/29/18 0423 12/29/18 0423 Results 24hrs Laboratory Tests Test 12/29/18 04:23 White Blood Count 5.1 Red Blood Count 3.50 L Hemoglobin 10.5 L Hematocrit 30.3 L Mean Corpuscular Volume 86.6 Mean Corpuscular Hemoglobin 30.0 Mean Corpuscular Hemoglobin Concent 34.7 Red Cell Distribution Width 13.2 Platelet Count 258 Mean Platelet Volume 12.8 H Immature Granulocytes % 1.000 H Neutrophils % 45.6 Lymphocytes % 33.8 Monocytes % 15.0 H Eosinophils % 2.5 Basophils % 2.1 H Nucleated Red Blood Cells % 0.0 Immature Granulocytes # 0.050 H Neutrophils # 2.3 Lymphocytes # 1.7 Monocytes # 0.8 Eosinophils # 0.1 Basophils # 0.1 Nucleated Red Blood Cells # 0.0 Sodium Level 141 Potassium Level 3.4 L Chloride Level 102 Carbon Dioxide Level 29 Anion Gap 10 Blood Urea Nitrogen 6 L Creatinine 1.23 H Est Glomerular Filtrat Rate mL/min 50 L Glucose Level 106 Calcium Level 9.6 Subjective 24 Hr Interval Summary Free Text/Dictation still reports having some nausea. no vomiting Exam/Review of Systems Exam Vitals Vital Signs Date Temp Pulse Resp B/P (MAP) Pulse Ox O2 O2 Flow FiO2 Time Delivery Rate 12/29/18 98.2 72 19 128/58 98 Room Air 07:41 (81) Intake and Output 12/28/18 12/28/18 12/29/18 1515:00 23:00 07:00 IntakeIntake Total 820 ml 730 ml 500 ml OutputOutput Total 25 ml BalanceBalance 820 ml 730 ml 475 ml Exam Constitutional: alert, oriented Psych: nl mood/affect Head: normocephalic Eyes: nl conjunctiva Respiratory: clear to auscultation, normal air movement Cardiovascular: regular rate and rhythm Gastrointestinal: soft, tender Musculoskeletal: nl extremities to inspection 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: WAFER FAB TECHNICIAN II-XII intact, nl mental status, nl speech Results Results 24hrs Laboratory Tests Test 12/29/18 04:23 White Blood Count 5.1 Red Blood Count 3.50 L Hemoglobin 10.5 L Hematocrit 30.3 L Mean Corpuscular Volume 86.6 Mean Corpuscular Hemoglobin 30.0 Mean Corpuscular Hemoglobin Concent 34.7 Red Cell Distribution Width 13.2 Platelet Count 258 Mean Platelet Volume 12.8 H Immature Granulocytes % 1.000 H Neutrophils % 45.6 Lymphocytes % 33.8 Monocytes % 15.0 H Eosinophils % 2.5 Basophils % 2.1 H Nucleated Red Blood Cells % 0.0 Immature Granulocytes # 0.050 H Neutrophils # 2.3 Lymphocytes # 1.7 Monocytes # 0.8 Eosinophils # 0.1 Basophils # 0.1 Nucleated Red Blood Cells # 0.0 Sodium Level 141 Potassium Level 3.4 L Chloride Level 102 Carbon Dioxide Level 29 Anion Gap 10 Blood Urea Nitrogen 6 L Creatinine 1.23 H Est Glomerular Filtrat Rate mL/min 50 L Glucose Level 106 Calcium Level 9.6 Medications Medication Current Medications IV Flush (NS 3 ml) 3 ml PER PROTOCOL IV ; Start 12/18/18 at 15:00 Enoxaparin Sodium (Lovenox) 40 mg DAILY SC Last administered on 12/29/18 10:19; Admin Dose 40 MG; Start 12/19/18 at 09:00 Pantoprazole (Protonix Tab) 40 mg BID@06,18 PO Last administered on 12/29/18 05:40; Admin Dose 40 MG; Start 12/21/18 at 06:00 Sucralfate (Carafate Susp) 1 gm QID PO Last administered on 12/29/18 13:31; Admin Dose 1 GM; Start 12/20/18 at 21:00 Metoclopramide HCl (Reglan) 10 mg Q6H IV Last administered on 12/29/18 10:14; Admin Dose 10 MG; Start 12/21/18 at 22:00 Acetaminophen/ Hydrocodone Bitart ([place] (5/325)) 1 tab Q4H PRN PO MODERATE P AIN LEVEL 4-6 Last administered on 12/29/18 14:17; Admin Dose 1 TAB; Start 12/22/18 at 14:00 Ondansetron HCl (Zofran Inj) 4 mg Q6H IV Last administered on 12/29/18 14:16; Admin Dose 4 MG; Start 12/22/18 at 15:00 Alprazolam (Xanax) 0.25 mg Q8H PRN PO ANXIETY Last administered on 12/29/18 10:43; Admin Dose 0.25 MG; Start 12/22/18 at 16:30 Hydromorphone HCl (Dilaudid) 1 mg Q4H PRN IV SEVERE PAIN LEVEL 7-10 Last administered on 12/29/18 11:40; Admin Dose 1 MG; Start 12/22/18 at 21:00 Scopolamine (Transderm-Scop) 1 patch Q72H TRANSDERM Last administered on 12/29/18 13:32; Admin Dose 1 PATCH; Start 12/23/18 at 13:00 Magnesium Hydroxide (Milk Of Mag) 30 ml HS PRN PO CONSTIPATION; Start 12/23/18 at 21:00 Acetaminophen (Tylenol Tab) 650 mg Q6H PRN PO MILD PAIN(1-3)OR ELEVATED TEMP Last administered on 12/24/18 16:02; Admin Dose 650 MG; Start 12/23/18 at 21:00 Prochlorperazine (Compazine Inj) 5 mg Q4H PRN IV NAUSEA AND/OR VOMITING Last administered on 12/29/18 04:32; Admin Dose 5 MG; Start 12/24/18 at 11:30 Levofloxacin (Levaquin) 500 mg DAILY@06 PO Last administered on 12/29/18 05:40; Admin Dose 500 MG; Start 12/27/18 at 06:00 Mineral Oil (Mineral Oil) 30 ml Q8 PO Last administered on 12/28/18 21:37; Admin Dose 30 ML; Start 12/28/18 at 22:00 YOUNG PEARL NP Dec 29, 2018 14:49
[2018-12-29 20:00] VITALS: BP 115/76; PULSE 81; RESP 18
[2018-12-30] MEDS: PROCHLORPERAZINE 10 MG INJ IV PRN ×2 (01:29→11:11)
[2018-12-30 03:17] VITALS: BP 118/74; PULSE 78; RESP 20
[2018-12-30] MEDS: ONDANSETRON 4 MG INJ IV SCH ×3 (03:33→14:04)
[2018-12-30] MEDS: HYDROmorphONE 1 MG/ML SYG IV PRN ×2 (04:36→08:29)
[2018-12-30] MEDS: METOCLOPRAMIDE 10 MG INJ IV SCH ×3 (04:36→15:28)
[2018-12-30] MEDS: MINERAL OIL 30ML CUP PO SCH ×2 (06:00→14:00)
[2018-12-30] MEDS: LEVOFLOXACIN 500 MG TAB PO SCH (06:25)
[2018-12-30] MEDS: PANTOPRAZOLE (EC) 40 MG TAB PO SCH (06:25)
[2018-12-30 07:58] VITALS: BP 134/89; PULSE 101; RESP 19
[2018-12-30] MEDS: SUCRALFATE (100 MG/ML) 10ML CUP PO SCH ×2 (08:07→13:00)
[2018-12-30] MEDS: ENOXAPARIN 40 MG/0.4 ML SYG SC SCH (08:13)
--- NOTE | 2018-12-30 08:44 | CONS ---
Assessment/Plan Assessment/Plan Assessment/Plan (Daily) 1. acute kidney injury due to ATN + prerenal azotemia 2. Gram negative bacteremia, Blood cx grew 1/2 Serratia 3. Metastatic breast CA with mets to liver 4. Epigastric pain due to liver metastasis Plan: Cr improved to 1.27, other electrolyte stable Renally dose all abx and monitor electrolytes, ID following will follow up Consultation Date/Type/Reason Admit Date/Time Dec 18, 2018 at 10:56 Initial Consult Date 12/26/18 Type of Consult NEPHROLOGY Requesting Provider: NILSA AZEVEDO Date/Time of Note DATE: 12/30/18 TIME: 08:30 Exam/Review of Systems Exam Vitals Vital Signs Date Temp Pulse Resp B/P (MAP) Pulse Ox O2 O2 Flow FiO2 Time Delivery Rate 12/30/18 98.5 101 19 134/89 99 Room Air 07:58 (104) Intake and Output 12/29/18 12/29/18 12/30/18 1515:00 23:00 07:00 IntakeIntake Total 800 ml 820 ml 740 ml OutputOutput Total 25 ml BalanceBalance 775 ml 820 ml 740 ml Results Result Diagram: 12/30/18 0436 12/30/18 0436 Results 24hrs Laboratory Tests Test 12/30/18 04:36 White Blood Count 5.3 Red Blood Count 3.48 L Hemoglobin 10.4 L Hematocrit 30.4 L Mean Corpuscular Volume 87.4 Mean Corpuscular Hemoglobin 29.9 Mean Corpuscular Hemoglobin Concent 34.2 Red Cell Distribution Width 13.5 Platelet Count 234 Mean Platelet Volume 12.7 H Immature Granulocytes % 1.100 H Neutrophils % 41.3 Lymphocytes % 38.7 Monocytes % 14.9 H Eosinophils % 2.1 Basophils % 1.9 Nucleated Red Blood Cells % 0.0 Immature Granulocytes # 0.060 H Neutrophils # 2.2 Lymphocytes # 2.1 Monocytes # 0.8 Eosinophils # 0.1 Basophils # 0.1 Nucleated Red Blood Cells # 0.0 Sodium Level 141 Potassium Level 4.0 Chloride Level 103 Carbon Dioxide Level 30 Anion Gap 8 Blood Urea Nitrogen 7 Creatinine 1.27 H Est Glomerular Filtrat Rate mL/min 48 L Glucose Level 100 Calcium Level 10.0 Medications Medication Current Medications IV Flush (NS 3 ml) 3 ml PER PROTOCOL IV ; Start 12/18/18 at 15:00 Enoxaparin Sodium (Lovenox) 40 mg DAILY SC Last administered on 12/30/18 08:13; Admin Dose 40 MG; Start 12/19/18 at 09:00 Pantoprazole (Protonix Tab) 40 mg BID@06,18 PO Last administered on 12/30/18 06:25; Admin Dose 40 MG; Start 12/21/18 at 06:00 Sucralfate (Carafate Susp) 1 gm QID PO Last administered on 12/30/18 08:07; Admin Dose 1 GM; Start 12/20/18 at 21:00 Metoclopramide HCl (Reglan) 10 mg Q6H IV Last administered on 12/30/18 04:36; Admin Dose 10 MG; Start 12/21/18 at 22:00 Acetaminophen/ Hydrocodone Bitart ([place] (5/325)) 1 tab Q4H PRN PO MODERATE PAIN LEVEL 4-6 Last administered on 12/29/18 21:39; Admin Dose 1 TAB; Start 12/22/18 at 14:00 Ondansetron HCl (Zofran Inj) 4 mg Q6H IV Last administered on 12/30/18 08:06; Admin Dose 4 MG; Start 12/22/18 at 15:00 Alprazolam (Xanax) 0.25 mg Q8H PRN PO ANXIETY Last administered on 12/29/18 10:43; Admin Dose 0.25 MG; Start 12/22/18 at 16:30 Hydromorphone HCl (Dilaudid) 1 mg Q4H PRN IV SEVERE PAIN LEVEL 7-10 Last administered on 12/30/18 04:36; Admin Dose 1 MG; Start 12/22/18 at 21:00 Scopolamine (Transderm-Scop) 1 patch Q72H TRANSDERM Last administered on 12/29/18 13:32; Admin Dose 1 PATCH; Start 12/23/18 at 13:00 Magnesium Hydroxide (Milk Of Mag) 30 ml HS PRN PO CONSTIPATION; Start 12/23/18 at 21:00 Acetaminophen (Tylenol Tab) 650 mg Q6H PRN PO MILD PAIN(1-3)OR ELEVATED TEMP Last administered on 12/24/18 16:02; Admin Dose 650 MG; Start 12/23/18 at 21:00 Prochlorperazine (Compazine Inj) 5 mg Q4H PRN IV NAUSEA AND/OR VOMITING Last administered on 12/30/18at 01:29; Admin Dose 5 MG; Start 12/24/18 at 11:30 Levofloxacin (Levaquin) 500 mg DAILY@06 PO Last administered on 12/30/18 06:25; Admin Dose 500 MG; Start 12/27/18 at 06:00 Mineral Oil (Mineral Oil) 30 ml Q8 PO Last administered on 12/29/18at 21:39; Admin Dose 30 ML; Start 12/28/18 at 22:00 JUAN PARSON MD Dec 30, 2018 08:44
[2018-12-30] MEDS ORDERED: OXYCODONE/ACETAMINOPHEN (5/325) TAB PO PRN (11:00)
[2018-12-30] MEDS ORDERED: SCOP1PAT16 TD (11:00)
[2018-12-30] MEDS ORDERED: OXYC-279 PO (11:00)
[2018-12-30] MEDS ORDERED: ONDA8TAB9 PO (11:00)
[2018-12-30] MEDS ORDERED: PROC10TA10 PO (11:00)
[2018-12-30] MEDS ORDERED: PANT40TA4 PO (11:00)
--- NOTE | 2018-12-30 11:03 | PDOCDIS ---
Discharge Instructions DIAGNOSIS Discharge Diagnosis 1. Abdominal pain. suspect multifactorial in origin including underlying liver metastasis. 2. Metastatic breast cancer. 3. Normocytic anemia. 4. Superficial thrombophlebitis of the left AC area. 5. Systemic inflammatory response syndrome with febrile illness and tachycardia on 12/23/2018. 6. HANK CONDITION [id number] Patient Condition: [id number] Stable HOME CARE INSTRUCTIONS: [id number] Diet Instructions: [id number] Regular ACTIVITY: [id number] Activity Restrictions: [id number] No Restrictions [id number] Bathing Restrictions: [id number] Shower FOLLOW UP/APPOINTMENTS Follow-up Plan 1. Follow up with Dr. Keisha Lockhart in one week Office Address [address] [address] Office 2. Follow up with your primary care doctor in 1-2 weeks YOUNG PEARL NP Dec 30, 2018 11:03
--- NOTE | 2018-12-30 11:46 | CONS ---
Assessment/Plan Assessment/Plan Hospital Course (Demo Recall) ID PROGRESS NOTE CURRENT ABX: DAY # =>Levaquin 24H INTERVAL SUMMARY * Stable, still has nausea , no fevers, DC planning MICRO * Microbiology: Blood cultures on admission grew gram-negative rods 1 out of 2 sets, urine culture negative * Repeat BCx (-) PHYSICAL EXAMINATION: GENERAL: VSS, NAD HEENT: AT, NC, NECK: Supple, CHEST: Rise symmetrical HEART: Pulse RRR ABDOMEN: Benign EXTREMITIES: Warm, dry SKIN: No rash, no diaphoresis ID ASSESSMENT 33 yo F admit with: 1. SIRS on admission w/ Gram-negative stefano bacteremia ?etiology==> repeat bld cx neg 2. Metastatic breast CA * Status post carboplatin x1 on 12/21/2018. 3. Left chest port-a-cath 4. ABD pain suspect multifactorial in origin including underlying liver metastasis. * S/P EDGscopy on 12/20/2018 that showed moderate distal esophagitis, moderate gastritis, and multiple shallow duodenal bulb ulcerations. * No plan for surgery at this time. f/u oncology for possible chemo/chemoembolization. 5. Normocytic anemia. 6. Superficial thrombophlebitis of the left AC area. 7. HANK ABX ALLERGIES: KNDA INVASIVES: PORT-A-Cath CURRENT ABX: DAY # => Levaquin ID RECOMMENDATIONS/PLAN: 1. May dc on PO Levaquin ==> last dose 01/06 . Consultation Date/Type/Reason Admit Date/Time Dec 18, 2018 at 10:56 Initial Consult Date 12/26/18 Requesting Provider: NILSA AZEVEDO Date/Time of Note DATE: 12/30/18 TIME: 11:45 Exam/Review of Systems Exam Vitals Vital Signs Date Temp Pulse Resp B/P (MAP) Pulse Ox O2 O2 Flow FiO2 Time Delivery Rate 12/30/18 98.5 101 19 134/89 99 Room Air 07:58 (104) Intake and Output 12/29/18 12/29/18 12/30/18 1515:00 23:00 07:00 IntakeIntake Total 800 ml 820 ml 740 ml OutputOutput Total 25 ml BalanceBalance 775 ml 820 ml 740 ml Results Result Diagram: 12/30/18 0436 12/30/18 0436 Results 24hrs Laboratory Tests Test 12/30/18 04:36 White Blood Count 5.3 Red Blood Count 3.48 L Hemoglobin 10.4 L Hematocrit 30.4 L Mean Corpuscular Volume 87.4 Mean Corpuscular Hemoglobin 29.9 Mean Corpuscular Hemoglobin Concent 34.2 Red Cell Distribution Width 13.5 Platelet Count 234 Mean Platelet Volume 12.7 H Immature Granulocytes % 1.100 H Neutrophils % 41.3 Lymphocytes % 38.7 Monocytes % 14.9 H Eosinophils % 2.1 Basophils % 1.9 Nucleated Red Blood Cells % 0.0 Immature Granulocytes # 0.060 H Neutrophils # 2.2 Lymphocytes # 2.1 Monocytes # 0.8 Eosinophils # 0.1 Basophils # 0.1 Nucleated Red Blood Cells # 0.0 Sodium Level 141 Potassium Level 4.0 Chloride Level 103 Carbon Dioxide Level 30 Anion Gap 8 Blood Urea Nitrogen 7 Creatinine 1.27 H Est Glomerular Filtrat Rate mL/min 48 L Glucose Level 100 Calcium Level 10.0 Medications Medication Current Medications IV Flush (NS 3 ml) 3 ml PER PROTOCOL IV ; Start 12/18/18 at 15:00 Enoxaparin Sodium (Lovenox) 40 mg DAILY SC Last administered on 12/30/18at 08:13; Admin Dose 40 MG; Start 12/19/18 at 09:00 Pantoprazole (Protonix Tab) 40 mg BID@06,18 PO Last administered on 12/30/18at 06:25; Admin Dose 40 MG; Start 12/21/18 at 06:00 Sucralfate (Carafate Susp) 1 gm QID PO Last administered on 12/30/18 08:07; Admin Dose 1 GM; Start 12/20/18 at 21:00 Metoclopramide HCl (Reglan) 10 mg Q6H IV Last administered on 12/30/18at 10:04; Admin Dose 10 MG; Start 12/21/18 at 22:00 Ondansetron HCl (Zofran Inj) 4 mg Q6H IV Last administered on 12/30/18 08:06; Admin Dose 4 MG; Start 12/22/18 at 15:00 Alprazolam (Xanax) 0.25 mg Q8H PRN PO ANXIETY Last administered on 12/29/18at 10:43; Admin Dose 0.25 MG; Start 12/22/18 at 16:30 Hydromorphone HCl (Dilaudid) 1 mg Q4H PRN IV SEVERE PAIN LEVEL 7-10 Last administered on 12/30/18 08:29; Admin Dose 1 MG; Start 12/22/18 at 21:00 Scopolamine (Transderm-Scop) 1 patch Q72H TRANSDERM Last administered on 12/29/18 13:32; Admin Dose 1 PATCH; Start 12/23/18 at 13:00 Magnesium Hydroxide (Milk Of Mag) 30 ml HS PRN PO CONSTIPATION; Start 12/23/18 at 21:00 Acetaminophen (Tylenol Tab) 650 mg Q6H PRN PO MILD PAIN(1-3)OR ELEVATED TEMP Last administered on 12/24/18 16:02; Admin Dose 650 MG; Start 12/23/18 at 21:00 Prochlorperazine (Compazine Inj) 5 mg Q4H PRN IV NAUSEA AND/OR VOMITING Last administered on 12/30/18 11:11; Admin Dose 5 MG; Start 12/24/18 at 11:30 Levofloxacin (Levaquin) 500 mg DAILY@06 PO Last administered on 12/30/18at 06:25; Admin Dose 500 MG; Start 12/27/18 at 06:00 Mineral Oil (Mineral Oil) 30 ml Q8 PO Last administered on 12/29/18 21:39; Admin Dose 30 ML; Start 12/28/18 at 22:00 Oxycodone/ Acetaminophen (Percocet (5/ 325)) 1 tab Q4H PRN PO MODERATE PAIN LEVEL 4-6; Start 12/30/18 at 11:00 Oxycodone/ Acetaminophen (Percocet (5/ 325)) 2 tab Q4H PRN PO SEVERE PAIN LEVEL 7-10; Start 12/30/18 at 11:00 YAJAIRA MURILLO NP Dec 30, 2018 11:46
[2018-12-30] MEDS: OXYCODONE/ACETAMINOPHEN (5/325) TAB PO PRN ×2 (11:53→15:29)
[2018-12-30] MEDS: ALPRAZOLAM 0.25 MG TAB PO PRN (12:23)
[2018-12-30] MEDS ORDERED: LEVO500T48 PO (13:40)
[2018-12-30] MEDS ORDERED: HEPARIN (100 UNITS/ML) 5 ML SYG CATHETER ONE (15:00)
--- NOTE | 2018-12-30 20:11 | PN ---
DATE: 12/30/2018 SUBJECTIVE: States that feels better, slightly has nausea but no vomiting. Pain is under control wi th Percocet. Appetite is good. Is eating no vomiting. Has had bowel movement. OBJECTIVE: GENERAL: Awake, alert, oriented. VITAL SIGNS: Temperature maximum 98.6, heart rate 78, respirations 20, blood pressure 100/74, satura tion 95%, room air. HEART: Regular. LUNGS: Clear. ABDOMEN: Soft. Mass is felt in the epigastric area on deep pressure, some tenderness in this area o n the right upper quadrant. LABORATORY DATA: WBC 5300 with 41% neutrophils, hemoglobin 10.4, hematocrit 30.4, platelet 234. Avis marco: Sodium, potassium normal. BUN 7, creatinine comparing to yesterday is slightly elevated, to day is 1.27, yesterday was 1.23. In any case this is higher than normal. ASSESSMENT AND PLAN: A 33-year-old female, status post right breast modified radical mastectomy with axillary resection for cancer of the breast about a year ago, has been on chemotherapy as well, pre sented to the emergency room with nausea, vomiting, aggravated abdominal pain and investigation revea led that the patient had gastritis, duodenitis, distal esophagitis (which could be contributing to th e epigastric and abdominal pain that the patient was suffering from and was admitted for). Also, mor e investigation, including CT scan and MRI of the abdomen, revealed presence of multiple metastatic l esions in the liver right and left lobe, bigger ones to the left lobe and also lymph node involvement in the abdomen. Surgical consultation was requested by the admitting service from Dr. Garza who did mastectomy on this patient and Dr. Garza asked me to see the patient in consultation for him and fol low up, so I have been following up this patient and Dr. Garza decided to request embolization of the left lobe of the liver to facilitate necrosis big piece of metastasis to the left lobe that could martinez ve been also contributed this metastasis to the abdominal pain as well. Dr. Goldstein, the chief of the r adiology, was not available. The radiologist who was covering Dr. Goldstein and was handling the consulta tions, Dr. Mendoza, I talked with him myself about a week ago and he said he is willing to, and is ca pable to doing that, but he had some preconditions that should be done including to gather: CT angio of the abdomen and pelvis, #1, and after that to do preliminary preparatory standout angiography of the mesenteric vessels to exactly find out the feeding artery to the left lobe and after that he woul d proceed and do TACE procedure, which stands for transarterial chemoembolization. So we discussed w ith the family of the patient and father and they agreed with that, we are following this matter with the radiology department. For that reason, the patient even was not discharged and we were hoping t hat on Tuesday this part of the requirement can be done and then waiting for the procedures to be don e by Dr. Mendoza, but today Jai Bell, which is nurse practitioner for the medical service, had contacted Dr. Goldstein and Dr. Goldstein had said that the radiology department and invasive radiology here i s not set for performing TACE procedure. Therefore, this procedure is canceled at this stage and for that reason, since there was no other thing to be done in the hospital, the medical service decided to discharge the patient today, which is Tuesday. So I visited this patient before leaves and I mad e sure to tell her that she should continue with Dr. Lockhart within a week, and then to continue t o check with [facility] or [facility] for further treatment for the metastatic cancer of the breast to the liver and possibly chemoembolization, considering that most probably they have a better facility and preparation for this kind of procedure. Dr. Garza also was informed about this. Dictated By: SHANNON BAKER/SABINE Conf#: [id number] DID#: [id number]
--- NOTE | 2019-01-01 09:06 | PN ---
DATE: 12/29/2018 FOLLOWUP: I am seeing the patient on behalf of Dr. Garza. SUBJECTIVE: Feels much better. Pain is under control, tolerating diet, having bowel movement. OBJECTIVE: GENERAL: Awake, alert. VITAL SIGNS: Temperature maximum today 98.9, heart rate 78, respiration 18, blood pressure 131/85, saturation 95% on room air. LABORATORY: WBC 5100 with 45% neutrophils. Hemoglobin 10.5, hematocrit 30.3, platelet 258. Chemistry: Sodium 141, potassium 3, slightly low, BUN 6, creatinine has decreased to 1.23, but still is high, calcium is 9.6. Glucose 1.6. ASSESSMENT: This patient is a 33-year-old female with metastatic breast cancer to the liver lobes, especially the left lobe, presented with abdominal pain, nausea, vomiting and inability to hold food in the stomach, was evaluated and was found to have gastritis, distal esophagitis, duodenitis, negative H. pylori treated for that matter, also pain medication under control by the advice of the pain management. Dr. Garza recommended embolization of the left lobe of the liver and we have consulted the invasive radiology, Dr. Mendoza. He is willing to do that, but is requesting few things to be done before that. 1. To get a CT angio of the abdomen and pelvis for evaluation of the anatomy of the arterial system. This was done. 2. He wants that we get a mesenteric angiography for pre-planning for embolization. we discussed with the radiology department and working with the cardiac catheterization and electrophysiology department to see if they are allowed to do the embolization over there and we are waiting for the director of the system to discuss with him or her on Tuesday to find out if it is okay to do that. After everything becomes clear,we have to make sure that the pharmacy can provide us with beads that contain the chemotherapeutic agents{ that they have to prepare for the radiologist}, , then, the radiologist has accepted to do embolization, but this is going to take many days, probably a week or so to get everything in order. I again talked to Dr. Garza today and he highly recommends and wants that the patient get embolization if possible and we are going to take advantage of patient's presence in the hospital at this time, and proceed toward achieving this goal. We hope that next week everything can be done. Meanwhile, the oncologist/information resources manager continues to follow the patient and other colleagues also following the patient. [employer] is following the patient in regard to some kidney damage that patient has sustained in the process in the past couple of weeks being here, today creatinine has decreased to 1.23. Hopefully, if the creatinine is going to be less than 1.2 next week then is an ideal case for doing angiography of mesenteric circulation,for assessment for preplanning by the radiologist. Again today I discussed these problems and procedures in detail with patient's father and also nurse practitioner for medical service. All were explained to the patient's father, situation of the patient and the problems that the medical service is dealing with,and the obstacles in the way of doing chemoembolization. We will continue to follow the patient. Dictated By: SHANNON MANN MD PS/NTS Conf#: [id number] DID#: [id number] CC: KATHIE PARRA MD;*EndCC* MTDD
--- NOTE | 2019-01-04 11:50 | DS ---
Date/Time of Note Date/Time of Note DATE: 01/04/19 TIME: 11:41 Discharge Summary Admission/Discharge Info Admit Date/Time Dec 18, 2018 at 10:56 Discharge Date/Time Dec 30, 2018 at 15:58 Discharge Diagnosis 1. Abdominal pain. suspect multifactorial in origin including underlying liver metastasis. 2. Metastatic breast cancer. 3. Normocytic anemia. 4. Superficial thrombophlebitis of the left AC area. 5. Systemic inflammatory response syndrome with febrile illness and tachycardia on 12/23/2018. 6. HANK Patient Condition: Stable Hospital Course This is a 33 year old female with history of right sided breast cancer s/p mastectomy and nicole evaluation, and chemotherapy who came in to the hospital for abdominal pain with nausea and vomiting. Patient did have labs done that showed her with suspect chemical pancreatitis which did improve. during her stay . Abdominal imaging did show her to have liver tumors. She was with noted with suspect liver metastasis. She was seen by general teller and surgeon and also seen by her oncologist. She did receive EGD that showed moderate distal esophagitis and moderate gastritis. We did optimize her with PPI medication. We did defer any chemotherapy to her oncologist while in-house. We did have lengthy discussion with surgeon and oncologist about possibility of chemoembolization. We also had discussion with interventional radiologist to see if procedure could be done at hospital however after her discussion, it was noted that appropriate resources at [facility] were not available for possible chemoembolization. She was therefore advised for outp atient follow-up with oncologist and further management and care of her malignancy as outpatient. She was otherwise otherwise medically. We did adjust her pain management for better control of her pain. We also provided her with antiemetics for her persistent nausea and vomiting. She was noted with some normocytic anemia likely from underlying malignancy and we did monitor her H&H. During her stay she also had a superficial thrombophlebitis of the left AC area and we did provide her with supportive measures. For her HANK we did get custom home installer to see her and she did improve with IV fluids. We did discuss the plan of care with patient and her father. They were informed of plan and for outpatient follow-up with her oncologist. She did improve during her stay. On the day of discharge patient was in stable condition Discussed POC with Dr. Bernal Bancroft Meds Active Scripts Levofloxacin* (Levaquin*) 500 Mg Tablet, 500 MG PO DAILY@06, #7 TAB Prov:YOUNG PEARL NP 12/30/18 Oxycodone HCl/Acetaminophen (Percocet 5-325 mg Tablet) 1 Each Tablet, 1 EACH PO Q4, #50 TAB Prov:YOUNG PEARL NP 12/30/18 Pantoprazole* (Pantoprazole*) 40 Mg Tablet.dr, 40 MG PO BID@06,18, #60 TAB Prov:YOUNG PEARL NP 12/30/18 Prochlorperazine* (Prochlorperazine*) 10 Mg Tablet, 10 MG PO Q6H PRN for NAUSEA, #30 TAB Prov:YOUNG PEARL NP 12/30/18 Scopolamine (Scopolamine) 1 Each Patch.td.3, 1 EACH TD Q72H PRN for NAUSEA, #10 ADH.PATCH Prov:YOUNG PEARL NP 12/30/18 Ondansetron Hcl* (Zofran*) 8 Mg Tablet, 8 MG PO Q6H PRN for NAUSEA AND OR VOMITING, #40 TAB Prov:YOUNG PEARL NP 12/30/18 Discontinued Reported Medications Ribociclib Succinate/Letrozole (Kisqali Femara 600 mg Co-Pack) 1 Each Tablet, 3 EACH PO DAILY, TAB ON 21 DAYS OFF 7 DAYS 12/13/18 Follow-up Plan 1. Follow up with Dr. Keisha Lcokhart in one week Office Address [address] [place] [address] Office 2. Follow up with your primary care doctor in 1-2 weeks Primary Care Provider [facility] Time spent on discharge: > 30 minutes YOUNG PEARL NP Jan 04, 2019 11:50
== END 2018-12-30 15:58 | disposition home or self-care (01) | DRG 435 ==
LOC: E/R 09:50 → SUATTDRO 10:54 → 2NE 10:56 → MS1 12-21 15:27
PROVIDERS: ADMIT Internal Medicine; ATTEND Internal Medicine
PROC: 0DB68ZX Excision of Stomach, Via Natural or Artificial Opening Endoscopic, Diagnostic (ICD-10-PCS; principal; 2018-12-20 18:00)
PROC: BW211ZZ Computerized Tomography (CT Scan) of Abdomen and Pelvis using Low Osmolar Contrast (ICD-10-PCS; 2018-12-26)
DX: C78.7 Secondary malignant neoplasm of liver and intrahepatic bile duct (principal); K85.90 Acute pancreatitis without necrosis or infection, unspecified; N17.0 Acute kidney failure with tubular necrosis; D61.818 Other pancytopenia; B37.81 Candidal esophagitis; C77.2 Secondary and unspecified malignant neoplasm of intra-abdominal lymph nodes; R65.10 Systemic inflammatory response syndrome (SIRS) of non-infectious origin without acute organ dysfunction; C50.912 Malignant neoplasm of unspecified site of left female breast; K20.8 Other esophagitis; K29.70 Gastritis, unspecified, without bleeding; R59.1 Generalized enlarged lymph nodes; K26.9 Duodenal ulcer, unspecified as acute or chronic, without hemorrhage or perforation; D64.9 Anemia, unspecified; R16.0 Hepatomegaly, not elsewhere classified; R13.10 Dysphagia, unspecified; I80.01 Phlebitis and thrombophlebitis of superficial vessels of right lower extremity; Z90.11 Acquired absence of right breast and nipple; Z92.21 Personal history of antineoplastic chemotherapy
CPT/HCPCS: 36415; 71045; 72191; 74177; 74183; 75635; 80048; 80053; 80202; 81001; 81003; 82150; 83036; 83605; 83690; 83735; 84100; 84443; 84703; 85025; 85610; 85730; 87086; 88305; 88312; 93971; J0780; J1100; J1170; J1200; J1642; J1650; J2270; J2405; J2543; J2765; J3370; J3475; J3480; J7030; J7050; J9045; Q9967

== ENCOUNTER 2019-01-05 03:46 | Inpatient (IN) | payer OTHER, MEDICAID ==
[~2019-01-05] VITALS: Ht 170.2 cm; Wt 75.3 kg
[~2019-01-05 03:46] MED LIST changes: +AMLO2.5T78 PO; +LEVO500T48 PO; +ONDA8TAB9 PO; +OXYC-279 PO; +PANT40TA4 PO; +PROC10TA10 PO; -RIBO1TAB4 PO; +SCOP1PAT16 TD
[2019-01-05 10:51] VITALS: BP 122/81; PULSE 96; RESP 18
[2019-01-05 11:54] VITALS: Ht 170.2 cm; Wt 75.3 kg
[2019-01-05] MEDS ORDERED: morphine 2 MG INJ IV PRN (12:30)
[2019-01-05] MEDS: DOCUSATE SODIUM 100 MG CAP PO SCH ×2 (12:30→23:59)
[2019-01-05] MEDS: ONDANSETRON 4 MG INJ IV PRN ×3 (12:43→22:46)
[2019-01-05] MEDS: HYDROmorphONE 1 MG/ML SYG IV PRN ×4 (13:43→23:59)
[2019-01-05] MEDS: DEXTROSE 5%-0.45% NACL 1,000 ML IV SCH (14:07)
--- NOTE | 2019-01-05 16:29 | CONS ---
DATE OF ADMISSION: 01/05/2019 DATE OF CONSULTATION: 01/05/2019 TYPE OF CONSULTATION: Oncology. REASON FOR EVALUATION: Advanced metastatic breast cancer. HISTORY OF PRESENT ILLNESS: A 33-year-old female who was diagnosed with right-sided breast cancer back in end of 2016 to early 2018, underwent surgery and axillary node evaluation for node positive disease, initially refused chemotherapy for 6 months. ER positive, AZ negative, HER-2/sienna negative, 6 to 7 months later started to get chemotherapy. She got Adriamycin, Cytoxan followed by Taxotere per protocol. Unfortunately, the disease came back. She got 1 cycle of a 1-month treatment of cyclin-dependent kinase inhibitor disease mainly now in the liver and nodes, eliza hepatis, abdominal adenopathy for stage IV disease. A repeat biopsy of the liver lesions showed a triple negative, now triple negative breast cancer tumor mutation from hormone positive to hormone negative, ER negative, AZ negative, HER-2/sienna negative breast cancer. The patient received 1 cycle of carboplatin, now mainly of the liver lesion largely between 9 to 10 cm liver lesion largest in the left lobe. The patient comes to [facility] for evaluation of pain and evaluation and pain management. Plan also to undergo hepatic arterial chemoembolization. No active bleeding at this time. No hematemesis, no melena. Nausea and vomiting, improved pain between 4 to 5/10. PAST MEDICAL HISTORY: Negative. FAMILY HISTORY: Positive for cancer. Mother had head and neck cancer, grandmother tongue cancer. PHYSICAL EXAMINATION: VITAL SIGNS: Temperature 96, respiration of 18, pulse of 80. BP 120/80. Mildly pale. No supraclavicular nodes. No axillary nodes. CHEST: Lungs are clear. HEART: Normal S1, S2. ABDOMEN: Mild tenderness in the right upper quadrant area. Soft. Bowel sounds positive. ASSESSMENT AND PLAN: 1. A 33-year-old female with recurrent advanced stage IV breast cancer, triple negative disease, ER negative, AZ negative, HER-2/sienna negative. 2. Treatment and stage IV lesions mainly in the liver, eliza hepatis, abdominal adenopathy. 3. Pain management. 4. Antinausea and vomiting medications. 5. Plan to find her brachytherapy, chemotherapy, transarterial chemoembolization TACE if possible. 6. Tertiary centers and other institution cancer centers will be called since [facility], we do not perform the arterial chemoembolization. 7. [facility] for probable TACE, embolization Dictated By: HUSAM KELLEY/SABINE Conf#: [id number] DID#: [id number] CC: VIRIDIANA MAYER MD;*EndCC* MTDD
--- NOTE | 2019-01-05 19:09 | HP ---
DATE OF ADMISSION: 01/05/2019 PRESENTING COMPLAINT: Abdominal pain. HISTORY OF PRESENTING COMPLAINT: This is a 33-year-old female who is well known to our service from prior hospitalization with a history of breast cancer that is now metastatic to her liver, undergoing chemotherapy as outpatient under the care of Dr. Lockhart. She had gone to the emergency room at [facility] with complaints of intractable abdominal pain and she is being admitted for that reason. Of note is that she was recently admitted here and discharged 12/30/2018 after 12 days in the hospital for similar symptoms. At that time, she had initially presented with pancreatitis. She had hepatic masses with concerns for metastasis for which the oncologist and her primary surgeon did not feel that resection is a good option. They recommend embolization versus interventional radiology chemotherapy localization treatment; however, the patient was to have this on her prior hospitalization, but due to the logistics, it could not be done. The patient was discharged to try and get this done as outpatient, but was not successful. Unfortunately, the patient due to intractable pain was not able to stay at home and is back here, admitted for pain control. At this time, she has been medicated with intravenous Dilaudid and her pain is better and she had some nausea and vomiting, but is now feeling better in terms of that. There is no fever. There is no chest pain or shortness of breath. A lot of the history taking time was spent with the oncologist at the bedside trying to figure out the best way for the patient to get the intervention that she needs. PAST MEDICAL HISTORY: 1. Positive for metastatic breast cancer with multiple hyperechoic. 2. Previous pancreatitis. 3. Ongoing tobacco use. PAST SURGICAL HISTORY: The patient is status post right-sided mastectomy. ALLERGIES: SHE HAS NO KNOWN DRUG ALLERGIES. SOCIAL HISTORY: The patient is a chronic smoker, trying to quit, but she continues to smoke. REVIEW OF SYSTEMS: A 12-point review of system was done. Pertinent findings as per HPI. PHYSICAL EXAMINATION: GENERAL: The patient is alert, she is oriented. Currently, comfortable, not lethargic. HEENT: Head is normocephalic. Pupils equal and reactive. There is no jaundice. CHEST: Clear to auscultation, but diminished. CARDIOVASCULAR: S1 and S2 , no added sounds or murmurs. ABDOMEN: The patient does have palpable hepatomegaly but the abdomen is not distended. At this time, it is not tender and she had normoactive bowel sounds. EXTREMITIES: There is no lower extremity edema. SKIN: Otherwise without rash or jaundice. LABORATORY VALUES: Reviewed and other than the anemia, no other significant findings. ASSESSMENT: A 33-year-old female with recurrent advanced stage IV breast cancer with metastasis to the liver, who is admitted for intractable cancer related pain. At this time, goal is pain control, she is doing well with intravenous opiates, but we are going to also try and find a location where she can undergo a transarterial chemoembolization. I explained to the patient and her family, that this will likely not be able to be done on an inpatient basis and she will have to do it as an outpatient once she is comfortable, but further interventions will depend on her clinical course. The patient was also reviewed alongside the primary oncologist, Dr. Lockhart and will continue to follow in house. Evaluation time today was more than an hour. Dictated By: VU LAYTON MD BA/NTS Conf#: [id number] DID#: [id number] CC: VIRIDIANA MAYER MD;*EndCC* MTDD
[2019-01-05 19:54] VITALS: BP 132/70; PULSE 74; RESP 18
[2019-01-05] MEDS: ZOLPIDEM 5 MG TAB PO PRN (23:59)
[2019-01-06 02:14] VITALS: BP 120/82; PULSE 78; RESP 18
[2019-01-06] MEDS: HYDROmorphONE 1 MG/ML SYG IV PRN ×8 (03:18→23:51)
[2019-01-06] MEDS: DEXTROSE 5%-0.45% NACL 1,000 ML IV SCH ×2 (03:19→14:47)
[2019-01-06] MEDS: ONDANSETRON 4 MG INJ IV PRN ×2 (05:56→17:41)
[2019-01-06 07:37] VITALS: BP 145/99; PULSE 87; RESP 19
[2019-01-06] MEDS: ENOXAPARIN 30 MG/0.3 ML SYG SC SCH (08:31)
--- NOTE | 2019-01-06 10:24 | PN ---
Date/Time of Note Date/Time of Note DATE: 01/06/19 TIME: 10:21 Outpatient Progress Note HPI RUQ pain nausea for pain meds no bleeding no SOB Review of Systems no headaches ++ nausea no bleeding no motor issues no sensory issues Physical Exam Vital Signs Date Temp Pulse Resp B/P (MAP) Pulse Ox O2 O2 Flow FiO2 Time Delivery Rate 01/06/19 98.7 87 19 145/99 97 07:37 (114) 01/05/19 Room Air 19:54 Intake and Output 01/05/19 01/05/19 01/06/19 1515:00 23:00 07:00 IntakeIntake Total 440 ml 1000 ml OutputOutput Total 1 ml 151 ml BalanceBalance -1 ml 289 ml 1000 ml General Appearance: mild distress S1S2 Clear lungs Soft abdomen tender RUQ Result Diagram: 01/05/19 1339 01/05/19 1339 Allergies Coded Allergies: No Known Allergy (Unverified , 12/18/18) Assessment/Plan ASSESSMENT AND PLAN: 1. A 33-year-old female with recurrent advanced stage IV breast cancer, triple negative disease, ER negative, [place] negative, HER-2/sienna negative. 2. Treatment and stage IV lesions mainly in the liver, eliza hepatis, abdominal adenopathy. 3. Pain management. 4. Antinausea and vomiting medications. 5. Plan to find her brachytherapy, chemotherapy, transarterial chemoembolization TACE if possible. 6. Tertiary centers and other institution cancer centers [facility] be called [facility], we do not perform the arterial chemoembolization. 7. NORMAL LFT's and bilirubin ok for the TACE procedure Medications Home Meds Active Scripts Levofloxacin* (Levaquin*) 500 Mg Tablet, 500 MG PO DAILY@06, #7 TAB Prov:YOUNG PEARL NP 12/30/18 Oxycodone HCl/Acetaminophen (Percocet 5-325 mg Tablet) 1 Each Tablet, 1 EACH PO Q4, #50 TAB Prov:YOUNG PEARL NP 12/30/18 Pantoprazole* (Pantoprazole*) 40 Mg Tablet.dr, 40 MG PO BID@06,18, #60 TAB Prov:YOUNG PEARL NP 12/30/18 Prochlorperazine* (Prochlorperazine*) 10 Mg Tablet, 10 MG PO Q6H PRN for NAUSEA, #30 TAB Prov:YOUNG PEARL NP 12/30/18 Scopolamine (Scopolamine) 1 Each Patch.td.3, 1 EACH TD Q72H PRN for NAUSEA, #10 ADH.PATCH Prov:YOUNG PEARL NP 12/30/18 Ondansetron Hcl* (Zofran*) 8 Mg Tablet, 8 MG PO Q6H PRN for NAUSEA AND OR VOMITING, #40 TAB Prov:YOUNG PEARL NP 12/30/18 Discontinued Reported Medications Ribociclib Succinate/Letrozole (Kisqali Femara 600 mg Co-Pack) 1 Each Tablet, 3 EACH PO DAILY, TAB ON 21 DAYS OFF 7 DAYS 12/13/18 HUSAM STUBBS Jan 06, 2019 10:24
[2019-01-06] MEDS: PROCHLORPERAZINE 10 MG INJ IV PRN ×2 (10:32→16:31)
--- NOTE | 2019-01-06 12:20 | PN ---
Date/Time of Note Date/Time of Note DATE: 01/06/19 TIME: 12:18 Assessment/Plan VTE Prophylaxis Risk score (from Nsg)>0 risk: 2 SCD applied (from Nsg): Yes Pharmacological prophylaxis: LMWH Lines/Catheters IV Catheter Type (from Nrsg): portacath Urinary Cath still in place: No Assessment/Plan Hospital Course 1. Intractable pain and nausea secondary to stage IV breast cancer with meta stasis to liver Continue pain control and anti-medics Oncology consultation appreciated, plan is to transfer to [facility] for transarterial chemoembolization Prophylaxis: Lovenox Result Diagram: 01/05/19 1339 01/05/19 1339 Results 24hrs Laboratory Tests Test 01/05/19 13:39 01/05/19 22:45 White Blood Count 6.1 Red Blood Count 3.11 L Hemoglobin 9.4 L Hematocrit 28.2 L Mean Corpuscular Volume 90.7 Mean Corpuscular Hemoglobin 30.2 Mean Corpuscular Hemoglobin Concent 33.3 Red Cell Distribution Width 14.1 Platelet Count 225 Mean Platelet Volume 12.0 H Immature Granulocytes % 0.200 Neutrophils % 62.4 Lymphocytes % 22.7 Monocytes % 12.7 H Eosinophils % 0.7 Basophils % 1.3 Nucleated Red Blood Cells % 0.0 Immature Granulocytes # 0.010 Neutrophils # 3.8 Lymphocytes # 1.4 Monocytes # 0.8 Eosinophils # 0.0 Basophils # 0.1 Nucleated Red Blood Cells # 0.0 Sodium Level 138 Potassium Level 3.9 Chloride Level 99 Carbon Dioxide Level 30 Anion Gap 9 Blood Urea Nitrogen 10 Creatinine 0.80 Est Glomerular Filtrat Rate mL/min > 60 Glucose Level 106 Calcium Level 9.7 Phosphorus Level 4.6 Magnesium Level 1.8 Total Bilirubin 0.4 Direct Bilirubin 0.00 Indirect Bilirubin 0.4 Aspartate Amino Transf (AST/SGOT) 28 Alanine Aminotransferase (ALT/SGPT) 24 Alkaline Phosphatase 121 Total Protein 7.5 Albumin 3.8 Globulin 3.70 H Albumin/Globulin Ratio 1.02 Urine Color YELLOW Urine Clarity CLEAR Urine pH 7.0 Urine Specific [place] 1.008 Urine Ketones NEGATIVE Urine Nitrite NEGATIVE Urine Bilirubin NEGATIVE Urine Urobilinogen NEGATIVE Urine Leukocyte Esterase NEGATIVE Urine Hemoglobin NEGATIVE Urine Glucose NEGATIVE Urine Total Protein NEGATIVE Subjective 24 Hr Interval Summary Gastrointestinal: pain, nausea Exam/Review of Systems Exam Vitals Vital Signs Date Temp Pulse Resp B/P (MAP) Pulse Ox O2 O2 Flow FiO2 Time Delivery Rate 01/06/19 98.7 87 19 145/99 97 07:37 (114) 01/05/19 Room Air 19:54 Intake and Output 01/05/19 01/05/19 01/06/19 1515:00 23:00 07:00 IntakeIntake Total 440 ml 1000 ml OutputOutput Total 1 ml 151 ml BalanceBalance -1 ml 289 ml 1000 ml Constitutional: alert, oriented Respiratory: clear to auscultation Cardiovascular: regular rate and rhythm Gastrointestinal: soft; No distended Musculoskeletal: nl extremities to inspection Results Results 24hrs Laboratory Tests Test 01/05/19 13:39 01/05/19 22:45 White Blood Count 6.1 Red Blood Count 3.11 L Hemoglobin 9.4 L Hematocrit 28.2 L Mean Corpuscular Volume 90.7 Mean Corpuscular Hemoglobin 30.2 Mean Corpuscular Hemoglobin Concent 33.3 Red Cell Distribution Width 14.1 Platelet Count 225 Mean Platelet Volume 12.0 H Immature Granulocytes % 0.200 Neutrophils % 62.4 Lymphocytes % 22.7 Monocytes % 12.7 H Eosinophils % 0.7 Basophils % 1.3 Nucleated Red Blood Cells % 0.0 Immature Granulocytes # 0.010 Neutrophils # 3.8 Lymphocytes # 1.4 Monocytes # 0.8 Eosinophils # 0.0 Basophils # 0.1 Nucleated Red Blood Cells # 0.0 Sodium Level 138 Potassium Level 3.9 Chloride Level 99 Carbon Dioxide Level 30 Anion Gap 9 Blood Urea Nitrogen 10 Creatinine 0.80 Est Glomerular Filtrat Rate mL/min > 60 Glucose Level 106 Calcium Level 9.7 Phosphorus Level 4.6 Magnesium Level 1.8 Total Bilirubin 0.4 Direct Bilirubin 0.00 Indirect Bilirubin 0.4 Aspartate Amino Transf (AST/SGOT) 28 Alanine Aminotransferase (ALT/SGPT) 24 Alkaline Phosphatase 121 Total Protein 7.5 Albumin 3.8 Globulin 3.70 H Albumin/Globulin Ratio 1.02 Urine Color YELLOW Urine Clarity CLEAR Urine pH 7.0 Urine Specific Morven 1.008 Urine Ketones NEGATIVE Urine Nitrite NEGATIVE Urine Bilirubin NEGATIVE Urine Urobilinogen NEGATIVE Urine Leukocyte Esterase NEGATIVE Urine Hemoglobin NEGATIVE Urine Glucose NEGATIVE Urine Total Protein NEGATIVE Medications Medication Current Medications Dextrose/Sodium Chloride 1,000 ml @ 80 mls/hr [id number] IV Last administered on 01/06/19at 03:19; Admin Dose 80 MLS/HR; Start 01/05/19 at 12:14 Acetaminophen (Tylenol Tab) 650 mg Q6H PRN PO .PAIN 1-3 OR TEMP; Start 01/05/19 at 12:30 Docusate Sodium (Colace) 100 mg Q12H PO Last administered on 01/05/19at 23:59; Admin Dose 100 MG; Start 01/05/19 at 12:30 Zolpidem Tartrate (Ambien) 5 mg QHS PRN PO .INSOMNIA Last administered on 01/05/19at 23:59; Admin Dose 5 MG; Start 01/05/19 at 12:30 Enoxaparin Sodium (Lovenox) 30 mg DAILY SC Last administered on 01/06/19at 08:31; Admin Dose 30 MG; Start 01/06/19 at 09:00 Hydromorphone HCl (Dilaudid) 1 mg Q3H PRN IV SEVERE PAIN LEVEL 7-10 Last administered on 01/06/19at 11:44; Admin Dose 1 MG; Start 01/05/19 at 21:30 Prochlorperazine (Compazine Inj) 10 mg Q6H PRN IV NAUSEA AND/OR VOMITING Last administered on 01/06/19at 10:32; Admin Dose 10 MG; Start 01/06/19 at 10:30 Ondansetron HCl (Zofran Inj) 4 mg Q4H PRN IV NAUSEA/VOMITING; Start 01/06/19 at 12:30 SURI HARDY Jan 06, 2019 12:20
[2019-01-06] MEDS: DOCUSATE SODIUM 100 MG CAP PO SCH ×2 (14:47→23:51)
[2019-01-06 19:44] VITALS: BP 147/96; PULSE 74; RESP 18
[2019-01-07 02:29] VITALS: BP 137/96; PULSE 100; RESP 18
[2019-01-07] MEDS: PROCHLORPERAZINE 10 MG INJ IV PRN ×3 (02:38→19:55)
[2019-01-07] MEDS: HYDROmorphONE 1 MG/ML SYG IV PRN ×8 (02:41→23:56)
[2019-01-07] MEDS: DEXTROSE 5%-0.45% NACL 1,000 ML IV SCH ×4 (04:00→22:20)
[2019-01-07 07:26] VITALS: BP 147/95; PULSE 75; RESP 14
--- NOTE | 2019-01-07 08:53 | PN ---
Date/Time of Note Date/Time of Note DATE: 01/07/19 TIME: 08:49 Outpatient Progress Note HPI better less nausea no vomiting no bleeding less RUQ pain Review of Systems Const: No Fever, no chills, no Wt. loss, no Fatigue, normal appetite, no diaphoresis. Eyes: No pain, no discharge, no redness, no visual change, no foreign body. ENT: No pain, no bleeding, no congestion, no sore throat, no dysphagia, no discharge or rhinitis. Lymph: No adenopathy, no tender nodes, no lymphedema. Resp: No SOB, no cough, no sputum, no wheezing, no chest pain. CV: No chest pain, no palpitaions, no POTTS, no PND, no edema. GI: Normal appetite, no pain, no nausea, no vomiting, no diarrhea, no blood, no constipation. : No frequency, no urgency, no dysuria, no hematuria, no flank pain, no discharge, no bleeding. Musc: No bone/joint pain, no back pain, no neck pain, no knee pain, no restricted ROM. Skin: No rash, no skin lesions, no erythema, no laceration, no bruising, no pruritus. Neuro: No JALLOH, no dizziness, no syncope, no seizure, no focal-weakness. Endo: No polyuria, no polydypsia, no dry-skin, no temp-intolerance. Psych: No hallucinations, no depression, no anxiety, no suicidal ideation. Ext: No edema, no pain, no ulcer, no weakness. Physical Exam Vital Signs Date Temp Pulse Resp B/P (MAP) Pulse Ox O2 O2 Flow FiO2 Time Delivery Rate 01/07/19 97.8 75 14 147/95 98 Room Air 07:26 (112) Intake and Output 01/06/19 01/06/19 01/07/19 1515:00 23:00 07:00 IntakeIntake Total 440 ml 500 ml 1000 ml BalanceBalance 440 ml 500 ml 1000 ml General Appearance: no distress S1S2 clear lungs soft abdomen Result Diagram: 01/05/19 1339 01/05/19 1339 Allergies Coded Allergies: No Known Allergy (Unverified , 12/18/18) Assessment/Plan ASSESSMENT AND PLAN: 1. A 33-year-old female with recurrent advanced stage IV breast cancer, triple negative disease, ER negative, OR negative, HER-2/sienna negative. 2. Treatment and stage IV lesions mainly in the liver, eliza hepatis, abdominal adenopathy. 3. Pain management. 4. Antinausea and vomiting medications. 5. Plan to find her brachytherapy, chemotherapy, transarterial chemoembolization TACE if possible. 6. Await referral since at [facility], we do not perform the arterial chemoembolization. 7. NORMAL LFT's and bilirubin ok for the TACE procedure Medications Home Meds Active Scripts Levofloxacin* (Levaquin*) 500 Mg Tablet, 500 MG PO DAILY@06, #7 TAB Prov:YOUNG PEARL NP 12/30/18 Oxycodone HCl/Acetaminophen (Percocet 5-325 mg Tablet) 1 Each Tablet, 1 EACH PO Q4, #50 TAB Prov:YOUNG PEARL NP 12/30/18 Pantoprazole* (Pantoprazole*) 40 Mg Tablet.dr, 40 MG PO BID@06,18, #60 TAB Prov:YOUNG PEARL NP 12/30/18 Prochlorperazine* (Prochlorperazine*) 10 Mg Tablet, 10 MG PO Q6H PRN for NAUSEA, #30 TAB Prov:YOUNG PEARL NP 12/30/18 Scopolamine (Scopolamine) 1 Each Patch.td.3, 1 EACH TD Q72H PRN for NAUSEA, #10 ADH.PATCH Prov:YOUNG PEARL NP 12/30/18 Ondansetron Hcl* (Zofran*) 8 Mg Tablet, 8 MG PO Q6H PRN for NAUSEA AND OR VOMIT ING, #40 TAB Prov:YOUNG PEARL NP 12/30/18 HUSAM STUBBS Jan 07, 2019 08:53
[2019-01-07] MEDS: ENOXAPARIN 30 MG/0.3 ML SYG SC SCH (08:55)
[2019-01-07] MEDS: DOCUSATE SODIUM 100 MG CAP PO SCH ×2 (11:53→23:48)
--- NOTE | 2019-01-07 14:26 | PN ---
Date/Time of Note Date/Time of Note DATE: 01/07/19 TIME: 14:26 Assessment/Plan VTE Prophylaxis Risk score (from Nsg)>0 risk: 6 SCD applied (from Nsg): Yes Pharmacological prophylaxis: LMWH Lines/Catheters IV Catheter Type (from Nrsg): Portacath Urinary Cath still in place: No Assessment/Plan Hospital Course 1. Intractable pain and nausea secondary to stage IV breast cancer with meta stasis to liver Continue pain control and anti-medics Oncology consultation appreciated, plan is to transfer to [facility] for transarterial chemoembolization Prophylaxis: Lovenox Result Diagram: 01/05/19 1339 01/05/19 1339 Subjective 24 Hr Interval Summary Gastrointestinal: nausea Exam/Review of Systems Exam Vitals Vital Signs Date Temp Pulse Resp B/P (MAP) Pulse Ox O2 O2 Flow FiO2 Time Delivery Rate 01/07/19 97.8 75 14 147/95 98 Room Air 07:26 (112) Intake and Output 01/06/19 01/06/19 01/07/19 1515:00 23:00 07:00 IntakeIntake Total 440 ml 500 ml 1000 ml BalanceBalance 440 ml 500 ml 1000 ml Constitutional: alert, oriented Respiratory: clear to auscultation Cardiovascular: regular rate and rhythm Gastrointestinal: soft Musculoskeletal: No nl extremities to inspection Medications Medication Current Medications Dextrose/Sodium Chloride 1,000 ml @ 80 mls/hr [id number] IV Last administered on 01/07/19at 05:56; Admin Dose 80 MLS/HR; Start 01/05/19 at 12:14 Acetaminophen (Tylenol Tab) 650 mg Q6H PRN PO .PAIN 1-3 OR TEMP; Start 01/05/19 at 12:30 Docusate Sodium (Colace) 100 mg Q12H PO Last administered on 01/06/19at 23:51; Admin Dose 100 MG; Start 01/05/19 at 12:30 Zolpidem Tartrate (Ambien) 5 mg QHS PRN PO .INSOMNIA Last administered on 01/05/19at 23:59; Admin Dose 5 MG; Start 01/05/19 at 12:30 Enoxaparin Sodium (Lovenox) 30 mg DAILY SC Last administered on 01/07/19at 08:55; Admin Dose 30 MG; Start 01/06/19 at 09:00 Hydromorphone HCl (Dilaudid) 1 mg Q3H PRN IV SEVERE PAIN LEVEL 7-10 Last administered on 01/07/19at 11:54; Admin Dose 1 MG; Start 01/05/19 at 21:30 Prochlorperazine (Compazine Inj) 10 mg Q6H PRN IV NAUSEA AND/OR VOMITING Last administered on 01/07/19at 12:10; Admin Dose 10 MG; Start 01/06/19 at 10:30 Ondansetron HCl (Zofran Inj) 4 mg Q4H PRN IV NAUSEA/VOMITING Last administered on 01/06/19at 17:41; Admin Dose 4 MG; Start 01/06/19 at 12:30 SURI HARDY Jan 07, 2019 14:26
[2019-01-07] MEDS: ONDANSETRON 4 MG INJ IV PRN ×2 (17:53→22:00)
[2019-01-07 20:18] VITALS: BP 156/95; PULSE 72; RESP 18
[2019-01-07] MEDS: ZOLPIDEM 5 MG TAB PO PRN (22:12)
[2019-01-08] MEDS: ONDANSETRON 4 MG INJ IV PRN ×5 (01:57→23:54)
[2019-01-08] MEDS: PROCHLORPERAZINE 10 MG INJ IV PRN ×4 (01:57→20:58)
[2019-01-08 02:03] VITALS: BP 150/84; PULSE 66; RESP 16
[2019-01-08] MEDS: HYDROmorphONE 1 MG/ML SYG IV PRN ×8 (02:58→23:54)
[2019-01-08 06:40] VITALS: BP 144/93; PULSE 71
[2019-01-08 07:40] VITALS: BP 159/94; PULSE 72; RESP 18
[2019-01-08] MEDS: ENOXAPARIN 30 MG/0.3 ML SYG SC SCH (09:12)
[2019-01-08] MEDS: DOCUSATE SODIUM 100 MG CAP PO SCH (12:30)
--- NOTE | 2019-01-08 14:41 | DS ---
Date/Time of Note Date/Time of Note DATE: 01/08/19 TIME: 14:39 Discharge Summary Admission/Discharge Info Admit Date/Time Jan 05, 2019 at 10:34 Discharge Date/Time January 08, 2019 Discharge Diagnosis 1. Intractable pain and nausea secondary to stage IV breast cancer with metastasis to liver Continue pain control and anti-emetics Oncology consultation appreciated, plan is to transfer to [facility] for transarterial chemoembolization Patient Condition: Fair Hospital Course Patient is an unfortunate 33-year-old female with history of stage IV breast cancer with metastasis to liver. Patient presents with chest wall nausea and pain, patient was given medications for symptomatic control. Patient was seen by her oncologist and arrangements were made for patient to be transferred to [facility] for transarterial chemoembolization. Patient stable for transfer. Home Meds Active Scripts Levofloxacin* (Levaquin*) 500 Mg Tablet, 500 MG PO DAILY@06, #7 TAB Prov:YOUNG PEARL NP 12/30/18 Oxycodone HCl/Acetaminophen (Percocet 5-325 mg Tablet) 1 Each Tablet, 1 EACH PO Q4, #50 TAB Prov:YOUNG PEARL NP 12/30/18 Pantoprazole* (Pantoprazole*) 40 Mg Tablet.dr, 40 MG PO BID@06,18, #60 TAB Prov:YOUNG PEARL NP 12/30/18 Prochlorperazine* (Prochlorperazine*) 10 Mg Tablet, 10 MG PO Q6H PRN for NAUSEA, #30 TAB Prov:YOUNG PEARL NP 12/30/18 Scopolamine (Scopolamine) 1 Each Patch.td.3, 1 EACH TD Q72H PRN for NAUSEA, #10 ADH.PATCH Prov:YOUNG PEARL NP 12/30/18 Ondansetron Hcl* (Zofran*) 8 Mg Tablet, 8 MG PO Q6H PRN for NAUSEA AND OR VOMITING, #40 TAB Prov:YOUNG PEARL NP 12/30/18 Follow-up Plan Follow-up physicians at [facility] Primary Care Provider [facility] Time spent on discharge: > 30 minutes SURI HARDY Jan 08, 2019 14:41
[2019-01-08 14:49] VITALS: BP 161/90; PULSE 72; RESP 18
[2019-01-08 20:08] VITALS: BP 133/80; PULSE 70; RESP 18
[2019-01-09] MEDS: DOCUSATE SODIUM 100 MG CAP PO SCH ×3 (00:30→23:49)
[2019-01-09 02:00] VITALS: BP 131/91; PULSE 101; RESP 18
[2019-01-09] MEDS: PROCHLORPERAZINE 10 MG INJ IV PRN ×3 (02:56→20:48)
[2019-01-09] MEDS: HYDROmorphONE 1 MG/ML SYG IV PRN ×8 (02:57→23:49)
[2019-01-09] MEDS: ONDANSETRON 4 MG INJ IV PRN ×3 (05:57→15:53)
[2019-01-09 07:35] VITALS: BP 138/97; PULSE 75; RESP 18
[2019-01-09] MEDS: ENOXAPARIN 30 MG/0.3 ML SYG SC SCH (09:03)
--- NOTE | 2019-01-09 09:05 | PN ---
Date/Time of Note Date/Time of Note DATE: 01/09/19 TIME: 09:03 Outpatient Progress Note HPI better less nausea vomiting no bleeding Review of Systems Const: no fever less abd pain Physical Exam Vital Signs Date Temp Pulse Resp B/P (MAP) Pulse Ox O2 O2 Flow FiO2 Time Delivery Rate 01/09/19 98.8 75 18 138/97 94 Room Air 07:35 (111) Intake and Output 01/08/19 01/08/19 01/09/19 1515:00 23:00 07:00 IntakeIntake Total 1840 ml 300 ml 300 ml BalanceBalance 1840 ml 300 ml 300 ml General Appearance: clear lungs S1S2 SOFT ABDOMEN Result Diagram: 01/05/19 1339 01/05/19 1339 Allergies Coded Allergies: No Known Allergy (Unverified , 12/18/18) Assessment/Plan ASSESSMENT AND PLAN: 1. A 33-year-old female with recurrent advanced stage IV breast cancer, triple negative disease, ER negative, [place] negative, HER-2/sienna negative. 2. Treatment and stage IV lesions mainly in the liver, eliza hepatis, abdominal adenopathy. 3. Pain management. 4. Antinausea and vomiting medications. 5. Plan to find her brachytherapy, chemotherapy, transarterial chemoembolization TACE if possible. 6. Await referral to another hospital since at [facility], we do not perform the arterial chemoembolization. 7. NORMAL LFT's and bilirubin ok for the TACE procedure 8. COMPLETED ONE DOSE OF CARBOPLATIN >> LATER DOSE 2 Medications Home Meds Active Scripts Levofloxacin* (Levaquin*) 500 Mg Tablet, 500 MG PO DAILY@06, #7 TAB Prov:YOUNG PEARL NP 12/30/18 Oxycodone HCl/Acetaminophen (Percocet 5-325 mg Tablet) 1 Each Tablet, 1 EACH PO Q4, #50 TAB Prov:YOUNG PEARL NP 12/30/18 Pantoprazole* (Pantoprazole*) 40 Mg Tablet.dr, 40 MG PO BID@06,18, #60 TAB Prov:YOUNG PEARL NP 12/30/18 Prochlorperazine* (Prochlorperazine*) 10 Mg Tablet, 10 MG PO Q6H PRN for NAUSEA, #30 TAB Prov:YOUNG PEARL NP 12/30/18 Scopolamine (Scopolamine) 1 Each Patch.td.3, 1 EACH TD Q72H PRN for NAUSEA, #10 ADH.PATCH Prov:YOUNG PEARL NP 12/30/18 Ondansetron Hcl* (Zofran*) 8 Mg Tablet, 8 MG PO Q6H PRN for NAUSEA AND OR VOMITING, #40 TAB Prov:YOUNG PEARL NP 12/30/18 HUSAM STUBBS Jan 09, 2019 09:05
[2019-01-09 14:00] VITALS: BP 137/93; PULSE 86; RESP 18
--- NOTE | 2019-01-09 16:47 | DS ---
Date/Time of Note Date/Time of Note DATE: 01/09/19 TIME: 16:38 Discharge Summary Admission/Discharge Info Admit Date/Time Jan 05, 2019 at 10:34 Discharge Date/Time Discharge Diagnosis 1. Intractable pain and nausea secondary to stage IV breast cancer with meta stasis to liver, transfer to [facility] for transarterial chemoembolization 2. Normocytic anemia, malignancy related, follow up with H/H Patient Condition: Stable Hospital Course Patient is an unfortunate 33-year-old female with history of stage IV breast cancer with metastasis to liver. Patient presents with chest wall nausea and pain, patient was given medications for symptomatic control. Patient was seen by her oncologist and arrangements were made for patient to be transferred to [facility] for transarterial chemoembolization. Patient stable for transfer. Home Meds Active Scripts Levofloxacin* (Levaquin*) 500 Mg Tablet, 500 MG PO DAILY@06, #7 TAB Prov:YOUNG PEARL NP 12/30/18 Oxycodone HCl/Acetaminophen (Percocet 5-325 mg Tablet) 1 Each Tablet, 1 EACH PO Q4, #50 TAB Prov:YOUNG PEARL NP 12/30/18 Pantoprazole* (Pantoprazole*) 40 Mg Tablet.dr, 40 MG PO BID@06,18, #60 TAB Prov:YOUNG PEARL NP 12/30/18 Prochlorperazine* (Prochlorperazine*) 10 Mg Tablet, 10 MG PO Q6H PRN for NAUSEA, #30 TAB Prov:YUONG PEARL NP 12/30/18 Scopolamine (Scopolamine) 1 Each Patch.td.3, 1 EACH TD Q72H PRN for NAUSEA, #10 ADH.PATCH Prov:YOUNG PEARL NP 12/30/18 Ondansetron Hcl* (Zofran*) 8 Mg Tablet, 8 MG PO Q6H PRN for NAUSEA AND OR VOMITING, #40 TAB Prov:YOUNG PEARL NP 12/30/18 Follow-up Plan Follow-up physicians at [facility] Primary Care Provider [facility] JUVENAL COYNE MD Jan 09, 2019 16:47
[2019-01-09 19:18] VITALS: BP 151/96; PULSE 86; RESP 18
[2019-01-09] MEDS: ACETAMINOPHEN 325 MG TAB PO PRN (19:42)
[2019-01-10 02:12] VITALS: BP 140/96; PULSE 94; RESP 18
[2019-01-10] MEDS: HYDROmorphONE 1 MG/ML SYG IV PRN ×7 (02:50→21:15)
[2019-01-10] MEDS: ACETAMINOPHEN 325 MG TAB PO PRN ×2 (05:01→19:37)
[2019-01-10] MEDS: PROCHLORPERAZINE 10 MG INJ IV PRN ×3 (05:47→18:12)
[2019-01-10 07:41] VITALS: BP 127/76; PULSE 78; RESP 18
[2019-01-10] MEDS: ENOXAPARIN 30 MG/0.3 ML SYG SC SCH (09:05)
[2019-01-10] MEDS: DOCUSATE SODIUM 100 MG CAP PO SCH (11:56)
--- NOTE | 2019-01-10 13:49 | PN ---
Date/Time of Note Date/Time of Note DATE: 01/10/19 TIME: 13:47 Outpatient Progress Note HPI better less pain no bleeding less nausea Review of Systems Const: No Fever, no chills, no Wt. loss, no Fatigue, normal appetite, no diaphoresis. Physical Exam Vital Signs Date Temp Pulse Resp B/P (MAP) Pulse Ox O2 O2 Flow FiO2 Time Delivery Rate 01/10/19 97.8 78 18 127/76 96 Room Air 07:41 (93) Intake and Output 01/09/19 01/09/19 01/10/19 1515:00 23:00 07:00 IntakeIntake Total 300 ml 550 ml 250 ml OutputOutput Total 200 ml 200 ml BalanceBalance 300 ml 350 ml 50 ml General Appearance: no distress S1S2 clear lungs soft abdomen Allergies Coded Allergies: No Known Allergy (Unverified , 12/18/18) Assessment/Plan ASSESSMENT AND PLAN: 1. A 33-year-old female with recurrent advanced stage IV breast cancer, triple negative disease, ER negative, DC negative, HER-2/sienna negative. 2. Treatment and stage IV lesions mainly in the liver, eliza hepatis, abdominal adenopathy. 3. Pain management. 4. Antinausea and vomiting medications. 5. Plan to find her brachytherapy, chemotherapy, transarterial chemoembolization TACE if possible. 6. Await referral to another hospital since at [facility], we do not perform the arterial chemoembolization. 7. NORMAL LFT's and bilirubin ok for the TACE procedure 8. COMPLETED ONE DOSE OF CARBOPLATIN >> LATER DOSE 2 9. If the patient is not getting transferred today or tomorrow then she will get carboplatin chemotherapy 10. If the patient gets transferred today or tomorrow THEN No chemotherapy will be given Medications Home Meds Active Scripts Levofloxacin* (Levaquin*) 500 Mg Tablet, 500 MG PO DAILY@06, #7 TAB Prov:YOUNG PEARL NP 12/30/18 Oxycodone HCl/Acetaminophen (Percocet 5-325 mg Tablet) 1 Each Tablet, 1 EACH PO Q4, #50 TAB Prov:YOUNG PEARL NP 12/30/18 Pantoprazole* (Pantoprazole*) 40 Mg Tablet.dr, 40 MG PO BID@06,18, #60 TAB Prov:YOUNG PEARL NP 12/30/18 Prochlorperazine* (Prochlorperazine*) 10 Mg Tablet, 10 MG PO Q6H PRN for NAUSEA, #30 TAB Prov:YOUNG PEARL NP 12/30/18 Scopolamine (Scopolamine) 1 Each Patch.td.3, 1 EACH TD Q72H PRN for NAUSEA, #10 ADH.PATCH Prov:YOUNG PEARL NP 12/30/18 Ondansetron Hcl* (Zofran*) 8 Mg Tablet, 8 MG PO Q6H PRN for NAUSEA AND OR VOMITING, #40 TAB Prov:YOUNG PEARL NP 12/30/18 HUSAM STUBBS Jan 10, 2019 13:49
[2019-01-10 14:35] VITALS: BP 149/96; PULSE 99; RESP 20
--- NOTE | 2019-01-10 14:56 | PN ---
Date/Time of Note Date/Time of Note DATE: 01/10/19 TIME: 14:53 Assessment/Plan VTE Prophylaxis Risk score (from Nsg)>0 risk: 5 SCD applied (from Nsg): Yes Pharmacological prophylaxis: LMWH Lines/Catheters IV Catheter Type (from Nrsg): Portacath Urinary Cath still in place: No Assessment/Plan Hospital Course Patient is an unfortunate 33-year-old female with history of stage IV breast cancer with metastasis to liver. Patient presents with chest wall nausea and pain, patient was given medications for symptomatic control. Patient was seen by her oncologist and arrangements were made for patient to be transferred to [facility] for transarterial chemoembolization. Patient stable for transfer. Assessment/Plan 1. Metastatic breast cancer to liver and lymph nodes, follow up with oncology for further treatment plan 2. Esophagitis, gastritis, and duodenitis on recent EGD, on protonix 3. Normocytic anemia, mild, malignancy related 4. DVT prophylaxis: lovenox Subjective 24 Hr Interval Summary Free Text/Dictation abdominal pain Exam/Review of Systems Exam Vitals Vital Signs Date Temp Pulse Resp B/P (MAP) Pulse Ox O2 O2 Flow FiO2 Time Delivery Rate 01/10/19 98.0 99 20 149/96 96 14:35 (113) 01/10/19 Room Air 07:41 Intake and Output 01/09/19 01/09/19 01/10/19 1515:00 23:00 07:00 IntakeIntake Total 300 ml 550 ml 250 ml OutputOutput Total 200 ml 200 ml BalanceBalance 300 ml 350 ml 50 ml Constitutional: alert, oriented, well developed Head: normocephalic, atraumatic Eyes: nl conjunctiva, EOMI, nl lids ENMT: nl external ears & nose, nl lips & teeth, nl nasal mucosa & septum Neck: supple, non-tender Respiratory: clear to auscultation, normal air movement; No congested cough, No crackles/rales, No diminished breath sounds, No intercostal retraction, No labored breathing, No respirations, No tactile fremitus, No wheezing, No other Cardiovascular: regular rate and rhythm, nl pulses; No bruits, No diastolic murmur, No edema, No gallop, No irregular rhythm, No jugular venous distention (JVD), No murmurs/extra sounds, No rub, No systolic murmur, No S3, No S4, No other Gastrointestinal: soft, tender Musculoskeletal: nl extremities to inspection Extremities: normal pulses; No calf tenderness, No cyanosis, No clubbing, No edema, No pitting pedal edema, No palpable cord, No tenderness, No other 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: 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, nl mental status, nl speech, nl strength Medications Medication Current Medications Acetaminophen (Tylenol Tab) 650 mg Q6H PRN PO .PAIN 1-3 OR TEMP Last administer ed on 01/10/19 05:01; Admin Dose 650 MG; Start 01/05/19 at 12:30 Docusate Sodium (Colace) 100 mg Q12H PO Last administered on 01/10/19 11:56; Admin Dose 100 MG; Start 01/05/19 at 12:30 Zolpidem Tartrate (Ambien) 5 mg QHS PRN PO .INSOMNIA Last administered on 01/07/19 22:12; Admin Dose 5 MG; Start 01/05/19 at 12:30 Enoxaparin Sodium (Lovenox) 30 mg DAILY SC Last administered on 01/10/19 09:05; Admin Dose 30 MG; Start 01/06/19 at 09:00 Hydromorphone HCl (Dilaudid) 1 mg Q3H PRN IV SEVERE PAIN LEVEL 7-10 Last administered on 01/10/19 11:56; Admin Dose 1 MG; Start 01/05/19 at 21:30 Prochlorperazine (Compazine Inj) 10 mg Q6H PRN IV NAUSEA AND/OR VOMITING Last administered on 01/10/19 11:56; Admin Dose 10 MG; Start 01/06/19 at 10:30 Ondansetron HCl (Zofran Inj) 4 mg Q4H PRN IV NAUSEA/VOMITING Last administered on 01/09/19 15:53; Admin Dose 4 MG; Start 01/06/19 at 12:30 JUVENAL COYNE MD Jan 10, 2019 14:56
[2019-01-10 19:17] VITALS: BP 145/99; PULSE 102; RESP 20
[2019-01-10] MEDS: ONDANSETRON 4 MG INJ IV PRN (19:45)
[2019-01-10] MEDS: ZOLPIDEM 5 MG TAB PO PRN (21:55)
[2019-01-11] VITALS (8 sets, daily range): BP systolic 141–183; BP diastolic 86–103; PULSE 52–100; RESP 17–20
[2019-01-11] MEDS: DOCUSATE SODIUM 100 MG CAP PO SCH ×2 (00:01→13:00)
[2019-01-11] MEDS: HYDROmorphONE 1 MG/ML SYG IV PRN ×9 (00:05→23:52)
[2019-01-11] MEDS: ACETAMINOPHEN 325 MG TAB PO PRN ×2 (02:25→13:00)
[2019-01-11] MEDS: ONDANSETRON 4 MG INJ IV PRN ×2 (03:06→08:18)
[2019-01-11] MEDS: PANTOPRAZOLE (EC) 40 MG TAB PO SCH (06:17)
[2019-01-11] MEDS: HYDROCORTISONE 1% 28.35 GM OINT TOP SCH ×2 (08:17→22:03)
[2019-01-11] MEDS: ENOXAPARIN 30 MG/0.3 ML SYG SC SCH (08:25)
[2019-01-11] MEDS ORDERED: HYDROCORTISONE 0.5% 28.35 GM OINT TOP SCH ×2 (09:00)
[2019-01-11] MEDS ORDERED: AMLODIPINE 2.5 MG TAB PO SCH (09:00)
[2019-01-11] MEDS: PROCHLORPERAZINE 10 MG INJ IV PRN ×2 (14:19→21:23)
--- NOTE | 2019-01-11 18:01 | PN ---
Date/Time of Note Date/Time of Note DATE: 01/11/19 TIME: 18:00 Assessment/Plan VTE Prophylaxis Risk score (from Nsg)>0 risk: 4 SCD applied (from Nsg): Yes Pharmacological prophylaxis: LMWH Lines/Catheters IV Catheter Type (from Nrsg): PORTACATH Urinary Cath still in place: No Assessment/Plan Hospital Course Patient is an unfortunate 33-year-old female with history of stage IV breast cancer with metastasis to liver. Patient presents with chest wall nausea and pain, patient was given medications for symptomatic control. Patient was seen by her oncologist and arrangements were made for patient to be transferred to [facility] for transarterial chemoembolization. Patient stable for transfer. Assessment/Plan 1. Metastatic breast cancer to liver and lymph nodes, follow up with oncology for further treatment plan 2. Esophagitis, gastritis, and duodenitis on recent EGD, on protonix 3. Normocytic anemia, mild, malignancy related 4. HTN, norvasc 5. DVT prophylaxis: lovenox Subjective 24 Hr Interval Summary Free Text/Dictation abdominal pain Exam/Review of Systems Exam Vitals Vital Signs Date Temp Pulse Resp B/P (MAP) Pulse Ox O2 O2 Flow FiO2 Time Delivery Rate 01/11/19 98.4 98 18 144/103 99 Room Air 14:57 (117) Constitutional: alert, oriented, well developed Head: normocephalic, atraumatic Eyes: nl conjunctiva, EOMI, nl lids ENMT: nl external ears & nose, nl lips & teeth, nl nasal mucosa & septum Neck: supple, non-tender Respiratory: clear to auscultation, normal air movement; No congested cough, No crackles/rales, No diminished breath sounds, No intercostal retraction, No labored breathing, No respirations, No tactile fremitus, No wheezing, No other Cardiovascular: regular rate and rhythm, nl pulses; No bruits, No diastolic murmur, No edema, No gallop, No irregular rhythm, No jugular venous distention (JVD), No murmurs/extra sounds, No rub, No systolic murmur, No S3, No S4, No other Gastrointestinal: soft, nl liver, spleen Musculoskeletal: nl extremities to inspection Extremities: normal pulses; No calf tenderness, No cyanosis, No clubbing, No edema, No pitting pedal edema, No palpable cord, No tenderness, No other 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, nl mental status, nl speech, nl strength Medications Medication Current Medications Acetaminophen (Tylenol Tab) 650 mg Q6H PRN PO .PAIN 1-3 OR TEMP Last administered on 01/11/19 13:00; Admin Dose 650 MG; Start 01/05/19 at 12:30 Docusate Sodium (Colace) 100 mg Q12H PO Last administered on 01/11/19 13:00; Admin Dose 100 MG; Start 01/05/19 at 12:30 Zolpidem Tartrate (Ambien) 5 mg QHS PRN PO .INSOMNIA Last administered on 01/10/19 21:55; Admin Dose 5 MG; Start 01/05/19 at 12:30 Enoxaparin Sodium (Lovenox) 30 mg DAILY SC Last administered on 01/11/19 08:25; Admin Dose 30 MG; Start 01/06/19 at 09:00 Hydromorphone HCl (Dilaudid) 1 mg Q3H PRN IV SEVERE PAIN LEVEL 7-10 Last administered on 01/11/19 15:15; Admin Dose 1 MG; Start 01/05/19 at 21:30 Prochlorperazine (Compazine Inj) 10 mg Q6H PRN IV NAUSEA AND/OR VOMITING Last administered on 01/11/19 14:19; Admin Dose 10 MG; Start 01/06/19 at 10:30 Ondansetron HCl (Zofran Inj) 4 mg Q4H PRN IV NAUSEA/VOMITING Last administered on 01/11/19 08:18; Admin Dose 4 MG; Start 01/06/19 at 12:30 Pantoprazole (Protonix Tab) 40 mg DAILY@06 PO Last administered on 01/11/19 06:17; Admin Dose 40 MG; Start 01/11/19 at 06:00 Hydrocortisone (Hydrocortisone 1% Oint) 1 applic BID TOP Last administered on 01/11/19 08:17; Admin Dose 1 APPLIC; Start 01/11/19 at 09:00 Amlodipine Besylate (Norvasc) 2.5 mg DAILY PO Last administered on 01/11/19 08:18; Admin Dose 2.5 MG; Start 01/11/19 at 09:00 JUVENAL COYNE MD Jan 11, 2019 18:01
[2019-01-11] MEDS ORDERED: FAMOTIDINE 20 MG INJ IV ONE (20:00)
[2019-01-11] MEDS ORDERED: DEXAMETHASONE 4 MG/ML 20 MG in DEXTROSE 5% 50 ML IVPB PRN (20:30)
[2019-01-11] MEDS ORDERED: DIPHENHYDRAMINE 50 MG INJ IV PRN (20:30)
[2019-01-11] MEDS ORDERED: METHYLPREDNISOLONE 125 MG INJ IV PRN (20:30)
[2019-01-11] MEDS ORDERED: FAMOTIDINE IVPB SCH (21:30)
[2019-01-11] MEDS ORDERED: SOD CHLORIDE 0.9% IVPB SCH (21:30)
[2019-01-11] MEDS ORDERED: ONDANSETRON INJ 16 MG, DEXAMETHASONE 4 MG/ML 20 MG in SOD CHLORIDE 0.9% 50 ML IV ONE (21:30)
[2019-01-11] MEDS ORDERED: ACETAMINOPHEN 325 MG TAB PO ONE (21:30)
[2019-01-11] MEDS ORDERED: DIPHENHYDRAMINE IVPB SCH (21:30)
[2019-01-11] MEDS ORDERED: SOD CHLORIDE 0.9% IV SCH (22:00)
[2019-01-11] MEDS ORDERED: CARBOPLATIN IV SCH (22:00)
[2019-01-11] MEDS: traMADol 50 MG TAB PO PRN (23:20)
[2019-01-12] VITALS: BP 143/89; PULSE 98; RESP 16
[2019-01-12 00:30] VITALS: BP 151/88; PULSE 95; RESP 16
[2019-01-12] MEDS: DOCUSATE SODIUM 100 MG CAP PO SCH ×2 (00:30→12:33)
[2019-01-12 01:00] VITALS: BP 142/96; PULSE 94; RESP 17
[2019-01-12 02:00] VITALS: BP 137/92; PULSE 93; RESP 18
[2019-01-12] MEDS: HYDROmorphONE 1 MG/ML SYG IV PRN ×4 (02:57→12:33)
[2019-01-12] MEDS: PROCHLORPERAZINE 10 MG INJ IV PRN (02:58)
[2019-01-12] MEDS: PANTOPRAZOLE (EC) 40 MG TAB PO SCH (06:02)
[2019-01-12 07:26] VITALS: BP 138/96; PULSE 80; RESP 18
[2019-01-12] MEDS: ENOXAPARIN 30 MG/0.3 ML SYG SC SCH (08:13)
[2019-01-12] MEDS: HYDROCORTISONE 1% 28.35 GM OINT TOP SCH (08:14)
[2019-01-12] MEDS: traMADol 50 MG TAB PO PRN ×2 (08:53→14:31)
[2019-01-12] MEDS ORDERED: AMLODIPINE 2.5 MG TAB PO SCH (09:00)
--- NOTE | 2019-01-12 12:57 | DS ---
Date/Time of Note Date/Time of Note DATE: 01/12/19 TIME: 12:54 Discharge Summary Admission/Discharge Info Admit Date/Time Jan 05, 2019 at 10:34 Discharge Date/Time Discharge Diagnosis 1. Metastatic breast cancer to liver and lymph nodes, follow up with oncology for further treatment plan 2. Esophagitis, gastritis, and duodenitis on recent EGD, on protonix 3. Normocytic anemia, mild, malignancy related 4. HTN, controlled with norvasc Patient Condition: Stable Hospital Course Patient is an unfortunate 33-year-old female with history of stage IV breast cancer with metastasis to liver. Patient presents with chest wall nausea and pain, patient was given medications for symptomatic control. Patient was seen by her oncologist and arrangements were made for patient to be transferred to [facility] for transarterial chemoembolization. Patient has history of hypertension. blood pressure is controlled with norvasc. H/H are 9.4/28.2 on 01/05/2019. Patient stable for transfer. Home Meds Active Scripts Amlodipine Besylate* (Amlodipine Besylate*) 2.5 Mg Tablet, 5 MG PO DAILY for 10 Days, TAB Prov:JUVENAL COYNE MD 01/12/19 Levofloxacin* (Levaquin*) 500 Mg Tablet, 500 MG PO DAILY@06, #7 TAB Prov:YOUNG PEARL NP 12/30/18 Oxycodone HCl/Acetaminophen (Percocet 5-325 mg Tablet) 1 Each Tablet, 1 EACH PO Q4, #50 TAB Prov:YOUNG PEARL NP 12/30/18 Pantoprazole* (Pantoprazole*) 40 Mg Tablet.dr, 40 MG PO BID@,18, #60 TAB Prov:YOUNG PEARL NP 12/30/18 Prochlorperazine* (Prochlorperazine*) 10 Mg Tablet, 10 MG PO Q6H PRN for NAUSEA, #30 TAB Prov:YOUNG PEARL NP 12/30/18 Scopolamine (Scopolamine) 1 Each Patch.td.3, 1 EACH TD Q72H PRN for NAUSEA, #10 ADH.PATCH Prov:YOUNG PEARL NP 12/30/18 Ondansetron Hcl* (Zofran*) 8 Mg Tablet, 8 MG PO Q6H PRN for NAUSEA AND OR VOMITING, #40 TAB Prov:YOUNG PEARL NP 12/30/18 Follow-up Plan Follow-up physicians at [facility] Primary Care Provider [facility] JUVENAL COYNE MD Jan 12, 2019 12:57
--- NOTE | 2019-01-12 13:19 | PN ---
Date/Time of Note Date/Time of Note DATE: 01/12/19 TIME: 13:15 Outpatient Progress Note HPI better less pain no bleeding + nausea Review of Systems Const: +- sweating less abd pain 3/10 no bleeding no SOB Physical Exam Vital Signs Date Temp Pulse Resp B/P (MAP) Pulse Ox O2 O2 Flow FiO2 Time Delivery Rate 01/12/19 98.3 80 18 138/96 96 07:26 (110) 01/12/19 Room Air 02:00 Intake and Output 01/11/19 01/11/19 01/12/19 1515:00 23:00 07:00 IntakeIntake Total 200 ml 400 ml 906 ml BalanceBalance 200 ml 400 ml 906 ml General Appearance: S1S2 no jaundice clear lungs soft abd Allergies Coded Allergies: No Known Allergy (Unverified , 12/18/18) Assessment/Plan ASSESSMENT AND PLAN: 1. A 33-year-old female with recurrent advanced stage IV breast cancer, triple negative disease, ER negative, NE negative, HER-2/sienna negative. 2. Treatment and stage IV lesions mainly in the liver, eliza hepatis, abdominal adenopathy. 3. Pain management. 4. Antinausea and vomiting medications. 5. Plan to find her brachytherapy, chemotherapy, transarterial chemoembolization TACE 6. Await referral to another hospital since at [facility], we do not perform the arterial chemoembolization. 7. NORMAL LFT's and bilirubin ok for the TACE procedure 8. Later consider immune therapy Atezoluzumab + Abraxane PDL1 only 5 % though 9. TNB cancer got 2 doses of carboplatin chemotherapy the last few weeks 10.Transferred to [facility] evaluation for TACE ( Normal LFT'S AND bilirubin) Medications Home Meds Active Scripts Amlodipine Besylate* (Amlodipine Besylate*) 2.5 Mg Tablet, 5 MG PO DAILY for 10 Days, TAB Prov:JUVENAL COYNE MD 01/12/19 Levofloxacin* (Levaquin*) 500 Mg Tablet, 500 MG PO DAILY@06, #7 TAB Prov:YOUNG PEARL NP 12/30/18 Oxycodone HCl/Acetaminophen (Percocet 5-325 mg Tablet) 1 Each Tablet, 1 EACH PO Q4, #50 TAB Prov:YOUNG PEARL NP 12/30/18 Pantoprazole* (Pantoprazole*) 40 Mg Tablet.dr, 40 MG PO BID@06,18, #60 TAB Prov:YOUNG PEARL NP 12/30/18 Prochlorperazine* (Prochlorperazine*) 10 Mg Tablet, 10 MG PO Q6H PRN for NAUSEA, #30 TAB Prov:YOUNG PEARL NP 12/30/18 Scopolamine (Scopolamine) 1 Each Patch.td.3, 1 EACH TD Q72H PRN for NAUSEA, #10 ADH.PATCH Prov:YOUNG PEARL NP 12/30/18 Ondansetron Hcl* (Zofran*) 8 Mg Tablet, 8 MG PO Q6H PRN for NAUSEA AND OR VOMITING, #40 TAB Prov:YOUNG PEARL NP 12/30/18 HUSAM STUBBS Jan 12, 2019 13:19
[2019-01-12] MEDS ORDERED: HEPARIN (100 UNITS/ML) 5 ML SYG CATHETER STA (14:17)
== END 2019-01-12 14:56 | disposition short-term general hospital (02) | DRG 948 ==
LOC: MS1 10:34
PROVIDERS: ADMIT Family Medicine; ATTEND Internal Medicine
DX: G89.3 Neoplasm related pain (acute) (chronic) (principal); C78.7 Secondary malignant neoplasm of liver and intrahepatic bile duct; C50.911 Malignant neoplasm of unspecified site of right female breast; I10 Essential (primary) hypertension; D63.0 Anemia in neoplastic disease; K20.9 Esophagitis, unspecified; K29.70 Gastritis, unspecified, without bleeding; K29.80 Duodenitis without bleeding; R11.0 Nausea; Z17.1 Estrogen receptor negative status [ER-]
CPT/HCPCS: 80053; 81003; 83735; 84100; 85025; J9045; J0780; J1100; J1170; J1200; J1642; J1650; J2270; J2405; J7042; J7050

== ENCOUNTER 2019-02-03 08:27 | Emergency (ER) | payer MEDICAID, OTHER ==
[~2019-02-03] VITALS: Ht 157.5 cm; Wt 70.0 kg
[~2019-02-03 08:27] MED LIST changes: +ALPR0.254 PO; +NALO4SPR NS; +ONDA8TAB14 PO; +OXYC-438 PO
[2019-02-03 08:31] VITALS: Ht 157.5 cm; Wt 70.0 kg
[2019-02-03] MEDS ORDERED: HYDROmorphONE 1 MG/ML SYG IV STA (08:39)
[2019-02-03] MEDS ORDERED: SOD CHLORIDE 0.9% 1,000 ML IV STA (08:39)
[2019-02-03] MEDS ORDERED: ONDANSETRON 4 MG INJ IV STA (08:39)
[2019-02-03] MEDS ORDERED: KETOROLAC 15 MG INJ IV STA (08:39)
[2019-02-03] MEDS ORDERED: HYDROmorphONE 2 MG/ML SYG IV STA (11:02)
[2019-02-03] MEDS ORDERED: HEPARIN (100 UNITS/ML) 5 ML SYG CATHETER ONE (12:00)
[2019-02-03 12:04] VITALS: BP 124/68; PULSE 84; RESP 20
== END 2019-02-03 12:05 | disposition home or self-care (01) ==
LOC: E/R 08:27
DX: C50.919 Malignant neoplasm of unspecified site of unspecified female breast (principal); K85.90 Acute pancreatitis without necrosis or infection, unspecified; R40.2142 Coma scale, eyes open, spontaneous, at arrival to emergency department; R40.2362 Coma scale, best motor response, obeys commands, at arrival to emergency department
CPT/HCPCS: 36415; 80053; 83690; 84484; 85025; 85610; 96374; 96375; 96376; J1170; J1642; J1885; J2405; J7030; Z7502